=== PATIENT | male | born 1960 | race Caucasian/White ===

== ENCOUNTER → 2016-03-30 | Outpatient (CLI) | payer OTHER ==
--- NOTE | 2016-03-30 11:31 | REP ---
CHEST X-RAY: Two views. HISTORY: Tobacco use. Comparison radiographs are from February 11, 2012. FINDINGS: There are granulomatous calcific residuals in the left infrahilar and left base region unchanged from the 2012 prior study. The lungs are well inflated and otherwise clear. Pleural angles are sharp. Heart size is normal. Pulmonary vasculature is not increased. No bony lesion is seen. IMPRESSION: Old granulomatous changes. No active disease. Signed by Matt Santiago MD 03/30/2016 02:00 P
--- NOTE | 2016-04-01 00:42 | ECGEPIP ---
Stationary ECG Study [facility] Test Date: 2016-03-30 Pat Name: RAHUL MCKAY Department: Room: - Gender: M Card Runner: : 1960 Requested By: Colt José @ [facility] Order Number: [id number] Reading MD: Edward Guerrier Measurements Intervals [place] Rate: 84 P: 74 ID: [id number] QRS: 80 QRSD: 105 T: 76 QT: 360 QTc: 427 Interpretive Statements SINUS RHYTHM Incomplete right bundle branch block No prior tracing Electronically Signed On 04-01-2016 0:42:22 EST by Edward Guerrier
== END ==
LOC: M EKG 09:58
PROVIDERS: ATTEND Orthopaedic Surgery
DX: Z01.810 Encounter for preprocedural cardiovascular examination (principal)

== ENCOUNTER → 2016-06-26 | Outpatient (CLI) | payer OTHER | LOC: M WUC 08:15 | PROVIDERS: ATTEND Surgery | DX: Z85.038 Personal history of other malignant neoplasm of large intestine (principal) ==

== ENCOUNTER → 2016-06-26 | Outpatient (CLI) | payer OTHER ==
[2016-06-26 09:19] LABS: BASO # 0.1 K/mm3 (0.0-0.2); BASO % 0.9 % (0.0-1.0); EOS # 0.1 K/mm3 (0.0-0.50); EOS % 1.7 % (0.0-3.0); LARGE UNSTAINED CELL # 0.1 K/mm3 (0.0-0.4); LARGE UNSTAINED CELL % 1.9 % (0.0-4.0); LYMPH % 44.1 % (24.0-44.0); MEAN CORPUSCULAR HEMOGLOBIN 31.2 pg (27.0-33.0); MEAN CORPUSCULAR HGB CONC 34.6 g/dl (32.0-36.5); MEAN CORPUSCULAR VOLUME 90.2 fl (80.0-96.0); MONO # 0.3 K/mm3 (0.0-0.8); MONO % 4.5 % (0.0-5.0); NEUTROPHILS # 3.2 K/mm3 (1.8-7.7); NEUTROPHILS % 46.9 % (36.0-66.0); PLATELET COUNT, AUTOMATED 292 k/mm3 (150-450); RED CELL DISTRIBUTION WIDTH 13.2 % (11.5-14.5); WHITE BLOOD COUNT 6.8 K/mm3 (4.0-10.0)
[2016-06-26 09:44] LABS: ALBUMIN 3.6 GM/DL (3.2-5.2); ALBUMIN/GLOBULIN RATIO 1.16 (1.00-1.93); ALKALINE PHOSPHATASE 114 U/L (45-117); ALT/SGPT 25 U/L (12-78); ANION GAP 5 MEQ/L (8-16); AST/SGOT 15 U/L (15-37); BILIRUBIN,TOTAL 0.7 MG/DL (0.2-1.0); BLOOD UREA NITROGEN 12 MG/DL (7-18); CALCIUM LEVEL 8.8 MG/DL (8.5-10.1); CARBON DIOXIDE LEVEL 29 MEQ/L (21-32); CHLORIDE LEVEL 104 MEQ/L (98-107); CHOLESTEROL LEVEL 154 MG/DL (<200); CREATININE FOR GFR 0.97 MG/DL (0.70-1.30); GLOMERULAR FILTRATION RATE > 60.0 (>56); GLUCOSE, FASTING 99 MG/DL (70-105); POTASSIUM SERUM 4.6 MEQ/L (3.5-5.1); SODIUM LEVEL 138 MEQ/L (136-145); TOTAL PROTEIN 6.7 GM/DL (6.4-8.2); TRIGLYCERIDES LEVEL 147 MG/DL (<150)
== END ==
LOC: M WUC 08:17
PROVIDERS: ATTEND Nurse Practitioner Family
DX: Z85.030 Personal history of malignant carcinoid tumor of large intestine (principal); E78.5 Hyperlipidemia, unspecified; Z86.73 Personal history of transient ischemic attack (TIA), and cerebral infarction without residual deficits

== ENCOUNTER 2016-11-20 06:38 | Inpatient (IN) | payer OTHER ==
[~2016-11-20] VITALS: Ht 177.8 cm; Wt 93.2 kg
[2016-11-20] MEDS ORDERED: ASPI81CH PO (07:19)
[2016-11-20] MEDS ORDERED: LIPI20TA PO (07:19)
[2016-11-20] MEDS ORDERED: OXYCODONE PO (07:19)
[2016-11-20 07:23] LABS: BASO % 0.2 % (0.0-1.0); EOS # 0.3 K/mm3 (0.0-0.50); EOS % 1.9 % (0.0-3.0); LARGE UNSTAINED CELL # 0.1 K/mm3 (0.0-0.4); LARGE UNSTAINED CELL % 0.9 % (0.0-4.0); LYMPH # 0.8 K/mm3 (1.5-4.5); LYMPH % 5.1 % (24.0-44.0); MEAN CORPUSCULAR HGB CONC 34.2 g/dl (32.0-36.5); MEAN CORPUSCULAR VOLUME 87.8 fl (80.0-96.0); MONO # 0.7 K/mm3 (0.0-0.8); MONO % 5.3 % (0.0-5.0); NEUTROPHILS % 86.6 % (36.0-66.0); PLATELET COUNT, AUTOMATED 200 k/mm3 (150-450); RED CELL DISTRIBUTION WIDTH 13.2 % (11.5-14.5); WHITE BLOOD COUNT 13.9 K/mm3 (4.0-10.0)
[2016-11-20 07:48] LABS: ALBUMIN 3.2 GM/DL (3.2-5.2); ALBUMIN/GLOBULIN RATIO 0.73 (1.00-1.93); ALKALINE PHOSPHATASE 122 U/L (45-117); ALT/SGPT 19 U/L (12-78); AMYLASE 29 U/L (25-115); ANION GAP 9 MEQ/L (8-16); AST/SGOT 11 U/L (15-37); BILIRUBIN,DIRECT 0.9 MG/DL (0.0-0.2); BILIRUBIN,TOTAL 3.1 MG/DL (0.2-1.0); BLOOD UREA NITROGEN 13 MG/DL (7-18); CALCIUM LEVEL 9.1 MG/DL (8.5-10.1); CARBON DIOXIDE LEVEL 25 MEQ/L (21-32); CHLORIDE LEVEL 97 MEQ/L (98-107); CREATININE FOR GFR 1.02 MG/DL (0.70-1.30); GLOMERULAR FILTRATION RATE > 60.0 (>56); GLUCOSE, FASTING 118 MG/DL (70-105); POTASSIUM SERUM 3.8 MEQ/L (3.5-5.1); SODIUM LEVEL 131 MEQ/L (136-145); TOTAL PROTEIN 7.6 GM/DL (6.4-8.2)
[2016-11-20] MEDS ORDERED: ONDANSETRON 4MG/2ML VIAL (J2405) IV ONE (08:00)
[2016-11-20] MEDS ORDERED: HYDROmorphone HCL 1 MG/ML SYRINGE (J1170) IV PRN (08:00)
[2016-11-20] MEDS ORDERED: KETOROLAC 30 MG/ML VIAL (J1885) IV ONE (08:00)
--- NOTE | 2016-11-20 08:37 | REP ---
Abdominal right upper quadrant ultrasound: There is a positive Tatum's sign to transducer pressure. There is no cholelithiasis. The gallbladder wall is mildly thickened measuring up to 4.3 mm. There is no pericholecystic fluid. The finding is nonspecific and could represent gallbladder wall edema or fibrosis. There is no intrahepatic or extrahepatic biliary duct dilatation. The common duct measures 4.6 mm in diameter. The hepatic parenchyma is homogeneous and unremarkable. The the pancreas is obscured by bowel gas. There is no right renal hydronephrosis, calculus, mass or cyst. The right kidney is normal size measuring 11.7 cm craniocaudad length. There is no right upper quadrant ascites. Impression: There is mild gallbladder wall thickening measuring up to 4.3 mm. There is no pericholecystic fluid. There is no cholelithiasis or biliary duct dilatation. The gallbladder wall thickening is nonspecific and could be acute or chronic. Consider radionuclide biliary scan to evaluate for gallbladder dyskinesia. The the study is technically difficult, the patient unable to lie flat . The ultrasound is performed with the patient sitting , erect and semi decubitus. Signed by Arturo Sanchez MD 11/20/2016 08:28 A
[2016-11-20] MEDS ORDERED: GASTROGRAFIN SOLUTION 30ML (Q9963) As Ordered ONE (08:39)
[2016-11-20] MEDS ORDERED: GASTROGRAFIN SOLUTION 30ML (Q9963) PO ONE ×2 (08:50→09:20)
[2016-11-20] MEDS ORDERED: ISOVUE-370 76% 100ML VIAL (Q9967) As Ordered ONE (10:20)
--- NOTE | 2016-11-20 11:40 | REP ---
CT ABDOMEN AND PELVIS WITH ORAL AND IV CONTRAST: CT ABDOMEN AND PELVIS WITH CONTRAST: TECHNIQUE: Axial contrast enhanced images from the lung bases to the pubic symphysis using 100 mL Isovue 370 intravenous contrast material with multiplanar reformations. COMPARISON: 06/15/2016 Visualized lung bases demonstrate calcified granulomas inferiorly on the left. The liver is unremarkable in appearance. The spleen demonstrates a tiny calcified granulomas. There are stable bilateral adrenal nodules. The pancreas is unremarkable. There are a couple of left renal cysts without hydronephrosis. Atherosclerotic calcification are seen of the abdominal aorta without aneurysm. There is no adenopathy. Along the lateral aspect of the proximal duodenum is an oval area of fluid which measures 3.0 x 1.6 cm. There appears to be some degree of thickening of the proximal duodenum. Findings are likely related to peptic ulcer disease. There is adjacent streaky infiltration and inflammation of the surrounding fat. There may be some secondary gallbladder wall thickening due to this inflammatory change. There is no other evidence of free air or free fluid. No other bowel wall thickening is seen. No pelvis mass is seen. The urinary bladder is grossly unremarkable. There is a small left inguinal hernia containing fat. There are mild degenerative changes of the spine. IMPRESSION: Oval area of fluid along the lateral aspect of the proximal duodenum. Proximal duodenum appears somewhat thickened. Adjacent streaky inflammatory changes in the surrounding fat. Findings are likely related to peptic ulcer disease. No free air. There is probable thickening of the gallbladder wall, which is likely secondary to the inflammation from the peptic ulcer disease. Signed by Arturo Gold MD 11/20/2016 01:48 P
[2016-11-20] MEDS ORDERED: OXYC1TAB23 PO (11:45)
[2016-11-20] MEDS ORDERED: ASPI1TAB PO (11:45)
[2016-11-20] MEDS ORDERED: ADVI200T PO (11:46)
[2016-11-20] MEDS ORDERED: MORPHINE 4 MG/ML 1ML SYRINGE IV PRN (12:00)
[2016-11-20] MEDS ORDERED: ONDANSETRON 4MG/2ML VIAL (J2405) IV PRN (12:00)
[2016-11-20] MEDS ORDERED: BISACODYL 10 MG SUPP PR PRN (12:00)
[2016-11-20] MEDS: LR 1,000 ML IV SCH (12:07)
[2016-11-20] MEDS: PANTOPRAZOLE 40MG INJ (PROTONIX) (C9113) IV SCH ×2 (12:15→20:28)
[2016-11-20 13:30] VITALS: BP 150/78
[2016-11-20] MEDS: SUCRALFATE 1 GM TAB PO SCH ×3 (13:37→20:28)
[2016-11-20] MEDS: PIPERACILLIN/TAZOBACTAM SOD 3.375 GM in D5W MINI-BAG PLUS 50 ML IV SCH ×2 (13:37→18:53)
[2016-11-20] MEDS ORDERED: FLUCONAZOLE 400 MG in APPROPRIATE DILUENT 1 EA IV ONE (14:00)
--- NOTE | 2016-11-20 14:04 | HPE ---
DATE: 11/20/2016 CHIEF COMPLAINT: Abdominal pain. HISTORY OF PRESENT ILLNESS: The patient 56-year-old male presented emergency room with chief complaint of epigastric and upper abdominal pains that started over the weekend. He went to [facility], they diagnosed in with biliary colic and advised to followup with Dr. Mendoza in the office. However, he is unable to get an appointment anytime soon so he his pains got progressively worse last evening, he came back into the emergency room here for evaluation again. His pain has been fairly constant since Saturday, it was slightly improved Saturday, but then got worse again yesterday. He had some nausea, one episode of emesis and a fever this morning of over 101, other than that no changes in no diarrhea or constipation. No previous pain like this in the past. Denies any history of acid reflux or heartburn, but he does take a lot of ibuprofen. He smokes a pack a day. Occasional marijuana. Lots of spicy foods. In the ER he had an ultrasound done which showed dilated gallbladder as well as a hyperbilirubinemia, all the rest the LFTs were normal and the common bile duct was normal on the ultrasound as well. Because of that with his pain being as severe as it was, I had them order a CT of the abdomen which confirmed that there was also a duodenitis with inflammation and thickening of the first portion of duodenum with a 1 x 3 cm fluid collection adjacent to the duodenum, but no signs of any free air. PAST MEDICAL HISTORY: Colon cancer, gastroesophageal reflux disease (GERD), hypertension. PAST SURGICAL HISTORY: Right knee surgery, left knee surgery and a colon resection for colon cancer. EGD and colonoscopy 3 years ago. ALLERGIES: None. HOME MEDICATIONS: Please see med rec. REVIEW OF SYSTEMS: Per above, positives in HPI. SOCIAL HISTORY: He smokes a pack a day. He drinks alcohol socially. Denies any drug abuse other than the marijuana. REVIEW OF SYSTEMS: Pertinent positives and negative stated in the HPI. PHYSICAL EXAMINATION: General: Alert and oriented times three. In no acute stress. Vitals: Temperature 98.7, pulse 89, respirations 18, blood pressure 122/65, pulse ox 98% on room air. HEENT: Pupils equal round react to light accommodation. Heart: S1-S2 regular rate and rhythm. Lungs: Clear to auscultation bilaterally. Abdomen: Soft, tender to palpation epigastric periumbilically in the entire right side the abdomen with localized guarding and peritonitis. Extremities: No clubbing, cyanosis or edema. LABORATORY DATA: White count 13.9, hemoglobin 15.4, platelets 200, sodium 131, creatinine 1.02, total bilirubin 3.1, direct bilirubin 0.9, AST 11, alk phosphatase 1.2, lipase 63, amylase 29. IMAGING: Ultrasound of the abdomen shows a mildly gallbladder wall thickening up to 4.3 mm. No pericholecystic fluid. No cholelithiasis or biliary ductal dilatation. CT abdomen and pelvis shows atherosclerotic calcifications seen in the abdominal aorta without aneurysm along the lateral aspect of proximal duodenum is an oval area of fluid measuring 3 x 1.6 cm. There is some thickening of the proximal duodenum. There is adjacent streaky infiltration and inflammation of surrounding fat. ASSESSMENT/PLAN: The patient is a 56-year-old male history of tobacco abuse and colon cancer who presents with epigastric abdominal pain for the past [address] scan confirms inflammation and swelling with fluid collection adjacent to the duodenum likely related to a duodenal ulcer that has walled itself off and this is resulting in secondary inflammation of the gallbladder. Recommendation at this time is to treat with bowel rest, nothing by mouth, IV fluids antibiotics, and avoid placement of NG tube at this time. However, if he develops any nausea or vomiting then we will place one. He had ice chips and sips of water. Protonix twice a day IV. Carafate four times a day. Antibiotics and also a dose of antifungals due to the possible duodenal perforation. We will keep on this treatment for 48 hours, if he is showing signs of improvement then we will advance him to a liquid diet and discharge him home. However, if he shows any signs of decline with increasing abdominal pain, increasing fevers, or white count and then we will repeat x-ray. If it shows free air, then he will need an abdominal exploration for possible repair of an ulcer. I explained these findings in detail with him. We will plan on doing an elective upper endoscopy about 4 weeks from when he leaves the hospital to make sure that any of this inflammation and ulcer has resolved. I also talked to him about the causes of ulcers including his tobacco, alcohol, caffeine an [id number] medication usage, he was unaware that all these things cause problems and he will do his best to cut back on everything, his only concern is going to be the tobacco because he has tried to quit many times over the last 17 years and has been unsuccessful. Thank you for the consult.
[2016-11-20] MEDS: KETOROLAC 30 MG/ML VIAL (J1885) IV PRN ×2 (14:06→20:42)
[2016-11-20] MEDS: HEPARIN SOD (PORCINE) 5000 UNITS/ML VIAL SC SCH ×2 (15:30→20:42)
[2016-11-20 16:00] VITALS: BP 114/63
[2016-11-20] MEDS: NICOTINE 21MG/24HR 1 EA TRANSDERMAL TD SCH (17:02)
[2016-11-20 20:00] VITALS: BP 118/67
[2016-11-20] MEDS: ALBUTEROL 90 MCG/ACT 8GM HFA INHALER INH PRN (21:41)
[2016-11-21] VITALS: BP 103/58
[2016-11-21] MEDS: PIPERACILLIN/TAZOBACTAM SOD 3.375 GM in D5W MINI-BAG PLUS 50 ML IV SCH ×3 (00:33→12:51)
[2016-11-21] MEDS: KETOROLAC 30 MG/ML VIAL (J1885) IV PRN ×2 (02:37→08:33)
[2016-11-21] MEDS: LR 1,000 ML IV SCH ×2 (02:46→07:00)
[2016-11-21 04:00] VITALS: BP 111/61
[2016-11-21] MEDS: HEPARIN SOD (PORCINE) 5000 UNITS/ML VIAL SC SCH ×3 (06:52→21:43)
[2016-11-21 07:23] LABS: MEAN CORPUSCULAR HEMOGLOBIN 30.8 pg (27.0-33.0); MEAN CORPUSCULAR HGB CONC 35.2 g/dl (32.0-36.5); MEAN CORPUSCULAR VOLUME 87.6 fl (80.0-96.0); RED CELL DISTRIBUTION WIDTH 13.1 % (11.5-14.5); WHITE BLOOD COUNT 8.2 K/mm3 (4.0-10.0)
[2016-11-21 07:42] LABS: ALBUMIN 2.4 GM/DL (3.2-5.2); ALBUMIN/GLOBULIN RATIO 0.73 (1.00-1.93); ALKALINE PHOSPHATASE 121 U/L (45-117); ALT/SGPT 18 U/L (12-78); ANION GAP 7 MEQ/L (8-16); AST/SGOT 15 U/L (15-37); BILIRUBIN,TOTAL 1.9 MG/DL (0.2-1.0); BLOOD UREA NITROGEN 24 MG/DL (7-18); CALCIUM LEVEL 8.2 MG/DL (8.5-10.1); CARBON DIOXIDE LEVEL 29 MEQ/L (21-32); CHLORIDE LEVEL 98 MEQ/L (98-107); CREATININE FOR GFR 1.18 MG/DL (0.70-1.30); GLOMERULAR FILTRATION RATE > 60.0 (>56); GLUCOSE, FASTING 90 MG/DL (70-105); MAGNESIUM LEVEL 2.4 MG/DL (1.8-2.4); POTASSIUM SERUM 3.8 MEQ/L (3.5-5.1); SODIUM LEVEL 134 MEQ/L (136-145); TOTAL PROTEIN 5.7 GM/DL (6.4-8.2)
[2016-11-21] MEDS ORDERED: NS 1,000 ML IV ONE (07:45)
[2016-11-21 08:00] VITALS: BP 133/73
[2016-11-21] MEDS: PANTOPRAZOLE 40MG INJ (PROTONIX) (C9113) IV SCH ×2 (08:19→20:28)
[2016-11-21] MEDS: DICYCLOMINE 10 MG CAP PO SCH ×3 (08:19→20:28)
[2016-11-21] MEDS: SUCRALFATE 1 GM TAB PO SCH ×4 (08:19→20:28)
[2016-11-21] MEDS: NICOTINE 21MG/24HR 1 EA TRANSDERMAL TD SCH (08:20)
[2016-11-21] MEDS: KCL 10MEQ IN D5/0.45NS 1000ML 1,000 ML IV SCH ×3 (08:20→22:51)
[2016-11-21] MEDS: metroNIDAZOLE 500 MG in APPROPRIATE DILUENT 1 EA IV SCH ×2 (13:40→21:04)
[2016-11-21] MEDS: ALBUTEROL 90 MCG/ACT 8GM HFA INHALER INH PRN ×2 (15:28→22:49)
[2016-11-21 16:00] VITALS: BP 118/58
[2016-11-21] MEDS: VANCOMYCIN ORAL SOL 250MG/5ML ORAL SYRINGE PO SCH ×2 (16:42→20:28)
[2016-11-21] MEDS: ACETAMINOPHEN TAB 650MG DOSE (2X325MG) PO PRN ×2 (16:43→21:43)
[2016-11-21 20:00] VITALS: BP 118/68
[2016-11-22] MEDS: HEPARIN SOD (PORCINE) 5000 UNITS/ML VIAL SC SCH ×3 (05:37→22:06)
[2016-11-22] MEDS: metroNIDAZOLE 500 MG in APPROPRIATE DILUENT 1 EA IV SCH (05:38)
[2016-11-22] MEDS: KCL 10MEQ IN D5/0.45NS 1000ML 1,000 ML IV SCH ×3 (05:38→20:22)
[2016-11-22 06:00] VITALS: BP 120/64
[2016-11-22 07:22] LABS: MEAN CORPUSCULAR HGB CONC 35.2 g/dl (32.0-36.5); MEAN CORPUSCULAR VOLUME 88.1 fl (80.0-96.0); RED CELL DISTRIBUTION WIDTH 13.3 % (11.5-14.5); WHITE BLOOD COUNT 8.1 K/mm3 (4.0-10.0)
[2016-11-22 07:28] LABS: ALBUMIN 2.1 GM/DL (3.2-5.2); ALBUMIN/GLOBULIN RATIO 0.54 (1.00-1.93); ALKALINE PHOSPHATASE 179 U/L (45-117); ALT/SGPT 18 U/L (12-78); ANION GAP 7 MEQ/L (8-16); AST/SGOT 23 U/L (15-37); BILIRUBIN,TOTAL 1.3 MG/DL (0.2-1.0); BLOOD UREA NITROGEN 17 MG/DL (7-18); CALCIUM LEVEL 8.5 MG/DL (8.5-10.1); CARBON DIOXIDE LEVEL 27 MEQ/L (21-32); CHLORIDE LEVEL 105 MEQ/L (98-107); CREATININE FOR GFR 0.96 MG/DL (0.70-1.30); GLOMERULAR FILTRATION RATE > 60.0 (>56); GLUCOSE, FASTING 92 MG/DL (70-105); MAGNESIUM LEVEL 2.3 MG/DL (1.8-2.4); POTASSIUM SERUM 3.8 MEQ/L (3.5-5.1); SODIUM LEVEL 139 MEQ/L (136-145)
[2016-11-22 08:30] VITALS: BP 118/78
[2016-11-22] MEDS: VANCOMYCIN ORAL SOL 250MG/5ML ORAL SYRINGE PO SCH (09:00)
[2016-11-22] MEDS: SUCRALFATE 1 GM TAB PO SCH ×4 (09:00→20:21)
[2016-11-22] MEDS: PIPERACILLIN/TAZOBACTAM SOD 3.375 GM in D5W MINI-BAG PLUS 50 ML IV SCH ×3 (09:00→20:21)
[2016-11-22] MEDS: DICYCLOMINE 10 MG CAP PO SCH ×3 (09:00→20:21)
[2016-11-22] MEDS: PANTOPRAZOLE 40MG INJ (PROTONIX) (C9113) IV SCH ×2 (09:00→20:21)
[2016-11-22] MEDS: NICOTINE 21MG/24HR 1 EA TRANSDERMAL TD SCH (09:01)
[2016-11-22 16:17] VITALS: BP 135/70
[2016-11-22 20:00] VITALS: BP 140/88
[2016-11-23] VITALS: BP 121/61
[2016-11-23] MEDS: PIPERACILLIN/TAZOBACTAM SOD 3.375 GM in D5W MINI-BAG PLUS 50 ML IV SCH ×4 (02:00→20:07)
[2016-11-23] MEDS: KCL 10MEQ IN D5/0.45NS 1000ML 1,000 ML IV SCH ×4 (05:48→19:45)
[2016-11-23] MEDS: HEPARIN SOD (PORCINE) 5000 UNITS/ML VIAL SC SCH ×3 (05:52→21:17)
[2016-11-23 07:06] LABS: MEAN CORPUSCULAR HGB CONC 34.9 g/dl (32.0-36.5); MEAN CORPUSCULAR VOLUME 88.8 fl (80.0-96.0); RED CELL DISTRIBUTION WIDTH 13.6 % (11.5-14.5); WHITE BLOOD COUNT 10.3 K/mm3 (4.0-10.0)
[2016-11-23 07:31] LABS: ALBUMIN 2.2 GM/DL (3.2-5.2); ALBUMIN/GLOBULIN RATIO 0.54 (1.00-1.93); ALKALINE PHOSPHATASE 197 U/L (45-117); ALT/SGPT 22 U/L (12-78); ANION GAP 9 MEQ/L (8-16); AST/SGOT 29 U/L (15-37); BLOOD UREA NITROGEN 10 MG/DL (7-18); CALCIUM LEVEL 8.6 MG/DL (8.5-10.1); CARBON DIOXIDE LEVEL 25 MEQ/L (21-32); CHLORIDE LEVEL 106 MEQ/L (98-107); CREATININE FOR GFR 0.88 MG/DL (0.70-1.30); GLOMERULAR FILTRATION RATE > 60.0 (>56); GLUCOSE, FASTING 95 MG/DL (70-105); MAGNESIUM LEVEL 2.3 MG/DL (1.8-2.4); POTASSIUM SERUM 3.4 MEQ/L (3.5-5.1); SODIUM LEVEL 140 MEQ/L (136-145); TOTAL PROTEIN 6.3 GM/DL (6.4-8.2)
[2016-11-23 08:00] VITALS: BP 136/83
[2016-11-23] MEDS ORDERED: GASTROGRAFIN SOLUTION 30ML PO ONE (08:20)
[2016-11-23] MEDS ORDERED: GASTROGRAFIN SOLUTION 30ML (Q9963) PO ONE (08:50)
[2016-11-23] MEDS ORDERED: ISOVUE-370 76% 100ML VIAL (Q9967) As Ordered ONE (10:05)
[2016-11-23] MEDS: PANTOPRAZOLE 40MG INJ (PROTONIX) (C9113) IV SCH ×2 (10:27→20:08)
[2016-11-23] MEDS: SUCRALFATE 1 GM TAB PO SCH ×4 (10:27→20:08)
[2016-11-23] MEDS: NICOTINE 21MG/24HR 1 EA TRANSDERMAL TD SCH (10:27)
[2016-11-23] MEDS: DICYCLOMINE 10 MG CAP PO SCH ×3 (10:31→20:07)
--- NOTE | 2016-11-23 10:42 | REP ---
CT of the abdomen and pelvis with IV and oral contrast: Comparison is 11/20/2016. The previously identified focal fluid collection lateral to the descending portion of the duodenum is again identified and has increased in size and is interposed between the ascending portion of the duodenum and gallbladder today measuring 3.2 by 2.2 cm (previously 3.0 x 1.6 cm). Mild thickening of the adjacent gallbladder wall is again identified, as previously. There is no free intraperitoneal air. There is no peripancreatic inflammation or fluid. The visualized lung coburn are unremarkable. There are no pleural effusions. The hepatic parenchyma is homogeneous and unremarkable. Spleen is normal size. There are splenic calcified granulomas. I suspect there are bilateral adrenal nodules, not significantly changed from a prior study of 08/27/2014. There is a parapelvic cyst in the left kidney, unchanged. There is a small renal cortical cyst in the left kidney, not significantly changed. There is no bowel distension or obstruction. There is no ascites. The abdominal aorta is unremarkable. Pelvis: The pelvic bowel loops are unremarkable. I suspect the the patient has a right hemicolectomy. There is no adenopathy or ascites. The bladder is unremarkable. There is wall thickening of the sigmoid colon. This is nonspecific and could be artifact from under distension or could be evidence for colitis. Impression: There is a focal fluid collection interposed between the gallbladder and lateral wall of the duodenum. This has increased in size. Mild gallbladder wall thickening is again identified, unchanged. There is mild induration of the mesenteric fat in the adjacent to this fluid collection. There is no peripancreatic fluid or inflammation. There are findings compatible with colitis of the sigmoid colon versus artifact from under distension. No ascites or adenopathy. No pneumoperitoneum. There are other chronic stable findings as described. Signed by Arturo Sanchez MD 11/23/2016 10:34 A
[2016-11-23] MEDS ORDERED: LIDOCAINE 1% MDV 20ML VIAL As Ordered ONE (12:22)
[2016-11-23] MEDS ORDERED: ISOVUE-300 61% 50ML VIAL (Q9967) As Ordered ONE (12:34)
--- NOTE | 2016-11-23 15:11 | REP ---
ULTRASOUND-GUIDED ABDOMINAL ABSCESS DRAIN: The procedure was performed under the direct supervision of Dr. Gold. The patient has a history of abdominal abscess seen on the previous CT scan performed earlier today. The risks and benefits of the procedure were explained to the patient and informed consent was obtained. The abdominal abscess was localized using ultrasound guidance. The skin was prepped and draped in a sterile fashion. 1% Xylocaine was used as a local anesthetic. Using ultrasound guidance, a 10-Syrian Skater APDL catheter was inserted using trocar technique. 35 mL of brown/green fluid was withdrawn and sent to the lab. The abscess cavity was flushed with three 10 mL aliquots of sterile saline. 20 mL of a solution containing 5 mL of sterile saline and 10 mL of Isovue 300 was injected. There was no evidence of communication with the bowel. The cavity was then flushed with two 10 mL aliquots of sterile saline. The catheter was affixed to the skin and a sterile dressing was applied. The catheter was connected to a gravity drainage bag. The patient tolerated the procedure well and there no immediate complications. 0.3 minutes of fluoroscopy time was utilized with this procedure. Reviewed by BRITTANY Roman 11/23/2016 04:06 PEdited and Signed by Arturo Gold MD 11/23/2016 07:21 P
[2016-11-23 15:19] VITALS: BP 140/81
[2016-11-23 20:00] VITALS: BP 121/74
[2016-11-24] VITALS: BP 115/74
[2016-11-24 04:00] VITALS: BP 135/79
[2016-11-24] MEDS: HEPARIN SOD (PORCINE) 5000 UNITS/ML VIAL SC SCH (05:03)
[2016-11-24 06:47] LABS: MEAN CORPUSCULAR HEMOGLOBIN 30.4 pg (27.0-33.0); MEAN CORPUSCULAR HGB CONC 34.5 g/dl (32.0-36.5); MEAN CORPUSCULAR VOLUME 88.1 fl (80.0-96.0); RED CELL DISTRIBUTION WIDTH 13.6 % (11.5-14.5)
[2016-11-24 07:13] LABS: ALBUMIN 2.3 GM/DL (3.2-5.2); ALKALINE PHOSPHATASE 204 U/L (45-117); ALT/SGPT 39 U/L (12-78); ANION GAP 7 MEQ/L (8-16); AST/SGOT 57 U/L (15-37); BILIRUBIN,TOTAL 0.7 MG/DL (0.2-1.0); BLOOD UREA NITROGEN 10 MG/DL (7-18); CALCIUM LEVEL 8.4 MG/DL (8.5-10.1); CARBON DIOXIDE LEVEL 29 MEQ/L (21-32); CHLORIDE LEVEL 106 MEQ/L (98-107); CREATININE FOR GFR 0.76 MG/DL (0.70-1.30); GLOMERULAR FILTRATION RATE > 60.0 (>56); GLUCOSE, FASTING 90 MG/DL (70-105); MAGNESIUM LEVEL 2.3 MG/DL (1.8-2.4); POTASSIUM SERUM 3.8 MEQ/L (3.5-5.1); SODIUM LEVEL 142 MEQ/L (136-145); TOTAL PROTEIN 5.6 GM/DL (6.4-8.2)
[2016-11-24 08:00] VITALS: BP 139/80
[2016-11-24] MEDS: SUCRALFATE 1 GM TAB PO SCH (08:09)
[2016-11-24] MEDS: DICYCLOMINE 10 MG CAP PO SCH (08:09)
[2016-11-24] MEDS: NICOTINE 21MG/24HR 1 EA TRANSDERMAL TD SCH (08:10)
[2016-11-24] MEDS ORDERED: OMEPRAZOLE 20 MG CAP PO SCH (09:00)
[2016-11-24] MEDS ORDERED: AUGMENTIN 500 MG TAB PO SCH (09:00)
[2016-11-24] MEDS ORDERED: AMOX500T2 PO (10:32)
[2016-11-24] MEDS ORDERED: OMEP20CA3 PO (10:32)
--- NOTE | 2016-12-14 15:38 | DSES ---
DATE OF ADMISSION: 11/20/2016 DATE OF DISCHARGE: 11/24/2016 ADMISSION DIAGNOSIS: Likely perforated duodenal ulcer. DISCHARGE DIAGNOSIS: Likely perforated duodenal ulcer. HOSPITAL COURSE: The patient is a 56-year-old male who presented to the emergency room on 11/20/2016, with epigastric abdominal pain. I was called to evaluate for possible cholecystitis since he had elevated liver function tests (LFTs) as well as some gallbladder wall thickening. However, his history was not suspicious for gallbladder disease, it was more suspicious for duodenal inflammation and possible ulcer so a CT scan was obtained which confirmed that there was duodenal inflammation as well as a 3 x 1.6 cm fluid collection adjacent to the duodenum. He was then treated as a contained perforation of a duodenal ulcer, was kept nothing by mouth on IV fluids and antibiotics as well as a dose of antifungals. After the first couple of days, his white count was improving but his LFTs were continuing to get worse. Therefore a repeat CT scan was obtained on 11/23/2016, which showed that the fluid collection was still there. Interventional radiology was consulted. I spoke with Dr. Gold who felt that he was able to drain it, so on Saturday11/23/2016, he had an ultrasound-guided drain placed which confirmed a little bile stained fluid collection. The drain was left in place. He was started on a diet without any signs of increase in drainage from the collection. He was then discharged home the next morning, 11/24/2016, with the drain in place to followup in our office a couple of days later. No problems with any pains after 11/23/2016. No fevers or chills. No problems with diarrhea or constipation. He was discharged home the morning of 11/24/2016, on a soft diet, and advised to call if there was any changes in the output from the drain and he was given our office number to come back in on Saturday to have the drain removed.
== END 2016-11-24 11:40 | disposition home or self-care (01) | DRG 382 ==
LOC: M ED 06:38 → M ED INP 11:56 → M PED 13:28
PROVIDERS: ADMIT Surgery; ATTEND Surgery
PROC: 0W9G30Z Drainage of Peritoneal Cavity with Drainage Device, Percutaneous Approach (ICD-10-PCS; principal; 2016-11-23)
DX: K26.5 Chronic or unspecified duodenal ulcer with perforation (principal); K21.9 Gastro-esophageal reflux disease without esophagitis; I10 Essential (primary) hypertension; Z85.038 Personal history of other malignant neoplasm of large intestine

== ENCOUNTER 2017-01-30 07:51 | Day surgery (SDC) | payer OTHER ==
[~2017-01-30] VITALS: Ht 177.8 cm; Wt 90.7 kg
[~2017-01-30 07:51] MED LIST: ADVI200T PO; AMOX500T2 PO; ASPI1TAB PO; ASPI81CH PO; LIPI20TA PO; OMEP20CA3 PO; OXYC1TAB23 PO; OXYCODONE PO
[2017-01-30] MEDS ORDERED: fentaNYL 100 MCG/2 ML INJECTION (J3010) As Ordered ONE (08:37)
[2017-01-30] MEDS ORDERED: NS 1,000 ML IV ONE (08:45)
[2017-01-30] MEDS ORDERED: PROPOFOL 200 MG/20 ML VIAL As Ordered ONE (09:01)
[2017-01-30] MEDS ORDERED: LIDOCAINE 2% INJ 100 MG/5 ML SDV (FOR ANES.) As Ordered ONE (09:01)
--- NOTE | 2017-01-30 09:07 | ROOR ---
Patient Name: Jacky Pate Procedure Date: 01/30/2017 8:50 AM Date of : 1960 Age: 56 Room: [facility] Gender: Male Note Status: Finalized Procedure: Upper GI endoscopy Indications: Follow-up of acute duodenal ulcer Providers: DO Mona Alejandre MD: Lynn Sanon Requesting Provider: Medicines: Propofol per Anesthesia Complications: No immediate complications. Procedure: Pre-Anesthesia Assessment: - Prior to the procedure, a History and Physical was performed, and patient medications and allergies were reviewed. The patient is competent. The risks and benefits of the procedure and the sedation options and risks were discussed with the patient. All questions were answered and informed consent was obtained. Patient identification and proposed procedure were verified by the physician, the nurse, the anesthesiologist and the machine shop repair technician in the endoscopy suite. Mental Status Examination: alert and oriented. Airway Examination: normal oropharyngeal airway and neck mobility. Respiratory Examination: clear to auscultation. CV Examination: normal. Prophylactic Antibiotics: The patient does not require prophylactic antibiotics. Prior Anticoagulants: The patient has taken no previous anticoagulant or antiplatelet agents. ASA Grade Assessment: II - A patient with mild systemic disease. After reviewing the risks and benefits, the patient was deemed in satisfactory condition to undergo the procedure. The anesthesia plan was to use monitored anesthesia care (MAC). Immediately prior to administration of medications, the patient was re-assessed for adequacy to receive sedatives. The heart rate, respiratory rate, oxygen saturations, blood pressure, adequacy of pulmonary ventilation, and response to care were monitored throughout the procedure. The physical status of the patient was re-assessed after the procedure. The Endoscope was introduced through the mouth, and advanced to the third part of duodenum. The upper GI endoscopy was accomplished without difficulty. The patient tolerated the procedure well. Findings: Scattered mild inflammation characterized by congestion (edema) and erythema was found in the stomach. Estimated blood loss: none. The examined duodenum was normal. Biopsies were taken with a cold forceps for Helicobacter pylori testing. Estimated blood loss was minimal. The Z-line was irregular. Biopsies were taken with a cold forceps for histology. Estimated blood loss was minimal. The exam was otherwise without abnormality. Impression: - Gastritis. - Normal examined duodenum. Biopsied. - Z-line irregular. Biopsied. - The examination was otherwise normal. Recommendation: - Patient has a contact number available for emergencies. The signs and symptoms of potential delayed complications were discussed with the patient. Return to normal activities tomorrow. Written discharge instructions were provided to the patient. - Telephone my office for pathology results in 1 week. Arturo Vargas DO 01/30/2017 9:06:37 AM This report has been signed electronically. Number of Addenda: 0 Note Initiated On: 01/30/2017 8:50 AM Estimated Blood Loss: Estimated blood loss was minimal.
[2017-01-30 09:30] VITALS: BP 144/92
== END 2017-01-30 09:46 | disposition home or self-care (01) ==
LOC: M OPP 07:51
PROVIDERS: ATTEND Surgery
DX: K26.1 Acute duodenal ulcer with perforation (principal); K22.8 Other specified diseases of esophagus; K29.70 Gastritis, unspecified, without bleeding; I10 Essential (primary) hypertension; E78.5 Hyperlipidemia, unspecified; Z85.038 Personal history of other malignant neoplasm of large intestine; K59.00 Constipation, unspecified; R12 Heartburn; K21.9 Gastro-esophageal reflux disease without esophagitis; M19.90 Unspecified osteoarthritis, unspecified site; Z86.73 Personal history of transient ischemic attack (TIA), and cerebral infarction without residual deficits; F17.210 Nicotine dependence, cigarettes, uncomplicated; Z79.899 Other long term (current) drug therapy; Z79.82 Long term (current) use of aspirin
CPT/HCPCS: 43239; 88305; J3010

== ENCOUNTER → 2017-04-17 | Outpatient (CLI) | payer OTHER ==
[2017-04-19 11:47] LABS: CARCINOEMBRYONIC ANTIGEN 3.8 NG/ML (<2.5)
== END ==
LOC: M WUC 09:22
DX: Z85.038 Personal history of other malignant neoplasm of large intestine (principal)

== ENCOUNTER → 2017-04-17 | Outpatient (CLI) | payer OTHER ==
[2017-04-17 13:25] LABS: HEMATOCRIT 46.8 % (42.0-52.0); HEMOGLOBIN 15.6 g/dl (14.0-18.0); MEAN CORPUSCULAR HEMOGLOBIN 29.2 pg (27.0-33.0); MEAN CORPUSCULAR HGB CONC 33.3 g/dl (32.0-36.5); MEAN CORPUSCULAR VOLUME 87.5 fl (80.0-96.0); PLATELET COUNT, AUTOMATED 373 10^3/uL (150-450); RED BLOOD COUNT 5.35 10^6/uL (4.30-6.10); RED CELL DISTRIBUTION WIDTH 13.1 % (11.5-14.5); WHITE BLOOD COUNT 10.6 10^3/uL (4.0-10.0)
[2017-04-17 14:08] LABS: ALBUMIN 3.7 GM/DL (3.2-5.2); ALBUMIN/GLOBULIN RATIO 1.09 (1.00-1.93); ALKALINE PHOSPHATASE 129 U/L (45-117); ALT/SGPT 19 U/L (12-78); ANION GAP 5 MEQ/L (8-16); AST/SGOT 11 U/L (7-37); BILIRUBIN,TOTAL 0.6 MG/DL (0.2-1.0); BLOOD UREA NITROGEN 11 MG/DL (7-18); CALCIUM LEVEL 9.4 MG/DL (8.5-10.1); CARBON DIOXIDE LEVEL 30 MEQ/L (21-32); CHLORIDE LEVEL 104 MEQ/L (98-107); CHOLESTEROL LEVEL 154 MG/DL (<200); CREATININE FOR GFR 0.92 MG/DL (0.70-1.30); GLOMERULAR FILTRATION RATE > 60.0 (>56); GLUCOSE, FASTING 101 MG/DL (70-100); HDL CHOLESTEROL 40 MG/DL (>40); NON-HDL-C 114 MG/DL; POTASSIUM SERUM 4.9 MEQ/L (3.5-5.1); PROSTATIC SPECIFIC AG MONITOR 0.73 NG/ML (< 4.0); SODIUM LEVEL 139 MEQ/L (136-145); TOTAL PROTEIN 7.1 GM/DL (6.4-8.2); TRIGLYCERIDES LEVEL 150 MG/DL (<150)
== END ==
LOC: M WUC 09:18
DX: Z12.5 Encounter for screening for malignant neoplasm of prostate (principal)

== ENCOUNTER → 2017-11-22 | Outpatient (REF) | payer OTHER ==
[2017-11-22 13:42] LABS: ALBUMIN 3.6 GM/DL (3.2-5.2); ALKALINE PHOSPHATASE 114 U/L (45-117); ALT/SGPT 22 U/L (12-78); ANION GAP 7 MEQ/L (8-16); AST/SGOT 18 U/L (7-37); BILIRUBIN,TOTAL 0.9 MG/DL (0.2-1.0); BLOOD UREA NITROGEN 16 MG/DL (7-18); CALCIUM LEVEL 8.8 MG/DL (8.5-10.1); CARBON DIOXIDE LEVEL 26 MEQ/L (21-32); CHLORIDE LEVEL 107 MEQ/L (98-107); CHOLESTEROL LEVEL 209 MG/DL (<200); CHOLESTEROL RISK RATIO 5.971 (<5); CREATININE FOR GFR 1.01 MG/DL (0.70-1.30); GLOMERULAR FILTRATION RATE > 60.0 (>56); GLUCOSE, FASTING 95 MG/DL (70-100); HDL CHOLESTEROL 35 MG/DL (>40); LDL CHOLESTEROL 146 MG/DL (<100); NON-HDL-C 174 MG/DL; POTASSIUM SERUM 5.1 MEQ/L (3.5-5.1); SODIUM LEVEL 140 MEQ/L (136-145); TOTAL PROTEIN 7.2 GM/DL (6.4-8.2); TRIGLYCERIDES LEVEL 140 MG/DL (<150)
== END ==
LOC: M LAB REF 12:28
DX: E78.5 Hyperlipidemia, unspecified (principal)

== ENCOUNTER → 2017-12-02 | Outpatient (CLI) | payer OTHER | LOC: M RAD 15:47 | DX: R05 Cough (principal); Z85.038 Personal history of other malignant neoplasm of large intestine | CPT/HCPCS: 71250 ==

== ENCOUNTER → 2017-12-06 | Outpatient (REF) | payer OTHER ==
[2017-12-06 18:31] LABS: BASO # 0.1 10^3/uL (0.0-0.2); BASO % 0.9 % (0.0-1.0); EOS # 0.2 10^3/uL (0.0-0.50); EOS % 2.5 % (0.0-3.0); HEMATOCRIT 46.5 % (42.0-52.0); HEMOGLOBIN 15.8 g/dl (13.5-17.5); IMMATURE GRANULOCYTE % 0.1 % (0-3.0); LYMPH # 3.8 10^3/uL (1.5-4.5); LYMPH % 47.1 % (24.0-44.0); MEAN CORPUSCULAR HEMOGLOBIN 29.9 pg (27.0-33.0); MEAN CORPUSCULAR VOLUME 87.9 fl (80.0-96.0); MONO # 0.5 10^3/uL (0.0-0.8); MONO % 6.1 % (0.0-5.0); NEUTROPHILS # 3.5 10^3/uL (1.8-7.7); NEUTROPHILS % 43.3 % (36.0-66.0); PLATELET COUNT, AUTOMATED 313 10^3/uL (150-450); RED BLOOD COUNT 5.29 10^6/uL (4.30-6.10); RED CELL DISTRIBUTION WIDTH 13.2 % (11.5-14.5); WHITE BLOOD COUNT 8.1 10^3/uL (4.0-10.0)
[2017-12-06 19:03] LABS: PROSTATIC SPECIFIC AG MONITOR 0.39 NG/ML (< 4.0)
[2017-12-06 19:12] LABS: TESTOSTERONE 212 NG/DL (241-827)
== END ==
LOC: M LAB REF 17:30
DX: N52.01 Erectile dysfunction due to arterial insufficiency (principal)

== ENCOUNTER → 2017-12-11 | Outpatient (REF) | payer OTHER ==
[2017-12-11 14:26] LABS: TESTOSTERONE 231 NG/DL (241-827)
== END ==
LOC: M LAB REF 13:16
DX: R79.89 Other specified abnormal findings of blood chemistry (principal)
CPT/HCPCS: 84403

== ENCOUNTER 2018-02-13 09:28 | Day surgery (SDC) | payer OTHER ==
[~2018-02-13] VITALS: Ht 179.1 cm; Wt 91.2 kg
[~2018-02-13 09:28] MED LIST changes: +NS 1,000 ML IV ONE; +PROAAER10 INH
[2018-02-13] MEDS ORDERED: LIDOCAINE 2% INJ 100 MG/5 ML SDV (FOR ANES.) As Ordered ONE (10:19)
[2018-02-13] MEDS ORDERED: PROPOFOL 200 MG/20 ML VIAL As Ordered ONE (10:19)
--- NOTE | 2018-02-13 10:43 | ROOR ---
Patient Name: Jacky Pate Procedure Date: 02/13/2018 10:15 AM Date of : 1960 Age: 57 Room: [facility] Gender: Male Note Status: Finalized Procedure: Colonoscopy Indications: High risk colon cancer surveillance: Personal history of colon cancer Providers: Carter Mendoza Jr, MD Referring MD: Sascha ADKINS MD Requesting Provider: Medicines: Propofol per Anesthesia Complications: No immediate complications. Procedure: Pre-Anesthesia Assessment: - Prior to the procedure, a History and Physical was performed, and patient medications and allergies were reviewed. The patient is competent. The risks and benefits of the procedure and the sedation options and risks were discussed with the patient. All questions were answered and informed consent was obtained. Patient identification and proposed procedure were verified by the physician and the nurse in the pre-procedure area and in the procedure room. Mental Status Examination: alert and oriented. Airway Examination: normal oropharyngeal airway and neck mobility. Respiratory Examination: clear to auscultation. CV Examination: normal. ASA Grade Assessment: II - A patient with mild systemic disease. After reviewing the risks and benefits, the patient was deemed in satisfactory condition to undergo the procedure. The anesthesia plan was to use moderate sedation / analgesia (conscious sedation). Immediately prior to administration of medications, the patient was re-assessed for adequacy to receive sedatives. The heart rate, respiratory rate, oxygen saturations, blood pressure, adequacy of pulmonary ventilation, and response to care were monitored throughout the procedure. The physical status of the patient was re-assessed after the procedure. The Colonoscope was introduced through the anus and advanced to the ileocolonic anastomosis. The colonoscopy was performed without difficulty. The patient tolerated the procedure well. The quality of the bowel preparation was adequate. Findings: The rectum, descending colon and anastomosis appeared normal. Four polyps were found in the recto-sigmoid colon, sigmoid colon and transverse colon. The polyps were small in size. These polyps were removed with a hot snare. Resection and retrieval were complete. Impression: - The rectum, descending colon and colonic anastomosis are normal. - Four small polyps at the recto-sigmoid colon, in the sigmoid colon and in the transverse colon, removed with a hot snare. Resected and retrieved. Recommendation: - Discharge patient to home (ambulatory). - Repeat colonoscopy in 3 - 5 years for surveillance. Carter Mendoza MD Carter Mendoza Jr, MD 02/13/2018 10:42:30 AM This report has been signed electronically. Number of Addenda: 0 Note Initiated On: 02/13/2018 10:15 AM Estimated Blood Loss: Estimated blood loss: none.
[2018-02-13 11:03] VITALS: BP 127/72
== END 2018-02-13 11:05 | disposition home or self-care (01) ==
LOC: M OPP 09:28
PROVIDERS: ATTEND Surgery
DX: D12.3 Benign neoplasm of transverse colon (principal); D12.7 Benign neoplasm of rectosigmoid junction; D12.5 Benign neoplasm of sigmoid colon; Z98.0 Intestinal bypass and anastomosis status; Z85.038 Personal history of other malignant neoplasm of large intestine

== ENCOUNTER → 2018-03-05 | Outpatient (CLI) | payer OTHER ==
[~2018-03-05] MED LIST changes: -NS 1,000 ML IV ONE
== END ==
LOC: M WUC 13:02
PROVIDERS: ATTEND Surgery
DX: Z85.038 Personal history of other malignant neoplasm of large intestine (principal)

== ENCOUNTER → 2018-05-12 | Outpatient (REF) | payer OTHER ==
[2018-05-12 13:20] LABS: BASO % 0.5 % (0.0-1.0); EOS # 0.3 10^3/uL (0.0-0.50); EOS % 4.1 % (0.0-3.0); HEMATOCRIT 47.6 % (42.0-52.0); HEMOGLOBIN 15.9 g/dl (13.5-17.5); LYMPH # 2.7 10^3/uL (1.5-4.5); LYMPH % 33.2 % (24.0-44.0); MEAN CORPUSCULAR HEMOGLOBIN 29.5 pg (27.0-33.0); MEAN CORPUSCULAR HGB CONC 33.4 g/dl (32.0-36.5); MEAN CORPUSCULAR VOLUME 88.3 fl (80.0-96.0); MONO # 0.4 10^3/uL (0.0-0.8); MONO % 4.3 % (0.0-5.0); NEUTROPHILS # 4.7 10^3/uL (1.8-7.7); NEUTROPHILS % 57.7 % (36.0-66.0); PLATELET COUNT, AUTOMATED 301 10^3/uL (150-450); RED BLOOD COUNT 5.39 10^6/uL (4.30-6.10); WHITE BLOOD COUNT 8.1 10^3/uL (4.0-10.0)
[2018-05-12 13:33] LABS: APPEARANCE, URINE CLEAR (CLEAR); BACTERIA, URINE AUTO NEGATIVE (NEGATIVE); BILIRUBIN, URINE AUTO NEGATIVE (NEGATIVE); BLOOD, URINE BLOOD NEGATIVE (NEGATIVE); COLOR, URINE YELLOW (YELLOW); GLUCOSE, URINE (UA) AUTO NEGATIVE (NEGATIVE); KETONE, URINE AUTO TRACE mg/dL (NEGATIVE); LEUKOCYTE ESTERASE, URINE AUTO NEGATIVE (NEGATIVE); MUCUS, URINE SMALL (NEGATIVE); NITRITE, URINE AUTO NEGATIVE (NEGATIVE); PROTEIN, URINE AUTO NEGATIVE (NEGATIVE); RBC, URINE AUTO 0 /HPF (0-3); SPECIFIC GRAVITY URINE AUTO 1.019 (1.002-1.035); SQUAMOUS EPITHELIAL CELL UR AU 0 /HPF (0-6); WBC, URINE AUTO 0 /HPF (0-3)
[2018-05-12 13:59] LABS: ALBUMIN 3.6 GM/DL (3.2-5.2); ALT/SGPT 22 U/L (12-78); BLOOD UREA NITROGEN 13 MG/DL (7-18); CALCIUM LEVEL 8.7 MG/DL (8.5-10.1); CARBON DIOXIDE LEVEL 24 MEQ/L (21-32); CHLORIDE LEVEL 106 MEQ/L (98-107); CHOLESTEROL LEVEL 152 MG/DL (<200); CHOLESTEROL RISK RATIO 4.222 (<5); CREATININE FOR GFR 1.07 MG/DL (0.70-1.30); GLOMERULAR FILTRATION RATE > 60.0 (>56); GLUCOSE, FASTING 104 MG/DL (70-100); HDL CHOLESTEROL 36 MG/DL (>40); LDL CHOLESTEROL 91 MG/DL (<100); NON-HDL-C 116 MG/DL; POTASSIUM SERUM 4.5 MEQ/L (3.5-5.1); SODIUM LEVEL 139 MEQ/L (136-145); THYROID STIMULATING HORMONE 0.961 uIU/ML (0.358-3.740); THYROXINE (T4) 9.2 UG/DL (4.5-12.0); TOTAL 25(OH) VITAMIN D 16.5 NG/ML (30.0-100.0); TRIGLYCERIDES LEVEL 126 MG/DL (<150)
[2018-05-12 16:15] LABS: HEMOGLOBIN A1c 5.8 %
[2018-05-14 00:08] LABS: Lyme Disease IgG/IgM Antibodie <0.91 ISR (0.00-0.90); Lyme Disease IgM Ab Quantitati <0.80 index (0.00-0.79)
== END ==
LOC: M LAB REF 12:27
PROVIDERS: ATTEND Family Medicine
DX: Z13.228 Encounter for screening for other metabolic disorders (principal); Z12.5 Encounter for screening for malignant neoplasm of prostate

== ENCOUNTER → 2018-07-14 | Outpatient (REF) | payer OTHER ==
[~2018-07-14] MED LIST changes: -ASPI1TAB PO; -ASPI81CH PO; +ASPI81CH49 PO; +ASPI81TA26 PO
[2018-07-14 13:49] LABS: BASO # 0.1 10^3/uL (0.0-0.2); EOS # 0.1 10^3/uL (0.0-0.50); EOS % 1.9 % (0.0-3.0); HEMOGLOBIN 15.8 g/dl (13.5-17.5); LYMPH # 3.1 10^3/uL (1.5-4.5); LYMPH % 44.5 % (24.0-44.0); MEAN CORPUSCULAR HEMOGLOBIN 29.8 pg (27.0-33.0); MEAN CORPUSCULAR HGB CONC 32.9 g/dl (32.0-36.5); MEAN CORPUSCULAR VOLUME 90.4 fl (80.0-96.0); MONO # 0.4 10^3/uL (0.0-0.8); MONO % 5.1 % (0.0-5.0); NEUTROPHILS # 3.3 10^3/uL (1.8-7.7); NEUTROPHILS % 47.2 % (36.0-66.0); PLATELET COUNT, AUTOMATED 294 10^3/uL (150-450); RED BLOOD COUNT 5.31 10^6/uL (4.30-6.10)
[2018-07-14 13:50] LABS: APPEARANCE, URINE CLEAR (CLEAR); BACTERIA, URINE AUTO NEGATIVE (NEGATIVE); BILIRUBIN, URINE AUTO NEGATIVE (NEGATIVE); BLOOD, URINE BLOOD NEGATIVE (NEGATIVE); COLOR, URINE YELLOW (YELLOW); GLUCOSE, URINE (UA) AUTO NEGATIVE (NEGATIVE); KETONE, URINE AUTO NEGATIVE (NEGATIVE); LEUKOCYTE ESTERASE, URINE AUTO NEGATIVE (NEGATIVE); NITRITE, URINE AUTO NEGATIVE (NEGATIVE); PROTEIN, URINE AUTO NEGATIVE (NEGATIVE); RBC, URINE AUTO 0 /HPF (0-3); SPECIFIC GRAVITY URINE AUTO 1.014 (1.002-1.035); SQUAMOUS EPITHELIAL CELL UR AU 0 /HPF (0-6); UROBILINOGEN, URINE AUTO 0.2 mg/dL (0.0-2.0); WBC, URINE AUTO 0 /HPF (0-3)
[2018-07-14 14:09] LABS: HEMOGLOBIN A1c 5.9 %
[2018-07-14 14:28] LABS: ALBUMIN 3.7 GM/DL (3.2-5.2); ALT/SGPT 21 U/L (12-78); BILIRUBIN,TOTAL 0.8 MG/DL (0.2-1.0); BLOOD UREA NITROGEN 14 MG/DL (7-18); CALCIUM LEVEL 9.2 MG/DL (8.5-10.1); CARBON DIOXIDE LEVEL 26 MEQ/L (21-32); CHLORIDE LEVEL 107 MEQ/L (98-107); CHOLESTEROL LEVEL 123 MG/DL (<200); CHOLESTEROL RISK RATIO 3.075 (<5); CREATININE FOR GFR 0.94 MG/DL (0.70-1.30); GLOMERULAR FILTRATION RATE > 60.0 (>56); GLUCOSE, FASTING 88 MG/DL (70-100); HDL CHOLESTEROL 40 MG/DL (>40); LDL CHOLESTEROL 59 MG/DL (<100); NON-HDL-C 83 MG/DL; SODIUM LEVEL 139 MEQ/L (136-145); THYROID STIMULATING HORMONE 0.707 uIU/ML (0.358-3.740); THYROXINE (T4) 8.2 UG/DL (4.5-12.0); TOTAL 25(OH) VITAMIN D 68.3 NG/ML (30.0-100.0); TOTAL PROTEIN 7.3 GM/DL (6.4-8.2); TRIGLYCERIDES LEVEL 120 MG/DL (<150)
[2018-07-16 00:06] LABS: Lyme Disease IgG/IgM Antibodie <0.91 ISR (0.00-0.90); Lyme Disease IgM Ab Quantitati <0.80 index (0.00-0.79)
== END ==
LOC: M LAB REF 13:03
PROVIDERS: ATTEND Family Medicine
DX: Z12.5 Encounter for screening for malignant neoplasm of prostate (principal); Z13.228 Encounter for screening for other metabolic disorders
CPT/HCPCS: 80053; 80061; 81001; 82306; 83036; 84436; 84443; 85025; 86617; G0103

== ENCOUNTER → 2018-10-22 | Outpatient (REF) | payer OTHER ==
[~2018-10-22] MED LIST changes: -OMEP20CA3 PO; +OMEP20CA4 PO
[2018-10-22 16:06] LABS: BASO # 0.1 10^3/uL (0.0-0.2); BASO % 1.1 % (0.0-1.0); EOS # 0.2 10^3/uL (0.0-0.50); EOS % 2.3 % (0.0-3.0); HEMATOCRIT 51.1 % (42.0-52.0); HEMOGLOBIN 17.2 g/dl (13.5-17.5); LYMPH # 3.4 10^3/uL (1.5-4.5); LYMPH % 43.9 % (24.0-44.0); MEAN CORPUSCULAR HEMOGLOBIN 30.3 pg (27.0-33.0); MEAN CORPUSCULAR HGB CONC 33.7 g/dl (32.0-36.5); MEAN CORPUSCULAR VOLUME 90.1 fl (80.0-96.0); MONO # 0.4 10^3/uL (0.0-0.8); MONO % 5.4 % (0.0-5.0); NEUTROPHILS # 3.7 10^3/uL (1.8-7.7); PLATELET COUNT, AUTOMATED 302 10^3/uL (150-450); RED BLOOD COUNT 5.67 10^6/uL (4.30-6.10); WHITE BLOOD COUNT 7.8 10^3/uL (4.0-10.0)
[2018-10-22 16:24] LABS: ALBUMIN 3.9 GM/DL (3.2-5.2); ALT/SGPT 21 U/L (12-78); BILIRUBIN,TOTAL 0.7 MG/DL (0.2-1.0); BLOOD UREA NITROGEN 17 MG/DL (7-18); CALCIUM LEVEL 9.7 MG/DL (8.5-10.1); CARBON DIOXIDE LEVEL 29 MEQ/L (21-32); CHLORIDE LEVEL 106 MEQ/L (98-107); CHOLESTEROL LEVEL 225 MG/DL (<200); CHOLESTEROL RISK RATIO 4.687 (<5); GLOMERULAR FILTRATION RATE > 60.0 (>56); GLUCOSE, FASTING 100 MG/DL (70-100); HDL CHOLESTEROL 48 MG/DL (>40); LDL CHOLESTEROL 150 MG/DL (<100); NON-HDL-C 177 MG/DL; POTASSIUM SERUM 5.3 MEQ/L (3.5-5.1); SODIUM LEVEL 137 MEQ/L (136-145); TOTAL 25(OH) VITAMIN D 30.1 NG/ML (30.0-100.0); TOTAL PROTEIN 7.6 GM/DL (6.4-8.2); TRIGLYCERIDES LEVEL 135 MG/DL (<150)
[2018-10-22 16:25] LABS: TESTOSTERONE 230 NG/DL (241-827)
[2018-10-22 16:43] LABS: HEMOGLOBIN A1c 6.1 %
== END ==
LOC: M LAB REF 15:30
PROVIDERS: ATTEND Family Medicine
DX: E78.5 Hyperlipidemia, unspecified (principal)

== ENCOUNTER → 2019-09-10 | Outpatient (REF) | payer OTHER ==
[~2019-09-10] MED LIST changes: +OMEP1CAP73 PO; -OMEP20CA4 PO
[2019-09-10 13:45] LABS: APPEARANCE, URINE CLEAR (CLEAR); BACTERIA, URINE AUTO NEGATIVE (NEGATIVE); BILIRUBIN, URINE AUTO NEGATIVE (NEGATIVE); BLOOD, URINE BLOOD NEGATIVE (NEGATIVE); COLOR, URINE YELLOW (YELLOW); GLUCOSE, URINE (UA) AUTO NEGATIVE (NEGATIVE); KETONE, URINE AUTO NEGATIVE (NEGATIVE); LEUKOCYTE ESTERASE, URINE AUTO NEGATIVE (NEGATIVE); MUCUS, URINE SMALL (NEGATIVE); NITRITE, URINE AUTO NEGATIVE (NEGATIVE); PROTEIN, URINE AUTO NEGATIVE (NEGATIVE); RBC, URINE AUTO 0 /HPF (0-3); SPECIFIC GRAVITY URINE AUTO 1.019 (1.002-1.035); SQUAMOUS EPITHELIAL CELL UR AU 0 /HPF (0-6); UROBILINOGEN, URINE AUTO 0.2 mg/dL (0.0-2.0); WBC, URINE AUTO 0 /HPF (0-3)
[2019-09-10 14:34] LABS: BASO # 0.1 10^3/uL (0.0-0.2); BASO % 0.9 % (0.0-1.0); EOS # 0.2 10^3/uL (0.0-0.5); HEMATOCRIT 45.6 % (42.0-52.0); HEMOGLOBIN 15.4 g/dl (13.5-17.5); LYMPH # 3.4 10^3/uL (1.5-5.0); MEAN CORPUSCULAR HEMOGLOBIN 30.3 pg (27.0-33.0); MEAN CORPUSCULAR HGB CONC 33.8 g/dl (32.0-36.5); MEAN CORPUSCULAR VOLUME 89.8 fl (80.0-96.0); MONO # 0.5 10^3/uL (0.0-0.8); MONO % 6.8 % (0.0-5.0); NEUTROPHILS # 3.4 10^3/uL (1.5-8.5); NEUTROPHILS % 45.2 % (36.0-66.0); PLATELET COUNT, AUTOMATED 271 10^3/uL (150-450); RED BLOOD COUNT 5.08 10^6/uL (4.30-6.10); WHITE BLOOD COUNT 7.6 10^3/uL (4.0-10.0)
[2019-09-10 14:51] LABS: ALBUMIN 3.9 GM/DL (3.2-5.2); ALT/SGPT 26 U/L (12-78); BILIRUBIN,TOTAL 0.7 MG/DL (0.2-1.0); BLOOD UREA NITROGEN 17 MG/DL (7-18); CALCIUM LEVEL 9.1 MG/DL (8.5-10.1); CARBON DIOXIDE LEVEL 26 MEQ/L (21-32); CHLORIDE LEVEL 108 MEQ/L (98-107); CHOLESTEROL LEVEL 155 MG/DL (<200); CHOLESTEROL RISK RATIO 3.297 (<5); CREATININE FOR GFR 0.98 MG/DL (0.70-1.30); FERRITIN 83 NG/ML (26-388); FREE T4 0.97 NG/DL (0.76-1.46); GLOMERULAR FILTRATION RATE > 60.0 (>56); GLUCOSE, FASTING 93 MG/DL (70-100); HDL CHOLESTEROL 47 MG/DL (>40); IRON (FE) 91 UG/DL (65-175); LDL CHOLESTEROL 86 MG/DL (<100); NON-HDL-C 108 MG/DL; POTASSIUM SERUM 4.5 MEQ/L (3.5-5.1); SODIUM LEVEL 139 MEQ/L (136-145); THYROID STIMULATING HORMONE 0.707 uIU/ML (0.358-3.740); TOTAL PROTEIN 7.3 GM/DL (6.4-8.2); TRIGLYCERIDES LEVEL 109 MG/DL (<150)
[2019-09-10 14:54] LABS: FOLATE 11.6 NG/ML; TOTAL 25(OH) VITAMIN D 34.4 NG/ML (30.0-100.0); VITAMIN B12 LEVEL 620 PG/ML
[2019-09-10 16:18] LABS: HEMOGLOBIN A1c 5.8 %
[2019-09-11 19:14] LABS: TESTOSTERONE FREE (DIRECT) 11.7 pg/mL (7.2-24.0)
== END ==
LOC: M LAB REF 12:55
PROVIDERS: ATTEND Nurse Practitioner Family
DX: E29.1 Testicular hypofunction (principal); R73.03 Prediabetes; J44.9 Chronic obstructive pulmonary disease, unspecified; E55.9 Vitamin D deficiency, unspecified; J30.9 Allergic rhinitis, unspecified; E78.5 Hyperlipidemia, unspecified; I10 Essential (primary) hypertension; Z72.0 Tobacco use

== ENCOUNTER → 2019-12-22 | Outpatient (CLI) | payer OTHER ==
--- NOTE | 2019-12-22 13:56 | REP ---
INDICATION: NICOTINE DEPENDENCE COMPARISON: 12/02/2017, 03/07/2018 TECHNIQUE: Axial noncontrast images from the thoracic inlet to the upper abdomen using low-dose lung screening technique (LDCT). FINDINGS: Stable calcified granuloma in the anterior left base and posteromedial left lower lobe are unchanged. Calcified left hilar lymph nodes are also identified and stable. No acute consolidation, effusion, or pneumothorax. No suspicious nodule or mass lesion. Tracheobronchial tree is patent. IMPRESSION: Lung rads category 2. Benign stable findings. Management recommendations include annual low-dose CT surveillance. <Electronically signed by Morgan Maravilla > 12/22/19 [id number]
== END ==
LOC: M RAD 13:14
PROVIDERS: ATTEND Physician Assistant
DX: F17.218 Nicotine dependence, cigarettes, with other nicotine-induced disorders (principal); Z12.2 Encounter for screening for malignant neoplasm of respiratory organs

== ENCOUNTER → 2020-01-14 | Outpatient (REF) | payer OTHER ==
[2020-01-14 12:56] LABS: BASO # 0.1 10^3/uL (0.0-0.2); BASO % 0.7 % (0.0-1.0); EOS # 0.2 10^3/uL (0.0-0.5); HEMATOCRIT 46.8 % (42.0-52.0); HEMOGLOBIN 15.2 g/dl (13.5-17.5); LYMPH # 2.8 10^3/uL (1.5-5.0); LYMPH % 36.3 % (24.0-44.0); MEAN CORPUSCULAR HEMOGLOBIN 30.2 pg (27.0-33.0); MEAN CORPUSCULAR HGB CONC 32.5 g/dl (32.0-36.5); MEAN CORPUSCULAR VOLUME 92.9 fl (80.0-96.0); MONO # 0.5 10^3/uL (0.0-0.8); MONO % 6.9 % (0.0-5.0); NEUTROPHILS # 4.1 10^3/uL (1.5-8.5); NEUTROPHILS % 53.8 % (36.0-66.0); PLATELET COUNT, AUTOMATED 279 10^3/uL (150-450); RED BLOOD COUNT 5.04 10^6/uL (4.30-6.10); WHITE BLOOD COUNT 7.7 10^3/uL (4.0-10.0)
[2020-01-14 13:51] LABS: ALBUMIN 3.5 GM/DL (3.2-5.2); ALT/SGPT 25 U/L (12-78); BILIRUBIN,TOTAL 0.9 MG/DL (0.2-1.0); BLOOD UREA NITROGEN 12 MG/DL (7-18); CALCIUM LEVEL 9.2 MG/DL (8.8-10.2); CARBON DIOXIDE LEVEL 27 MEQ/L (21-32); CHLORIDE LEVEL 108 MEQ/L (98-107); CHOLESTEROL LEVEL 162 MG/DL (<200); CREATININE FOR GFR 1.01 MG/DL (0.70-1.30); GLOMERULAR FILTRATION RATE > 60.0 (>49); GLUCOSE, FASTING 101 MG/DL (70-100); HDL CHOLESTEROL 79 MG/DL (>40); LDL CHOLESTEROL 65 MG/DL (<100); NON-HDL-C 83 MG/DL; POTASSIUM SERUM 4.9 MEQ/L (3.5-5.1); SODIUM LEVEL 142 MEQ/L (136-145); TOTAL PROTEIN 6.7 GM/DL (6.4-8.2); TRIGLYCERIDES LEVEL 88 MG/DL (<150)
== END ==
LOC: M LAB REF 12:15
PROVIDERS: ATTEND Nurse Practitioner Family
DX: I10 Essential (primary) hypertension (principal)

== ENCOUNTER → 2020-07-29 | Outpatient (REF) | payer OTHER ==
[~2020-07-29] MED LIST changes: +ADVA230A; +VALA500T5
[2020-07-29 17:33] LABS: BASO # 0.1 10^3/uL (0.0-0.2); BASO % 1.1 % (0.0-1.0); EOS # 0.3 10^3/uL (0.0-0.5); EOS % 3.5 % (0.0-3.0); HEMATOCRIT 46.7 % (42.0-52.0); HEMOGLOBIN 15.6 g/dl (13.5-17.5); LYMPH # 2.8 10^3/uL (1.5-5.0); LYMPH % 29.8 % (24.0-44.0); MEAN CORPUSCULAR HEMOGLOBIN 31.5 pg (27.0-33.0); MEAN CORPUSCULAR HGB CONC 33.4 g/dl (32.0-36.5); MEAN CORPUSCULAR VOLUME 94.2 fl (80.0-96.0); MONO # 0.7 10^3/uL (0.0-0.8); MONO % 7.1 % (2.0-8.0); NEUTROPHILS # 5.4 10^3/uL (1.5-8.5); NEUTROPHILS % 58.1 % (36.0-66.0); PLATELET COUNT, AUTOMATED 284 10^3/uL (150-450); RED BLOOD COUNT 4.96 10^6/uL (4.30-6.10); WHITE BLOOD COUNT 9.3 10^3/uL (4.0-10.0)
[2020-07-29 18:07] LABS: ALBUMIN 3.8 GM/DL (3.2-5.2); ALT/SGPT 19 U/L (12-78); BILIRUBIN,TOTAL 0.6 MG/DL (0.2-1.0); BLOOD UREA NITROGEN 13 MG/DL (7-18); CARBON DIOXIDE LEVEL 29 MEQ/L (21-32); CHLORIDE LEVEL 105 MEQ/L (98-107); CHOLESTEROL LEVEL 193 MG/DL (<200); CHOLESTEROL RISK RATIO 3.063 (<5); CREATININE FOR GFR 0.94 MG/DL (0.70-1.30); FREE T4 0.89 NG/DL (0.76-1.46); GLOMERULAR FILTRATION RATE > 60.0 (>49); GLUCOSE, FASTING 105 MG/DL (70-100); HDL CHOLESTEROL 63 MG/DL (>40); LDL CHOLESTEROL 115 MG/DL (<100); NON-HDL-C 130 MG/DL; POTASSIUM SERUM 5.7 MEQ/L (3.5-5.1); SODIUM LEVEL 137 MEQ/L (136-145); TOTAL PROTEIN 7.2 GM/DL (6.4-8.2); TRIGLYCERIDES LEVEL 75 MG/DL (<150)
[2020-07-29 18:08] LABS: TOTAL 25(OH) VITAMIN D 19.2 NG/ML (30.0-100.0)
[2020-07-29 18:37] LABS: HEMOGLOBIN A1c 5.3 %
[2020-08-03 00:07] LABS: PSA TOTAL 0.9 ng/mL (0.0-4.0)
== END ==
LOC: M LAB REF 16:29
PROVIDERS: ATTEND Nurse Practitioner Family
DX: J44.9 Chronic obstructive pulmonary disease, unspecified (principal); F17.200 Nicotine dependence, unspecified, uncomplicated; J30.89 Other allergic rhinitis

== ENCOUNTER 2020-12-22 13:10 | Emergency (ER) | payer OTHER ==
[~2020-12-22] VITALS: Ht 177.8 cm; Wt 78.6 kg
[2020-12-22 13:11] VITALS: BP 139/89
--- OUTSIDE RECORDS SUMMARY | 2020-12-22 13:29 | CCD ---
Author Organization Unknown Address [address] [place] [id number] Phone [phone] Care Team Providers Care Bean Roaster Name Role Phone ASHLEY LUX MD FACS 2 [phone] Allergies Code Code System Name Reaction Severity Status Onset NKDA Medications Name Status Start Date Stop Date acyclovir 5 % topical ointment APPLY TO THE AFFECTED AREA(S) BY TOPICAL ROUTE EVERY 3 HOURS 6 TIMES PER DAY apply as needed when having outbreaks Completed 1 Adult Aspirin Regimen 81 mg tablet,delay ed release Take 1 tablet every day by oral route. Active Not available Advair HFA 230 mcg-21 mcg/actuation aero sania inhaler INHALE TWO PUFFS BY MOUTH TWICE A DAY Active N ot available albuterol sulf 90 mcg/actuation breath a ctivated powder inhaler,sensor Inhale 2 puffs as needed by inhalation route. Active Not available albuterol sulfate HFA 90 mcg/actuation a erosol inhaler INHALE 2 PUFFS BY MOUTH NEEDED MAXIMUM DAILY DOSE 12 PUFFS Completed 12/09/2020 amoxicillin 500 mg capsule TAKE ONE CAPSULE BY MOUTH EVERY 8 HOURS UNTIL GONE Completed 01/21/2020 atorvastatin 20 mg tablet TAKE ONE TABLET BY MOUTH IN THE EVENING Active Not available cetirizine 10 mg tablet Take 1 tablet every day by oral route. Completed 12/09/2020 chlorhexidine gluconate 0.12 % mouthwash RINSE WITH 1 CAPFUL THREE TIMES A DAY STARTING SATURDAY Completed 01/21/2020 doxycycline monohydrate 100 mg capsule TAKE ONE CAPSULE BY MOUTH TWICE A DAY FOR 10 DAYS Completed 12/09/2020 doxycycline monohydrate 100 mg tablet TAKE ONE TABLET BY MOUTH TWICE A DAY FOR 10 DAYS Completed 07/20/2020 nicotine (polacrilex) 4 mg gum Chew 1 piece of gum every 2 hours by oral route. Active Not available oxycodone-acetaminophen 5 mg-325 mg tabl et TAKE ONE TABLET BY MOUTH EVERY 4 TO 6 HOURS NEEDED FOR PAIN MAXIMUM DAILY DOSE 6 Completed 01/21/2020 prednisone 20 mg tablet TAKE 1 TABLET BY MOUTH 3 TIMES A DAY FOR 3 DAYS THEN TAKE 1 TABLET TWICE A DAY FOR 3 DAYS THEN TAKE 1 TABLET DAILY FOR 3 DAYS Completed 12/09/2020 valacyclovir 500 mg tablet TAKE ONE TABLET BY MOUTH EVERY DAY Active Not available Viagra 100 mg tablet Take 1 tablet every day by oral route. Active Not available Problems Name Status Onset Date Source Herpesvirus Infection Active 05/28/2016 History Hyperlipidemia Active 05/28/2016 History Hypertensive Disorder Active 05/28/2016 History Low Back Pain Active 05/28/2016 History Tobacco Use and Exposure - Finding Active 05/28/2016 History Exposure to Second Hand Tobacco Smoke Active 05/28/2016 History Procedure by Method Active 05/28/2016 History Allergic Rhinitis Active 10/04/2016 History Acne Active 10/04/2016 History Screening for Malignant Neoplasm of Prostate Active 05/2016 History Cough Active 2017 History Clinical Finding Active 2017 History Dyspnea Active 12/06/2017 History Erectile Dysfunction Co-occurrent and Due to Arterial Insuff iciency Active 12/06/2017 History Evaluation Finding Active 12/10/2017 History Endocrine/metabolic Screening Active 05/05/2018 Hi story Disorder of Ear Active 05/05/2018 History Vitamin D Deficiency Active 05/13/2018 History Chronic Obstructive Lung Disease Active 05/13/2018 History Prediabetes Active 05/13/2018 History 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 Please review this document and add these problems to the patient's chart manually as needed. Procedures Notes: rt knee surg x 3 acl, left knee surg x1, colon surg, Tonsillectomy Results Lab Results Date Name Specimen Result Interpretation Description Value Range Status Address 12/02/2020 Lipid Panel, Blood Blood venous Cholesterol , Total 150 mg/dL <200 mg/dL Final [facility] gh: [address] [facility] Blood venous HDL Cholesterol 51 mg/dL > or = 40 mg/dL Final [facility]: [address] [facility] Blood venous Triglycerides 121 mg/dL <150 mg/dL Final [facility]: [address] [facility] Blood venous LDL-cholesterol 79 mg/dL (maryann c) <100 mg/dL (calc) Final [facility]: [address] [facility] Blood venous Chol/hdlc Ratio 2.9 calc <5.0 calc Final [facility]: [address] [facility] Blood venous Non HDL Cholesterol 99 m g/dL (calc) <130 mg/dL (calc) Final [facility]: [address] [facility] 12/02/2020 CMP, Serum or Plasma Blood venous Normal Glucose 94 mg/dL 65-99 mg/dL Final [facility]: [address] [facility] Blood venous Normal Urea Nitrogen (BUN) 10 mg/dL 7-25 mg/dL [facility]: [address] [facility] Blood venous Normal Creatinine 0.90 mg/dL 0.70-1. 25 mg/dL [facility]: [address] [facility] Blood venous Normal eGFR Non-afr. [place] 9 2 mL/min/1.73m2 > or = 60 mL/min/1.73m2 Final [facility]: [address] [facility] Blood venous Normal eGFR 10 6 mL/min/1.73m2 > or = 60 mL/min/1.73m2 Final [facility]: [address] [facility] Blood venous BUN/creatinine Ratio not applicable (calc) 6-22 (calc) Final [facility]: [address] [facility] Blood venous Normal Sodium 138 mmol/L 135-146 mmo l/L Final [facility]: [address] [facility] Blood venous Normal Potassium 5.2 mmol/L 3.5-5.3 mmol/L [facility]: [address] [facility] Blood venous Normal Chloride 104 mmol/L 98-110 mm ol/L [facility]: [address] [facility] Blood venous Normal Carbon Dioxide 27 mmol/L 20-3 2 mmol/L Final [facility]: [address] [facility] Blood venous Normal Calcium 9.3 mg/dL 8.6-10.3 mg /dL [facility]: [address] [facility] Blood venous Normal Protein, Total 6.5 g/dL 6.1-8 .1 g/dL Final [facility]: [address] [facility] Blood venous Normal Albumin 4.1 g/dL 3.6-5.1 g/dL [facility]: [address] [facility] Blood venous Normal Globulin 2.4 g/dL (calc) 1.9- 3.7 g/dL (calc) [facility]: [address] [facility] Blood venous Normal Albumin/globulin Ratio 1 .7 (calc) 1.0-2.5 (calc) [facility]: [address] [facility] Blood venous Normal Bilirubin, Total 1.1 mg/dL 0. 2-1.2 mg/dL [facility]: [address] [facility] Blood venous Normal Alkaline Phosphatase 85 U/L 3 5-144 U/L Final [facility]: [address] [facility] Blood venous Normal Ast 14 U/L 10-35 U/L Final [facility]: [address] [facility] Blood venous Normal Alt 13 U/L 9-46 U/L Final [facility]: [address] [facility] 12/02/2020 CBC W/ Auto Diff Blood venous Normal White B lood Cell Count 8.2 thousand/uL 3.8-10.8 thousand/uL [facility]: [address] [facility] Blood venous Normal Red Blood Cell Count 4.9 5 million/uL 4.20-5.80 million/uL [facility] [address] [facility] Blood venous Normal Hemoglobin 15.5 g/dL 13.2-17. 1 g/dL [facility]: [address] [facility] Blood venous Normal Hematocrit 45.3 % 38.5-50.0 % [facility]: [address] [facility] Blood venous Normal Mcv 91.5 fL 80.0-100.0 fL Fi nal [facility]: [address] [facility] Blood venous Normal Mch 31.3 pg 27.0-33.0 pg Fin [facility]: [address] [facility] Blood venous Normal Mchc 34.2 g/dL 32.0-36.0 g/dL [facility]: [address] [facility] Blood venous Normal Rdw 13.0 % 11.0-15.0 % [facility]: [address] [facility] Blood venous Normal Platelet Count 260 thous and/uL 140-400 thousand/uL [facility]: [address] [facility] [address] Blood venous Normal Mpv 9.7 fL 7.5-12.5 fL [facility]: [address] [facility] Blood venous Normal Absolute Neutrophils 483 8 cells/uL 1007-7470 cells/uL [facility]: [address] [facility] Blood venous Normal Absolute Lymphocytes 248 5 cells/uL 850-3900 cells/uL [facility]: [address] [facility] Blood venous Normal Absolute Monocytes 508 c ells/uL 200-950 cells/uL [facility]: [address] [facility] [address] Blood venous Normal Absolute Eosinophils 287 cells/uL 15-500 cells/uL [facility]: [address] [facility] Blood venous Normal Absolute Basophils 82 ce lls/uL 0-200 cells/uL [facility] [address] [facility] [address] Blood venous Normal Neutrophils 59 % 38-80 % Fi [facility]: [address] [facility] Blood venous Normal Lymphocytes 30.3 % 15-49 % Fi [facility]: [address] [facility] Blood venous Normal Monocytes 6.2 % 0-13 % [facility]: [address] [facility] Blood venous Normal Eosinophils 3.5 % 0-8 % Fin [facility]: [address] [facility] Blood venous Normal Basophils 1.0 % 0-2 % [facility]: [address] [facility] 08/05/2020 HIV 1+2 Ab + HIV1 P24 Ag, Quantitative Immunoassay, Serum Normal HIV Ag/Ab, 4TH Gen non-reactive non-reactive Final [facility]: [address] [facility] 08/05/2020 CMP, Serum or Plasma Blood venous Normal Glucose 96 mg/dL 65-99 mg/dL Final [facility]: [address] [facility] Blood venous Normal Urea Nitrogen (BUN) 19 mg/dL 7-25 mg/dL [facility]: [address] [facility] Blood venous Normal Creatinine 0.87 mg/dL 0.70-1. 25 mg/dL [facility]: [address] [facility] Blood venous Normal eGFR Non-afr. [place] 9 4 mL/min/1.73m2 > or = 60 mL/min/1.73m2 Final [facility]: [address] [facility] Blood venous Normal eGFR 10 9 mL/min/1.73m2 > or = 60 mL/min/1.73m2 Final [facility]: [address] [facility] Blood venous BUN/creatinine Ratio not applicable (calc) 6-22 (calc) [facility]: [address] [facility] Blood venous Normal Sodium 136 mmol/L 135-146 mmo l/L [facility]: [address] [facility] Blood venous Normal Potassium 4.7 mmol/L 3.5-5.3 mmol/L [facility]: [address] [facility] Blood venous Normal Chloride 103 mmol/L 98-110 mm ol/L [facility]: [address] [facility] Blood venous Normal Carbon Dioxide 24 mmol/L 20-3 2 mmol/L [facility]: [address] [facility] Blood venous Normal Calcium 9.3 mg/dL 8.6-10.3 mg /dL [facility]: [address] [facility] Blood venous Normal Protein, Total 6.8 g/dL 6.1-8 .1 g/dL [facility]: [address] [facility] Blood venous Normal Albumin 4.2 g/dL 3.6-5.1 g/dL [facility]: [address] [facility] Blood venous Normal Globulin 2.6 g/dL (calc) 1.9- 3.7 g/dL (calc) [facility]: [address] [facility] Blood venous Normal Albumin/globulin Ratio 1 .6 (calc) 1.0-2.5 (calc) Final [facility]: [address] , [place] Blood venous Normal Bilirubin, Total 0.8 mg/dL 0. 2-1.2 mg/dL Final [facility]: [address] , [place] Blood venous Normal Alkaline Phosphatase 92 U/L 3 5-144 U/L Final [facility]: [address] [facility] Blood venous Normal Ast 12 U/L 10-35 U/L Final [facility]: [address] , [place] Blood venous Normal Alt 12 U/L 9-46 U/L Final [facility]: [address] , [place] 08/05/2020 Hepatitis C Virus Ab, Serum Normal Hepatitis C Antibody non-reactive non-reactive Final [facility]: [address] [facility] Normal Index 0.01 <1.00 Final [facility] [place] [address] [facility] 07/29/2020 CBC W/ Auto Diff Blood venous Normal White Blood C ount 9.3 10 4.0-10.0 10 [facility]: [address] [facility] Blood venous Normal Red Blood Count 4.96 10 4.30- 6.10 10 [facility]: [address] [facility] Blood venous Normal Hemoglobin 15.6 g/dL 13.5-17. 5 g/dL [facility]: [address] [facility] Blood venous Normal Hematocrit 46.7 % 42.0-52.0 % [facility]: [address] [facility] Blood venous Normal Mean Corpuscular Volume 94.2 fL 80.0-96.0 fL [facility]: [address] [facility] Blood venous Normal Mean Corpuscular Hemoglob in 31.5 pg 27.0-33.0 pg [facility]: [address] [facility] Blood venous Normal Mean Corpuscular HGB Conc 33.4 g/dL 32.0-36.5 g/dL [facility]: [address] [facility] Blood venous Normal Red Cell Distribution Wid th 13.1 % 11.5-14.5 % [facility]: [address] [place] [address] Blood venous Normal Platelet Count, Automated 284 10 150-450 10 [facility]: [address] [place] [address] Blood venous Normal Neutrophils % 58.1 % 36.0-66. 0 % [facility]: [address] [place] [address] Blood venous Normal Lymph % 29.8 % 24.0-44.0 % Fi [facility]: [address] [place] [address] Blood venous Normal [place] % 7.1 % 2.0-8.0 % [facility]: [address] [place] [address] Blood venous High Eos % 3.5 % 0.0-3.0 % [facility]: [address] [place] [address] Blood venous High Baso % 1.1 % 0.0-1.0 % [facility]: [address] [place] [address] Blood venous Normal Immature Granulocyte % 0.4 % 0-3.0 % [facility]: [address] [place] [address] Blood venous Normal Nucleated Red Blood Cell % 0. 0 % 0-0 % [facility]: [address] [place] [address] Blood venous Normal Neutrophils # 5.4 10 1.5-8.5 10 [facility]: [address] [place] [address] Blood venous Normal Lymph # 2.8 10 1.5-5.[address] [facility]: [address] [place] [address] Blood venous Normal [place] # 0.7 10 0.0-0.8 10 [facility]: [address] [place] [address] Blood venous Normal Eos # 0.3 10 0.0-0.5 10 [facility]: [address] [place] [address] Blood venous Normal Baso # 0.1 10 0.0-0.2 10 [facility]: [address] [place] [address] 07/29/2020 CMP, Serum or Plasma Blood venous High Glu cose, Fasting 105 mg/dL 70-100 mg/dL [facility] nter: [address] [place] [address] Blood venous Normal Blood Urea Nitrogen 13 mg/dL 7-18 mg/dL [facility]: [address] [facility] Blood venous Normal Creatinine for GFR 0.94 mg/dL 0.70-1.30 mg/dL [facility]: [address] [facility] Blood venous Normal Glomerular Filtration Rate > 60.0 >49 [facility]: [address] [facility] Blood venous Normal Sodium Level 137 mEq/L 136-14 5 mEq/L [facility]: [address] [facility] Blood venous High Potassium Serum 5.7 mEq/L 3.5 -5.1 mEq/L [facility]: [address] [facility] Blood venous Normal Chloride Level 105 mEq/L 98-1 07 mEq/L [facility]: [address] [facility] Blood venous Normal Carbon Dioxide Level 29 mEq/L 21-32 mEq/L [facility]: [address] [facility] Blood venous Low Anion Gap 3 mEq/L 8-16 mEq/L [facility]: [address] [facility] Blood venous Normal Calcium Level 9.0 mg/dL 8.8-1 0.2 mg/dL [facility]: [address] [facility] Blood venous Normal AST/SGOT 12 U/L 7-37 U/L [facility]: [address] [facility] Blood venous Normal ALT/SGPT 19 U/L 12-78 U/L [facility]: [address] [facility] Blood venous Normal Alkaline Phosphatase 110 U/L 45-117 U/L [facility]: [address] [facility] Blood venous Normal Bilirubin,total 0.6 mg/dL 0.2 -1.0 mg/dL [facility]: [address] [facility] Blood venous Normal Total Protein 7.2 gm/dL 6.4-8 .2 gm/dL [facility]: 0 [facility] Blood venous Normal Albumin 3.8 gm/dL 3.2-5.2 gm/ dL [facility]: [address] [place] [address] Blood venous Normal Albumin/globulin Ratio 1.1 [facility]: [address] [place] [address] 07/29/2020 Lipid Panel, Blood Blood venous Normal Trigl ycerides Level 75 mg/dL <150 mg/dL [facility] nter: [address] [place] [address] Blood venous Normal Cholesterol Level 193 mg/dL < 200 mg/dL [facility]: [address] [place] [address] Blood venous Normal HDL Cholesterol 63 mg/dL >40 mg/dL [facility]: [address] [place] [address] Blood venous High LDL Cholesterol 115 mg/dL <10 0 mg/dL [facility]: [address] [place] [address] Blood venous Normal Non-hdl-c 130 mg/dL [facility]: [address] [place] [address] Blood venous Normal Cholesterol Risk Ratio 3.063 <5 [facility]: [address] [place] [address] 07/29/2020 TSH + Free T4, Serum Blood venous Normal Thyroid Stimulating Hormone 1.500 uIU/mL 0.358-3.740 uIU/mL [facility]: [address] [place] [address] Blood venous Normal Free T4 0.89 NG/dL 0.76-1.46 NG/dL [facility]: [address] [place] [address] 07/29/2020 Vitamin D, 25-Hydroxy, Total, Serum Blood venous Low Total 25(Oh) Vitamin D 19.2 NG/mL 30.0-100.0 NG/mL [facility]: [address] [place] [address] 07/29/2020 HbA1C (Hemoglobin a1C), Blood Blood venous Normal Hemoglobin a1C 5.3 % [facility]: [address] [place] [address] Blood venous Normal Estimated Average Glucose 105 mg/dL 60-110 mg/dL [facility]: [address] [place] [address] 07/29/2020 PSA, Total + Free, Serum or Plasma Blood venous Normal PSA Total 0.9 NG/mL 0.0-4.0 NG/mL [facility]: [address] [facility] Blood venous Normal PSA Comment . [facility]: [address] [facility] 01/14/2020 CBC W/ Auto Diff Blood bag Normal White Blood Count 7.7 10 4.0- 10.0 10 [facility]: [address] [facility] Blood bag Normal Red Blood Count 5.04 10 4.30-6.10 10 [facility]: [address] [facility] Blood bag Normal Hemoglobin 15.2 g/dL 13.5-17.5 g/ dL [facility]: [address] [facility] Blood bag Normal Hematocrit 46.8 % 42.0-52.0 % [facility]: [address] [facility] Blood bag Normal Mean Corpuscular Volume 92.9 fL 8 0.0-96.0 fL [facility]: [address] [facility] Blood bag Normal Mean Corpuscular Hemoglobin 30.2 pg 27.0-33.0 pg [facility]: [address] [facility] Blood bag Normal Mean Corpuscular HGB Conc 32 .5 g/dL 32.0-36.5 g/dL [facility]: [address] [facility] Blood bag Normal Red Cell Distribution Width 14.1 % 11.5-14.5 % [facility]: [address] [facility] Blood bag Normal Platelet Count, Automated 279 10 150-450 10 [facility]: [address] [facility] Blood bag Normal Neutrophils % 53.8 % 36.0-66.0 % [facility]: [address] [facility] Blood bag Normal Lymph % 36.3 % 24.0-44.0 % [facility]: [address] [facility] Blood bag High [place] % 6.9 % 0.0-5.0 % [facility]: [address] [facility] Blood bag Normal Eos % 2.0 % 0.0-3.0 % [facility]: [address] [facility] Blood bag Normal Baso % 0.7 % 0.0-1.0 % [facility]: [address] [place] [address] Blood bag Normal Immature Granulocyte % 0.3 % 0-3 .0 % [facility]: [address] [place] [address] Blood bag Normal Nucleated Red Blood Cell % 0.0 % 0-0 % [facility]: [address] [place] [address] Blood bag Normal Neutrophils # 4.1 10 1.5-8.5 10 F inal [facility]: [address] [facility] Blood bag Normal Lymph # 2.8 10 1.5-5.0 10 [facility]: [address] [place] [address] Blood bag Normal [place] # 0.5 10 0.0-0.8 10 [facility]: [address] [place] [address] Blood bag Normal Eos # 0.2 10 0.0-0.5 10 [facility]: [address] [place] [address] Blood bag Normal Baso # 0.1 10 0.0-0.2 10 [facility]: [address] [place] [address] 01/14/2020 CMP, Serum or Plasma Blood venous High Glu cose, Fasting 101 mg/dL 70-100 mg/dL [facility] nter: [address] [place] [address] Blood venous Normal Blood Urea Nitrogen 12 mg/dL 7-18 mg/dL [facility]: [address] [place] [address] Blood venous Normal Creatinine for GFR 1.01 mg/dL 0.70-1.30 mg/dL [facility]: [address] [place] [address] Blood venous Normal Glomerular Filtration Rate > 60.0 >49 [facility]: [address] [place] [address] Blood venous Normal Sodium Level 142 mEq/L 136-14 5 mEq/L [facility]: [address] [place] [address] Blood venous Normal Potassium Serum 4.9 mEq/L 3.5 -5.1 mEq/L [facility]: [address] [place] [address] Blood venous High Chloride Level 108 mEq/L 98-1 07 mEq/L [facility]: [address] [place] [address] Blood venous Normal Carbon Dioxide Level 27 mEq/L 21-32 mEq/L [facility]: [address] [facility] Blood venous Low Anion Gap 7 mEq/L 8-16 mEq/L [facility]: [address] [facility] Blood venous Normal Calcium Level 9.2 mg/dL 8.8-1 0.2 mg/dL [facility]: [address] [facility] Blood venous Normal AST/SGOT 17 U/L 7-37 U/L [facility]: [address] [facility] Blood venous Normal ALT/SGPT 25 U/L 12-78 U/L [facility]: [address] [facility] Blood venous Normal Alkaline Phosphatase 87 U/L 4 5-117 U/L [facility]: [address] [facility] Blood venous Normal Bilirubin,total 0.9 mg/dL 0.2 -1.0 mg/dL [facility]: [address] [facility] Blood venous Normal Total Protein 6.7 gm/dL 6.4-8 .2 gm/dL [facility]: [address] [facility] Blood venous Normal Albumin 3.5 gm/dL 3.2-5.2 gm/ dL [facility]: [address] [facility] Blood venous Normal Albumin/globulin Ratio 1.1 [facility]: [address] [facility] 01/14/2020 Lipid Panel, Blood Normal Triglycerides Lev el 88 mg/dL <150 mg/dL [facility]: [address] [facility] Normal Cholesterol Level 162 mg/dL <200 mg/ dL [facility]: [address] [facility] Normal HDL Cholesterol 79 mg/dL >40 mg/dL F inal [facility]: [address] [facility] Normal LDL Cholesterol 65 mg/dL <100 mg/dL [facility]: [address] [facility] Normal Non-hdl-c 83 mg/dL Final [facility]: [address] [facility] Normal Cholesterol Risk Ratio 2.050 <5 Final [facility]: [address] [facility] Past Encounters 12/09/2020 Hyperlipidemia; Patient New to Provider; Primary Erectile Dysfunction; Nicotine Dependence; Herpesvirus Infection; Administration of Influenza Vaccine MARGARETH Garcia: [address] [place] [phone], Ph. 12/02/2020 [facility] [address] [place] [phone], Ph. 08/05/2020 Body Mass Index 20-24 - Normal; Patient Asked to Attend; Acute Hyperkalemia; Adult Health Examination; Allergic Rhinitis; Hyperlipidemia [facility] [address] [place] [phone], Ph. 07/29/2020 Hyperlipidemia Sascha Mathews MD: [address] [place] [phone], Ph. 07/20/2020 Tobacco Dependence Caused by Cigarettes; Chronic Obstructive Lung Disease; Primary Erectile Dysfunction; Hyper[facility] [address] [place] [phone], Ph. 01/21/2020 Right Inguinal Hernia Yas Kahn [facility]: [address] [place] [phone], Ph. 01/14/2020 [facility] [address] [place] [phone], Ph. 12/24/2019 Chronic Obstructive Lung Disease; Hyperlipidemia; Herpes Simplex; Needs Influenza Immunization; Hypertensive Disorder [facility] [address] [place] [phone], Ph. Social History Tobacco Smoking Status Heavy Tobacco Smoker (1.5 PPD) Vaccine List Vaccine Type influenza, injectable, quadrivalent, pre servative free 12/24/20190.5 mL pneumococcal conjugate PCV 13 11/27/2019 Tdap 11/09/2014 Plan of Care Patient Instructions Lab results reviewed and discussed with you today. Please continue medications as prescribed. Please try to maintain good nutrition, adequate rest and adequate physical activities and adequate intake of water daily. Lab results reviewed and discussed with you today. Please continue medications as prescribed. Please try to maintain good nutrition, adequate rest and adequate physical activities and adequate intake of water daily. You are medically optimized from Primary care standpoint to have Right Inguinal hernia repair done under general anestesia with Dr Wisdom. average surgical risk expected. Please avoid taking Aspirin or Nsaids such as motrin or Ibuprofen 3-5 days prior to your procedure. Reminders Provider Appointments None recorded. Lab None recorded. Referral None recorded. Procedures None recorded. Surgeries None recorded. Imaging None recorded. Vitals 12/09/2020 01:00PM ESTABLISHED [id number] Height Weight BMI Blood Pressure 70.5 in 177 lbs 4 oz 25.1 kg/m2 (1) 149/104 mm [Hg] (2) 152/94 mm[Hg] 12/02/2020 08:10AM NURSE LAB COLLECTION Height 70.5 in 08/05/2020 10:20AM ESTABLISHED [id number] Height Weight BMI Blood Pressure 70.5 in 175 lbs 6 oz 24.8 kg/m2 129/87 mm[Hg] 07/29/2020 08:00AM NURSE LAB COLLECTION Height 70.5 in 07/20/2020 04:20PM ESTABLISHED [id number] Height Weight BMI Blood Pressure 70.5 in 175 lbs 2 oz 24.8 kg/m2 122/78 mm[Hg] 01/21/2020 02:20PM ESTABLISHED [id number] Height Weight BMI Blood Pressure 70.5 in 173 lbs 16 oz 24.6 kg/m2 115/78 mm[Hg] 12/24/2019 02:20PM ESTABLISHED [id number] Height Weight BMI Blood Pressure 70.5 in 176 lbs 9.6 oz 25 kg/m2 (1) 144/91 m m[Hg] (2) 130/90 mm[Hg] 11/11/2019 Height Weight BMI Blood Pressure 70.5 in 173 lbs 2.08 oz 24.58 kg/m2 147/92 mm[H g] 10/08/2019 Height Weight BMI Blood Pressure 70.5 in 178 lbs 2.08 oz 25.29 kg/m2 127/79 mm[H g] 09/10/2019 Height Weight BMI Blood Pressure 70.5 in 183 lbs 2.08 oz 26.00 kg/m2 131/89 mm[H g] 10/31/2018 Height Weight BMI Blood Pressure 70.5 in 182 lbs 4 oz 25.87 kg/m2 122/86 mm[Hg] 08/01/2018 Height Weight BMI Blood Pressure 70.5 in 190 lbs 2.08 oz 26.99 kg/m2 113/75 mm[H g] 05/13/2018 Height Weight BMI Blood Pressure 70.5 in 213 lbs 30.24 kg/m2 125/81 mm[Hg] 05/05/2018 Height Weight BMI Blood Pressure 70.5 in 215 lbs 30.52 kg/m2 131/84 mm[Hg] 04/22/2018 Height Weight BMI Blood Pressure 70.5 in 213 lbs 6.08 oz 30.29 kg/m2 120/82 mm[H g]
--- OUTSIDE RECORDS SUMMARY | 2020-12-22 13:29 | CCD ---
Author Organization Unknown Address [address] [place] [address] Phone [phone] Care Team Providers Care Cribbing Setter Name Role Phone ASHLEY LUX MD FACS 2 [phone] Allergies Code Code System Name Reaction Severity Status Onset NKDA Medications Name Status Start Date Stop Date acyclovir 5 % topical ointment APPLY TO THE AFFECTED AREA(S) BY TOPICAL ROUTE EVERY 3 HOURS 6 TIMES PER DAY apply as needed when having outbreaks Active N ot available Adult Aspirin Regimen 81 mg tablet,delay ed [...] MOUTH NEEDED MAXIMUM DAILY DOSE 12 PUFFS Active Not available amoxicillin 500 mg capsule TAKE ONE CAPSULE BY MOUTH EVERY 8 HOURS UNTIL GONE Completed 01/21/2020 atorvastatin 20 mg tablet TAKE ONE TABLET BY MOUTH IN THE EVENING Active Not available cetirizine 10 mg tablet Take 1 tablet every day by oral route. Active Not available chlorhexidine gluconate 0.12 % mouthwash RINSE WITH 1 CAPFUL THREE TIMES A DAY STARTING SATURDAY Completed 01/21/2020 doxycycline monohydrate 100 mg capsule TAKE ONE CAPSULE BY MOUTH TWICE A DAY FOR 10 DAYS Active Not available doxycycline monohydrate 100 mg tablet TAKE ONE TABLET BY MOUTH TWICE A DAY FOR 10 DAYS Completed 07/20/2020 oxycodone-acetaminophen 5 mg-325 mg tabl et TAKE ONE TABLET BY MOUTH EVERY 4 TO 6 HOURS NEEDED FOR PAIN MAXIMUM DAILY DOSE 6 Completed 01/21/2020 prednisone 20 mg tablet TAKE 1 TABLET BY MOUTH 3 TIMES A DAY FOR 3 DAYS THEN TAKE 1 TABLET TWICE A DAY FOR 3 DAYS THEN TAKE 1 TABLET DAILY FOR 3 DAYS Active Not available sildenafil 100 mg tablet take 1/2 - 1 tablet as needed up to one dose per day. If erection longer than 3 hours , please go to the ER. Active Not available valacyclovir 500 mg tablet TAKE ONE TABLET BY MOUTH EVERY DAY Active Not available Problems Name Status Onset [...] History Notes: Some problems listed in Document: #[id number] could not be added to this patient's chart. Please review this document and add these problems to the patient's chart manually as needed. Procedures Notes: rt knee surg x 3 acl, left knee surg x1, colon surg, Tonsillectomy Results Lab Results Date Name Specimen Result Interpretation Description Value Range Status Address 08/05/2020 HIV 1+2 Ab + HIV1 P24 Ag, Quantitative Immunoassay, Serum Normal HIV Ag/Ab, 4TH Gen non-reactive non-reactive Final [facility]: [address] [place] 08/05/2020 CMP, Serum or Plasma Blood venous Normal Glucose 96 mg/dL 65-99 mg/dL Final [facility] [place]: [address] [facility] Blood venous Normal Urea Nitrogen (BUN) 19 mg/dL 7-25 mg/dL [facility]: [address] [facility] Blood venous Normal Creatinine 0.87 mg/dL 0.70-1. 25 mg/dL [facility]: [address] [facility] Blood venous Normal eGFR Non-afr. Bulgarian 9 4 mL/min/1.73m2 > or = 60 mL/min/1.73m2 Final [facility]: [address] [facility] Blood venous Normal eGFR 10 9 mL/min/1.73m2 > or = 60 mL/min/1.73m2 Final [facility]: [address] [facility] Blood venous BUN/creatinine Ratio not applicable (calc) 6-22 (calc) [facility] [address] [facility] Normal Sodium 136 mmol/L 135-146 mmo l/L [facility]: [address] [facility] Blood venous Normal Potassium 4.7 mmol/L 3.5-5.3 mmol/L [facility]: [address] [facility] Blood venous Normal Chloride 103 mmol/L 98-110 mm ol/L [facility]: [address] [facility] Blood venous Normal Carbon Dioxide 24 mmol/L 20-3 2 mmol/L [facility]: [address] [facility] Blood venous Normal Calcium 9.3 mg/dL 8.6-10.3 mg /dL [facility]: [address] [facility] Blood venous Normal Protein, Total 6.8 g/dL 6.1-8 .1 g/dL [facility]: [address] [facility] Blood venous Normal Albumin 4.2 g/dL 3.6-5.1 g/dL [facility]: [address] [facility] Blood venous Normal Globulin 2.6 g/dL (calc) 1.9- 3.7 g/dL (calc) [facility]: [address] [facility] Blood venous Normal Albumin/globulin Ratio 1 .6 (calc) 1.0-2.5 (calc) [facility]: [address], [place] Blood venous Normal Bilirubin, Total 0.8 mg/dL 0. 2-1.2 mg/dL Final [facility]: [address], [place] Blood venous Normal Alkaline Phosphatase 92 U/L 3 5-144 U/L Final [facility]: [address] [place] Blood venous Normal Ast 12 U/L 10-35 U/L Final [facility]: [address] [place] Blood venous Normal Alt 12 U/L 9-46 U/L Final [facility]: [address], [place] 08/05/2020 Hepatitis C Virus Ab, Serum Normal Hepatitis C Antibody non-reactive non-reactive Final [facility]: [address] [place] Normal Index 0.01 <1.00 Final [facility] [address] [facility] CBC W/ Auto Diff Blood venous Normal White Blood C ount 9.3 10 4.0-10.0 10 [facility]: [address] [facility] Blood venous Normal Red Blood Count 4.96 10 4.30- 6.10 10 [facility]: [address] [facility] Blood venous Normal Hemoglobin 15.6 g/dL 13.5-17. 5 g/dL [facility]: [address] [facility] Blood venous Normal Hematocrit 46.7 % 42.0-52.0 % [facility]: [address] [facility] Blood venous Normal Mean Corpuscular Volume 94.2 fL 80.0-96.0 fL [facility]: [address] [facility] Blood venous Normal Mean Corpuscular Hemoglob in 31.5 pg 27.0-33.0 pg [facility]: [address] [facility] Blood venous Normal Mean Corpuscular HGB Conc 33.4 g/dL 32.0-36.5 g/dL [facility]: [address] [facility] Blood venous Normal Red Cell Distribution Wid th 13.1 % 11.5-14.5 % [facility]: [address] [facility] Blood venous Normal Platelet Count, Automated 284 10 150-450 10 [facility]: [address] [place] [address] Blood venous Normal Neutrophils % 58.1 % 36.0-66. 0 % [facility]: [address] [place] [address] Blood venous Normal Lymph % 29.8 % 24.0-44.0 % [facility]: [address] [place] [address] Blood venous Normal [place] % 7.1 % 2.0-8.0 % [facility]: [address] [place] [address] Blood venous High Eos % 3.5 % 0.0-3.0 % [facility]: [address] [place] [address] Blood venous High Baso % 1.1 % 0.0-1.0 % [facility]: [address] [place] [address] Blood venous Normal Immature Granulocyte % 0.4 % 0-3.0 % [facility]: [address] [place] [address] Blood venous Normal Nucleated Red Blood Cell % 0. 0 % 0-0 % [facility]: [address] [place] [address] Blood venous Normal Neutrophils # 5.4 10 1.5-8.5 10 [facility]: [address] [place] [address] Blood venous Normal Lymph # 2.8 10 1.5-5.0 10 [facility]: [address] [place] [address] Blood venous Normal [place] # 0.7 10 0.0-0.8 10 [facility]: [address] [place] [address] Blood venous Normal Eos # 0.3 10 0.0-0.5 10 [facility]: [address] [place] [address] Blood venous Normal Baso # 0.1 10 0.0-0.2 10 [facility]: [address] [place] [address] 07/29/2020 CMP, Serum or Plasma Blood venous High Glu cose, Fasting 105 mg/dL 70-100 mg/dL [facility]: [address] [place] [address] Blood venous Normal Blood Urea Nitrogen 13 mg/dL 7-18 mg/dL [facility]: [address] [facility] Blood venous Normal Creatinine for GFR 0.94 mg/dL 0.70-1.30 mg/dL [facility]: [address] [facility] Blood venous Normal Glomerular Filtration Rate > 60.0 >49 [facility]: [address] [facility] Blood venous Normal Sodium Level 137 mEq/L 136-14 5 mEq/L Final [facility]: [address] [facility] Blood venous High Potassium Serum 5.7 mEq/L 3.5 -5.1 mEq/L [facility]: [address] [facility] Blood venous Normal Chloride Level 105 mEq/L 98-1 07 mEq/L [facility]: [address] [facility] Blood venous Normal Carbon Dioxide Level 29 mEq/L 21-32 mEq/L [facility]: [address] [facility] Blood venous Low Anion Gap 3 mEq/L 8-16 mEq/L [facility]: [address] [facility] Blood venous Normal Calcium Level 9.0 mg/dL 8.8-1 0.2 mg/dL [facility]: [address] [facility] Blood venous Normal AST/SGOT 12 U/L 7-37 U/L [facility]: [address] [facility] Blood venous Normal ALT/SGPT 19 U/L 12-78 U/L [facility]: [address] [facility] Blood venous Normal Alkaline Phosphatase 110 U/L 45-117 U/L [facility]: [address] [facility] Blood venous Normal Bilirubin,total 0.6 mg/dL 0.2 -1.0 mg/dL [facility]: [address] [facility] Blood venous Normal Total Protein 7.2 gm/dL 6.4-8 .2 gm/dL [facility]: [address] [facility] Blood venous Normal Albumin 3.8 gm/dL 3.2-5.2 gm/ dL [facility]: [address] [facility] Blood venous Normal Albumin/globulin Ratio 1.1 [facility]: 0 [facility] 07/29/2020 Lipid Panel, Blood Blood venous Normal Trigl ycerides Level 75 mg/dL <150 mg/dL [facility]: [address] [facility] Blood venous Normal Cholesterol Level 193 mg/dL < 200 mg/dL [facility]: [address] [place] [address] Blood venous Normal HDL Cholesterol 63 mg/dL >40 mg/dL [facility]: [address] [place] [address] Blood venous High LDL Cholesterol 115 mg/dL <10 0 mg/dL [facility]: [address] [place] [address] Blood venous Normal Non-hdl-c 130 mg/dL [facility]: [address] [place] [address] Blood venous Normal Cholesterol Risk Ratio 3.063 <5 [facility]: [address] [place] [address] 07/29/2020 TSH + Free T4, Serum Blood venous Normal Thyroid Stimulating Hormone 1.500 uIU/mL 0.358-3.740 uIU/mL [facility]: [address] [place] [address] Blood venous Normal Free T4 0.89 NG/dL 0.76-1.46 NG/dL [facility]: [address] [place] [address] 07/29/2020 Vitamin D, 25-Hydroxy, Total, Serum Blood venous Low Total 25(Oh) Vitamin D 19.2 NG/mL 30.0-100.0 NG/mL [facility]: [address] [place] [address] 07/29/2020 HbA1C (Hemoglobin a1C), Blood Blood venous Normal Hemoglobin a1C 5.3 % [facility]: [address] [place] [address] Blood venous Normal Estimated Average Glucose 105 mg/dL 60-110 mg/dL [facility]: [address] [place] [address] 07/29/2020 PSA, Total + Free, Serum or Plasma Blood venous Normal PSA Total 0.9 NG/mL 0.0-4.0 NG/mL [facility]: [address] [place] [address] Blood venous Normal PSA Comment . [facility]: [address] [facility] 01/14/2020 CBC W/ Auto Diff Blood bag Normal White Blood Count 7.7 10 4.0- 10.0 10 [facility]: [address] 0 [facility] Blood bag Normal Red Blood Count 5.04 10 4.30-6.10 10 [facility]: [address] [facility] Blood bag Normal Hemoglobin 15.2 g/dL 13.5-17.5 g/ dL Final [facility]: [address] [facility] Blood bag Normal Hematocrit 46.8 % 42.0-52.0 % [facility]: [address] [facility] Blood bag Normal Mean Corpuscular Volume 92.9 fL 8 0.0-96.0 fL [facility]: [address] [facility] Blood [facility] Normal Mean Corpuscular Hemoglobin 30.2 pg 27.0-33.0 pg [facility]: [address] [facility] Blood bag Normal Mean Corpuscular HGB Conc 32 .5 g/dL 32.0-36.5 g/dL [facility]: [address] [facility] Blood [facility] Normal Red Cell Distribution Width 14.1 % 11.5-14.5 % [facility]: [address] [facility] Blood [facility] Normal Platelet Count, Automated 279 10 150-450 10 [facility]: [address] [facility] Blood [facility] Normal Neutrophils % 53.8 % 36.0-66.0 % [facility]: [address] [facility] Blood bag Normal Lymph % 36.3 % 24.0-44.0 % [facility]: [address] [facility] Blood [facility] High [place] % 6.9 % 0.0-5.0 % [facility]: [address] [facility] Blood bag Normal Eos % 2.0 % 0.0-3.0 % [facility]: [address] [facility] Blood bag Normal Baso % 0.7 % 0.0-1.0 % [facility]: [address] [facility] Blood bag Normal Immature Granulocyte % 0.3 % 0-3 .0 % [facility]: [address] [facility] Blood bag Normal Nucleated Red Blood Cell % 0.0 % 0-0 % [facility]: [address] [facility] Blood bag Normal Neutrophils # 4.1 10 1.5-8.5 10 F inal [facility]: [address] [facility] Blood bag Normal Lymph # 2.8 10 1.5-5.0 10 [facility]: [address] [facility] Blood bag Normal [place] # 0.5 10 0.0-0.8 10 [facility]: 0 [facility] Blood bag Normal Eos # 0.2 10 0.0-0.5 10 [facility]: [address] [facility] Blood bag Normal Baso # 0.1 10 0.0-0.2 10 [facility]: [address] [place] [address] 01/14/2020 CMP, Serum or Plasma Blood venous High Glu cose, Fasting 101 mg/dL 70-100 mg/dL [facility]: [address] [place] [address] Blood venous Normal Blood Urea Nitrogen 12 mg/dL 7-18 mg/dL [facility]: [address] [place] [address] Blood venous Normal Creatinine for GFR 1.01 mg/dL 0.70-1.30 mg/dL [facility]: [address] [place] [address] Blood venous Normal Glomerular Filtration Rate > 60.0 >49 [facility]: [address] [place] [address] Blood venous Normal Sodium Level 142 mEq/L 136-14 5 mEq/L [facility]: [address] [place] [address] Blood venous Normal Potassium Serum 4.9 mEq/L 3.5 -5.1 mEq/L [facility]: [address] [place] [address] Blood venous High Chloride Level 108 mEq/L 98-1 07 mEq/L [facility]: [address] [place] [address] Blood venous Normal Carbon Dioxide Level 27 mEq/L 21-32 mEq/L [facility]: [address] [facility] Blood venous Low Anion Gap 7 mEq/L 8-16 mEq/L [facility]: [address] [facility] Blood venous Normal Calcium Level 9.2 mg/dL 8.8-1 0.2 mg/dL [facility]: [address] [facility] Blood venous Normal AST/SGOT 17 U/L 7-37 U/L Gabby l [facility]: [address] [facility] Blood venous Normal ALT/SGPT 25 U/L 12-78 U/L [facility]: [address] [facility] Blood venous Normal Alkaline Phosphatase 87 U/L 4 5-117 U/L [facility]: [address] [facility] Blood venous Normal Bilirubin,total 0.9 mg/dL 0.2 -1.0 mg/dL [facility]: [address] [facility] Blood venous Normal Total Protein 6.7 gm/dL 6.4-8 .2 gm/dL [facility]: [address] [facility] Blood venous Normal Albumin 3.5 gm/dL 3.2-5.2 gm/ dL [facility]: [address] [facility] Blood venous Normal Albumin/globulin Ratio 1.1 [facility]: [address] [facility] 01/14/2020 Lipid Panel, Blood Normal Triglycerides Lev el 88 mg/dL <150 mg/dL [facility]: [address] [facility] Normal Cholesterol Level 162 mg/dL <200 mg/ dL [facility]: [address] [facility] Normal HDL Cholesterol 79 mg/dL >40 mg/dL F inal [facility]: [address] [facility] Normal LDL Cholesterol 65 mg/dL <100 mg/dL [facility]: [address] [facility] Normal Non-hdl-c 83 mg/dL [facility]: [address] [facility] Normal Cholesterol Risk Ratio 2.050 <5 [facility]: [address] [facility] Past Encounters 12/02/2020 [facility] [address] [place] [phone], Ph. 08/05/2020 Body Mass Index 20-24 - Normal; Patient Asked to Attend; Acute Hyperkalemia; Adult Health Examination; Allergic Rhinitis; Hyperlipidemia [facility]: [address] [place] [phone], Ph. 07/29/2020 Hyperlipidemia Sascha Mathews MD: [address] [place] [phone], Ph. 07/20/2020 Tobacco Dependence Caused by Cigarettes; Chronic Obstructive Lung Disease; Primary Erectile Dysfunction; Hyper[facility] [address] [place] [phone], Ph. 01/21/2020 Right [facility]guinal Hern[facility] [address] [place] [phone], Ph. 01/14/2020 [facility]: [address] [place] [phone], Ph. 12/24/2019 Chronic Obstructive Lung Disease; Hyperlipidemia; Herpes Simplex; Needs Influenza Immunization; Hypertensive Disorder [facility]: [address] [place] [phone], Ph. Social History Tobacco Smoking Status Heavy [...] Surgeries None recorded. Imaging None recorded. Vitals 12/02/2020 08:10AM NURSE LAB COLLECTION Height 70.5 in 08/05/2020 10:20AM ESTABLISHED [id number] Height Weight BMI Blood Pressure 70.5 in 175 lbs 6 oz 24.8 kg/m2 129/87 mm[Hg] 07/29/2020 08:00AM NURSE LAB COLLECTION Height 70.5 in 07/20/2020 04:20PM ESTABLISHED [id number] Height Weight BMI Blood Pressure 70.5 in 175 lbs 2 oz 24.8 kg/m2 122/78 mm[Hg] 01/21/2020 02:20PM ESTABLISHED [id number] Height Weight BMI Blood Pressure 70.5 in 173 lbs 16 oz 24.6 kg/m2 115/78 mm[Hg] 12/24/2019 02:20PM ESTABLISHED [id number] Height Weight BMI Blood Pressure 70.5 in [...]
--- OUTSIDE RECORDS SUMMARY | 2020-12-22 13:29 | CCD | Continuity of Care Document ---
Author Author Jacky TRIVEDI [place] Organization Unknown Address [address] [place] [address] [place] [address] Phone [phone] Care Team Providers Care Preschool Teacher'S Assistant Name Role Phone Carter Mendoza MD AUTM [phone] [facility] [phone] Problems Active Problems Provider Date Tobacco user Onset: Hyperlipidemia Onset: C/O - a back symptom Sandra Chadwick, LESA Onset: 010 Social History Type Date Description Comments Sex Unknown Tobacco Use Start: Unknown Current Cigarette Smoker 1 Pack Daily Smoking Status Reviewed: 11/18/20 Current Cigarette Smoker 1 P ack Daily ETOH Use Occasionally consumes alcohol Tobacco Use Start: Unknown Patient is a current smoker, smo kes every day ppd Allergies, Adverse Reactions, Alerts Description No Known Drug Allergies Medications Active Medications SIG Qnty Indications Ordering Provide r Date Doxycycline Monohydrate 100mg Caps ules 1 cap by mouth twice a day for 10 days 20caps J20.9 Beto Burch JR., M.D. 11/18/2020 Prednisone 20mg Tablets take one tab three times a day for three days, then take one tab twice a day for three days, then take one tab daily for three days 18tabs R06.2 Beto ervin JR., M.D. 11/18/2020 Ventolin HFA 108(90Base) mcg/Act A erosol 2 puffs four times a day 1units Pedro Elias JR. 09/05/2017 Lipitor 20mg qd Unknown Aspirin 81mg qd Unknown Zyrtec Allergy 10mg Capsules take one per day Unknown Advair Diskus Unknown Afrin Nasal [place] Unknown /0 000 History Medications Doxycycline Monohydrate 100mg Tabl ets 1 tab by mouth twice a day for 10 days 20tabs J01.90 Beto Burch JR., M.D. 06/06/2020 - 06/16/2020 Prednisone 20mg Tablets 1 tab by mouth twice a day for 4 days 8tabs J45.41 Pedro Elias JR. 06/06/2020 - 06/10/2020 Medications Administered in Office Medication SIG Qnty Indications Ordering Provider Date Allergy Injection 2 Or More Injection Anahy Cintron 11/21/2009 Immunizations CPT Code Status Date Vaccine Lot # [id number] Given 11/09/2014 Tetanus (Td) Vaccine 7 Yrs> [id number] Vital Signs Date Vital Result Comment 11/18/2020 9:33am BP Systolic 154 mmHg BP Diastolic 91 mmHg Heart Rate 92 /min Respiratory Rate 19 /min O2 % BldC Oximetry 98 % Body Temperature 98.4 F Weight 173.00 lb Height 70.5 inches 5'10.50" BMI (Body Mass Index) 24.5 kg/m2 Pain Level 0 06/06/2020 9:36am BP Systolic 143 mmHg BP Diastolic 87 mmHg Heart Rate 98 /min Respiratory Rate 18 /min O2 % BldC Oximetry 97 % Body Temperature 97.9 F Weight 165.00 lb Height 70.5 inches 5'10.50" BMI (Body Mass Index) 23.3 kg/m2 Pain Level 1 Results Description No Information Available Procedures Date Code Description Status 11/18/2020 88085 Office/Outpatient Established Mo d MDM 30-39 Min Completed 06/06/2020 65515 Office/Outpatient Established Mo d MDM 30-39 Min Completed Medical Devices Description No Information Available Encounters Type Date Location Provider Dx Diagnosis Office Visit 11/18/2020 8:35a Main Office KAREN Milton J20 .9 Acute bronchitis, unspecified R06.2 Wheezing Z20.828 Contact w and exposure to ot h viral communicable diseases Z72.0 Tobacco use Office Visit 06/06/2020 9:30a Main Office KAREN Bai J01.90 Acute sinusitis, unspecified J45.41 Moderate persistent asthma w ith (acute) exacerbation Assessments Date Code Description Provider 11/18/2020 J20.9 Acute bronchitis, unspecified Mi KAREN Cantu 11/18/2020 R06.2 Wheezing KAREN Paredes 11/18/2020 Z20.828 Contact with and (del cid spected) exposure to other viral communicable diseases KAREN Milton 11/18/2020 Z72.0 Tobacco use KAREN Paredes 06/06/2020 J01.90 Acute sinusitis, unspecified KAREN Dias 06/06/2020 J45.41 Moderate persistent asthma with (acute) exacerbation KAREN Bai Plan of Treatment No Information Available Functional Status Description No Information Available Mental Status Description No Information Available Referrals Description No Information Available
--- OUTSIDE RECORDS SUMMARY | 2020-12-22 13:29 | CCD | Continuity of Care Document ---
Author Author Jacky TRIVEDI [place] Organization Unknown Address [address] [place] [address] [place] [address] Phone [phone] Care Team Providers Care Power Tool Repair Technician Name Role Phone Carter Mendoza MD AUTM [phone] [facility] [phone] Problems Active Problems Provider Date Tobacco user [...] day Unknown Advair Diskus Unknown Afrin Nasal [place] Unknown /0 000 History Medications Doxycycline Monohydrate [...] CPT Code Status Date Vaccine Lot # [id number] Given 11/09/2014 Tetanus (Td) Vaccine 7 Yrs> [id number] Vital Signs Date Vital Result Comment 11/18/2020 [...] Available Procedures Date Code Description Status 11/18/2020 52852 Office/Outpatient Established Mo d MDM 30-39 Min Completed 06/06/2020 69562 Office/Outpatient Established Mo d MDM 30-39 Min [...]
--- OUTSIDE RECORDS SUMMARY | 2020-12-22 13:30 | CCD ---
Author Author [facility] Address Unknown Phone Unavailable Care Team Providers Care Quarry Equipment Operator Name Role Phone Briana Mathews MD Unavailable Unavailable Briana Mathews MD Unavailable Unavailable Briana Mathews MD Unavailable Unavailable Briana Mathews MD Unavailable Unavailable Briana Mathews MD Unavailable Unavailable Briana Mathews MD Unavailable Unavailable Briana Mathews MD Unavailable Unavailable Briana Mathews MD Unavailable Unavailable Briana Mathesw MD Unavailable Unavailable Briana Mathews MD Unavailable Unavailable Briana Mathews MD Unavailable Unavailable Briana Mathews MD Unavailable Unavailable Briana Mathews MD Unavailable Unavailable Briana Mathews MD Unavailable Unavailable Briana Mathews MD Unavailable Unavailable Briana Mathews MD Unavailable Unavailable Briana Mathews MD Unavailable Unavailable Briana Mathews MD Unavailable Unavailable Briana Mathews MD Unavailable Unavailable Briana Mathews MD Unavailable Unavailable Briana Mathews MD Unavailable Unavailable Briana Mathews MD Unavailable Unavailable Briana Mathews MD Unavailable Unavailable Briana Mathews MD Unavailable Unavailable Briana Mathews MD Unavailable Unavailable Briana Mathews MD Unavailable Unavailable Briana Mathews MD Unavailable Unavailable Birana Mathews MD Unavailable Unavailable Briana Mathews MD Unavailable Unavailable Briana Mathews MD Unavailable Unavailable Briana Mathews MD Unavailable Unavailable Briana Mathews MD Unavailable Unavailable Briana Mathews MD Unavailable Unavailable Briana Mathews MD Unavailable Unavailable Briana Mathews MD Unavailable Unavailable Briana Mathews MD Unavailable Unavailable Briana Mathews MD Unavailable Unavailable Briana Mathews MD Unavailable Unavailable Briana Mathews MD Unavailable Unavailable Briana Mathews MD Unavailable Unavailable Briana Mathews MD Unavailable Unavailable Briana Mathews MD Unavailable Unavailable Briana Mathews MD Unavailable Unavailable Briana Mathews MD Unavailable Unavailable Briana Mathews MD Unavailable Unavailable Briana Mathews MD Unavailable Unavailable Briana Mathews MD Unavailable Unavailable Briana Mathews MD Unavailable Unavailable Briana Mathews MD Unavailable Unavailable Briana Mathews MD Unavailable Unavailable Briana Mathews MD Unavailable Unavailable Briana Mathews MD Unavailable Unavailable Briana Mathews MD Unavailable Unavailable Briana Mathews MD Unavailable Unavailable Briana Mathews MD Unavailable Unavailable Briana Mathews MD Unavailable Unavailable Briana Mathews MD Unavailable Unavailable Briana Mathews MD Unavailable Unavailable Briana Mathews MD Unavailable Unavailable Briana Mathews MD Unavailable Unavailable Briana Mathews MD Unavailable Unavailable Briana Mathews MD Unavailable Unavailable Briana Mathews MD Unavailable Unavailable Briana Mathews MD Unavailable Unavailable Briana Mathews MD Unavailable Unavailable Briana Mathews MD Unavailable Unavailable Briana Mathews MD Unavailable Unavailable Briana Mathews MD Unavailable Unavailable Briana Mathews MD Unavailable Unavailable Briana Mathews MD Unavailable Unavailable Briana Mathews MD Unavailable Unavailable Briana Mathews MD Unavailable Unavailable Briana Mathews MD Unavailable Unavailable Briana Mathews MD Unavailable Unavailable Briana Mathews MD Unavailable Unavailable Briana Mathews MD Unavailable Unavailable Briana Mathews MD Unavailable Unavailable Briana Mathews MD Unavailable Unavailable Briana Mathews MD Unavailable Unavailable Briana Mathews MD Unavailable Unavailable Briana Mathews MD Unavailable Unavailable Briana Mathews MD Unavailable Unavailable Briana Mathews MD Unavailable Unavailable Briana Mathews MD Unavailable Unavailable Briana Mathews MD Unavailable Unavailable Briana Mathews MD Unavailable Unavailable Briana Mathews MD Unavailable Unavailable Briana Mathews MD Unavailable Unavailable Briana Mathews MD Unavailable Unavailable Briana Mathews MD Unavailable Unavailable Briana Mathews MD Unavailable Unavailable Briana Mathews MD Unavailable Unavailable Briana Mathews MD Unavailable Unavailable Yas Kahn STAPLER MACHINE STAPLER MACHINE Unavailable Unavailable Shaila TRIVEDI PA Unavailable Unavailable LETTShaila FORBES PA Unavailable Unavailable LETTIERE, A RIO PA Unavailable Unavailable LETTIERE, A RIO PA Unavailable Unavailable LETTIERE, A RIO PA Unavailable Unavailable LETTIERE, A RIO PA Unavailable Unavailable LETTIERE, A RIO PA Unavailable Unavailable LETTIERE, A RIO PA Unavailable Unavailable LETTIERE, A RIO PA Unavailable Unavailable LETTIERE, A RIO PA Unavailable Unavailable LETTIERE, A RIO PA Unavailable Unavailable LETTIERE, A RIO PA Unavailable Unavailable LETTIERE, A RIO PA Unavailable Unavailable LETTIERE, A RIO PA Unavailable Unavailable LETTIERE, A RIO PA Unavailable Unavailable LETTIERE, A RIO PA Unavailable Unavailable LETTIERE, A RIO PA Unavailable Unavailable LETTIERE, A RIO PA Unavailable Unavailable LETTIERE, A RIO PA Unavailable Unavailable LETTIERE, A RIO PA Unavailable Unavailable LETTIERE, A RIO PA Unavailable Unavailable LETTIERE, A RIO PA Unavailable Unavailable LETTIERE, A RIO PA Unavailable Unavailable LETTIERE, A RIO PA Unavailable Unavailable LETTIERE, A RIO PA Unavailable Unavailable LETTIERE, A RIO PA Unavailable Unavailable LETTIERE, A RIO PA Unavailable Unavailable LETTIERE, A RIO PA Unavailable Unavailable LETTIERE, A RIO PA Unavailable Unavailable LETTIERE, A RIO PA Unavailable Unavailable LETTIERE, A RIO PA Unavailable Unavailable Femi, A Yas STAPLER MACHINE Unavailable Unavailable Femi, A Yas STAPLER MACHINE Unavailable Unavailable Farina, A Yas STAPLER MACHINE Unavailable Unavailable Farina, A Yas STAPLER MACHINE Unavailable Unavailable Farina, A Yas STAPLER MACHINE Unavailable Unavailable Femi, A Yas STAPLER MACHINE Unavailable Unavailable Femi, A Yas STAPLER MACHINE Unavailable Unavailable Farina, A Yas STAPLER MACHINE Unavailable Unavailable Farina, A Yas STAPLER MACHINE Unavailable Unavailable Farina, A Yas STAPLER MACHINE Unavailable Unavailable Farina, A Yas STAPLER MACHINE Unavailable Unavailable Femi, A Yas STAPLER MACHINE Unavailable Unavailable Femi, A Yas STAPLER MACHINE Unavailable Unavailable Femi, A Yas STAPLER MACHINE Unavailable Unavailable Femi, A Yas STAPLER MACHINE Unavailable Unavailable Femi, A Yas STAPLER MACHINE Unavailable Unavailable Femi, A Yas STAPLER MACHINE Unavailable Unavailable Femi, A Yas STAPLER MACHINE Unavailable Unavailable Femi, A Yas STAPLER MACHINE Unavailable Unavailable Femi, A Yas STAPLER MACHINE Unavailable Unavailable Femi, A Yas STAPLER MACHINE Unavailable Unavailable Femi, A Yas STAPLER MACHINE Unavailable Unavailable Femi, A Yas STAPLER MACHINE Unavailable Unavailable Femi, A Yas STAPLER MACHINE Unavailable Unavailable Femi, A Yas STAPLER MACHINE Unavailable Unavailable Femi, A Yas STAPLER MACHINE Unavailable Unavailable Femi, A Yas STAPLER MACHINE Unavailable Unavailable Femi, A Yas STAPLER MACHINE Unavailable Unavailable Femi, A Yas STAPLER MACHINE Unavailable Unavailable Femi, A Yas STAPLER MACHINE Unavailable Unavailable Femi, A Yas STAPLER MACHINE Unavailable Unavailable DEFAULT, PROVIDER Unavailable Unavailable RING, K BASILIO PA Unavailable Unavailable RING, K BASILIO PA Unavailable Unavailable RING, K BASILIO PA Unavailable Unavailable RING, K BASILIO PA Unavailable Unavailable RING, K BASILIO PA Unavailable Unavailable RING, K BASILIO PA Unavailable Unavailable RING, K BASILIO PA Unavailable Unavailable RING, K BASILIO PA Unavailable Unavailable RING, K BASILIO PA Unavailable Unavailable RING, K BASILIO PA Unavailable Unavailable RING, K BASILIO PA Unavailable Unavailable RING, K BASILIO PA Unavailable Unavailable RING, K BASILIO PA Unavailable Unavailable RING, K BASILIO PA Unavailable Unavailable RING, K BASILIO PA Unavailable Unavailable RING, K BASILIO PA Unavailable Unavailable RING, K BASILIO PA Unavailable Unavailable RING, K BASILIO PA Unavailable Unavailable RING, K BASILIO PA Unavailable Unavailable RING, K BASILIO PA Unavailable Unavailable RING, K BASILIO PA Unavailable Unavailable Adrian Mendoza JR, MD Unavailable Unavailable Adrian Mendoza JR, MD Unavailable Unavailable Adrian Mendoza JR, MD Unavailable Unavailable Adrian Mendoza JR, MD Unavailable Unavailable Adrian Mendoza JR, MD Unavailable Unavailable Adrian Mendoza JR, MD Unavailable Unavailable Adrian Mendoza JR, MD Unavailable Unavailable Adrian Mendoza JR, MD Unavailable Unavailable Adrian Mendoza JR, MD Unavailable Unavailable Adrian Mendoza JR, MD Unavailable Unavailable Adrian Mendoza JR, MD Unavailable Unavailable Adrian Mendoza JR, MD Unavailable Unavailable Adrian Mendoza JR, MD Unavailable Unavailable Adrian Mendoza JR, MD Unavailable Unavailable Adrian Mendoza JR, MD Unavailable Unavailable Adrian Mendoza JR, MD Unavailable Unavailable Adrian Mendoza JR, MD Unavailable Unavailable Adrian Mendoza JR, MD Unavailable Unavailable Adrian Mendoza JR, MD Unavailable Unavailable Adrian Mendoza JR, MD Unavailable Unavailable Adrian Mendoza JR, MD Unavailable Unavailable Adrian Mendoza JR, MD Unavailable Unavailable Adrian Mendoza JR, MD Unavailable Unavailable Adrian Mendoza JR, MD Unavailable Unavailable Adrian Mendoza JR, MD Unavailable Unavailable Adrian Mendoza JR, MD Unavailable Unavailable Adrian Mendoza JR, MD Unavailable Unavailable Adrian Mendoza JR, MD Unavailable Unavailable Adrian Mendoza JR, MD Unavailable Unavailable Adrian Mendoza JR, MD Unavailable Unavailable Adrian Mendoza JR, MD Unavailable Unavailable Adrian Mendoza JR, MD Unavailable Unavailable Adrian Mendoza JR, MD Unavailable Unavailable Adrian Mendoza JR, MD Unavailable Unavailable Adrian Mendoza JR, MD Unavailable Unavailable Adrian Mendoza JR, MD Unavailable Unavailable Adrian Mendoza JR, MD Unavailable Unavailable Adrian Mendoza JR, MD Unavailable Unavailable Adrian Mendoza JR, MD Unavailable Unavailable Adrian Mendoza JR, MD Unavailable Unavailable Adrian Mendoza JR, MD Unavailable Unavailable Adrian Mendoza JR, MD Unavailable Unavailable Adrian Mendoza JR, MD Unavailable Unavailable Adrian Mendoza JR, MD Unavailable Unavailable Adrian Mendoza JR, MD Unavailable Unavailable Adrian Mendoza JR, MD Unavailable Unavailable Adrian Mendoza JR, MD Unavailable Unavailable Adrian Mendoza JR, MD Unavailable Unavailable Adrian Mendoza JR, MD Unavailable Unavailable Adrian Mendoza JR, MD Unavailable Unavailable Adrian Mendoza JR, MD Unavailable Unavailable Adrian Mendoza JR, MD Unavailable Unavailable Adrian Mendoza JR, MD Unavailable Unavailable Adrian Mendoza JR, MD Unavailable Unavailable GaelagongKeshaSonja Unavailable [phone] NoragongKeshaSonja Unavailable [phone] Noragong Sonja Unavailable [phone] Femi, A Yas STAPLER MACHINE Unavailable Unavailable Femi, A Yas STAPLER MACHINE Unavailable Unavailable Femi, A Yas STAPLER MACHINE Unavailable Unavailable Femi, A Yas STAPLER MACHINE Unavailable Unavailable Femi, A Yas STAPLER MACHINE Unavailable Unavailable Femi, A Yas STAPLER MACHINE Unavailable Unavailable Femi, A Yas STAPLER MACHINE Unavailable Unavailable Femi, A Yas STAPLER MACHINE Unavailable Unavailable Femi, A Yas STAPLER MACHINE Unavailable Unavailable Femi, A Yas STAPLER MACHINE Unavailable Unavailable Femi, A Yas STAPLER MACHINE Unavailable Unavailable Femi, A Yas STAPLER MACHINE Unavailable Unavailable Femi, A Yas STAPLER MACHINE Unavailable Unavailable Femi, A Yas STAPLER MACHINE Unavailable Unavailable Femi, A Yas STAPLER MACHINE Unavailable Unavailable Femi, A Yas STAPLER MACHINE Unavailable Unavailable Femi, A Yas STAPLER MACHINE Unavailable Unavailable Femi, A Yas STAPLER MACHINE Unavailable Unavailable Femi, A Yas STAPLER MACHINE Unavailable Unavailable Femi, A Yas STAPLER MACHINE Unavailable Unavailable Femi, A Yas STAPLER MACHINE Unavailable Unavailable Femi, A Yas STAPLER MACHINE Unavailable Unavailable Femi, A Yas STAPLER MACHINE Unavailable Unavailable Femi, A Yas STAPLER MACHINE Unavailable Unavailable Femi, A Yas STAPLER MACHINE Unavailable Unavailable Femi, A Yas STAPLER MACHINE Unavailable Unavailable Femi, A Yas STAPLER MACHINE Unavailable Unavailable Femi, A Yas STAPLER MACHINE Unavailable Unavailable Femi, A Yas STAPLER MACHINE Unavailable Unavailable Femi, A Yas STAPLER MACHINE Unavailable Unavailable Femi, A Yas STAPLER MACHINE Unavailable Unavailable ROJAS, M TORSTEN PA Unavailable Unavailable ROJAS, M TORSTEN PA Unavailable Unavailable ROJAS, M TORSTEN PA Unavailable Unavailable ROJAS, M TORSTEN PA Unavailable Unavailable ROJAS, M TORSTEN PA Unavailable Unavailable ROJAS, M TORSTEN PA Unavailable Unavailable ROJAS, M TORSTEN PA Unavailable Unavailable ROJAS, M TORSTEN PA Unavailable Unavailable ROJAS, M TORSTEN PA Unavailable Unavailable ROJAS, M TORSTEN PA Unavailable Unavailable ROJAS, M TORSTEN PA Unavailable Unavailable ROJAS, M TORSTEN PA Unavailable Unavailable ROJAS, M TORSTEN PA Unavailable Unavailable ROJAS, M TORSTEN PA Unavailable Unavailable ROJAS, M TORSTEN PA Unavailable Unavailable ROJAS, M TORSTEN PA Unavailable Unavailable ROJAS, M TORSTEN PA Unavailable Unavailable ROJAS, M TORSTEN PA Unavailable Unavailable ROJAS, M TORSTEN PA Unavailable Unavailable ROJAS, M TORSTEN PA Unavailable Unavailable ROJAS, M TORSTEN PA Unavailable Unavailable ROJAS, M TORSTEN PA Unavailable Unavailable ROJAS, M TORSTEN PA Unavailable Unavailable ROJAS, M TORSTEN PA Unavailable Unavailable ROJAS, M TORSTEN PA Unavailable Unavailable ROJAS, M TORSTEN PA Unavailable Unavailable ROJAS, M TORSTEN PA Unavailable Unavailable ROJAS, M TORSTEN PA Unavailable Unavailable ROJAS, M TORSTEN PA Unavailable Unavailable ROJAS, M TORSTEN PA Unavailable Unavailable ROJAS, M TORSTEN PA Unavailable Unavailable ROJAS, M TORSTEN PA Unavailable Unavailable ROJAS, M TORSTEN PA Unavailable Unavailable ROJAS, M TORSTEN PA Unavailable Unavailable ROJAS, M TORSTEN PA Unavailable Unavailable Re-disclosure Warning The records that you are about to access may contain information from federally-assisted alcohol or drug abuse programs. If such information is present, then the following federally mandated warning applies: This information has been disclosed to you from records protected by federal confidentiality rules (42 CFR part 2). The federal rules prohibit you from making any further disclosure of this information unless further disclosure is expressly permitted by the written consent of the person to whom it pertains or as otherwise permitted by 42 CFR part 2. A general authorization for the release of medical or other information is NOT sufficient for this purpose. The Federal rules restrict any use of the information to criminally investigate or prosecute any alcohol or drug abuse patient.The records that you are about to access may contain highly sensitive health information, the redisclosure of which is protected by Article 27-F of the [facility] Public Health law. If you continue you may have access to information: Regarding HIV / AIDS; Provided by facilities licensed or operated by the [facility] Office of Mental Health; or Provided by the [facility] Office for People With Developmental Disabilities. If such information is present, then the following [facility] mandated warning applies: This information has been disclosed to you from confidential records which are protected by state law. State law prohibits you from making any further disclosure of this information without the specific written consent of the person to whom it pertains, or as otherwise permitted by law. Any unauthorized further disclosure in violation of state law may result in a fine or fdc sentence or both. A general authorization for the release of medical or other information is NOT sufficient authorization for further disc losure. Allergies and Adverse Reactions Type Description Substance Reaction Status Data Source(s ) Allergy to substance Allergy to substance Allergy to substance [facility] ([facility]) Allergy to substance Allergy to substance Allergy to substance [facility] ([facility]) Family History Family Member Name Family Member Gender Family Member Status Date o f Status Description Data Source(s) Unknown Female Problem [facility] ([facility]) Unknown Female Problem [facility] ([facility]) Unknown Male Problem [facility] Encounters Encounter Providers Location Date Indications Data Source(s ) MARGARETH Garcia: [address] [place] [id number], Ph. Attender: Sonja Cleary [place] - [facility] Medical 12/09/2020 12:00:00 AM EDT [facility] ([facility]) [facility] [address] [place] [address], Ph. Attender: Yas Kahn [facility] Medical 12/02/2020 12:00:00 AM EDT [facility] ([facility]) Yas Kahn [facility]: [address], [place] [address], Ph. Attender: Yas Kahn [facility] Medical 12/02/2020 12:00:00 AM EDT [place] ([facility]) Outpatient Attender: RIO arndt 11/18/2020 08:35:00 AM EDT [facility] ([facility]) Yas Kahn [facility]: [address], [place] [address], Ph. Attender: Yas Kahn [facility] Medical 08/05/2020 12:00:00 AM EDT [place] ([facility]) [facility]: [address] [place] [address], Ph. Attender: Yas Kahn [facility] Medical 08/05/2020 12:00:00 AM EDT [place] ([facility]) Yas Kahn [facility]: [address], [place] [address], Ph. Attender: Yas Kahn [facility] Medical 08/05/2020 12:00:00 AM EDT [place] ([facility]) Sascha Mathews MD: [address], [place] [address], Ph. Attender: Sascha Mathews MD [facility] Medical 07/29/2020 12:00:00 AM EDT [place] ([facility]) Sascha Mathews MD: [address] [place] [address], Ph. Attender: Sascha Mathews MD [facility] Medical 07/29/2020 12:00:00 AM EDT [place] ([facility]) Sascha Mathews MD: [address] [place] [address], Ph. Attender: Sascha Mathews MD [facility] Medical 07/29/2020 12:00:00 AM EDT [place] ([facility]) Sascha Mathews MD: [address] [place] [address], Ph. Attender: Sascha Mathews MD [facility] Medical 07/29/2020 12:00:00 AM EDT [place] ([facility]) [place]: [address], [place] [address], Ph. Attender: Yas Kahn [facility] Medical 07/20/2020 12:00:00 AM EDT [place] ([facility]) [facility]: [address], [place] [address], Ph. Attender: Yas Kahn [facility] Medical 07/20/2020 12:00:00 AM EDT [place] ([facility]) [facility]: [address], [place] [address], Ph. Attender: Yas Kahn [facility] Medical 07/20/2020 12:00:00 AM EDT [place] ([facility]) [place]: [address], [place] [address], Ph. Attender: Yas Kahn [facility] Medical 07/20/2020 12:00:00 AM EDT [place] ([facility]) [place]: [address], [place] [address], Ph. Attender: Yas Kahn [facility] Medical 07/20/2020 12:00:00 AM EDT [place] ([facility]) Outpatient Attender: PROVIDER DEFAULT 07/02/2020 07:01:53 PM EDT [facility] Outpatient Attender: BASILIO Tesfaye 06/06/2020 09:30:00 AM EDT [facility] ([facility]) [facility] [facility]: [address], [place] [address], Ph. Attender: Yas Kahn [facility] Medical 01/21/2020 12:00:00 AM EST [place] ([facility]) [place]: [address], [place] [address], Ph. Attender: Yas Kahn [facility] Medical 01/21/2020 12:00:00 AM EST [place] ([facility]) [place]: [address], [place] [address], Ph. Attender: Yas Kahn [facility] Medical 01/21/2020 12:00:00 AM EST [place] ([facility]) [place]: [address], [place] [address], Ph. Attender: Yas Kahn [facility] Medical 01/21/2020 12:00:00 AM EST [place] ([facility]) Yas Kahn [facility]: [address], [place] [address], Ph. Attender: Yas Kahn [facility] Medical 01/21/2020 12:00:00 AM EST [place] ([facility]) Yas Kahn [facility]: [address], [place] [address], Ph. Attender: Yas Kahn [facility] Medical 01/21/2020 12:00:00 AM EST [facility] ([facility]) Yas Kahn [facility]: [address], [place] [address], Ph. Attender: Yas Kahn [facility] Medical 01/14/2020 12:00:00 AM EST [place] ([facility]) Yas Kahn [facility]: [address], [place] [address], Ph. Attender: Yas Kahn [facility] Medical 01/14/2020 12:00:00 AM EST [facility] ([facility]) Yas Kahn [facility]: [address], [place] [address], Ph. Attender: Yas Kahn [facility] Medical 01/14/2020 12:00:00 AM EST [facility] ([facility]) Yas Kahn [facility]: [address], [place] [address], Ph. Attender: Yas Kahn [facility] Medical 01/14/2020 12:00:00 AM EST [place] ([facility]) [facility]: [address], [place] [address], Ph. Attender: Yas Kahn [facility] Medical 01/14/2020 12:00:00 AM EST [facility] ([facility]) Yas Kahn [facility]: [address], [place] [address], Ph. Attender: Yas Kahn [facility] Medical 01/14/2020 12:00:00 AM EST [place] ([facility]) [facility]: [address], [place] [address], Ph. Attender: Yas Kahn [facility] Medical 01/14/2020 12:00:00 AM EST [place] ([facility]) Outpatient Attender: TORSTEN Denton/Cristian/Tyrone/Munir dl 01/05/2020 09:00:00 AM EST [facility] ([facility] [place] [address] [facility] [address] 01/04/2020 12:00:00 AM EST eCW1 ([facility]) [facility]: [address], [place] [address], Ph. Attender: Yas Kahn [facility] Medical 12/24/2019 12:00:00 AM EDT [place] ([facility]) [place] [facility]: [address], [place] [address], Ph. Attender: Yas Kahn [facility] Medical 12/24/2019 12:00:00 AM EDT [place] ([facility]) Yas Kahn [facility]: [address], [place] [address], Ph. Attender: Yas Kahn [facility] Medical 12/24/2019 12:00:00 AM EDT [place] ([facility]) Yas Kahn [facility]: [address], [place] [address], Ph. Attender: Yas Kahn [facility] Medical 12/24/2019 12:00:00 AM EDT [place] ([facility]) Yas Kahn [facility]: [address], [place] [address], Ph. Attender: Yas Kahn [facility] Medical 12/24/2019 12:00:00 AM EDT [place] ([facility]) Yas Kahn [facility]: [address], [place] [id number], Ph. Attender: Yas Kahn [facility] Medical 12/24/2019 12:00:00 AM EDT [facility] ([facility]) Yas Kahn [facility]: [address], [place] [address], Ph. Attender: Yas Kahn [facility] Medical 12/24/2019 12:00:00 AM EDT [facility] ([facility]) Yas Kahn [facility]: [address], [place] [address], Ph. Attender: Yas ZULUAGA [facility] Medical 12/24/2019 12:00:00 AM EDT [facility] ([facility]) Outpatient Attender: MARGARETH Kahn [facility] 12/17/2019 11:30:01 A M EDT [facility] Outpatient Attender: TORSTEN JONES [place] 11/27/2019 10:30:00 AM EDT [facility] ([facility]) Outpatient Attender: [facility] 11/26/2019 11:20:01 A M EDT [facility] Outpatient Attender: Carter Mendoza JR [place] 11/25/2019 11:00:00 AM EDT MED[facility] ([facility]) Outpatient Attender: MARGARETH Femi [facility] 11/23/2019 07:37:01 A M EDT [facility] Outpatient Att[facility]: [facility] 11/15/2019 11:0 4:01 PM EDT [facility] Outpatient Attender: MARGARETH [facility]ahn [facility] 11/11/2019 05:02:01 P M EDT [facility] Outpatient Attender: MARGARETH Kahn [facility] 10/27/2019 12:36:00 P M EDT [facility] Immunizations Vaccine Date Status Description Data Source(s) COVID-19 VACCINE Moderna 04/22/2020 12:00:00 AM EST completed [facility] Vaccine Series Complete: YESThis Data wa s Submitted to [facility] Via veriCAR. COVID-19 VACCINE Moderna 03/25/2020 12:00:00 AM EST completed [facility] Vaccine Series Complete: NOThis Data was Submitted to [facility] Via veriCAR. New in 2011. IIV4 12/24/2019 03:14:00 PM EDT completed .5 mL [facility] ([facility]) New in 2011. IIV4 12/24/2019 03:14:00 PM EDT completed .5 mL [facility] ([facility]) New in 2011. IIV4 12/24/2019 03:14:00 PM EDT completed 10 /22/65350.5 mL [facility] ([facility]) New in 2011. IIV4 12/24/2019 03:14:00 PM EDT completed 0.5 mL [facility] ([facility]) New in 2011. IIV4 12/24/2019 03:14:00 PM EDT completed 0.5 mL [facility] ([facility]) New in 2011. IIV4 12/24/2019 03:14:00 PM EDT completed 0.5 mL [facility] ([facility]) New in 2011. IIV4 12/24/2019 03:14:00 PM EDT completed 0.5 mL [facility] ([facility]) New in 2011. IIV4 12/24/2019 03:14:00 PM EDT completed 0.5 mL [facility] ([facility]) Pneumococcal conjugate PCV 13 11/27/2019 11:11:00 AM EDT completed MEDENT ([facility]) Pneumococcal conjugate PCV 13 11/27/2019 03:41:00 AM EDT completed [facility] ([facility]) Pneumococcal conjugate PCV 13 11/27/2019 12:00:00 AM EDT completed 11/27/2019 [facility] ([facility]) Pneumococcal conjugate PCV 13 11/27/2019 12:00:00 AM EDT completed 11/27/2019 [place] ([facility]) Medications Medication Brand Name Start Date Product Form Dose Route Admi nistrative Instructions Pharmacy Instructions Status Indications Reaction Description Data Source(s) 4 mg 12/12/2020 12:00:00 AM EDT gum 110 USE 1 PIECE EVERY 2 HOURS DIRECTED USE 1 PIECE EVERY 2 HOURS DIRECTED SOLD: 12/16/2020 [facility] 500 mg 12/09/2020 12:00:00 AM EDT tablet 14 TAKE ONE TABLET BY MOUTH EVERY DAY TAKE ONE TABLET BY MOUTH EVERY DAY SOLD: 12/16/2020 [facility] 90 mcg/actuation 11/19/2020 12:00:00 AM EDT HFA aerosol inha ler 8 INHALE 2 PUFFS BY MOUTH NEEDED MAXIMUM DAILY DOSE = 12 PUFFS INHALE 2 PUFFS BY MOUTH NEEDED MAXIMUM DAILY DOSE = 12 PUFFS SOLD: 11/22/2020 [facility] 90 mcg/actuation 11/19/2020 12:00:00 AM EDT HFA aerosol inha ler 8 INHALE 2 PUFFS BY MOUTH NEEDED MAXIMUM DAILY DOSE = 12 PUFFS INHALE 2 PUFFS BY MOUTH NEEDED MAXIMUM DAILY DOSE = 12 PUFFS SOLD: 12/16/2020 [facility] 20 mg 11/18/2020 12:00:00 AM EDT tablet 18 TAKE 1 TABLET BY MOUTH 3 TIMES A DAY FOR 3 DAYS THEN TAKE 1 TABLET TWICE A DAY FOR 3 DAYS THEN TAKE 1 TABLET DAILY FOR 3 DAYS TAKE 1 TABLET BY MOUTH 3 TIMES A DAY FOR 3 DAYS THEN TAKE 1 TABLET TWICE A DAY FOR 3 DAYS THEN TAKE 1 TABLET DAILY FOR 3 DAYS SOLD: 11/18/2020 [facility] Prednisone 20 MG Oral Tablet Prednisone 11/18/2020 12:00:00 AM EDT active MEDENT ([facility]) Doxycycline Monohydrate 100 MG Oral Capsule Doxycycline [place] hydrate 11/18/2020 12:00:00 AM EDT ORAL active M EDENT ([facility]) 100 mg 11/18/2020 12:00:00 AM EDT capsule 20 TAKE ONE CAPSULE BY MOUTH TWICE A DAY FOR 10 DAYS TAKE ONE CAPSULE BY MOUTH TWICE A DAY FOR 10 DAYS SOLD : 11/18/2020 [employer] atorvastatin 20 MG Oral Tablet ATORVASTATIN CALCIUM 10/10/2020 1 2:00:00 AM EDT tablet 30 TAKE ONE TABLET BY MOUTH IN THE EVENING TAKE ONE TABLET BY MOUTH IN THE EVENING SOLD: 10/13/2020 [facility] 90 mcg/actuation 09/07/2020 12:00:00 AM EDT HFA aerosol inha ler 8 INHALE 2 PUFFS BY MOUTH NEEDED MAXIMUM DAILY DOSE = 12 PUFFS INHALE 2 PUFFS BY MOUTH NEEDED MAXIMUM DAILY DOSE = 12 PUFFS SOLD: 10/13/2020 [facility] 90 mcg/actuation 09/07/2020 12:00:00 AM EDT HFA aerosol inha ler 8 INHALE 2 PUFFS BY MOUTH NEEDED MAXIMUM DAILY DOSE = 12 PUFFS INHALE 2 PUFFS BY MOUTH NEEDED MAXIMUM DAILY DOSE = 12 PUFFS SOLD: 09/10/2020 [facility] 10 mg 08/05/2020 12:00:00 AM EDT tablet 90 TAKE ONE TABLET BY MOUTH EVERY DAY TAKE ONE TABLET BY MOUTH EVERY DAY SOLD: 08/16/2020 [facility] 20 mg 06/06/2020 12:00:00 AM EDT tablet 8 TAKE ONE TABLET BY MOUTH TWICE A DAY FOR 4 DAYS TAKE ONE TABLET BY MOUTH TWICE A DAY FOR 4 DAYS SOLD: 2020 [facility] Doxycycline Monohydrate 100 MG Oral Tablet Doxycycline Monoh ydrate 06/06/2020 12:00:00 AM EDT ORAL completed [facility] ([facility]) Prednisone 20 MG Oral Tablet Prednisone 06/06/2020 12:00:00 AM EDT ORAL completed MEDENT ([facility]) 100 mg 06/06/2020 12:00:00 AM EDT tablet 20 TAKE ONE TABLET BY MOUTH TWICE A DAY FOR 10 DAYS TAKE ONE TABLET BY MOUTH TWICE A DAY FOR 10 DAYS SOLD: 06/06/2020 [facility] 90 mcg/actuation 05/02/2020 12:00:00 AM EST HFA aerosol inha ler 8 INHALE TWO PUFFS BY MOUTH FOUR TIMES A DAY NEEDED INHALE TWO PUFFS BY MOUTH FOUR TIMES A DAY NEEDED SOLD: 06/06/2020 [facility] 90 mcg/actuation 05/02/2020 12:00:00 AM EST HFA aerosol inha ler 8 INHALE TWO PUFFS BY MOUTH FOUR TIMES A DAY NEEDED INHALE TWO PUFFS BY MOUTH FOUR TIMES A DAY NEEDED SOLD: 08/16/2020 [facility] 90 mcg/actuation 05/02/2020 12:00:00 AM EST HFA aerosol inha ler 8 INHALE TWO PUFFS BY MOUTH FOUR TIMES A DAY NEEDED INHALE TWO PUFFS BY MOUTH FOUR TIMES A DAY NEEDED SOLD: 05/03/2020 [facility] 90 mcg/actuation 05/02/2020 12:00:00 AM EST HFA aerosol inha ler 8 INHALE TWO PUFFS BY MOUTH FOUR TIMES A DAY NEEDED INHALE TWO PUFFS BY MOUTH FOUR TIMES A DAY NEEDED SOLD: 07/07/2020 [facility] 90 mcg/actuation 01/11/2020 12:00:00 AM EST HFA aerosol inha ler 8 INHALE TWO PUFFS BY MOUTH FOUR TIMES A DAY NEEDED INHALE TWO PUFFS BY MOUTH FOUR TIMES A DAY NEEDED SOLD: 01/14/2020 [facility] 90 mcg/actuation 01/11/2020 12:00:00 AM EST HFA aerosol inha ler 8 INHALE TWO PUFFS BY MOUTH FOUR TIMES A DAY NEEDED INHALE TWO PUFFS BY MOUTH FOUR TIMES A DAY NEEDED SOLD: 03/30/2020 [facility] 90 mcg/actuation 01/11/2020 12:00:00 AM EST HFA aerosol inha ler 8 INHALE TWO PUFFS BY MOUTH FOUR TIMES A DAY NEEDED INHALE TWO PUFFS BY MOUTH FOUR TIMES A DAY NEEDED SOLD: 02/16/2020 [facility] 230-21 mcg/actuation 01/05/2020 12:00:00 AM EST HFA aerosol inhaler 12 INHALE TWO PUFFS BY MOUTH TWICE A DAY INHALE TWO PUFFS BY MOUTH TWICE A DAY SOLD: 01/08/2020 [facility] 230-21 mcg/actuation 01/05/2020 12:00:00 AM EST HFA aerosol inhaler 12 INHALE TWO PUFFS BY MOUTH TWICE A DAY INHALE TWO PUFFS BY MOUTH TWICE A DAY SOLD: 03/30/2020 [facility] 200 ACTUAT Albuterol 0.09 MG/ACTUAT Metered Dose Inhal er [Ventolin] Ventolin HFA 01/05/2020 12:00:00 AM EST RESPIRATORY active MEDENT ([facility] ) 120 ACTUAT Fluticasone propionate 0.23 M G/ACTUAT / salmeterol 0.021 MG/ACTUAT Metered Dose Inhaler [Advair] Advair HFA 01/05/2020 12:00:00 AM EST ORAL active MEDENT ([facility], ) 0.12 % 12/28/2019 12:00:00 AM EDT mouthwash 946 RINSE WITH 1 CAPFUL THREE TIMES A DAY STARTING SATURDAY RINSE WITH 1 CAPFUL THREE TIMES A DAY ST Saturday SOLD: 12/28/2019 [facility] 500 mg 12/28/2019 12:00:00 AM EDT capsule 10 TAKE ONE CAPSULE BY MOUTH EVERY 8 HOURS UNTIL GONE TAKE ONE CAPSULE BY MOUTH EVERY 8 HOURS UNTIL GONE [facility] 5-325 mg 12/28/2019 12:00:00 AM EDT tablet 18 TAKE ONE TABLET BY MOUTH EVERY 4 TO 6 HOURS NEEDED FOR PAIN MAXIMUM DAILY DOSE = 6 TAKE ONE TABLET BY MOUTH EVERY 4 TO 6 HOURS NEEDED FOR PAIN MAXIMUM DAILY DOSE = 6 SOLD: 12/28/2019 [facility] 500 mg 12/25/2019 12:00:00 AM EDT tablet 14 TAKE ONE TABLET BY MOUTH EVERY DAY TAKE ONE TABLET BY MOUTH EVERY DAY SOLD: 12/28/2019 [facility] atorvastatin 20 MG Oral Tablet ATORVASTATIN CALCIUM 12/18/2019 1 2:00:00 AM EDT tablet 30 TAKE ONE TABLET BY MOUTH AT BEDT PREMA TAKE ONE TABLET BY MOUTH AT BEDTIME SOLD: 03/30/2020 [facility] atorvastatin 20 MG Oral Tablet ATORVASTATIN CALCIUM 12/18/2019 1 2:00:00 AM EDT tablet 30 TAKE ONE TABLET BY MOUTH AT BEDT PREMA TAKE ONE TABLET BY MOUTH AT BEDTIME SOLD: 02/16/2020 [facility] atorvastatin 20 MG Oral Tablet ATORVASTATIN CALCIUM 12/18/2019 1 2:00:00 AM EDT tablet 30 TAKE ONE TABLET BY MOUTH AT BEDT PREMA TAKE ONE TABLET BY MOUTH AT BEDTIME SOLD: 12/22/2019 [facility] atorvastatin 20 MG Oral Tablet ATORVASTATIN CALCIUM 12/18/2019 1 2:00:00 AM EDT tablet 30 TAKE ONE TABLET BY MOUTH AT BEDT PREMA TAKE ONE TABLET BY MOUTH AT BEDTIME SOLD: 08/22/2020 [facility] 100 mg 11/15/2019 12:00:00 AM EDT tablet 10 TAKE 1/2 TABLET OR 1 TABLET DAILY NEEDED (IF ERECTION LONGER THAN 3 HOURS GO TO ER) TAKE 1/2 TABLET OR 1 TABLET DAILY NEEDED (IF ERECTION LONGER THAN 3 HOURS GO TO ER) SOLD: 11/18/2019 [facility] 50 mg 11/12/2019 12:00:00 AM EDT tablet 30 TAKE ONE TABLET BY MOUTH AT BEDTIME NEEDED FOR INSOMNIA TAKE ONE TABLET BY MOUTH AT BEDTIME N EEDED FOR INSOMNIA SOLD: 11/15/2019 [facility] 90 mcg/actuation 10/11/2019 12:00:00 AM EDT HFA aerosol inha ler 8 INHALE TWO PUFFS BY MOUTH EVERY 4 HOURS NEEDED MAXIMUM DAILY DOSE = 8 INHALE TWO PUFFS BY MOUTH EVERY 4 HOURS NEEDED MAXIMUM DAILY DOSE = 8 SOLD: 11/22/2019 [facility] 90 mcg/actuation 10/11/2019 12:00:00 AM EDT HFA aerosol inha ler 8 INHALE TWO PUFFS BY MOUTH EVERY 4 HOURS NEEDED MAXIMUM DAILY DOSE = 8 INHALE TWO PUFFS BY MOUTH EVERY 4 HOURS NEEDED MAXIMUM DAILY DOSE = 8 SOLD: 12/22/2019 [facility] atorvastatin 20 MG Oral Tablet ATORVASTATIN CALCIUM 04/21/2019 1 2:00:00 AM EST tablet 30 TAKE ONE TABLET BY MOUTH AT BEDT PREMA TAKE ONE TABLET BY MOUTH AT BEDTIME SOLD: 10/27/2019 [facility] Acetaminophen 325 MG / Oxycodone Hydroch loride 5 MG Oral Tablet oxycodone- acetaminophen 5 mg-325 mg tablet TAKE ONE TABLET BY MOUTH EVERY 4 TO 6 HOURS NEEDED FOR PAIN MAXIMUM DAILY DOSE 6 oxycodone-acetaminophen 5 mg-325 mg tablet TAKE ONE TABLET BY MOUTH EVERY 4 TO 6 HOURS NEEDED FOR PAIN MAXIMUM DAILY DOSE 6 completed acetaminophen 325 MG / oxycodone hydrochloride 5 MG Oral Tablet [facility] ([facility]) Prednisone 20 MG Oral Tablet prednisone 20 mg tablet TAKE 1 TABLET BY MOUTH 3 TIMES A DAY FOR 3 DAYS THEN TAKE 1 TABLET TWICE A DAY FOR 3 DAYS THEN TAKE 1 TABLET DAILY FOR 3 DAYS prednisone 20 mg tablet TAKE 1 TABLET BY MOUTH 3 TIMES A DAY FOR 3 DAYS THEN TAKE 1 TABLET TWICE A DAY FOR 3 DAYS THEN TAKE 1 TABLET DAILY FOR 3 DAYS completed predn isone 20 MG Oral Tablet [facility] ([facility]) Doxycycline Monohydrate 100 MG Oral Tabl et doxycycline monohydrate 100 mg tablet TAKE ONE TABLET BY MOUTH TWICE A DAY FOR 10 DAYS doxycycline monohydrate 100 mg tablet TAKE ONE TABLET BY MOUTH TWICE A DAY FOR 10 DAYS completed doxycycline monohydrate 100 MG Oral Tabl et [facility] ([facility]) cetirizine hydrochloride 10 MG Oral Tabl et cetirizine 10 mg tablet Take 1 tablet every day by oral route. cetirizine 10 mg tablet Take 1 tablet ev rupali day by oral route. 1 completed ce tirizine hydrochloride 10 MG Oral Tablet [facility] ([facility]) Doxycycline Monohydrate 100 MG Oral Tabl et doxycycline monohydrate 100 mg tablet TAKE ONE TABLET BY MOUTH TWICE A DAY FOR 10 DAYS doxycycline monohydrate 100 mg tablet TAKE ONE TABLET BY MOUTH TWICE A DAY FOR 10 DAYS completed doxycycline monohydrate 100 MG Oral Tabl et [facility] ([facility]) Acetaminophen 325 MG / Oxycodone Hydroch loride 5 MG Oral Tablet oxycodone- acetaminophen 5 mg-325 mg tablet TAKE ONE TABLET BY MOUTH EVERY 4 TO 6 HOURS NEEDED FOR PAIN MAXIMUM DAILY DOSE 6 oxycodone-acetaminophen 5 mg-325 mg tablet TAKE ONE TABLET BY MOUTH EVERY 4 TO 6 HOURS NEEDED FOR PAIN MAXIMUM DAILY DOSE 6 completed acetaminophen 325 MG / oxycodone hydrochloride 5 MG Oral Tablet [facility] ([facility]) Amoxicillin 500 MG Oral Capsule amoxicil tang 500 mg capsule TAKE ONE CAPSULE BY MOUTH EVERY 8 HOURS UNTIL GONE amoxicillin 500 mg capsule TAKE ONE CAPS ULE BY MOUTH EVERY 8 HOURS UNTIL GONE complet ed amoxicillin 500 MG Oral Capsule [facility] ([facility]) chlorhexidine gluconate 1.2 MG/ML Mouthw [facility] chlorhexidine gluconate 0.12 % mouthwash RINSE WITH 1 CAPFUL THREE TIMES A DAY STARTING SATURDAY chlorhexidine gluconate 0.12 % mouthwash RINSE WITH 1 CAPFUL THREE TIMES A DAY STARTING SATURDAY completed chlorhexidine gluconate 1.2 MG/ML Mouthwash [place] ([facility]) chlorhexidine gluconate 1.2 MG/ML Mouthw [facility] chlorhexidine gluconate 0.12 % mouthwash RINSE WITH 1 CAPFUL THREE TIMES A DAY STARTING SATURDAY chlorhexidine gluconate 0.12 % mouthwash RINSE WITH 1 CAPFUL THREE TIMES A DAY STARTING SATURDAY completed chlorhexidine gluconate 1.2 MG/ML Mouthwash [place] ([facility]) chlorhexidine gluconate 1.2 MG/ML Mouthw [facility] chlorhexidine gluconate 0.12 % mouthwash RINSE WITH 1 CAPFUL THREE TIMES A DAY STARTING SATURDAY chlorhexidine gluconate 0.12 % mouthwash RINSE WITH 1 CAPFUL THREE TIMES A DAY STARTING SATURDAY completed chlorhexidine gluconate 1.2 MG/ML Mouthwash [place] ([facility]) albuterol sulfate HFA 90 mcg/actuation a erosol inhaler INHALE 2 PUFFS BY MOUTH NEEDED MAXIMUM DAILY DOSE 12 PUFFS [id number] completed [id number] 200 ACTUAT albuterol 0.09 MG/ACTUAT Metered Dose Inhaler [place] ([facility]) chlorhexidine gluconate 1.2 MG/ML Mouthw [facility] chlorhexidine gluconate 0.12 % mouthwash RINSE WITH 1 CAPFUL THREE TIMES A DAY STARTING SATURDAY chlorhexidine gluconate 0.12 % mouthwash RINSE WITH 1 CAPFUL THREE TIMES A DAY STARTING SATURDAY completed chlorhexidine gluconate 1.2 MG/ML Mouthwash [place] ([facility]) Prednisone 20 MG Oral Tablet prednisone 20 mg tablet TAKE ONE TABLET BY MOUTH TWICE A DAY FOR 4 DAYS prednisone 20 mg tablet TAKE ONE TABLET BY MOUTH TWICE A DAY FOR 4 DAYS completed prednis one 20 MG Oral Tablet [facility] ([facility]) Amoxicillin 500 MG Oral Capsule amoxicil tang 500 mg capsule TAKE ONE CAPSULE BY MOUTH EVERY 8 HOURS UNTIL GONE amoxicillin 500 mg capsule TAKE ONE CAPS ULE BY MOUTH EVERY 8 HOURS UNTIL GONE complet ed amoxicillin 500 MG Oral Capsule [facility] ([facility]) Doxycycline Monohydrate 100 MG Oral Tabl et doxycycline monohydrate 100 mg tablet TAKE ONE TABLET BY MOUTH TWICE A DAY FOR 10 DAYS doxycycline monohydrate 100 mg tablet TAKE ONE TABLET BY MOUTH TWICE A DAY FOR 10 DAYS completed doxycycline monohydrate 100 MG Oral Tabl et [facility] ([facility]) Acetaminophen 325 MG / Oxycodone Hydroch loride 5 MG Oral Tablet oxycodone- acetaminophen 5 mg-325 mg tablet TAKE ONE TABLET BY MOUTH EVERY 4 TO 6 HOURS NEEDED FOR PAIN MAXIMUM DAILY DOSE 6 oxycodone-acetaminophen 5 mg-325 mg tablet TAKE ONE TABLET BY MOUTH EVERY 4 TO 6 HOURS NEEDED FOR PAIN MAXIMUM DAILY DOSE 6 completed acetaminophen 325 MG / oxycodone hydrochloride 5 MG Oral Tablet [facility] ([facility]) Doxycycline Monohydrate 100 MG Oral Tabl et doxycycline monohydrate 100 mg tablet TAKE ONE TABLET BY MOUTH TWICE A DAY FOR 10 DAYS doxycycline monohydrate 100 mg tablet TAKE ONE TABLET BY MOUTH TWICE A DAY FOR 10 DAYS completed doxycycline monohydrate 100 MG Oral Tabl et [facility] ([facility]) Acetaminophen 325 MG / Oxycodone Hydroch loride 5 MG Oral Tablet oxycodone- acetaminophen 5 mg-325 mg tablet TAKE ONE TABLET BY MOUTH EVERY 4 TO 6 HOURS NEEDED FOR PAIN MAXIMUM DAILY DOSE 6 oxycodone-acetaminophen 5 mg-325 mg tablet TAKE ONE TABLET BY MOUTH EVERY 4 TO 6 HOURS NEEDED FOR PAIN MAXIMUM DAILY DOSE 6 completed acetaminophen 325 MG / oxycodone hydrochloride 5 MG Oral Tablet [facility] ([facility]) Acetaminophen 325 MG / Oxycodone Hydroch loride 5 MG Oral Tablet oxycodone- acetaminophen 5 mg-325 mg tablet TAKE ONE TABLET BY MOUTH EVERY 4 TO 6 HOURS NEEDED FOR PAIN MAXIMUM DAILY DOSE 6 oxycodone-acetaminophen 5 mg-325 mg tablet TAKE ONE TABLET BY MOUTH EVERY 4 TO 6 HOURS NEEDED FOR PAIN MAXIMUM DAILY DOSE 6 completed acetaminophen 325 MG / oxycodone hydrochloride 5 MG Oral Tablet [facility] ([facility]) Amoxicillin 500 MG Oral Capsule amoxicil tang 500 mg capsule TAKE ONE CAPSULE BY MOUTH EVERY 8 HOURS UNTIL GONE amoxicillin 500 mg capsule TAKE ONE CAPS ULE BY MOUTH EVERY 8 HOURS UNTIL GONE complet ed amoxicillin 500 MG Oral Capsule [facility] ([facility]) Amoxicillin 500 MG Oral Capsule amoxicil tang 500 mg capsule TAKE ONE CAPSULE BY MOUTH EVERY 8 HOURS UNTIL GONE amoxicillin 500 mg capsule TAKE ONE CAPS ULE BY MOUTH EVERY 8 HOURS UNTIL GONE complet ed amoxicillin 500 MG Oral Capsule [facility] ([facility]) chlorhexidine gluconate 1.2 MG/ML Mouthw [facility] chlorhexidine gluconate 0.12 % mouthwash RINSE WITH 1 CAPFUL THREE TIMES A DAY STARTING SATURDAY chlorhexidine gluconate 0.12 % mouthwash RINSE WITH 1 CAPFUL THREE TIMES A DAY STARTING SATURDAY completed chlorhexidine gluconate 1.2 MG/ML Mouthwash [facility] ([facility]) Amoxicillin 500 MG Oral Capsule amoxicil tang 500 mg capsule TAKE ONE CAPSULE BY MOUTH EVERY 8 HOURS UNTIL GONE amoxicillin 500 mg capsule TAKE ONE CAPS ULE BY MOUTH EVERY 8 HOURS UNTIL GONE complet ed amoxicillin 500 MG Oral Capsule [facility] ([facility]) Prednisone 20 MG Oral Tablet prednisone 20 mg tablet TAKE ONE TABLET BY MOUTH TWICE A DAY FOR 4 DAYS prednisone 20 mg tablet TAKE ONE TABLET BY MOUTH TWICE A DAY FOR 4 DAYS completed prednis one 20 MG Oral Tablet [facility] ([facility]) Prednisone 20 MG Oral Tablet prednisone 20 mg tablet TAKE ONE TABLET BY MOUTH TWICE A DAY FOR 4 DAYS prednisone 20 mg tablet TAKE ONE TABLET BY MOUTH TWICE A DAY FOR 4 DAYS completed prednis one 20 MG Oral Tablet [facility] ([facility]) Acyclovir 0.05 MG/MG Topical Ointment ac yclovir 5 % topical ointment APPLY TO THE AFFECTED AREA(S) BY TOPICAL ROUTE EVERY 3 HOURS 6 TIMES PER DAY apply as needed when having outbreaks acyclovir 5 % topical ointment APPLY TO THE AFFECTED AREA(S) BY TOPICAL ROUTE EVERY 3 HOURS 6 TIMES PER DAY apply as needed when having outbreaks completed acyclovir 0.05 MG/MG Topical Ointment [facility] ([facility]) Doxycycline Monohydrate 100 MG Oral Tabl et doxycycline monohydrate 100 mg tablet TAKE ONE TABLET BY MOUTH TWICE A DAY FOR 10 DAYS doxycycline monohydrate 100 mg tablet TAKE ONE TABLET BY MOUTH TWICE A DAY FOR 10 DAYS completed doxycycline monohydrate 100 MG Oral Tabl et [facility] ([facility]) Amoxicillin 500 MG Oral Capsule amoxicil tang 500 mg capsule TAKE ONE CAPSULE BY MOUTH EVERY 8 HOURS UNTIL GONE amoxicillin 500 mg capsule TAKE ONE CAPS ULE BY MOUTH EVERY 8 HOURS UNTIL GONE complet ed amoxicillin 500 MG Oral Capsule [facility] ([facility]) Acetaminophen 325 MG / Oxycodone Hydroch loride 5 MG Oral Tablet oxycodone- acetaminophen 5 mg-325 mg tablet TAKE ONE TABLET BY MOUTH EVERY 4 TO 6 HOURS NEEDED FOR PAIN MAXIMUM DAILY DOSE 6 oxycodone-acetaminophen 5 mg-325 mg tablet TAKE ONE TABLET BY MOUTH EVERY 4 TO 6 HOURS NEEDED FOR PAIN MAXIMUM DAILY DOSE 6 completed acetaminophen 325 MG / oxycodone hydrochloride 5 MG Oral Tablet [facility] ([facility]) Doxycycline Monohydrate 100 MG Oral Caps ule doxycycline monohydrate 100 mg capsule TAKE ONE CAPSULE BY MOUTH TWICE A DAY FOR 10 DAYS doxycycline monohydrate 100 mg capsule TAKE ONE CAPSULE BY MOUTH TWICE A DAY FOR 10 DAYS completed doxycycline mo nohydrate 100 MG Oral Capsule [facility] ([facility]) chlorhexidine gluconate 1.2 MG/ML Mouthw [facility] chlorhexidine gluconate 0.12 % mouthwash RINSE WITH 1 CAPFUL THREE TIMES A DAY STARTING SATURDAY chlorhexidine gluconate 0.12 % mouthwash RINSE WITH 1 CAPFUL THREE TIMES A DAY STARTING SATURDAY completed chlorhexidine gluconate 1.2 MG/ML Mouthwash [place] ([facility]) Insurance Providers Payer name Policy type / Coverage type Policy ID Covered democrat ID Covered democrat's relationship to abrams Policy Abrams Plan Information [facility] [id number] [place]2 [id number] [employer] P [id number] S [id number] [employer] (pr) Commercial [id number] Family Dependent [employer] (pr) Commercial [id number] UMR P [id number] S [id number] UMR P [id number] S [id number] UMR U [id number] Self [id number] UMR P [id number] S [id number] UMR P [id number] S [id number] [employer] (pr) Commercial [id number] [employer] (pr) [facility] Part B [id number] [employer] (pr) Commercial [id number] Family Dependent [id number] R [facility] [id number] WI2 [id number] R [facility] [id number] WI2 [id number] UMR U [id number] Self [id number] [employer] [id number] WI2 [id number] [employer] COMM SELF [id number] SPO [id number] [employer] (HMO) [id number] Family Dependent [id number] [employer] PPO O [id number] S [id number] [employer] Commercial [id number] Family Dependent [id number] [employer] Commercial [id number] Family Dependent [employer] PPO O [id number] P [id number] UMR [facility] [id number] HU2 [id number] [employer] [id number] WI2 [id number] UMR O [id number] S [id number] UMR [facility] CARE [id number] WI2 [id number] UMR [facility] CARE [id number] WI2 [id number] UMR [facility] CARE [id number] WI2 [id number] Self Pay P UNAVAILABLE S UNAVAILA BLE [facility] (HMO) [id number] Family Dependent Y [id number] [facility] (HMO) [id number] Family Dependent Y [id number] [facility] (HMO) [id number] Family Dependent Y [id number] [facility] (HMO) [id number] Family Dependent Y [id number] UMR P [id number] S [id number] [facility] (HMO) [id number] Family Dependent Y [id number] [employer] Commercial [id number] Family Dependent [id number] [employer] Commercial [id number] Family Dependent [id number] [employer] Commercial [id number] Family Dependent [id number] Problems, Conditions, and Diagnoses Code Display Name Description Problem Type Effective Dates Data Source(s) J45.20 Mild intermittent asthma Mild intermittent asthma Prob liza 01/05/2020 12:00:00 AM EST [facility]ENT ([facility], ) J47.9 Bronchiolectasis Bronchiolectasis Problem 01/05/2020 12 :00:00 AM EST [facility]ENT ([facility], ) F17.218 Nicotine dependence, cigarettes, with ot her nicotine-induced disorders Nicotine dependence, cigarettes, with other nicotine-induced disorders Problem 01/05/2020 12:00:00 AM EST MEDENT ([facility], ) 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 Male erectile dysfun ction, unspecified Problem 01/04/2020 12:00:00 AM EST eCW1 ([facility]) 550.90 Inguinal hernia Inguinal hernia 11/11/2019 05:0 0:55 PM EDT [facility] [id number] Inguinal hernia Inguinal Hernia Problem 11/11/2019 12:0 0:00 AM EDT [facility]) [id number] Inguinal hernia Inguinal Hernia Problem 11/11/2019 12:0 0:00 AM EDT [facility]) [id number] Inguinal hernia Inguinal Hernia Problem 11/11/2019 12:0 0:00 AM EDT [facility]) [id number] Inguinal hernia Inguinal Hernia Problem 11/11/2019 12:0 0:00 AM EDT [facility]) [id number] Inguinal hernia Inguinal Hernia Problem 11/11/2019 12:0 0:00 AM EDT [facility]) Surgeries/Procedures Procedure Description Date Indications Data Source(s) OFFICE OUTPATIENT VISIT 25 MINUTES 11/18/2020 12:00:00 AM EDT MEDENT ([facility]) OFFICE OUTPATIENT VISIT 25 MINUTES 06/06/2020 12:00:00 AM EDT MEDENT ([facility]) DEMO&/EVAL OF PT UTILIZ AERSL GEN/NEB/INHLR/IPPB 01/04 12:00:00 AM EST MEDENT ([facility], ) Spirometry 11/27/2019 12:00:00 AM EDT Pedro RINCON ([facility], ) Results ID Date Data Source [id number] 12/02/2020 08:36:00 AM EDT REBEKAH ([facility]) Name Value Range Interpretation Code Description Data Lilia rce(s) Supporting Document(s) Erythrocytes [#/volume] in Blood by Automated count 4.95 million/uL 4.20-5.80 Red Blood Cell Count [place] ([facility]) Leukocytes [#/volume] in Blood by Automated count 8.2 thousand/uL 3 .8-10.8 White Blood Cell Count [place] ([facility]) Hemoglobin [Mass/volume] in Blood 15.5 g/dL 13.2-17.1 He moglobin [place] ([facility]) Hematocrit [Volume Fraction] of Blood by Automated count 45.3 % 38.5-50.0 Hematocrit [place] ([facility]) Erythrocyte mean corpuscular volume [Entitic volume] by Auto mated count 91.5 fL 80.0-100.0 Mcv RE[facility]KAH ([facility]) Erythrocyte mean corpuscular hemoglobin concentration [Mass/volume] by Automated count 34.2 g/dL 32.0-36.0 Mchc REBEKAH ([facility]) Erythrocyte mean corpuscular hemoglobin [Entitic mass] by Automated count 31.3 pg 27.0-33.0 Mch [place] ([facility]) Platelets [#/volume] in Blood by Automated count 260 thousand/uL 14 0-400 Platelet Count [place] ([facility]) Erythrocyte distribution width [Ratio] by Automated count 13.0 % 11.0-15.0 Rdw [place] ([facility]) Neutrophils [#/volume] in Blood by Automated count 4838 cells/uL 15 00-7800 Absolute Neutrophils [place] ([facility]) Platelet mean volume [Entitic volume] in Blood by Alicia 9.7 fL 7.5-12.5 Mpv [place] ([facility]) Lymphocytes [#/volume] in Blood by Automated count 2485 cells/uL 85 0-3900 Absolute Lymphocytes [place] ([facility]) Monocytes [#/volume] in Blood by Automated count 508 cells/uL 200-9 50 Absolute Monocytes [place] ([facility]) Basophils [#/volume] in Blood by Automated count 82 cells/uL 0-200 Absolute Basophils [place] ([facility]) Eosinophils [#/volume] in Blood by Automated count 287 cells/uL 15- 500 Absolute Eosinophils [place] ([facility]) Neutrophils/100 leukocytes in Blood by Automated count 59 % 38- 80 Neutrophils [place] ([facility]) Lymphocytes/100 leukocytes in Blood by Automated count 30.3 % 15-49 Lymphocytes [place] ([facility]) Eosinophils/100 leukocytes in Blood by Automated count 3.5 % 0-8 Eosinophils [place] ([facility]) Monocytes/100 leukocytes in Blood by Automated count 6.2 % 0-13 Monocytes [place] ([facility]) Basophils/100 leukocytes in Blood by Automated count 1.0 % 0-2 Basophils [place] ([facility]) ID Date Data Source [id number] 12/02/2020 08:36:00 AM EDT [facility]) Name Value Range Interpretation Code Description Data Lilia rce(s) Supporting Document(s) Glucose [Mass/volume] in Serum or Plasma 94 mg/dL 65-99 Glucose [facility]) Urea nitrogen [Mass/volume] in Serum or Plasma 10 mg/dL 7-25 Urea Nitrogen (BUN) [facility]) Creatinine [Mass/volume] in Serum or Plasma 0.90 mg/dL 0.70-1.25 Creatinine [facility]) Glomerular filtration rate/1.73 sq M.pre dicted among non-blacks [Volume Rate/Area] in Serum, Plasma or Blood by Creatinine-based formula (CKD-EPI) 92 mL/min/1.73m2 > or = 60 eGFR Non-afr. Mexican RE[place]AH ([facility]) Glomerular filtration rate/1.73 sq M.pre dicted among blacks [Volume Rate/Area] in Serum, Plasma or Blood by Creatinine-based formula (CKD-EPI) 106 mL/min/1.73m2 > or = 60 eGFR [place]AH (No [facility]) Urea nitrogen/Creatinine [Mass Ratio] in Serum or Plasma not applic able 6-22 BUN/creatinine Ratio [place] ([facility]) Sodium [Moles/volume] in Serum or Plasma 138 mmol/L 135-146 Sodium [place] ([facility]) Potassium [Moles/volume] in Serum or Plasma 5.2 mmol/L 3.5-5.3 Potassium [place] ([facility]) Chloride [Moles/volume] in Serum or Plasma 104 mmol/L 98-110 Chloride [place] ([facility]) Carbon dioxide, total [Moles/volume] in Serum or Plasma 27 mmol/L 20-32 Carbon Dioxide [place] ([facility]) Calcium [Mass/volume] in Serum or Plasma 9.3 mg/dL 8.6-10.3 Calcium [place] ([facility]) Protein [Mass/volume] in Serum or Plasma 6.5 g/dL 6.1-8.1 Protein, Total [facility]) Globulin [Mass/volume] in Serum by calculation 2.4 g/dL_(calc) 1.9- 3.7 Globulin [place] ([facility]) Albumin [Mass/volume] in Serum or Plasma 4.1 g/dL 3.6-5.1 Albumin [place] ([facility]) Albumin/Globulin [Mass Ratio] in Serum or Plasma 1.7 (calc) 1.0-2 .5 Albumin/globulin Ratio [place] ([facility]) Bilirubin.total [Mass/volume] in Serum or Plasma 1.1 mg/dL 0.2-1 .2 Bilirubin, Total [place] ([facility]) Alkaline phosphatase [Enzymatic activity/volume] in Serum or Plasma 85 U/L 35-144 Alkaline Phosphatase [facility] ([facility]) Alanine aminotransferase [Enzymatic activity/volume] in Seru m or Plasma 13 U/L 9-46 Alt [place] ([facility]) Aspartate aminotransferase [Enzymatic activity/volume] in Serum or Plasma 14 U/L 10-35 Ast [place] ([facility]) ID Date Data Source [id number] 12/02/2020 08:36:00 AM [facility] Name Value Range Interpretation Code Description Data Lilia rce(s) Supporting Document(s) Cholesterol [Mass/volume] in Serum or Plasma 150 mg/dL <200 Cholesterol, Total [place] ([facility]) Cholesterol in HDL [Mass/volume] in Serum or Plasma 51 mg/dL > or = 40 HDL Cholesterol RBEEKAH ([facility]) Triglyceride [Mass/volume] in Serum or Plasma 121 mg/dL <150 Triglycerides [place] ([facility]) Cholesterol in LDL [Mass/volume] in Serum or Plasma by calculation 79 mg/dL_(calc) <100 LDL-cholesterol [facility] ([facility]) Cholesterol.total/Cholesterol in HDL [Mass Ratio] in Serum o r Plasma 2.9 calc <5.0 Chol/hdlc Ratio [place] ([facility]) Cholesterol non HDL [Mass/volume] in Serum or Plasma 99 mg/dL_(calc ) <130 Non HDL Cholesterol [place] ([facility]) ID Date Data Source [id number] 11/18/2020 12:00:00 AM EDT [facility] Name Value Range Interpretation Code Description Data Lilia rce(s) Supporting Document(s) SARS-CoV2 Rapid Antigen Negative [facility] This lab was reported by Dameon Morrissey. ID Date Data Source [id number] 08/05/2020 11:11:00 AM EDT [facility]) Name Value Range Interpretation Code Description Data Lilia rce(s) Supporting Document(s) Hepatitis C virus Ab [Presence] in Serum or Plasma by Immuno assay non-reactive non-reactive Hepatitis C Antibody [facility] ([facility]) Hepatitis C virus Ab Signal/Cutoff in Serum or Plasma by Immunoassa y <1.00 [facility] ID Date Data Source [id number] 08/05/2020 11:11:00 AM EDT [facility] Name Value Range Interpretation Code Description Data Lilia rce(s) Supporting Document(s) Glucose [Mass/volume] in Serum or Plasma 96 mg/dL 65-99 Glucose [place] ([facility]) Urea nitrogen [Mass/volume] in Serum or Plasma 19 mg/dL 7-25 Urea Nitrogen (BUN) [place] ([facility]) Creatinine [Mass/volume] in Serum or Plasma 0.87 mg/dL 0.70-1.25 Creatinine [place] ([facility]) Glomerular filtration rate/1.73 sq M.pre dicted among non-blacks [Volume Rate/Area] in Serum, Plasma or Blood by Creatinine-based formula (CKD-EPI) 94 mL/min/1.73m2 > or = 60 eGFR Non-afr. Mexican RE[facility]KAH ([facility]) Glomerular filtration rate/1.73 sq M.pre dicted among blacks [Volume Rate/Area] in Serum, Plasma or Blood by Creatinine-based formula (CKD-EPI) 109 mL/min/1.73m2 > or = 60 eGFR [place] (No [facility]) Urea nitrogen/Creatinine [Mass Ratio] in Serum or Plasma not applic able 6-22 BUN/creatinine Ratio [place] ([facility]) Sodium [Moles/volume] in Serum or Plasma 136 mmol/L 135-146 Sodium [place] ([facility]) Potassium [Moles/volume] in Serum or Plasma 4.7 mmol/L 3.5-5.3 Potassium [place] ([facility]) Chloride [Moles/volume] in Serum or Plasma 103 mmol/L 98-110 Chloride [place] ([facility]) Carbon dioxide, total [Moles/volume] in Serum or Plasma 24 mmol/L 20-32 Carbon Dioxide [place] ([facility]) Calcium [Mass/volume] in Serum or Plasma 9.3 mg/dL 8.6-10.3 Calcium [place] ([facility]) Protein [Mass/volume] in Serum or Plasma 6.8 g/dL 6.1-8.1 Protein, [facility] Albumin [Mass/volume] in Serum or Plasma 4.2 g/dL 3.6-5.1 Albumin [facility] Globulin [Mass/volume] in Serum by calculation 2.6 g/dL_(calc) 1.9- 3.7 Globulin [place] ([facility]) Albumin/Globulin [Mass Ratio] in Serum or Plasma 1.6 (calc) 1.0-2 .5 Albumin/globulin Ratio [place] ([facility]) Bilirubin.total [Mass/volume] in Serum or Plasma 0.8 mg/dL 0.2-1 .2 Bilirubin, Total [place] ([facility]) Alkaline phosphatase [Enzymatic activity/volume] in Serum or Plasma 92 U/L 35-144 Alkaline Phosphatase [facility] ([facility]) Aspartate aminotransferase [Enzymatic activity/volume] in Serum or Plasma 12 U/L 10-35 Ast [place] ([facility]) Alanine aminotransferase [Enzymatic activity/volume] in Seru m or Plasma 12 U/L 9-46 Alt [place] ([facility]) ID Date Data Source [id number] 08/05/2020 11:11:00 AM EDT [facility]) Name Value Range Interpretation Code Description Data Lilia rce(s) Supporting Document(s) HIV 1+2 Ab+HIV1 p24 Ag [Presence] in Serum or Plasma b y Immunoassay non-reactive non-reactive HIV Ag/Ab, 4TH Gen [facility]) ID Date Data Source [id number] 08/05/2020 11:11:00 AM EDT [facility]) Name Value Range Interpretation Code Description Data Lilia rce(s) Supporting Document(s) Hepatitis C virus Ab [Presence] in Serum or Plasma by Immuno assay non-reactive non-reactive Hepatitis C Antibody [facility] ([facility]) Hepatitis C virus Ab Signal/Cutoff in Serum or Plasma by Immunoassa y <1.00 Index [facility]) ID Date Data Source [id number] 08/05/2020 11:11:00 AM EDT [facility]) Name Value Range Interpretation Code Description Data Lilia rce(s) Supporting Document(s) Glucose [Mass/volume] in Serum or Plasma 96 mg/dL 65-99 Glucose [place] ([facility]) Urea nitrogen [Mass/volume] in Serum or Plasma 19 mg/dL 7-25 Urea Nitrogen (BUN) [place] ([facility]) Creatinine [Mass/volume] in Serum or Plasma 0.87 mg/dL 0.70-1.25 Creatinine [place] ([facility]) Glomerular filtration rate/1.73 sq M.pre dicted among non-blacks [Volume Rate/Area] in Serum, Plasma or Blood by Creatinine-based formula (CKD-EPI) 94 mL/min/1.73m2 > or = 60 eGFR Non-afr. Mexican RE[facility]KAH ([facility]) Urea nitrogen/Creatinine [Mass Ratio] in Serum or Plasma not applic able 6-22 BUN/creatinine Ratio [place] ([facility]) Glomerular filtration rate/1.73 sq M.pre dicted among blacks [Volume Rate/Area] in Serum, Plasma or Blood by Creatinine-based formula (CKD-EPI) 109 mL/min/1.73m2 > or = 60 eGFR [place] (No [facility]) Potassium [Moles/volume] in Serum or Plasma 4.7 mmol/L 3.5-5.3 Potassium [place] ([facility]) Sodium [Moles/volume] in Serum or Plasma 136 mmol/L 135-146 Sodium [place] ([facility]) Chloride [Moles/volume] in Serum or Plasma 103 mmol/L 98-110 Chloride [place] ([facility]) Calcium [Mass/volume] in Serum or Plasma 9.3 mg/dL 8.6-10.3 Calcium [place] ([facility]) Carbon dioxide, total [Moles/volume] in Serum or Plasma 24 mmol/L 20-32 Carbon Dioxide [place] ([facility]) Protein [Mass/volume] in Serum or Plasma 6.8 g/dL 6.1-8.1 Protein, [facility] Albumin [Mass/volume] in Serum or Plasma 4.2 g/dL 3.6-5.1 Albumin [place] ([facility]) Globulin [Mass/volume] in Serum by calculation 2.6 g/dL_(calc) 1.9- 3.7 Globulin [place] ([facility]) Albumin/Globulin [Mass Ratio] in Serum or Plasma 1.6 (calc) 1.0-2 .5 Albumin/globulin Ratio [place] ([facility]) Bilirubin.total [Mass/volume] in Serum or Plasma 0.8 mg/dL 0.2-1 .2 Bilirubin, Total [place] ([facility]) Alkaline phosphatase [Enzymatic activity/volume] in Serum or Plasma 92 U/L 35-144 Alkaline Phosphatase [place] ([facility]) Aspartate aminotransferase [Enzymatic activity/volume] in Serum or Plasma 12 U/L 10-35 Ast [place] ([facility]) Alanine aminotransferase [Enzymatic activity/volume] in Seru m or Plasma 12 U/L 9-46 Alt [place] ([facility]) ID Date Data Source [id number] 08/05/2020 11:11:00 AM EDT [facility]) Name Value Range Interpretation Code Description Data Lilia rce(s) Supporting Document(s) HIV 1+2 Ab+HIV1 p24 Ag [Presence] in Serum or Plasma b y Immunoassay non-reactive non-reactive HIV Ag/Ab, 4TH Gen [facility]) ID Date Data Source [id number] 07/29/2020 08:01:00 AM EDT [facility]) Name Value Range Interpretation Code Description Data Lilia rce(s) Supporting Document(s) PSA total 0.9 NG/mL 0.0-4.0 PSA Total [place] ([facility]) PSA comment . PSA Comment [place] ([facility]) ID Date Data Source [id number] 07/29/2020 08:01:00 AM EDT [facility]) Name Value Range Interpretation Code Description Data Lilia rce(s) Supporting Document(s) Hemoglobin A1c/Hemoglobin.total in Blood 5.3 % Hemoglobin a1C [facility]) estimated average glucose 105 mg/dL 60-110 Estimated Average Glucose [facility]) ID Date Data Source [id number] 07/29/2020 08:01:00 AM EDT [place] ([facility]) Name Value Range Interpretation Code Description Data Lilia rce(s) Supporting Document(s) total 25(oh) vitamin D 19.2 NG/mL 30.0-100.0 Below low normal T otal 25(Oh) Vitamin D [place] ([facility]) ID Date Data Source [id number] 07/29/2020 08:01:00 AM EDT [place] ([facility]) Name Value Range Interpretation Code Description Data Lilia rce(s) Supporting Document(s) free T4 0.89 NG/dL 0.76-1.46 Free T4 [place] ([facility]) thyroid stimulating hormone 1.500 uIU/mL 0.358-3.740 Thyroid Stimulating Hormone [place] ([facility]) ID Date Data Source [id number] 07/29/2020 08:01:00 AM EDT RE[place] ([facility]) Name Value Range Interpretation Code Description Data Lilia rce(s) Supporting Document(s) triglycerides level 75 mg/dL <150 Triglycerides Le jason [place] ([facility]) cholesterol level 193 mg/dL <200 Cholesterol Level [place] ([facility]) HDL cholesterol 63 mg/dL >40 HDL Cholesterol ATHE NA ([facility]) non-HDL-C 130 mg/dL Non-hdl-c [place] ([facility]) Cholesterol in LDL [Mass/volume] in Serum or Plasma 115 mg/dL <100 Above high normal LDL Cholesterol [facility] ([facility]) cholesterol risk ratio <5 Cholesterol R isk Ratio [place] ([facility]) ID Date Data Source [id number] 07/29/2020 08:01:00 AM EDT [place] ([facility]) Name Value Range Interpretation Code Description Data Lilia rce(s) Supporting Document(s) glucose, fasting 105 mg/dL 70-100 Above high normal Glucose, Fas ting [place] ([facility]) blood urea nitrogen 13 mg/dL 7-18 Blood Urea Nitro gen [place] ([facility]) creatinine for GFR 0.94 mg/dL 0.70-1.30 Creatinine for GF R [place] ([facility]) glomerular filtration rate > 60.0 >49 Glomerula r Filtration Rate [place] ([facility]) potassium serum 5.7 mEq/L 3.5-5.1 Above high normal Potassium Ser um [place] ([facility]) chloride level 105 mEq/L 98-107 Chloride Level [place] ([facility]) sodium level 137 mEq/L 136-145 Sodium Level [place] ([facility]) anion gap 3 mEq/L 8-16 Below low normal Anion Gap [place] ( [facility]) carbon dioxide level 29 mEq/L 21-32 Carbon Dioxide Level [place] ([facility]) AST/SGOT 12 U/L 7-37 AST/SGOT [place] ([facility]) calcium level 9.0 mg/dL 8.8-10.2 Calcium Level [place] ( [facility]) ALT/SGPT 19 U/L 12-78 ALT/SGPT [place] ([facility]) total protein 7.2 gm/dL 6.4-8.2 Total Protein [place] ( [facility]) alkaline phosphatase 110 U/L 45-117 Alkaline Phosph atase [place] ([facility]) bilirubin,total 0.6 mg/dL 0.2-1.0 Bilirubin,total ATHE NA ([facility]) albumin/globulin ratio Albumin/globu tang Ratio [place] ([facility]) albumin 3.8 gm/dL 3.2-5.2 Albumin [place] ([facility]) ID Date Data Source [id number] 07/29/2020 08:01:00 AM EDT [place] ([facility]) Name Value Range Interpretation Code Description Data Lilia rce(s) Supporting Document(s) white blood count 9.3 10 4.0-10.0 White Blood Count [place] ([facility]) red blood count 4.96 10 4.30-6.10 Red Blood Count ATHE NA ([facility]) hemoglobin 15.6 g/dL 13.5-17.5 Hemoglobin [place] ([facility]) hematocrit 46.7 % 42.0-52.0 Hematocrit [place] ([facility]) mean corpuscular volume 94.2 fL 80.0-96.0 Mean Corpusc ular Volume [place] ([facility]) mean corpuscular hemoglobin 31.5 pg 27.0-33.0 Mean Cor puscular Hemoglobin [place] ([facility]) mean corpuscular HGB conc 33.4 g/dL 32.0-36.5 Mean Corpu scular HGB Conc [place] ([facility]) red cell distribution width 13.1 % 11.5-14.5 Red Cell Distribution Width [place] ([facility]) platelet count, automated 284 10 150-450 Platelet C ount, Automated [place] ([facility]) neutrophils % 58.1 % 36.0-66.0 Neutrophils % [place] ( [facility]) lymph % 29.8 % 24.0-44.0 Lymph % [place] ([facility]) mono % 7.1 % 2.0-8.0 [place] % [facility] ([facility]) eos % 3.5 % 0.0-3.0 Above high normal Eos % [place] ([facility]) baso % 1.1 % 0.0-1.0 Above high normal Baso % [place] ([facility]) immature granulocyte % 0.4 % 0-3.0 Immature Gran ulocyte % [place] ([facility]) nucleated red blood cell % 0.0 % 0-0 Nucleated Red Blood Cell % [place] ([facility]) neutrophils # 5.4 10 1.5-8.5 Neutrophils # [place] ( [facility]) lymph # 2.8 10 1.5-5.0 Lymph # [place] ([facility]) mono # 0.7 10 0.0-0.8 [place] # [facility] ([facility]) baso # 0.1 10 0.0-0.2 Baso # [place] ([facility]) eos # 0.3 10 0.0-0.5 Eos # [place] ([facility]) ID Date Data Source [id number] 07/29/2020 08:01:00 AM EDT [place] ([facility]) Name Value Range Interpretation Code Description Data Lilia rce(s) Supporting Document(s) PSA total 0.9 NG/mL 0.0-4.0 PSA Total [place] ([facility]) PSA comment . PSA Comment [place] ([facility]) ID Date Data Source [id number] 07/29/2020 08:01:00 AM EDT [facility]) Name Value Range Interpretation Code Description Data Lilia rce(s) Supporting Document(s) Hemoglobin A1c/Hemoglobin.total in Blood 5.3 % Hemoglobin a1C [place] ([facility]) estimated average glucose 105 mg/dL 60-110 Estimated Average Glucose [facility]) ID Date Data Source [id number] 07/29/2020 08:01:00 AM EDT [facility]) Name Value Range Interpretation Code Description Data Lilia rce(s) Supporting Document(s) total 25(oh) vitamin D 19.2 NG/mL 30.0-100.0 Below low normal T otal 25(Oh) Vitamin D [facility]) ID Date Data Source [id number] 07/29/2020 08:01:00 AM EDT [facility]) Name Value Range Interpretation Code Description Data Lilia rce(s) Supporting Document(s) thyroid stimulating hormone 1.500 uIU/mL 0.358-3.740 Thyroid Stimulating Hormone [place] ([facility]) free T4 0.89 NG/dL 0.76-1.46 Free T4 [facility]) ID Date Data Source [id number] 07/29/2020 08:01:00 AM EDT [place] ([facility]) Name Value Range Interpretation Code Description Data Lilia rce(s) Supporting Document(s) triglycerides level 75 mg/dL <150 Triglycerides Le jason [place] ([facility]) cholesterol level 193 mg/dL <200 Cholesterol Level [place] ([facility]) HDL cholesterol 63 mg/dL >40 HDL Cholesterol ATHE NA ([facility]) Cholesterol in LDL [Mass/volume] in Serum or Plasma 115 mg/dL <100 Above high normal LDL Cholesterol [facility] ([facility]) non-HDL-C 130 mg/dL Non-hdl-c [place] ([facility]) cholesterol risk ratio <5 Cholesterol R isk Ratio [place] ([facility]) ID Date Data Source [id number] 07/29/2020 08:01:00 AM EDT [place] ([facility]) Name Value Range Interpretation Code Description Data Lilia rce(s) Supporting Document(s) glucose, fasting 105 mg/dL 70-100 Above high normal Glucose, Fas ting [facility] ([facility]) blood urea nitrogen 13 mg/dL 7-18 Blood Urea Nitro gen [facility] ([facility]) creatinine for GFR 0.94 mg/dL 0.70-1.30 Creatinine for GF R [facility] ([facility]) glomerular filtration rate > 60.0 >49 Glomerula r Filtration Rate [facility] ([facility]) potassium serum 5.7 mEq/L 3.5-5.1 Above high normal Potassium Ser um [facility] ([facility]) chloride level 105 mEq/L 98-107 Chloride Level [facility] ([facility]) sodium level 137 mEq/L 136-145 Sodium Level [facility] ([facility]) anion gap 3 mEq/L 8-16 Below low normal Anion Gap [facility] ( [facility]) carbon dioxide level 29 mEq/L 21-32 Carbon Dioxide Level [place] ([facility]) calcium level 9.0 mg/dL 8.8-10.2 Calcium Level [facility] ( [facility]) AST/SGOT 12 U/L 7-37 AST/SGOT [facility] ([facility]) ALT/SGPT 19 U/L 12-78 ALT/SGPT [facility] ([facility]) alkaline phosphatase 110 U/L 45-117 Alkaline Phosph atase [facility] ([facility]) bilirubin,total 0.6 mg/dL 0.2-1.0 Bilirubin,total ATHE NA ([facility]) total protein 7.2 gm/dL 6.4-8.2 Total Protein [facility] ( [facility]) albumin 3.8 gm/dL 3.2-5.2 Albumin [facility] ([facility]) albumin/globulin ratio Albumin/globu tang Ratio [facility] ([facility]) ID Date Data Source [id number] 07/29/2020 08:01:00 AM EDT [facility] ([facility]) Name Value Range Interpretation Code Description Data Lilia rce(s) Supporting Document(s) white blood count 9.3 10 4.0-10.0 White Blood Count [facility] ([facility]) red blood count 4.96 10 4.30-6.10 Red Blood Count [facility] ([facility]) hematocrit 46.7 % 42.0-52.0 Hematocrit [facility] ([facility]) hemoglobin 15.6 g/dL 13.5-17.5 Hemoglobin [facility] ([facility]) mean corpuscular volume 94.2 fL 80.0-96.0 Mean Corpusc ular Volume [facility] ([facility]) mean corpuscular hemoglobin 31.5 pg 27.0-33.0 Mean Cor puscular Hemoglobin [facility] ([facility]) mean corpuscular HGB conc 33.4 g/dL 32.0-36.5 Mean Corpu scular HGB Conc [facility] ([facility]) red cell distribution width 13.1 % 11.5-14.5 Red Cell Distribution Width [facility] ([facility]) platelet count, automated 284 10 150-450 Platelet C ount, Automated [facility] ([facility]) neutrophils % 58.1 % 36.0-66.0 Neutrophils % [facility] ( [facility]) lymph % 29.8 % 24.0-44.0 Lymph % [facility] ([facility]) mono % 7.1 % 2.0-8.0 [place] % [facility] ([facility]) eos % 3.5 % 0.0-3.0 Above high normal Eos % [facility] ([facility]) baso % 1.1 % 0.0-1.0 Above high normal Baso % [facility] ([facility]) immature granulocyte % 0.4 % 0-3.0 Immature Gran ulocyte % [facility] ([facility]) nucleated red blood cell % 0.0 % 0-0 Nucleated Red Blood Cell % [facility] ([facility]) neutrophils # 5.4 10 1.5-8.5 Neutrophils # [facility] ( [facility]) lymph # 2.8 10 1.5-5.0 Lymph # [facility] ([facility]) mono # 0.7 10 0.0-0.8 [place] # [facility] ([facility]) eos # 0.3 10 0.0-0.5 Eos # [facility] ([facility]) baso # 0.1 10 0.0-0.2 Baso # [facility] ([facility]) ID Date Data Source [id number] 01/14/2020 08:30:00 AM EST [place] ([facility]) Name Value Range Interpretation Code Description Data Lilia rce(s) Supporting Document(s) cholesterol level 162 mg/dL <200 Cholesterol Level [facility] ([facility]) triglycerides level 88 mg/dL <150 Triglycerides Le jason [facility] ([facility]) Cholesterol in LDL [Mass/volume] in Serum or Plasma 65 mg/dL <1 00 LDL Cholesterol [facility] ([facility]) HDL cholesterol 79 mg/dL >40 HDL Cholesterol ATHE NA ([facility]) cholesterol risk ratio <5 Cholesterol R isk Ratio [facility] ([facility]) non-HDL-C 83 mg/dL Non-hdl-c [facility] ([facility]) ID Date Data Source [id number] 01/14/2020 08:30:00 AM EST [facility] ([facility]) Name Value Range Interpretation Code Description Data Lilia rce(s) Supporting Document(s) glucose, fasting 101 mg/dL 70-100 Above high normal Glucose, Fas ting [place] ([facility]) blood urea nitrogen 12 mg/dL 7-18 Blood Urea Nitro gen [facility] ([facility]) glomerular filtration rate > 60.0 >49 Glomerula r Filtration Rate [facility] ([facility]) creatinine for GFR 1.01 mg/dL 0.70-1.30 Creatinine for GF R [facility] ([facility]) sodium level 142 mEq/L 136-145 Sodium Level [facility] ([facility]) chloride level 108 mEq/L 98-107 Above high normal Chloride Level [facility] ([facility]) carbon dioxide level 27 mEq/L 21-32 Carbon Dioxide Level [place] ([facility]) potassium serum 4.9 mEq/L 3.5-5.1 Potassium Serum ATHE NA ([facility]) anion gap 7 mEq/L 8-16 Below low normal Anion Gap [facility] ( [facility]) alkaline phosphatase 87 U/L 45-117 Alkaline Phosph atase [facility] ([facility]) calcium level 9.2 mg/dL 8.8-10.2 Calcium Level [place] ( [facility]) AST/SGOT 17 U/L 7-37 AST/SGOT [facility] ([facility]) ALT/SGPT 25 U/L 12-78 ALT/SGPT [facility] ([facility]) albumin/globulin ratio Albumin/globu tang Ratio [facility] ([facility]) total protein 6.7 gm/dL 6.4-8.2 Total Protein [facility] ( [facility]) bilirubin,total 0.9 mg/dL 0.2-1.0 Bilirubin,total AT[facility] ([facility]) albumin 3.5 gm/dL 3.2-5.2 Albumin [facility] ([facility]) ID Date Data Source [id number] 01/14/2020 08:30:00 AM EST [facility] ([facility]) Name Value Range Interpretation Code Description Data Lilia rce(s) Supporting Document(s) white blood count 7.7 10 4.0-10.0 White Blood Count [facility] ([facility]) red blood count 5.04 10 4.30-6.10 Red Blood Count ATHE NA ([facility]) hemoglobin 15.2 g/dL 13.5-17.5 Hemoglobin [facility] ([facility]) mean corpuscular volume 92.9 fL 80.0-96.0 Mean Corpusc ular Volume [facility] ([facility]) hematocrit 46.8 % 42.0-52.0 Hematocrit [facility] ([facility]) mean corpuscular hemoglobin 30.2 pg 27.0-33.0 Mean Cor puscular Hemoglobin [facility] ([facility]) mean corpuscular HGB conc 32.5 g/dL 32.0-36.5 Mean Corpu scular HGB Conc [facility] ([facility]) red cell distribution width 14.1 % 11.5-14.5 Red Cell Distribution Width [facility] ([facility]) platelet count, automated 279 10 150-450 Platelet C ount, Automated [facility] ([facility]) neutrophils % 53.8 % 36.0-66.0 Neutrophils % [place] ( [facility]) lymph % 36.3 % 24.0-44.0 Lymph % [facility] ([facility]) baso % 0.7 % 0.0-1.0 Baso % [facility] ([facility]) mono % 6.9 % 0.0-5.0 Above high normal [place] % [facility] ([facility]) eos % 2.0 % 0.0-3.0 Eos % [place] ([facility]) nucleated red blood cell % 0.0 % 0-0 Nucleated Red Blood Cell % [facility] ([facility]) immature granulocyte % 0.3 % 0-3.0 Immature Gran ulocyte % [place] ([facility]) mono # 0.5 10 0.0-0.8 [place] # [facility] ([facility]) neutrophils # 4.1 10 1.5-8.5 Neutrophils # [facility] ( [facility]) lymph # 2.8 10 1.5-5.0 Lymph # [facility] ([facility]) eos # 0.2 10 0.0-0.5 Eos # [facility] ([facility]) baso # 0.1 10 0.0-0.2 Baso # [facility] ([facility]) ID Date Data Source [id number] 01/14/2020 08:30:00 AM EST [facility] ([facility]) Name Value Range Interpretation Code Description Data Lilia rce(s) Supporting Document(s) triglycerides level 88 mg/dL <150 Triglycerides Le jason [facility] ([facility]) cholesterol risk ratio <5 Cholesterol R isk Ratio [facility] ([facility]) non-HDL-C 83 mg/dL Non-hdl-c [facility] ([facility]) HDL cholesterol 79 mg/dL >40 HDL Cholesterol ATHE NA ([facility]) Cholesterol in LDL [Mass/volume] in Serum or Plasma 65 mg/dL <1 00 LDL Cholesterol [facility] ([facility]) cholesterol level 162 mg/dL <200 Cholesterol Level [facility] ([facility]) ID Date Data Source [id number] 01/14/2020 08:30:00 AM EST [facility] ([facility]) Name Value Range Interpretation Code Description Data Lilia rce(s) Supporting Document(s) glucose, fasting 101 mg/dL 70-100 Above high normal Glucose, Fas ting [facility] ([facility]) blood urea nitrogen 12 mg/dL 7-18 Blood Urea Nitro gen [facility] ([facility]) creatinine for GFR 1.01 mg/dL 0.70-1.30 Creatinine for GF R [facility] ([facility]) glomerular filtration rate > 60.0 >49 Glomerula r Filtration Rate [facility] ([facility]) potassium serum 4.9 mEq/L 3.5-5.1 Potassium Serum ATHE NA ([facility]) sodium level 142 mEq/L 136-145 Sodium Level [facility] ([facility]) chloride level 108 mEq/L 98-107 Above high normal Chloride Level [facility] ([facility]) anion gap 7 mEq/L 8-16 Below low normal Anion Gap [facility] ( [facility]) carbon dioxide level 27 mEq/L 21-32 Carbon Dioxide Level [place] ([facility]) calcium level 9.2 mg/dL 8.8-10.2 Calcium Level [place] ( [facility]) AST/SGOT 17 U/L 7-37 AST/SGOT [facility] ([facility]) total protein 6.7 gm/dL 6.4-8.2 Total Protein [facility] ( [facility]) ALT/SGPT 25 U/L 12-78 ALT/SGPT [facility] ([facility]) bilirubin,total 0.9 mg/dL 0.2-1.0 Bilirubin,total AT[facility] ([facility]) alkaline phosphatase 87 U/L 45-117 Alkaline Phosph atase [facility] ([facility]) albumin/globulin ratio Albumin/globu tang Ratio [facility] ([facility]) albumin 3.5 gm/dL 3.2-5.2 Albumin [facility] ([facility]) ID Date Data Source [id number] 01/14/2020 08:30:00 AM EST [facility] ([facility]) Name Value Range Interpretation Code Description Data Lilia rce(s) Supporting Document(s) red blood count 5.04 10 4.30-6.10 Red Blood Count [facility] ([facility]) white blood count 7.7 10 4.0-10.0 White Blood Count [facility] ([facility]) hemoglobin 15.2 g/dL 13.5-17.5 Hemoglobin [facility] ([facility]) hematocrit 46.8 % 42.0-52.0 Hematocrit [facility] ([facility]) mean corpuscular volume 92.9 fL 80.0-96.0 Mean Corpusc ular Volume [facility] ([facility]) mean corpuscular hemoglobin 30.2 pg 27.0-33.0 Mean Cor puscular Hemoglobin [facility] ([facility]) mean corpuscular HGB conc 32.5 g/dL 32.0-36.5 Mean Corpu scular HGB Conc [facility] ([facility]) red cell distribution width 14.1 % 11.5-14.5 Red Cell Distribution Width [facility] ([facility]) lymph % 36.3 % 24.0-44.0 Lymph % [facility] ([facility]) platelet count, automated 279 10 150-450 Platelet C ount, Automated [facility] ([facility]) neutrophils % 53.8 % 36.0-66.0 Neutrophils % [facility] ( [facility]) mono % 6.9 % 0.0-5.0 Above high normal [place] % [place] ([facility]) eos % 2.0 % 0.0-3.0 Eos % [place] ([facility]) immature granulocyte % 0.3 % 0-3.0 Immature Gran ulocyte % [facility] ([facility]) baso % 0.7 % 0.0-1.0 Baso % [facility] ([facility]) mono # 0.5 10 0.0-0.8 [place] # [facility] ([facility]) nucleated red blood cell % 0.0 % 0-0 Nucleated Red Blood Cell % [facility] ([facility]) lymph # 2.8 10 1.5-5.0 Lymph # [facility] ([facility]) neutrophils # 4.1 10 1.5-8.5 Neutrophils # [facility] ( [facility]) baso # 0.1 10 0.0-0.2 Baso # [facility] ([facility]) eos # 0.2 10 0.0-0.5 Eos # [facility] ([facility]) ID Date Data Source [id number] 01/14/2020 08:30:00 AM EST [place] ([facility]) Name Value Range Interpretation Code Description Data Lilia rce(s) Supporting Document(s) cholesterol level 162 mg/dL <200 Cholesterol Level [facility] ([facility]) triglycerides level 88 mg/dL <150 Triglycerides Le jason [facility] ([facility]) Cholesterol in LDL [Mass/volume] in Serum or Plasma 65 mg/dL <1 00 LDL Cholesterol [facility] ([facility]) HDL cholesterol 79 mg/dL >40 HDL Cholesterol ATHE NA ([facility]) non-HDL-C 83 mg/dL Non-hdl-c [facility] ([facility]) cholesterol risk ratio <5 Cholesterol R isk Ratio [facility] ([facility]) ID Date Data Source [id number] 01/14/2020 08:30:00 AM EST [place] ([facility]) Name Value Range Interpretation Code Description Data Lilia rce(s) Supporting Document(s) blood urea nitrogen 12 mg/dL 7-18 Blood Urea Nitro gen [facility] ([facility]) glucose, fasting 101 mg/dL 70-100 Above high normal Glucose, Fas ting [facility] ([facility]) glomerular filtration rate > 60.0 >49 Glomerula r Filtration Rate [facility] ([facility]) potassium serum 4.9 mEq/L 3.5-5.1 Potassium Serum [facility] NA ([facility]) sodium level 142 mEq/L 136-145 Sodium Level [facility] ([facility]) creatinine for GFR 1.01 mg/dL 0.70-1.30 Creatinine for GF R [facility] ([facility]) anion gap 7 mEq/L 8-16 Below low normal Anion Gap [facility] ( [facility]) carbon dioxide level 27 mEq/L 21-32 Carbon Dioxide Level [facility] ([facility]) calcium level 9.2 mg/dL 8.8-10.2 Calcium Level [place] ( [facility]) chloride level 108 mEq/L 98-107 Above high normal Chloride Level [facility] ([facility]) alkaline phosphatase 87 U/L 45-117 Alkaline Phosph atase [facility] ([facility]) AST/SGOT 17 U/L 7-37 AST/SGOT [facility] ([facility]) ALT/SGPT 25 U/L 12-78 ALT/SGPT [facility] ([facility]) total protein 6.7 gm/dL 6.4-8.2 Total Protein [facility] ( [facility]) bilirubin,total 0.9 mg/dL 0.2-1.0 Bilirubin,total ATHE NA ([facility]) albumin 3.5 gm/dL 3.2-5.2 Albumin [facility] ([facility]) albumin/globulin ratio Albumin/globu tang Ratio [facility] ([facility]) ID Date Data Source [id number] 01/14/2020 08:30:00 AM EST [facility] ([facility]) Name Value Range Interpretation Code Description Data Lilia rce(s) Supporting Document(s) white blood count 7.7 10 4.0-10.0 White Blood Count [facility] ([facility]) hemoglobin 15.2 g/dL 13.5-17.5 Hemoglobin [facility] ([facility]) hematocrit 46.8 % 42.0-52.0 Hematocrit [facility] ([facility]) red blood count 5.04 10 4.30-6.10 Red Blood Count ATHE NA ([facility]) mean corpuscular hemoglobin 30.2 pg 27.0-33.0 Mean Cor puscular Hemoglobin [facility] ([facility]) mean corpuscular HGB conc 32.5 g/dL 32.0-36.5 Mean Corpu scular HGB Conc [facility] ([facility]) mean corpuscular volume 92.9 fL 80.0-96.0 Mean Corpusc ular Volume [facility] ([facility]) red cell distribution width 14.1 % 11.5-14.5 Red Cell Distribution Width [facility] ([facility]) platelet count, automated 279 10 150-450 Platelet C ount, Automated [facility] ([facility]) neutrophils % 53.8 % 36.0-66.0 Neutrophils % [facility] ( [facility]) lymph % 36.3 % 24.0-44.0 Lymph % [facility] ([facility]) baso % 0.7 % 0.0-1.0 Baso % [facility] ([facility]) eos % 2.0 % 0.0-3.0 Eos % [facility] ([facility]) mono % 6.9 % 0.0-5.0 Above high normal [place] % [facility] ([facility]) immature granulocyte % 0.3 % 0-3.0 Immature Gran ulocyte % [facility] ([facility]) mono # 0.5 10 0.0-0.8 [place] # [facility] ([facility]) nucleated red blood cell % 0.0 % 0-0 Nucleated Red Blood Cell % [facility] ([facility]) lymph # 2.8 10 1.5-5.0 Lymph # [facility] ([facility]) neutrophils # 4.1 10 1.5-8.5 Neutrophils # [facility] ( [facility]) baso # 0.1 10 0.0-0.2 Baso # [facility] ([facility]) eos # 0.2 10 0.0-0.5 Eos # [facility] ([facility]) ID Date Data Source [id number] 01/14/2020 08:30:00 AM EST [place] ([facility]) Name Value Range Interpretation Code Description Data Lilia rce(s) Supporting Document(s) cholesterol level 162 mg/dL <200 Cholesterol Level [facility] ([facility]) triglycerides level 88 mg/dL <150 Triglycerides Le jason [facility] ([facility]) non-HDL-C 83 mg/dL Non-hdl-c [facility] ([facility]) HDL cholesterol 79 mg/dL >40 HDL Cholesterol ATHE NA ([facility]) Cholesterol in LDL [Mass/volume] in Serum or Plasma 65 mg/dL <1 00 LDL Cholesterol [facility] ([facility]) cholesterol risk ratio <5 Cholesterol R isk Ratio [facility] ([facility]) ID Date Data Source [id number] 01/14/2020 08:30:00 AM EST [place] ([facility]) Name Value Range Interpretation Code Description Data Lilia rce(s) Supporting Document(s) glucose, fasting 101 mg/dL 70-100 Above high normal Glucose, Fas ting [facility] ([facility]) blood urea nitrogen 12 mg/dL 7-18 Blood Urea Nitro gen [facility] ([facility]) glomerular filtration rate > 60.0 >49 Glomerula r Filtration Rate [facility] ([facility]) creatinine for GFR 1.01 mg/dL 0.70-1.30 Creatinine for GF R [facility] ([facility]) sodium level 142 mEq/L 136-145 [facility] carbon dioxide level 27 mEq/L 21-32 Carbon Dioxide Level [facility] ([facility]) chloride level 108 mEq/L 98-107 Above high normal Chloride Level [facility] ([facility]) anion gap 7 mEq/L 8-16 Below low normal Anion Gap [facility] ( [facility]) potassium serum 4.9 mEq/L 3.5-5.1 Potassium Serum [facility] ([facility]) ALT/SGPT 25 U/L 12-78 ALT/SGPT [facility] ([facility]) calcium level 9.2 mg/dL 8.8-10.2 Calcium Level [facility] ( [facility]) AST/SGOT 17 U/L 7-37 AST/SGOT [facility] ([facility]) alkaline phosphatase 87 U/L 45-117 Alkaline Phosph atase [facility] ([facility]) bilirubin,total 0.9 mg/dL 0.2-1.0 Bilirubin,total AT[facility] ([facility]) albumin 3.5 gm/dL 3.2-5.2 Albumin [facility] ([facility]) total protein 6.7 gm/dL 6.4-8.2 Total Protein [facility] ( [facility]) albumin/globulin ratio Albumin/globu tang Ratio [facility] ([facility]) ID Date Data Source [id number] 01/14/2020 08:30:00 AM EST [facility] ([facility]) Name Value Range Interpretation Code Description Data Lilia rce(s) Supporting Document(s) white blood count 7.7 10 4.0-10.0 White Blood Count [facility] ([facility]) hemoglobin 15.2 g/dL 13.5-17.5 Hemoglobin [facility] ([facility]) red blood count 5.04 10 4.30-6.10 Red Blood Count ATHE NA ([facility]) hematocrit 46.8 % 42.0-52.0 Hematocrit [facility] ([facility]) mean corpuscular volume 92.9 fL 80.0-96.0 Mean Corpusc ular Volume [facility] ([facility]) mean corpuscular hemoglobin 30.2 pg 27.0-33.0 Mean Cor puscular Hemoglobin [facility] ([facility]) neutrophils % 53.8 % 36.0-66.0 Neutrophils % [place] ( [facility]) platelet count, automated 279 10 150-450 Platelet C ount, Automated [facility] ([facility]) red cell distribution width 14.1 % 11.5-14.5 Red Cell Distribution Width [facility] ([facility]) mean corpuscular HGB conc 32.5 g/dL 32.0-36.5 Mean Corpu scular HGB Conc [facility] ([facility]) mono % 6.9 % 0.0-5.0 Above high normal [place] % [facility] ([facility]) eos % 2.0 % 0.0-3.0 Eos % [facility] ([facility]) lymph % 36.3 % 24.0-44.0 Lymph % [facility] ([facility]) baso % 0.7 % 0.0-1.0 Baso % [facility] ([facility]) immature granulocyte % 0.3 % 0-3.0 Immature Gran ulocyte % [facility] ([facility]) nucleated red blood cell % 0.0 % 0-0 Nucleated Red Blood Cell % [facility] ([facility]) lymph # 2.8 10 1.5-5.0 Lymph # [facility] ([facility]) neutrophils # 4.1 10 1.5-8.5 Neutrophils # [facility] ( [facility]) mono # 0.5 10 0.0-0.8 [place] # [facility] ([facility]) eos # 0.2 10 0.0-0.5 Eos # [facility] ([facility]) baso # 0.1 10 0.0-0.2 Baso # [facility] ([facility]) ID Date Data Source [id number] 01/14/2020 08:30:00 AM EST [place] ([facility]) Name Value Range Interpretation Code Description Data Lilia rce(s) Supporting Document(s) triglycerides level 88 mg/dL <150 Triglycerides Le jason [facility] ([facility]) Cholesterol in LDL [Mass/volume] in Serum or Plasma 65 mg/dL <1 00 LDL Cholesterol [facility] ([facility]) cholesterol level 162 mg/dL <200 Cholesterol Level [facility] ([facility]) cholesterol risk ratio <5 Cholesterol R isk Ratio [facility] ([facility]) non-HDL-C 83 mg/dL Non-hdl-c [facility] ([facility]) HDL cholesterol 79 mg/dL >40 HDL Cholesterol ATHE NA ([facility]) ID Date Data Source [id number] 01/14/2020 08:30:00 AM EST [facility] ([facility]) Name Value Range Interpretation Code Description Data Lilia rce(s) Supporting Document(s) glucose, fasting 101 mg/dL 70-100 Above high normal Glucose, Fas ting [facility] ([facility]) glomerular filtration rate > 60.0 >49 Glomerula r Filtration Rate [facility] ([facility]) blood urea nitrogen 12 mg/dL 7-18 Blood Urea Nitro gen [facility] ([facility]) creatinine for GFR 1.01 mg/dL 0.70-1.30 Creatinine for GF R [facility] ([facility]) sodium level 142 mEq/L 136-145 Sodium Level [facility] ([facility]) carbon dioxide level 27 mEq/L 21-32 Carbon Dioxide Level [facility] ([facility]) anion gap 7 mEq/L 8-16 Below low normal Anion Gap [facility] ( [facility]) potassium serum 4.9 mEq/L 3.5-5.1 Potassium Serum ATHE ([facility]) chloride level 108 mEq/L 98-107 Above high normal Chloride Level [facility] ([facility]) calcium level 9.2 mg/dL 8.8-10.2 Calcium Level [facility] ( [facility]) ALT/SGPT 25 U/L 12-78 ALT/SGPT [facility] ([facility]) alkaline phosphatase 87 U/L 45-117 Alkaline Phosph atase [facility] ([facility]) AST/SGOT 17 U/L 7-37 AST/SGOT [facility] ([facility]) total protein 6.7 gm/dL 6.4-8.2 Total Protein [facility] ( [facility]) albumin 3.5 gm/dL 3.2-5.2 Albumin [facility] ([facility]) albumin/globulin ratio Albumin/globu tang Ratio REBEKAH ([facility]) bilirubin,total 0.9 mg/dL 0.2-1.0 Bilirubin,total ATHE NA ([facility]) ID Date Data Source [id number] 01/14/2020 08:30:00 AM EST REBEKAH ([facility]) Name Value Range Interpretation Code Description Data Lilia rce(s) Supporting Document(s) white blood count 7.7 10 4.0-10.0 White Blood Count REBEKAH ([facility]) red blood count 5.04 10 4.30-6.10 Red Blood Count ATHE NA ([facility]) hemoglobin 15.2 g/dL 13.5-17.5 Hemoglobin REBEKAH ([facility]) hematocrit 46.8 % 42.0-52.0 Hematocrit REBEKAH ([facility]) mean corpuscular volume 92.9 fL 80.0-96.0 Mean Corpusc ular Volume REBEKAH ([facility]) mean corpuscular hemoglobin 30.2 pg 27.0-33.0 Mean Cor puscular Hemoglobin REBEKAH ([facility]) mean corpuscular HGB conc 32.5 g/dL 32.0-36.5 Mean Corpu scular HGB Conc REBEKAH ([facility]) platelet count, automated 279 10 150-450 Platelet C ount, Automated REBEKAH ([facility]) red cell distribution width 14.1 % 11.5-14.5 Red Cell Distribution Width REBEKAH ([facility]) neutrophils % 53.8 % 36.0-66.0 Neutrophils % REBEKAH ( [facility]) eos % 2.0 % 0.0-3.0 Eos % REBEKAH ([facility]) mono % 6.9 % 0.0-5.0 Above high normal [place] % REBEKAH ([facility]) lymph % 36.3 % 24.0-44.0 Lymph % REBEKAH ([facility]) immature granulocyte % 0.3 % 0-3.0 Immature Gran ulocyte % REBEKAH ([facility]) nucleated red blood cell % 0.0 % 0-0 Nucleated Red Blood Cell % REBEKAH ([facility]) baso % 0.7 % 0.0-1.0 Baso % REBEKAH ([facility]) eos # 0.2 10 0.0-0.5 Eos # REBEKAH ([facility]) neutrophils # 4.1 10 1.5-8.5 Neutrophils # REBEKAH ( [facility]) mono # 0.5 10 0.0-0.8 [place] # REBEKAH ([facility]) lymph # 2.8 10 1.5-5.0 Lymph # REBEKAH ([facility]) baso # 0.1 10 0.0-0.2 Baso # REBEKAH ([facility]) ID Date Data Source [id number] 01/14/2020 08:30:00 AM EST REBEKAH ([facility]) Name Value Range Interpretation Code Description Data Illia rce(s) Supporting Document(s) HDL cholesterol 79 mg/dL >40 HDL Cholesterol ATHE NA ([facility]) triglycerides level 88 mg/dL <150 Triglycerides Le jason REBEKAH ([facility]) cholesterol level 162 mg/dL <200 Cholesterol Level REBEKAH ([facility]) Cholesterol in LDL [Mass/volume] in Serum or Plasma 65 mg/dL <1 00 LDL Cholesterol REBEKAH ([facility]) cholesterol risk ratio <5 Cholesterol R isk Ratio REBEKAH ([facility]) non-HDL-C 83 mg/dL Non-hdl-c REBEKAH ([facility]) ID Date Data Source [id number] 01/14/2020 08:30:00 AM EST REBEKAH ([facility]) Name Value Range Interpretation Code Description Data Lilia rce(s) Supporting Document(s) glucose, fasting 101 mg/dL 70-100 Above high normal Glucose, Fas ting REBEKAH ([facility]) glomerular filtration rate > 60.0 >49 Glomerula r Filtration Rate REBEKAH ([facility]) blood urea nitrogen 12 mg/dL 7-18 Blood Urea Nitro gen REBEKAH ([facility]) sodium level 142 mEq/L 136-145 Sodium Level REBEKAH ([facility]) creatinine for GFR 1.01 mg/dL 0.70-1.30 Creatinine for GF R REBEKAH ([facility]) calcium level 9.2 mg/dL 8.8-10.2 Calcium Level REBEKAH ( [facility]) potassium serum 4.9 mEq/L 3.5-5.1 Potassium Serum ATHE ([facility]) anion gap 7 mEq/L 8-16 Below low normal Anion Gap REBEKAH ( [facility]) carbon dioxide level 27 mEq/L 21-32 Carbon Dioxide Level REBEKAH ([facility]) chloride level 108 mEq/L 98-107 Above high normal Chloride Level REBEKAH ([facility]) bilirubin,total 0.9 mg/dL 0.2-1.0 Bilirubin,total ATHE NA ([facility]) alkaline phosphatase 87 U/L 45-117 Alkaline Phosph atase REBEKAH ([facility]) ALT/SGPT 25 U/L 12-78 ALT/SGPT RE[facility]KAH ([facility]) total protein 6.7 gm/dL 6.4-8.2 Total Protein REBEKAH ( [facility]) AST/SGOT 17 U/L 7-37 AST/SGOT RE[facility]KAH ([facility]) albumin 3.5 gm/dL 3.2-5.2 Albumin REBEKAH ([facility]) albumin/globulin ratio Albumin/globu tang Ratio REBEKAH ([facility]) ID Date Data Source [id number] 01/14/2020 08:30:00 AM EST REBEKAH ([facility]) Name Value Range Interpretation Code Description Data Lilia rce(s) Supporting Document(s) white blood count 7.7 10 4.0-10.0 White Blood Count REBEKAH ([facility]) hematocrit 46.8 % 42.0-52.0 Hematocrit REBEKAH ([facility]) hemoglobin 15.2 g/dL 13.5-17.5 Hemoglobin REBEKAH ([facility]) red blood count 5.04 10 4.30-6.10 Red Blood Count ATHE ([facility]) mean corpuscular volume 92.9 fL 80.0-96.0 Mean Corpusc ular Volume REBEKAH ([facility]) mean corpuscular HGB conc 32.5 g/dL 32.0-36.5 Mean Corpu scular HGB Conc REBEKAH ([facility]) mean corpuscular hemoglobin 30.2 pg 27.0-33.0 Mean Cor puscular Hemoglobin REBEKAH ([facility]) red cell distribution width 14.1 % 11.5-14.5 Red Cell Distribution Width REBEKAH ([facility]) mono % 6.9 % 0.0-5.0 Above high normal [place] % RE[facility]KAH ([facility]) neutrophils % 53.8 % 36.0-66.0 Neutrophils % REBEKAH ( [facility]) platelet count, automated 279 10 150-450 Platelet C ount, Automated RE[facility]KAH ([facility]) lymph % 36.3 % 24.0-44.0 Lymph % RE[facility]K[place] ([facility]) baso % 0.7 % 0.0-1.0 Baso % RE[facility] ([facility]) nucleated red blood cell % 0.0 % 0-0 Nucleated Red Blood Cell % REBEKAH ([facility]) eos % 2.0 % 0.0-3.0 Eos % REBEKAH ([facility]) immature granulocyte % 0.3 % 0-3.0 Immature Gran ulocyte % REBEKAH ([facility]) neutrophils # 4.1 10 1.5-8.5 Neutrophils # REBEKAH ( [facility]) lymph # 2.8 10 1.5-5.0 Lymph # REBEKAH ([facility]) eos # 0.2 10 0.0-0.5 Eos # REBEKAH ([facility]) mono # 0.5 10 0.0-0.8 [place] # REBEKAH ([facility]) baso # 0.1 10 0.0-0.2 Baso # REBEKAH ([facility]) ID Date Data Source [id number] 01/14/2020 08:30:00 AM EST RE[facility] ([facility]) Name Value Range Interpretation Code Description Data Lilia rce(s) Supporting Document(s) triglycerides level 88 mg/dL <150 Triglycerides Le jason REBEKAH ([facility]) cholesterol risk ratio <5 Cholesterol R isk Ratio REBEKAH ([facility]) Cholesterol in LDL [Mass/volume] in Serum or Plasma 65 mg/dL <1 00 LDL Cholesterol RE[facility]KAH ([facility]) non-HDL-C 83 mg/dL Non-hdl-c RE[facility]KAH ([facility]) cholesterol level 162 mg/dL <200 Cholesterol Level REBEKAH ([facility]) HDL cholesterol 79 mg/dL >40 HDL Cholesterol ATHE NA ([facility]) ID Date Data Source [id number] 01/14/2020 08:30:00 AM EST RE[facility] ([facility]) Name Value Range Interpretation Code Description Data Lilia rce(s) Supporting Document(s) glucose, fasting 101 mg/dL 70-100 Above high normal Glucose, Fas ting REBEKAH ([facility]) creatinine for GFR 1.01 mg/dL 0.70-1.30 Creatinine for GF R REBEKAH ([facility]) blood urea nitrogen 12 mg/dL 7-18 Blood Urea Nitro gen REBEKAH ([facility]) carbon dioxide level 27 mEq/L 21-32 Carbon Dioxide Level REBEKAH ([facility]) glomerular filtration rate > 60.0 >49 Glomerula r Filtration Rate REBEKAH ([facility]) sodium level 142 mEq/L 136-145 Sodium Level REBEKAH (No [facility]) chloride level 108 mEq/L 98-107 Above high normal Chloride Level REBEKAH ([facility]) potassium serum 4.9 mEq/L 3.5-5.1 Potassium Serum ATHE NA ([facility]) calcium level 9.2 mg/dL 8.8-10.2 Calcium Level REBEKAH ( [facility]) anion gap 7 mEq/L 8-16 Below low normal Anion Gap REBEKAH ( [facility]) ALT/SGPT 25 U/L 12-78 ALT/SGPT [facility] ([facility]) AST/SGOT 17 U/L 7-37 AST/SGOT RE[facility]KAH ([facility]) alkaline phosphatase 87 U/L 45-117 Alkaline Phosph atase REBEKAH ([facility]) bilirubin,total 0.9 mg/dL 0.2-1.0 Bilirubin,total ATHE NA ([facility]) albumin/globulin ratio Albumin/globu tang Ratio REBEKAH ([facility]) albumin 3.5 gm/dL 3.2-5.2 Albumin RE[facility]KAH ([facility]) total protein 6.7 gm/dL 6.4-8.2 Total Protein REBEKAH ( [facility]) ID Date Data Source [id number] 01/14/2020 08:30:00 AM EST REBEKAH ([facility]) Name Value Range Interpretation Code Description Data Lilia rce(s) Supporting Document(s) white blood count 7.7 10 4.0-10.0 White Blood Count RE[facility]KAH ([facility]) red blood count 5.04 10 4.30-6.10 Red Blood Count ATHE ([facility]) mean corpuscular volume 92.9 fL 80.0-96.0 Mean Corpusc ular Volume REBEKAH ([facility]) hemoglobin 15.2 g/dL 13.5-17.5 Hemoglobin REBEKAH ([facility]) hematocrit 46.8 % 42.0-52.0 Hematocrit RE[facility]KAH ([facility]) platelet count, automated 279 10 150-450 Platelet C ount, Automated RE[facility] ([facility]) mean corpuscular hemoglobin 30.2 pg 27.0-33.0 Mean Cor puscular Hemoglobin [place] ([facility]) red cell distribution width 14.1 % 11.5-14.5 Red Cell Distribution Width RE[facility]AH ([facility]) mean corpuscular HGB conc 32.5 g/dL 32.0-36.5 Mean Corpu scular HGB Conc [place] ([facility]) eos % 2.0 % 0.0-3.0 Eos % [place] ([facility]) lymph % 36.3 % 24.0-44.0 Lymph % [place] ([facility]) mono % 6.9 % 0.0-5.0 Above high normal [place] % [place] ([facility]) neutrophils % 53.8 % 36.0-66.0 Neutrophils % [place] ( [facility]) nucleated red blood cell % 0.0 % 0-0 Nucleated Red Blood Cell % [place] ([facility]) neutrophils # 4.1 10 1.5-8.5 Neutrophils # [place] ( [facility]) immature granulocyte % 0.3 % 0-3.0 Immature Gran ulocyte % [place] ([facility]) baso % 0.7 % 0.0-1.0 Baso % [place] ([facility]) mono # 0.5 10 0.0-0.8 [place] # REBEKAH ([facility]) eos # 0.2 10 0.0-0.5 Eos # RE[facility]AH ([facility]) lymph # 2.8 10 1.5-5.0 Lymph # [place] ([facility]) baso # 0.1 10 0.0-0.2 Baso # REBEKAH ([facility]) ID Date Data Source [id number] 11/11/2019 03:39:32 PM EDT [facility] Measurements & CalculationsHeight: 70.50 inches 179.07 cm 5 ft. 10.5 in.Weight: 173 pounds 2 oz. 78.70 kg Body Mass Index (BMI): 24.58BMI Interpretation: Healthy WeightBody Surface Area (BSA): 1.98Weight Management Education Done (Nutrition/Physical Activity)Vital SignsTemperature: 98.5FPulse Rate: 88 beats/mi nuteRespiratory Rate: 14 respirations/minuteBlood Pressure: 147/92 O2 Saturation: 95% Vital Signs performed by: Shanthi Celaya LPN, November 11, 2019 3:41 PMVital Signs performed by: Shanthi Celaya LPN, November 11, 2019 3:41 PMInitial Intake Information From: patientRoom #: 8Infectious Disease / Travel ScreeningRecent travel for you or any close contacts? NoHave you had any close contact with anyone diagnosed with or under investigation for COVID-19 (coronavirus)? NoFever? NoRespiratory symptoms: cough, cold, congestion, shortness of breath, difficulty breathing? NoLoss of smell? NoLoss of taste? NoSmoking, Tobacco, Vaping or Smoke Exposure StatusSmoke Status: current every day smokerTobacco Use: YesAdv to Quit: YesDo you vape? NoPassive Smoke Exposure: YesPassive Smoke Exposure comments: friendsHealthcare HistorySince your last office visit...Have you been admitted to the hospital? NoHave you been to an emergency room (ER) or urgent care clinic? NoHave you seen another healthcare provider? NoHave you seen a dentist? Yes - DR Wall performed by: Shanthi Celaya LPN, November 11, 2019 3:44 PMRate Your HealthIn general, would you say your health is? FairPain AssessmentAre you currently having any pain which... You would like your provider to address? Yes Affects your activity level? YesDepression Screening - PHQ-2Over the last two weeks, have you... Had littl e interest or pleasure in doing things? Not at all Been feeling down, depressed, or hopeless? Not at all PHQ-2 Score: 0Anxiety Screening - EUGENIA-2Over the last two weeks, have you been... Feeling nervous, anxious, or on edge? Not at all Unable to stop or control worrying? Not at all EUGENIA-2 Score: 0Food InsecurityWithin the past year...Did you worry whether your food would run out before you got money to buy more? Never trueWas there a time when the food you bought didn't last and you didn't have money to get more? Never truePain AssessmentPain ScaleNumeric Rating Scale: 5 / 10Location: right lower front side Duration: 1 monthFrequency: DailyCharacter/Quality: burning, throbbing and pressureIs the pain radiating? YesTo what body part(s) is the pain radiating? up sideScreening, Brief Intervention, & Referral to Treatment (SBIRT)Pre-Screening Questions How many times have you have 5 or more drinks in a day? 0How many times have you used an illegal drug or used a prescription medication for a non- medical reason? 0Performed by: Shanthi Celaya LPN, November 11, 2019 3:49 PMPatient History Medical History:High cholesterolcolon cancerStrokeperferated ulcerSurgical History:rt knee surg x 3 aclleft knee surg x1 colon surgTonsillectomyFamily History:Cancer - Lung (Father)Social/Personal History: Advised to Quit/Tobacco Education: YesChief Complaintfollow-up visit meds History of Present Illness (HPI)59 YO male here for follow up on medications. Pt states right inguinal hernia, ongoing for about 2 months. Pt states didnt pickling solution maker medications for ED as yet because insurance didnt cover. Pt states still having marital problems.Pt states presently from and she has recently moved out. Pt states didnt start trazodone due to potential side effects. Pt requesting to try ssomething different.HPI performed by: Yas ZULUAGA, November 11, 2019 4:30 PMTransitions of Care InboundProblem ReviewProblem List was reviewed and/or updated during this visit.Medication Reconciliation & ReviewMedication List was reviewed and/or updated during this visit, including review of any [id number] medications, herbal therapies, and/or supplements.Allergy ReviewAllergy List was reviewed and/or updated during this visit. Patient has no known allergies.Adult Preventive CareProvider Calculated and Reviewed all Clinical Protocols for patient today. Screening Tobacco Screening: Smoking Status: current every day smoker (11/11/2019) Tobacco Use: Currently (11/11/2019) Advised to Quit: Yes (11/11/2019)Labs/Meds/Other Counseling-Nutrition and Physical Activity:BMI Interpretation: Healthy Weight (11/11/2019) Counseling: Done (11/11/2019) Physical Activity: Done (11/11/2019)Review of Systems General: Complains of sleep disturbances. Denies loss of appetite, chills, dizziness, fatigue, fever, continued fever, headache, feeling ill, sweats, night sweats, weight loss. Eyes: Denies blurring of vision, double vision, irritation, discharge, vision loss, eye pain, eye swelling, droopy eyelid, sensitivity to light, redness, itching. Ears/Nose/Throat: Denies earache, ear discharge, ringing in ears, decreased hearing, nasal congestion, nosebleeds, runny nose, sore throat, hoarseness, difficulty swallowing, dry mouth, tooth pain, bleeding gums, swollen glands. Cardiovascular: Denies chest pain, palpitations, feeling faint, trouble breathing w/exertion, SOB upon lying down, SOB at night, peripheral edema, elevated blood pressure, decreased heart rate. Respiratory: Denies cough, difficulty breathing, shortness of breath, excessive sputum, coughing up blood, wheezing, chest pain. Gastrointestinal: Complains of abdominal pain. Denies nausea, vomiting, bleeding, burning, itching, irritation, cramps, diarrhea, heartburn. right inguinal herniaGenitourinary: Denies urinary i ncontinence, pain with urination, burning with urination, urinary frequency, urinary hesitancy, urinary urgency, urinary urgency at night, incomplete emptying, blood in urine. Musculoskeletal: Complains of muscle aches. Skin: Denies rash, hives, redness, itching, dryness, nail changes, suspicious lesions, athlete's foot, rash on palms, rash on bottom of feet. Neurologic: Denies muscle impairment, weakness, numbness/tingling, seizures, slurred speech, feeling faint, tremors, vertigo, paralysis on one side, paralysis on both sides. Psychiatric: Denies depression, anxiety, memory loss, mental disturbance, suicidal ideation, homicidal ideation, hallucinations, paranoia, feeling stressed, hearing voices. Endocrine: Denies cold intolerance, heat intolerance, excessive thirst, excessive hunger, excessive urination, weight loss, weight gain. Physical ExamGeneral Appearance: well nourished, well hydrated, no acute distressEyes, External: conjunctivae and lids normal, EOMIRespiratory, Auscultation: clear to auscultation bilaterally; no rales, rhonchi, or wheezesRespiratory, Effort: no intercostal retractions or use of accessory musclesCardiovascular, Auscultation: S1, S2 audible; no murmur, rub, or gallop; RRRPeripheral Circulation: no clubbing, cyanosis, edema, or varicositiesAbdomen: right inguinal herniaGait & Station: normalSkin, Inspection: no rashes, lesions, or ulcerationsOrientation: oriented to time, place, and personMood & Affect: no depression, anxiety, or agitationJudgment & Insight: intactCare Management Plan Transitions of CareInboundRate Your HealthIn general, would you say your health is? FairAssessment & Plan Problems:Added: Inguinal hernia (ICD- 550.90) (TYP35-J74.90) Assessment: Instructions: We have made a referral for you today. We will contact you to set this up. Please try to avoid heavy lifting or streneous activities.Assessed:Anxiety depression (ICD-300.09) (ICD10- F41.8) Assessment: improved a bit. moved out. 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 Instructions: We will change your medication to hydroxyzine. Please take as prescribed. Please report any major side effects. Please try to avoid night time stimulants.Assessment not Saved Insomnia; unspecified (GQZ81-G59.00): Patient Instructions/Care Plan: Inguinal hernia: We have made a referral for you today. We will contact you to set this up. Please try to avoid heavy lifting or streneous activities.Insomnia- unspecified: We will change your medication to hydroxyzine. Please take as prescribed. Please report any major side effects. Please try to avoid night time stimulants. Plan developed in collaboration with patient and/or familyMedications:SILDENAFIL CITRATE 100 MG ORAL TABLETHYDROXYZINE HCL 50 MG ORAL TABLETCLOTRIMAZOLE-BETAMETHASONE 1-0.05 % EXTERNAL CREAMATORVASTATIN CALCIUM 20 MG ORAL TABLETPROVENTIL HFA 108 (90 BASE) MCG/ACT INHALATION AEROSOL SOLUTIONADVAIR DISKUS 250-50 MCG/DOSE INHALATION AEROSOL POWDER BREATH ACTIVATEDPROAIR HFA 108 (90 BASE) MCG/ACT INHALATION AEROSOL SOLUTIONADULT ASPIRIN EC LOW STRENGTH 81 MG ORAL TABLET DELAYED RELEASEMedication Changes:Refilled:HYDROXYZINE HCL 50 MG ORAL TABLET-take one tablet by mouth daily at bedtime as needed for insomnia. Qty: 30[Tablet] Refills: 2 Method: ElectronicSILDENAFIL CITRATE 100 MG ORAL TABLET-take 1/2 or 1 tablet by mouth daily as needed. ( If errection longer than 3 hours go to the ER) Qty: 10[Tablet] Refills: 1 Method: ElectronicChanged:From: ORAL TRAZODONE HCL 50 MG ORAL TABLET Qty: [id number] Refills: 30[Tablet] To: HYDROXYZINE HCL 50 MG ORAL TABLET-take one tablet by mouth daily at bedtime as needed for insomnia. Qty: 30[Tablet] Refills: 2From: ORAL SILDENAFIL CITRATE 25 MG ORAL TABLET Qty: [id number] Refills: 10[Tablet] To: SILDENAFIL CITRATE 100 MG ORAL TABLET- take 1/2 or 1 tablet by mouth daily as needed. ( If errection longer than 3 hours go to the ER) Qty: 10[Tablet] Refills: 1Allergies:No Known Allergies (up dated 11/11/2019) Orders:Other Referral [[id number]] Adult - Ofc Vst, EST, Level IV [[id number]] Follow-Up Return to clinic: 6-8 weeks for follow up. Clinical Visit Summary CompletedMedications:SILDENAFIL CITRATE 100 MG ORAL TABLET (SILDENAFIL CITRATE) take 1/2 or 1 tablet by mouth daily as needed. ( If errection longer than 3 hours go to the ER) #10[Tablet] x 1 Route:ORAL Entered and Authorized by: Yas ZULUAGA Method used: Electronically to [facility] (retail) [address] [place] [address] Fax: Note to Pharmacy: Route: ORAL; Indications: MALE ERECTILE DYSFUNCTION, UNSPECIFIED RxID: [id number] HCL 50 MG ORAL TABLET (HYDROXYZINE HCL) take one tablet by mouth daily at bedtime as needed for insomnia. #30[Tablet] x 2 Route:ORAL Entered and Authorized by: Yas ZULUAGA Method used: Electronically to [facility] (retail) [address] [place] [address] Note to Pharmacy: Route: ORAL; Indications: INSOMNIA, UNSPECIFIED RxID: [id number] signed by Yas ZULUAGA on 11/15/2019 at 11:03 PM Name Value Range Interpretation Code Description Data Lilia rce(s) Supporting Document(s) Procedure Social History Code Duration Value Status Description Data Source(s ) Smoking 01/04/2020 12:00:00 AM EST Current Smoker completed Curre nt Smoker eCW1 ([facility]) Vital Signs ID Date Data Source UNK Name Value Range Interpretation Code Description Data Source(s) Diastolic blood pressure 94 mm[Hg] 94 mm[Hg] [place] ([facility]) Diastolic blood pressure 104 mm[Hg] 104 mm[Hg] [place] ([facility]) Body height 70.5 [in_i] 70.5 [in_i] RE[facility]KAH ([facility]) Body mass index (BMI) [Ratio] 25.1 kg/m2 25.1 k g/m2 [place] ([facility]) Systolic blood pressure 152 mm[Hg] 152 mm[Hg] A [place] ([facility]) Systolic blood pressure 149 mm[Hg] 149 mm[Hg] A THENA ([facility]) Body weight 2836 [oz_av] 2836 [oz_av] [facility]AH ([facility]) Body height 70.5 [in_i] 70.5 [in_i] [place] ([facility]) Body height 70.5 [in_i] 70.5 [in_i] [place] ([facility]) Systolic blood pressure 154 mm[Hg] 154 mm[Hg] M EDENT ([facility]) Diastolic blood pressure 91 mm[Hg] 91 mm[Hg] MEDENT ([facility]) Heart rate 92 /min 92 /min MEDENT ([facility]) Respiratory rate 19 /min 19 /min MEDENT ( [facility]) Oxygen saturation in Arterial blood by Pulse oximetry 98 % 98 % MEDENT ([facility]) Body temperature 98.4 [degF] 98.4 [degF] MEDENT ([facility]) Body weight 173.00 [lb_av] 173.00 [lb_av] MEDEN T ([facility]) Body height 70.5 [in_i] 70.5 [in_i] MEDENT ([facility]) 5'10.50" Body mass index (BMI) [Ratio] 24.5 kg/m2 24.5 k g/m2 MEDENT ([facility]) Diastolic blood pressure 87 mm[Hg] 87 mm[Hg] REBEKAH ([facility]) Body height 70.5 [in_i] 70.5 [in_i] REBEKAH ([facility]) Body mass index (BMI) [Ratio] 24.8 kg/m2 24.8 k g/m2 REBEKAH ([facility]) Systolic blood pressure 129 mm[Hg] 129 mm[Hg] A THENA ([facility]) Body weight 2806 [oz_av] 2806 [oz_av] REBEKAH ([facility]) Diastolic blood pressure 87 mm[Hg] 87 mm[Hg] REBEKAH ([facility]) Body height 70.5 [in_i] 70.5 [in_i] REBEKAH ([facility]) Body mass index (BMI) [Ratio] 24.8 kg/m2 24.8 k g/m2 REBEKAH ([facility]) Systolic blood pressure 129 mm[Hg] 129 mm[Hg] A THENA ([facility]) Body weight 2806 [oz_av] 2806 [oz_av] REBEKAH ([facility]) Diastolic blood pressure 87 mm[Hg] 87 mm[Hg] REBEKAH ([facility]) Body height 70.5 [in_i] 70.5 [in_i] REBEKAH ([facility]) Body mass index (BMI) [Ratio] 24.8 kg/m2 24.8 k g/m2 REBEKAH ([facility]) Systolic blood pressure 129 mm[Hg] 129 mm[Hg] A THENA ([facility]) Body weight 2806 [oz_av] 2806 [oz_av] REBEKAH ([facility]) Body height 70.5 [in_i] 70.5 [in_i] REBEKAH ([facility]) Body height 70.5 [in_i] 70.5 [in_i] REBEKAH ([facility]) Body height 70.5 [in_i] 70.5 [in_i] REBEKAH ([facility]) Body height 70.5 [in_i] 70.5 [in_i] REBEKAH ([facility]) Body weight 2802 [oz_av] 2802 [oz_av] REBEKAH ([facility]) Diastolic blood pressure 78 mm[Hg] 78 mm[Hg] REBEKAH ([facility]) Body height 70.5 [in_i] 70.5 [in_i] REBEKAH ([facility]) Body mass index (BMI) [Ratio] 24.8 kg/m2 24.8 k g/m2 REBEKAH ([facility]) Systolic blood pressure 122 mm[Hg] 122 mm[Hg] A THENA ([facility]) Diastolic blood pressure 78 mm[Hg] 78 mm[Hg] REBEKAH ([facility]) Body height 70.5 [in_i] 70.5 [in_i] REBEKAH ([facility]) Body mass index (BMI) [Ratio] 24.8 kg/m2 24.8 k g/m2 REBEKAH ([facility]) Systolic blood pressure 122 mm[Hg] 122 mm[Hg] A THENA ([facility]) Body weight 2802 [oz_av] 2802 [oz_av] REBEKAH ([facility]) Diastolic blood pressure 78 mm[Hg] 78 mm[Hg] REBEKAH ([facility]) Body height 70.5 [in_i] 70.5 [in_i] REBEKAH ([facility]) Body mass index (BMI) [Ratio] 24.8 kg/m2 24.8 k g/m2 REBEKAH ([facility]) Systolic blood pressure 122 mm[Hg] 122 mm[Hg] A THENA ([facility]) Body weight 2802 [oz_av] 2802 [oz_av] REBEKAH ([facility]) Diastolic blood pressure 78 mm[Hg] 78 mm[Hg] REBEKAH ([facility]) Body height 70.5 [in_i] 70.5 [in_i] REBEKAH ([facility]) Body mass index (BMI) [Ratio] 24.8 kg/m2 24.8 k g/m2 REBEKAH ([facility]) Systolic blood pressure 122 mm[Hg] 122 mm[Hg] A THENA ([facility]) Body weight 2802 [oz_av] 2802 [oz_av] REBEKAH ([facility]) Diastolic blood pressure 78 mm[Hg] 78 mm[Hg] REBEKAH ([facility]) Body height 70.5 [in_i] 70.5 [in_i] REBEKAH ([facility]) Body mass index (BMI) [Ratio] 24.8 kg/m2 24.8 k g/m2 REBEKAH ([facility]) Systolic blood pressure 122 mm[Hg] 122 mm[Hg] A THENA ([facility]) Body weight 2802 [oz_av] 2802 [oz_av] REBEKAH ([facility]) Diastolic blood pressure 87 mm[Hg] 87 mm[Hg] MEDENT ([facility]) Heart rate 98 /min 98 /min MEDENT ([facility]) Respiratory rate 18 /min 18 /min MEDENT ( [facility]) Oxygen saturation in Arterial blood by Pulse oximetry 97 % 97 % MEDENT ([facility]) Body temperature 97.9 [degF] 97.9 [degF] MEDENT ([facility]) Body weight 165.00 [lb_av] 165.00 [lb_av] MEDEN T ([facility]) Body height 70.5 [in_i] 70.5 [in_i] MEDENT ([facility] [facility]) 5'10.50" Body mass index (BMI) [Ratio] 23.3 kg/m2 23.3 k g/m2 MEDENT ([facility] [facility]) Systolic blood pressure 143 mm[Hg] 143 mm[Hg] M EDENT ([facility]) Diastolic blood pressure 78 mm[Hg] 78 mm[Hg] REBEKAH ([facility]) Body height 70.5 [in_i] 70.5 [in_i] REBEKAH ([facility]) Body mass index (BMI) [Ratio] 24.6 kg/m2 24.6 k g/m2 REBEKAH ([facility]) Systolic blood pressure 115 mm[Hg] 115 mm[Hg] A THENA ([facility]) Body weight 2784 [oz_av] 2784 [oz_av] REBEKAH ([facility]) Diastolic blood pressure 78 mm[Hg] 78 mm[Hg] REBEKAH ([facility]) Body height 70.5 [in_i] 70.5 [in_i] REBEKAH ([facility]) Body mass index (BMI) [Ratio] 24.6 kg/m2 24.6 k g/m2 REBEKAH ([facility]) Systolic blood pressure 115 mm[Hg] 115 mm[Hg] A THENA ([facility]) Body weight 2784 [oz_av] 2784 [oz_av] REBEKAH ([facility]) Diastolic blood pressure 78 mm[Hg] 78 mm[Hg] REBEKAH ([facility]) Body height 70.5 [in_i] 70.5 [in_i] REBEKAH ([facility]) Body mass index (BMI) [Ratio] 24.6 kg/m2 24.6 k g/m2 REBEKAH ([facility]) Systolic blood pressure 115 mm[Hg] 115 mm[Hg] [facility] Body weight 2784 [oz_av] 2784 [oz_av] REBEKAH ([facility]) Diastolic blood pressure 78 mm[Hg] 78 mm[Hg] REBEKAH ([facility]) Body height 70.5 [in_i] 70.5 [in_i] REBEKAH ([facility]) Body mass index (BMI) [Ratio] 24.6 kg/m2 24.6 k g/m2 REBEKAH ([facility]) Systolic blood pressure 115 mm[Hg] 115 mm[Hg] A THENA ([facility]) Body weight 2784 [oz_av] 2784 [oz_av] REBEKAH ([facility]) Diastolic blood pressure 78 mm[Hg] 78 mm[Hg] REBEKAH ([facility]) Body height 70.5 [in_i] 70.5 [in_i] REBEKAH ([facility]) Body mass index (BMI) [Ratio] 24.6 kg/m2 24.6 k g/m2 REBEKAH ([facility]) Systolic blood pressure 115 mm[Hg] 115 mm[Hg] A THENA ([facility]) Body weight 2784 [oz_av] 2784 [oz_av] REBEKAH ([facility]) Systolic blood pressure 115 mm[Hg] 115 mm[Hg] A THENA ([facility]) Body weight 2784 [oz_av] 2784 [oz_av] REBEKAH ([facility]) Diastolic blood pressure 78 mm[Hg] 78 mm[Hg] REBEKAH ([facility]) Body height 70.5 [in_i] 70.5 [in_i] REBEKAH ([facility]) Body mass index (BMI) [Ratio] 24.6 kg/m2 24.6 k g/m2 REBEKAH ([facility]) Diastolic blood pressure 72 mm[Hg] 72 mm[Hg] MEDENT ([facility], ) Systolic blood pressure 128 mm[Hg] 128 mm[Hg] M EDENT ([facility], ) Heart rate 84 /min 84 /min MEDENT ([facility], ) Oxygen saturation in Arterial blood by Pulse oximetry 97 % 97 % [facility] Body mass index (BMI) [Ratio] 25.6 kg/m2 25.6 k g/m2 MEDENT ([facility]) [place] body weight 166 [lb_av] 166 [lb_av] MEDEN T ([facility]) Body weight 80.854 kg 80.854 kg [facility] ([facility]) Body surface area Derived from formula 1.99 m2 1.99 m2 [facility] ) Body height 70 [in_i] 70 [in_i] MEDENT ([facility], ) 5'10" 5 Body weight 178.25 [lb_av] 178.25 [lb_av] MEDEN T ([facility], ) Body weight 172 [lb_av] 172 [lb_av] eCW1 ([facility]) Body height 70 [in_i] 70 [in_i] eCW1 ([facility]) Body mass index (BMI) [Ratio] 24.68 kg/m2 24.68 kg/m2 eCW1 ([facility]) Heart rate 89 /min 89 /min eCW1 ([facility]) Respiratory rate 18 /min 18 /min eCW1 ([facility]) Body temperature 96.3 [degF] 96.3 [degF] eCW1 ( [facility]) Systolic blood pressure 132 mm[Hg] 132 mm[Hg] e CW1 ([facility]) Diastolic blood pressure 78 mm[Hg] 78 mm[Hg] eCW1 ([facility]) Diastolic blood pressure 90 mm[Hg] 90 mm[Hg] REBEKAH ([facility]) Diastolic blood pressure 91 mm[Hg] 91 mm[Hg] REBEKAH ([facility]) Body height 70.5 [in_i] 70.5 [in_i] REBEKAH ([facility]) Body mass index (BMI) [Ratio] 25 kg/m2 25 kg/ m2 REBEKAH ([facility]) Systolic blood pressure 130 mm[Hg] 130 mm[Hg] A THENA ([facility]) Systolic blood pressure 144 mm[Hg] 144 mm[Hg] A THENA ([facility]) Body weight 2825.6 [oz_av] 2825.6 [oz_av] ATHEN A ([facility]) Diastolic blood pressure 90 mm[Hg] 90 mm[Hg] REBEKAH ([facility]) Diastolic blood pressure 91 mm[Hg] 91 mm[Hg] REBEKAH ([facility]) Body height 70.5 [in_i] 70.5 [in_i] REBEKAH ([facility]) Body mass index (BMI) [Ratio] 25 kg/m2 25 kg/ m2 REBEKAH ([facility]) Systolic blood pressure 130 mm[Hg] 130 mm[Hg] A THENA ([facility]) Systolic blood pressure 144 mm[Hg] 144 mm[Hg] A THENA ([facility]) Body weight 2825.6 [oz_av] 2825.6 [oz_av] ATHEN A ([facility]) Diastolic blood pressure 90 mm[Hg] 90 mm[Hg] REBEKAH ([facility]) Diastolic blood pressure 91 mm[Hg] 91 mm[Hg] REBEKAH ([facility]) Body height 70.5 [in_i] 70.5 [in_i] REBEKAH ([facility]) Body mass index (BMI) [Ratio] 25 kg/m2 25 kg/ m2 REBEKAH ([facility]) Systolic blood pressure 130 mm[Hg] 130 mm[Hg] A THENA ([facility]) Systolic blood pressure 144 mm[Hg] 144 mm[Hg] A THENA ([facility]) Body weight 2825.6 [oz_av] 2825.6 [oz_av] ATHEN A ([facility]) Diastolic blood pressure 90 mm[Hg] 90 mm[Hg] REBEKAH ([facility]) Diastolic blood pressure 91 mm[Hg] 91 mm[Hg] REBEKAH ([facility]) Body height 70.5 [in_i] 70.5 [in_i] REBEKAH ([facility]) Body mass index (BMI) [Ratio] 25 kg/m2 25 kg/ m2 REBEKAH ([facility]) Systolic blood pressure 130 mm[Hg] 130 mm[Hg] A THENA ([facility]) Systolic blood pressure 144 mm[Hg] 144 mm[Hg] [facility] Body weight 2825.6 [oz_av] 2825.6 [oz_av] ATHEN A ([facility]) Body mass index (BMI) [Ratio] 25 kg/m2 25 kg/ m2 REBEKAH ([facility]) Systolic blood pressure 130 mm[Hg] 130 mm[Hg] A THENA ([facility]) Systolic blood pressure 144 mm[Hg] 144 mm[Hg] A THENA ([facility]) Body weight 2825.6 [oz_av] 2825.6 [oz_av] ATHEN A ([facility]) Diastolic blood pressure 90 mm[Hg] 90 mm[Hg] REBEKAH ([facility]) Diastolic blood pressure 91 mm[Hg] 91 mm[Hg] REBEKAH ([facility]) Body height 70.5 [in_i] 70.5 [in_i] REBEKAH ([facility]) Diastolic blood pressure 90 mm[Hg] 90 mm[Hg] REBEKAH ([facility]) Diastolic blood pressure 91 mm[Hg] 91 mm[Hg] REBEKAH ([facility]) Body height 70.5 [in_i] 70.5 [in_i] REBEKAH ([facility]) Body mass index (BMI) [Ratio] 25 kg/m2 25 kg/ m2 REBEKAH ([facility]) Systolic blood pressure 130 mm[Hg] 130 mm[Hg] A THENA ([facility]) Systolic blood pressure 144 mm[Hg] 144 mm[Hg] A THENA ([facility]) Body weight 2825.6 [oz_av] 2825.6 [oz_av] ATHEN A ([facility]) Diastolic blood pressure 90 mm[Hg] 90 mm[Hg] REBEKAH ([facility]) Diastolic blood pressure 91 mm[Hg] 91 mm[Hg] REBEKAH ([facility]) Body height 70.5 [in_i] 70.5 [in_i] REBEKAH ([facility]) Body mass index (BMI) [Ratio] 25 kg/m2 25 kg/ m2 REBEKAH ([facility]) Systolic blood pressure 130 mm[Hg] 130 [facility]Hg] [facility] Systolic blood pressure 144 mm[Hg] 144 mm[Hg] A THENA ([facility]) Body weight 2825.6 [oz_av] 2825.6 [oz_av] ATHEN A ([facility]) Diastolic blood pressure 90 mm[Hg] 90 mm[Hg] REBEKAH ([facility]) Diastolic blood pressure 91 mm[Hg] 91 mm[Hg] REBEKAH ([facility]) Body height 70.5 [in_i] 70.5 [in_i] REBEKAH ([facility]) Body mass index (BMI) [Ratio] 25 kg/m2 25 kg/ m2 REBEKAH ([facility]) Systolic blood pressure 130 mm[Hg] 130 mm[Hg] A THENA ([facility]) Systolic blood pressure 144 mm[Hg] 144 mm[Hg] A THENA ([facility]) Body weight 2825.6 [oz_av] 2825.6 [oz_av] ATHEN A ([facility]) Systolic blood pressure 130 mm[Hg] 130 mm[Hg] M EDENT ([facility], ) Body mass index (BMI) [Ratio] 25.0 kg/m2 25.0 k g/m2 MEDENT ([facility], ) [place] body weight 166 [lb_av] 166 [lb_av] OLEG T ([facility], ) Body weight 78.926 kg 78.926 kg MEDABILIO ([facility], ) Diastolic blood pressure 80 mm[Hg] 80 mm[Hg] [facility]) Heart rate 78 /min 78 /min [facility] ([facility]) Oxygen saturation in Arterial blood by Pulse oximetry 98 % 98 % [facility] ([facility]) Body height 70 [in_i] 70 [in_i] [facility] ([facility]) 5'10" 5 Body weight 174.00 [lb_av] 174.00 [lb_av] MEDEN T ([facility]) Body surface area Derived from formula 1.97 m2 1.97 m2 [facility] ([facility]) Diastolic blood pressure 81 mm[Hg] 81 mm[Hg] [facility] ([facility]) Heart rate 73 /min 73 /min [facility] ([facility]) Systolic blood pressure 124 mm[Hg] 124 mm[Hg] M EDENT ([facility]) Body height 70 [in_i] 70 [in_i] [facility] ([facility]) 5'10" 5 Body weight 172.12 [lb_av] 172.12 [lb_av] MEDEN T ([facility]) Body mass index (BMI) [Ratio] 24.7 kg/m2 24.7 k g/m2 [facility] ([facility]) [place] body weight 166 [lb_av] 166 [lb_av] MEDEN T ([facility]) Body weight 78.076 kg 78.076 kg [facility] ([facility]) Diastolic blood pressure 92 mm[Hg] 92 mm[Hg] REBEKAH ([facility]) Body height 70.5 [in_i] 70.5 [in_i] REBEKAH ([facility]) Body mass index (BMI) [Ratio] 24.58 kg/m2 24.58 kg/m2 REBEKAH ([facility]) Body weight 2770.08 [oz_av] 2770.08 [oz_av] ATH MICHAEL ([facility]) Systolic blood pressure 147 mm[Hg] 147 mm[Hg] A THENA ([facility]) Diastolic blood pressure 92 mm[Hg] 92 mm[Hg] REBEKAH ([facility]) Body height 70.5 [in_i] 70.5 [in_i] REBEKAH ([facility]) Body mass index (BMI) [Ratio] 24.58 kg/m2 24.58 kg/m2 REBEKAH ([facility]) Systolic blood pressure 147 mm[Hg] 147 mm[Hg] A THENA ([facility]) Body weight 2770.08 [oz_av] 2770.08 [oz_av] ATH MICHAEL ([facility]) Diastolic blood pressure 92 mm[Hg] 92 mm[Hg] REBEKAH ([facility]) Body height 70.5 [in_i] 70.5 [in_i] REBEKAH ([facility]) Body mass index (BMI) [Ratio] 24.58 kg/m2 24.58 kg/m2 REBEKAH ([facility]) Systolic blood pressure 147 mm[Hg] 147 mm[Hg] A THENA ([facility]) Body weight 2770.08 [oz_av] 2770.08 [oz_av] ATH MICHAEL ([facility]) Diastolic blood pressure 92 mm[Hg] 92 mm[Hg] REBEKAH ([facility]) Body height 70.5 [in_i] 70.5 [in_i] REBEKAH ([facility]) Body mass index (BMI) [Ratio] 24.58 kg/m2 24.58 kg/m2 REBEKAH ([facility]) Systolic blood pressure 147 mm[Hg] 147 mm[Hg] A THENA ([facility]) Body weight 2770.08 [oz_av] 2770.08 [oz_av] ATH MICHAEL ([facility]) Diastolic blood pressure 92 mm[Hg] 92 mm[Hg] REBEKAH ([facility]) Body height 70.5 [in_i] 70.5 [in_i] REBEKAH ([facility]) Body mass index (BMI) [Ratio] 24.58 kg/m2 24.58 kg/m2 REBEKAH ([facility]) Systolic blood pressure 147 mm[Hg] 147 mm[Hg] [facility] Body weight 2770.08 [oz_av] 2770.08 [oz_av] ATH MICHAEL ([facility]) Patient Treatment Plan of Care Planned Activity Planned Date Details Description Data Source (s) Prednisone 20 MG Oral Tablet REBEKAH ([facility]) Acetaminophen 325 MG / Oxycodone Hydrochloride 5 MG Oral Tablet REBEKAH ([facility]) Doxycycline Monohydrate 100 MG Oral Tablet REBEKAH ([facility]) Doxycycline Monohydrate 100 MG Oral Capsule REBEKAH ([facility]) chlorhexidine gluconate 1.2 MG/ML Mouthwash REBEKAH ([facility]) cetirizine hydrochloride 10 MG Oral Tablet REBEKAH ([facility]) Amoxicillin 500 MG Oral Capsule REBEKAH ([facility]) albuterol sulfate HFA 90 mcg/actuation a erosol inhaler INHALE 2 PUFFS BY MOUTH NEEDED MAXIMUM DAILY DOSE 12 PUFFS REBEKAH ([facility]) Acyclovir 0.05 MG/MG Topical Ointment REBEKAH ([facility]) Acetaminophen 325 MG / Oxycodone Hydrochloride 5 MG Oral Tablet REBEKAH ([facility]) Doxycycline Monohydrate 100 MG Oral Tablet REBEKAH ([facility]) chlorhexidine gluconate 1.2 MG/ML Mouthwash REBEKAH ([facility]) Amoxicillin 500 MG Oral Capsule REBEKAH ([facility]) Prednisone 20 MG Oral Tablet REBEKAH ([facility]) Acetaminophen 325 MG / Oxycodone Hydrochloride 5 MG Oral Tablet REBEKAH ([facility]) Doxycycline Monohydrate 100 MG Oral Tablet REBEKAH ([facility]) chlorhexidine gluconate 1.2 MG/ML Mouthwash REBEKAH ([facility]) Amoxicillin 500 MG Oral Capsule REBEKAH ([facility]) Prednisone 20 MG Oral Tablet REBEKAH ([facility]) Acetaminophen 325 MG / Oxycodone Hydrochloride 5 MG Oral Tablet REBEKAH ([facility]) Doxycycline Monohydrate 100 MG Oral Tablet REBEKAH ([facility]) chlorhexidine gluconate 1.2 MG/ML Mouthwash REBEKAH ([facility]) Amoxicillin 500 MG Oral Capsule REBEKAH ([facility]) Prednisone 20 MG Oral Tablet REBEKAH ([facility]) Acetaminophen 325 MG / Oxycodone Hydrochloride 5 MG Oral Tablet REBEKAH ([facility]) Doxycycline Monohydrate 100 MG Oral Tablet REBEKAH ([facility]) chlorhexidine gluconate 1.2 MG/ML Mouthwash REBEKAH ([facility]) Amoxicillin 500 MG Oral Capsule REBEKAH ([facility]) Acetaminophen 325 MG / Oxycodone Hydrochloride 5 MG Oral Tablet REBEKAH ([facility]) chlorhexidine gluconate 1.2 MG/ML Mouthwash REBEKAH ([facility]) Amoxicillin 500 MG Oral Capsule REBEKAH ([facility])
--- NOTE | 2020-12-22 13:54 | REP ---
INDICATION: Nail through left middle finger. COMPARISON: None. TECHNIQUE: Four views FINDINGS: There is a metallic radiodensity consistent with nail coursing the distal aspect of the middle phalanx of the 3rd digit IMPRESSION: As above <Electronically signed by Je Michel > 12/22/20 6101
[2020-12-22] MEDS ORDERED: LIDOCAINE 2% MDV 20ML VIAL SC ONE (14:20)
[2020-12-22] MEDS ORDERED: CEPH500C PO (14:52)
--- OUTSIDE RECORDS SUMMARY | 2020-12-22 15:24 | CCD ---
Author Author [facility] Address Unknown Phone Unavailable Care Team Providers Care Organ Tuner Electronic Name Role Phone Briana Mathews MD Unavailable Unavailable Briana Mathews MD Unavailable Unavailable Briana Mathews MD Unavailable Unavailable Briana Mathews MD Unavailable Unavailable Briana Mathews MD Unavailable Unavailable Briana Mathews MD Unavailable Unavailable Briana Mathews MD Unavailable Unavailable Briana Mathews MD Unavailable Unavailable rBiana Mathews MD Unavailable Unavailable Briana Mathews MD [...] Briana Mathews MD Unavailable Unavailable Yas Kahn DIRECTOR OF THERAPY SERVICES DIRECTOR OF THERAPY SERVICES Unavailable Unavailable Shaila TRIVEDI PA Unavailable Unavailable [...] RIO PA Unavailable Unavailable Femi, A Yas DIRECTOR OF THERAPY SERVICES Unavailable Unavailable Femi, A Yas DIRECTOR OF THERAPY SERVICES Unavailable Unavailable Femi, A Yas DIRECTOR OF THERAPY SERVICES Unavailable Unavailable [place], A Yas DIRECTOR OF THERAPY SERVICES Unavailable Unavailable [place], A Yas DIRECTOR OF THERAPY SERVICES Unavailable Unavailable Femi, A Yas DIRECTOR OF THERAPY SERVICES Unavailable Unavailable Femi, A Yas DIRECTOR OF THERAPY SERVICES Unavailable Unavailable [place], A Yas DIRECTOR OF THERAPY SERVICES Unavailable Unavailable [place], A Yas DIRECTOR OF THERAPY SERVICES Unavailable Unavailable [place], A Yas DIRECTOR OF THERAPY SERVICES Unavailable Unavailable [place], A Yas DIRECTOR OF THERAPY SERVICES Unavailable Unavailable [place], A Yas DIRECTOR OF THERAPY SERVICES Unavailable Unavailable Femi, A Yas DIRECTOR OF THERAPY SERVICES Unavailable Unavailable Femi, A Yas DIRECTOR OF THERAPY SERVICES Unavailable Unavailable Femi, A Yas DIRECTOR OF THERAPY SERVICES Unavailable Unavailable Femi, A Yas DIRECTOR OF THERAPY SERVICES Unavailable Unavailable Femi, A Yas DIRECTOR OF THERAPY SERVICES Unavailable Unavailable Femi, A Yas DIRECTOR OF THERAPY SERVICES Unavailable Unavailable Femi, A Yas DIRECTOR OF THERAPY SERVICES Unavailable Unavailable Femi, A Yas DIRECTOR OF THERAPY SERVICES Unavailable Unavailable Femi, A Yas DIRECTOR OF THERAPY SERVICES Unavailable Unavailable Femi, A Yas DIRECTOR OF THERAPY SERVICES Unavailable Unavailable Femi, A Yas DIRECTOR OF THERAPY SERVICES Unavailable Unavailable Femi, A Yas DIRECTOR OF THERAPY SERVICES Unavailable Unavailable Femi, A Yas DIRECTOR OF THERAPY SERVICES Unavailable Unavailable Femi, A Yas DIRECTOR OF THERAPY SERVICES Unavailable Unavailable Femi, A Yas DIRECTOR OF THERAPY SERVICES Unavailable Unavailable Femi, A Yas DIRECTOR OF THERAPY SERVICES Unavailable Unavailable Femi, A Yas DIRECTOR OF THERAPY SERVICES Unavailable Unavailable Femi, A Yas DIRECTOR OF THERAPY SERVICES Unavailable Unavailable Femi, A Yas DIRECTOR OF THERAPY SERVICES Unavailable Unavailable DEFAULT, PROVIDER Unavailable Unavailable RING, [...] Mendoza JR, MD Unavailable Unavailable GaelagongKeshaSonja Unavailable [phone] NoragongKeshaSonja Unavailable [phone] Noragong Sonja Unavailable [phone] Femi, A Yas DIRECTOR OF THERAPY SERVICES Unavailable Unavailable Femi, A Yas DIRECTOR OF THERAPY SERVICES Unavailable Unavailable Femi, A Yas DIRECTOR OF THERAPY SERVICES Unavailable Unavailable Femi, A Yas DIRECTOR OF THERAPY SERVICES Unavailable Unavailable Femi, A Yas DIRECTOR OF THERAPY SERVICES Unavailable Unavailable Femi, A Yas DIRECTOR OF THERAPY SERVICES Unavailable Unavailable Femi, A Yas DIRECTOR OF THERAPY SERVICES Unavailable Unavailable Femi, A Yas DIRECTOR OF THERAPY SERVICES Unavailable Unavailable Femi, A Yas DIRECTOR OF THERAPY SERVICES Unavailable Unavailable Femi, A Yas DIRECTOR OF THERAPY SERVICES Unavailable Unavailable Femi, A Yas DIRECTOR OF THERAPY SERVICES Unavailable Unavailable Femi, A Yas DIRECTOR OF THERAPY SERVICES Unavailable Unavailable Femi, A Yas DIRECTOR OF THERAPY SERVICES Unavailable Unavailable Femi, A Yas DIRECTOR OF THERAPY SERVICES Unavailable Unavailable Femi, A Yas DIRECTOR OF THERAPY SERVICES Unavailable Unavailable Femi, A Yas DIRECTOR OF THERAPY SERVICES Unavailable Unavailable Femi, A Yas DIRECTOR OF THERAPY SERVICES Unavailable Unavailable Femi, A Yas DIRECTOR OF THERAPY SERVICES Unavailable Unavailable Femi, A Yas DIRECTOR OF THERAPY SERVICES Unavailable Unavailable Femi, A Yas DIRECTOR OF THERAPY SERVICES Unavailable Unavailable Femi, A Yas DIRECTOR OF THERAPY SERVICES Unavailable Unavailable Femi, A Yas DIRECTOR OF THERAPY SERVICES Unavailable Unavailable Femi, A Yas DIRECTOR OF THERAPY SERVICES Unavailable Unavailable Femi, A Yas DIRECTOR OF THERAPY SERVICES Unavailable Unavailable Femi, A Yas DIRECTOR OF THERAPY SERVICES Unavailable Unavailable Femi, A Yas DIRECTOR OF THERAPY SERVICES Unavailable Unavailable Femi, A Yas DIRECTOR OF THERAPY SERVICES Unavailable Unavailable Femi, A Yas DIRECTOR OF THERAPY SERVICES Unavailable Unavailable Femi, A Yas DIRECTOR OF THERAPY SERVICES Unavailable Unavailable Femi, A Yas DIRECTOR OF THERAPY SERVICES Unavailable Unavailable Femi, A Yas DIRECTOR OF THERAPY SERVICES Unavailable Unavailable ROJAS, M TORSTEN PA Unavailable [...] is protected by Article 27-F of the [facility] Public Health law. If you continue you may have access to information: Regarding HIV / AIDS; Provided by facilities licensed or operated by the [facility] Office of Mental Health; or Provided by the [facility] Office for People With Developmental Disabilities. If such information is present, then the following [facility] mandated warning applies: This information has [...] law may result in a fine or group home sentence or both. A general authorization for the release of medical or other information is NOT sufficient authorization for further disc losure. Allergies and Adverse Reactions Type Description Substance Reaction Status Data Source(s ) Allergy to substance Allergy to substance Allergy to substance REBEKAH ([facility]) Allergy to substance Allergy to substance Allergy to substance REBEKAH ([facility]) Family History Family Member Name Family Member Gender Family Member Status Date o f Status Description Data Source(s) Unknown Female Problem MEDENT ([facility]) Unknown Female Problem MEDENT ([facility]) Unknown Male Problem [facility] Encounters Encounter Providers Location Date Indications Data Source(s ) MARGARETH Garcia: [address] [place] [address], Ph. Attender: Sonja Cleary [facility] Medical 12/09/2020 12:00:00 AM EDT REBEKAH ([facility]) [facility] [address], [place] [address], Ph. Attender: Yas Kahn [facility] Medical 12/02/2020 12:00:00 AM EDT REBEKAH ([facility]) Yas Kahn [facility]: [address], [place] [address], Ph. Attender: Yas Kahn [facility] Medical 12/02/2020 12:00:00 AM EDT BANGOR ([facility]) Outpatient Attender: RIO Lang yris 11/18/2020 08:35:00 AM EDT MEDABIILO ([facility]) Yas Kahn [facility]: [address], [place] [address], Ph. Attender: Yas Kahn [facility] Medical 08/05/2020 12:00:00 AM EDT BANGOR ([facility]) [facility]: [address], [place] [address], Ph. Attender: Yas Kahn [facility] Medical 08/05/2020 12:00:00 AM EDT REBEKAH ([facility]) Yas Kahn [facility]: [address], [place] [address], Ph. Attender: Yas Kahn [facility] Medical 08/05/2020 12:00:00 AM EDT BANGOR ([facility]) Sascha Mathews MD: [address], [place] [address], Ph. Attender: Sascha Mathews MD [facility] 07/29/2020 12:00:00 AM EDT REBEKAH ([facility]) Sascha Mathews MD: [address] [place] [address], Ph. Attender: Sascha Mathews MD [facility] Medical 07/29/2020 12:00:00 AM EDT REBEKAH ([facility]) Sascha Mathews MD: [address] [place] [address], Ph. Attender: Sascha Mathews MD [facility] Medical 07/29/2020 12:00:00 AM EDT REBEKAH ([facility]) Sascha Mathews MD: [address] [place] [address], Ph. Attender: Sascha Mathews MD [facility] Medical 07/29/2020 12:00:00 AM EDT REBEKAH ([facility]) [place]: [address], [place] [address], Ph. Attender: Yas Kahn [facility] Medical 07/20/2020 12:00:00 AM EDT REBEKAH ([facility]) [facility]: [address], [place] [address], Ph. Attender: Yas Kahn [facility] Medical 07/20/2020 12:00:00 AM EDT REBEKAH ([facility]) [place]: [address], [place] [address], Ph. Attender: Yas Kahn [facility] Medical 07/20/2020 12:00:00 AM EDT REBEKAH ([facility]) [place]: [address], [place] [address], Ph. Attender: Yas Kahn [facility] Medical 07/20/2020 12:00:00 AM EDT REBEKAH ([facility]) [place]: [address], [place] [address], Ph. Attender: Yas Kahn [facility] Medical 07/20/2020 12:00:00 AM EDT REBEKAH ([facility]) Outpatient Attender: PROVIDER DEFAULT 07/02/2020 07:01:53 PM EDT [facility] Outpatient Attender: BASILIO Tesfaye 06/06/2020 09:30:00 AM EDT MEDENT ([facility]) [facility]: [address], [place] [address], Ph. Attender: Yas Kahn [facility] Medical 01/21/2020 12:00:00 AM EST REBEKAH ([facility]) [place]: [address], [place] [address], Ph. Attender: Yas Kahn [facility] Medical 01/21/2020 12:00:00 AM EST REBEKAH ([facility]) [place]: [address], [place] [address], Ph. Attender: Yas Kahn [facility] Medical 01/21/2020 12:00:00 AM EST REBEKAH ([facility]) [place]: [address], [place] [address], Ph. Attender: Yas Kahn [facility] Medical 01/21/2020 12:00:00 AM EST REBEKAH ([facility]) Yas Kahn [facility]: [address], [place] [address], Ph. Attender: Yas Kahn [facility] Medical 01/21/2020 12:00:00 AM EST REBEKAH ([facility]) Yas Kahn [facility]: [address], [place] [address], Ph. Attender: Yas Kahn [facility] Medical 01/21/2020 12:00:00 AM EST REBEKAH ([facility]) Yas Kahn [facility]: [address], [place] [address], Ph. Attender: Yas Kahn [facility] Medical 01/14/2020 12:00:00 AM EST REBEKAH ([facility]) Yas Kahn [facility]: [address], [place] [address], Ph. Attender: Yas Kahn [facility] Medical 01/14/2020 12:00:00 AM EST REBEKAH ([facility]) Yas Kahn [facility]: [address], [place] [address], Ph. Attender: Yas Kahn [facility] Medical 01/14/2020 12:00:00 AM EST REBEKAH ([facility]) Yas Kahn [facility]: [address], [place] [address], Ph. Attender: Yas Kahn [facility] Medical 01/14/2020 12:00:00 AM EST REBEKAH ([facility]) Yas Kahn [facility]: [address], [place] [address], Ph. Attender: Yas Kahn [facility] Medical 01/14/2020 12:00:00 AM EST REBEKAH ([facility]) Yas Kahn [facility]: [address], [place] [address], Ph. Attender: Yas Kahn [facility] Medical 01/14/2020 12:00:00 AM EST RE[facility]AH ([facility]) [facility]: [address], [place] [address], Ph. Attender: Yas Kahn [facility] Medical 01/14/2020 12:00:00 AM EST REBEKAH ([facility]) Outpatient Attender: TORSTEN Denton/Cristian/Tyrone/Munir dl 01/05/2020 09:00:00 AM EST MEDENT ([facility] [place] [address] [facility] [address] 01/04/2020 12:00:00 AM EST eCW1 ([facility]) Yas Kahn [facility]: [address], [place] [address], Ph. Attender: Yas Kahn [facility] Medical 12/24/2019 12:00:00 AM EDT REBEKAH ([facility]) [facility] [address], [place] [address], Ph. Attender: Yas Kahn [facility] Medical 12/24/2019 12:00:00 AM EDT REBEKAH ([facility]) Yas Kahn [facility]: [address], [place] [address], Ph. Attender: Yas Kahn [facility] Medical 12/24/2019 12:00:00 AM EDT REBEKAH ([facility]) Yas Kahn [facility]: [address], [place] [address], Ph. Attender: Yas Kahn [facility] Medical 12/24/2019 12:00:00 AM EDT BANGOR ([facility]) Yas Kahn [facility]: [address], [place] [address], Ph. Attender: Yas Kahn [facility] Medical 12/24/2019 12:00:00 AM EDT BANGOR ([facility]) Yas Kahn [facility]: [address], [place] [address], Ph. Attender: Yas Kahn [facility] Medical 12/24/2019 12:00:00 AM EDT REBEKAH ([facility]) Yas Kahn [facility]: [address], [place] [address], Ph. Attender: Yas Kahn [facility] Medical 12/24/2019 12:00:00 AM EDT REBEKAH ([facility]) Yas Kahn [facility]: [address], [place] [address], Ph. Attender: Yas [facility] Medical 12/24/2019 12:00:00 AM EDT REBEKAH ([facility]) Outpatient Attender: MARGARETH [facility]ahn [facility] 12/17/2019 11:30:01 A M EDT [facility] Outpatient Attender: TORSTEN JONES Corrie/Plummer/Tyrone/Rein dl 11/27/2019 10:30:00 AM EDT MEDENT ([facility]) Outpatient Attender: DIRECTOR OF THERAPY SERVICES Femi [facility] 11/26/2019 11:20:01 A M EDT [facility] Outpatient Attender: Carter Mendoza JR Corrie/Plummer/Tyrone/Rein dl 11/25/2019 11:00:00 AM EDT MEDENT ([facility] Outpatient Attender: MARGARETH Femi [facility] 11/23/2019 07:37:01 A M EDT [facility] Outpatient Attender: Yas Kahn [facility] 11/15/2019 11:0 4:01 PM EDT [facility] Outpatient Attender: MARGARETH Kahn [facility] 11/11/2019 05:02:01 P M EDT [facility] Outpatient Attender: MARGARETH Kahn [facility] 10/27/2019 12:36:00 P M EDT [facility] Immunizations Vaccine Date Status Description Data Source(s) COVID-19 VACCINE Moderna 04/22/2020 12:00:00 AM EST completed [place] Vaccine Series Complete: YESThis Data wa s Submitted to [facility] Via [employer]. COVID-19 VACCINE Moderna 03/25/2020 12:00:00 AM EST completed [place] Vaccine Series Complete: NOThis Data was Submitted to [facility] [employer]. New in 2011. IIV4 12/24/2019 03:14:00 PM EDT completed .5 mL REBEKAH ([facility]) New in 2011. IIV4 12/24/2019 03:14:00 PM EDT completed .5 mL REBEKAH ([facility]) New in 2011. IIV4 12/24/2019 03:14:00 PM EDT completed 10 /22/22587.5 mL REBEKAH ([facility]) New in 2011. IIV4 12/24/2019 03:14:00 PM EDT completed 0.5 mL REBEKAH ([facility]) New in 2011. IIV4 12/24/2019 03:14:00 PM EDT completed 0.5 mL REBEKAH ([facility]) New in 2011. IIV4 12/24/2019 03:14:00 PM EDT completed 0.5 mL REBEKAH ([facility]) New in 2011. IIV4 12/24/2019 03:14:00 PM EDT completed 0.5 mL REBEKAH ([facility]) New in 2011. IIV4 12/24/2019 03:14:00 PM EDT completed 0.5 mL REBEKAH ([facility]) Pneumococcal conjugate PCV 13 11/27/2019 11:11:00 AM EDT completed MEDENT ([facility]) Pneumococcal conjugate PCV 13 11/27/2019 03:41:00 AM EDT completed MEDENT ([facility]) Pneumococcal conjugate PCV 13 11/27/2019 12:00:00 AM EDT completed 11/27/2019 REBEKAH ([facility]) Pneumococcal conjugate PCV 13 11/27/2019 12:00:00 AM EDT completed 11/27/2019 BANGOR ([facility]) Medications Medication Brand Name Start Date Product [...] DAILY FOR 3 DAYS SOLD: 11/18/2020 [facility] Prednisone 20 MG Oral Tablet Prednisone 11/18/2020 12:00:00 AM EDT active MEDENT ([facility]) Doxycycline Monohydrate 100 MG Oral Capsule Doxycycline [place] hydrate 11/18/2020 12:00:00 AM EDT ORAL active M EDENT ([facility]) 100 mg 11/18/2020 12:00:00 AM EDT capsule 20 TAKE ONE CAPSULE BY MOUTH TWICE A DAY FOR 10 DAYS TAKE ONE CAPSULE BY MOUTH TWICE A DAY FOR 10 DAYS SOLD : 11/18/2020 [facility] atorvastatin 20 MG Oral Tablet ATORVASTATIN CALCIUM [...] A DAY FOR 4 DAYS SOLD: 2020 [facility] Doxycycline Monohydrate 100 MG Oral Tablet Doxycycline Monoh ydrate 06/06/2020 12:00:00 AM EDT ORAL completed MEDENT ([facility]) Prednisone 20 MG Oral Tablet Prednisone 06/06/2020 12:00:00 AM EDT ORAL completed MEDENT ([facility]) 100 mg 06/06/2020 12:00:00 AM EDT tablet [...] TIMES A DAY NEEDED SOLD: 08/16/2020 [facility] 90 mcg/actuation 05/02/2020 12:00:00 AM EST HFA aerosol inha ler 8 INHALE TWO PUFFS BY MOUTH FOUR TIMES A DAY NEEDED INHALE TWO PUFFS BY MOUTH FOUR TIMES A DAY NEEDED SOLD: 05/03/2020 [facility] 90 mcg/actuation 05/02/2020 12:00:00 AM EST HFA aerosol inha ler 8 INHALE TWO PUFFS BY MOUTH FOUR TIMES A DAY NEEDED INHALE TWO PUFFS BY MOUTH FOUR TIMES A DAY NEEDED SOLD: 07/07/2020 [facility] 90 mcg/actuation 01/11/2020 12:00:00 AM EST HFA aerosol inha ler 8 INHALE TWO PUFFS BY MOUTH FOUR TIMES A DAY NEEDED INHALE TWO PUFFS BY MOUTH FOUR TIMES A DAY NEEDED SOLD: 01/14/2020 [facility] 90 mcg/actuation 01/11/2020 12:00:00 [...] 01/05/2020 12:00:00 AM EST RESPIRATORY active MEDENT ([facility], ) 120 ACTUAT Fluticasone propionate 0.23 M G/ACTUAT / salmeterol 0.021 MG/ACTUAT Metered Dose Inhaler [Advair] Advair HFA 01/05/2020 12:00:00 AM EST ORAL active MEDENT ([facility], ) 0.12 % 12/28/2019 12:00:00 AM EDT [...] MAXIMUM DAILY DOSE = 8 SOLD: 11/22/2019 [facility] 90 mcg/actuation 10/11/2019 12:00:00 AM EDT HFA aerosol inha ler 8 INHALE TWO PUFFS BY MOUTH EVERY 4 HOURS NEEDED MAXIMUM DAILY DOSE = 8 INHALE TWO PUFFS BY MOUTH EVERY 4 HOURS NEEDED MAXIMUM DAILY DOSE = 8 SOLD: 12/22/2019 [facility] atorvastatin 20 MG Oral Tablet ATORVASTATIN CALCIUM 04/21/2019 1 2:00:00 AM EST tablet 30 TAKE ONE TABLET BY MOUTH AT BEDT PREMA TAKE ONE TABLET BY MOUTH AT BEDTIME SOLD: 10/27/2019 [facility] Acetaminophen 325 MG / Oxycodone [...] oxycodone hydrochloride 5 MG Oral Tablet REBEKAH ([facility]) Prednisone 20 MG Oral Tablet prednisone [...] predn isone 20 MG Oral Tablet REBEKAH ([facility]) Doxycycline Monohydrate 100 MG Oral Tabl et doxycycline monohydrate 100 mg tablet TAKE ONE TABLET BY MOUTH TWICE A DAY FOR 10 DAYS doxycycline monohydrate 100 mg tablet TAKE ONE TABLET BY MOUTH TWICE A DAY FOR 10 DAYS completed doxycycline monohydrate 100 MG Oral Tabl et REBEKAH ([facility]) cetirizine hydrochloride 10 MG Oral Tabl et cetirizine 10 mg tablet Take 1 tablet every day by oral route. cetirizine 10 mg tablet Take 1 tablet ev rupali day by oral route. 1 completed ce tirizine hydrochloride 10 MG Oral Tablet REBEKAH ([facility]) Doxycycline Monohydrate 100 MG Oral Tabl et doxycycline monohydrate 100 mg tablet TAKE ONE TABLET BY MOUTH TWICE A DAY FOR 10 DAYS doxycycline monohydrate 100 mg tablet TAKE ONE TABLET BY MOUTH TWICE A DAY FOR 10 DAYS completed doxycycline monohydrate 100 MG Oral Tabl et REBEKAH ([facility]) Acetaminophen 325 MG / Oxycodone Hydroch loride [...] oxycodone hydrochloride 5 MG Oral Tablet REBEKAH ([facility]) Amoxicillin 500 MG Oral Capsule amoxicil tang 500 mg capsule TAKE ONE CAPSULE BY MOUTH EVERY 8 HOURS UNTIL GONE amoxicillin 500 mg capsule TAKE ONE CAPS ULE BY MOUTH EVERY 8 HOURS UNTIL GONE complet ed amoxicillin 500 MG Oral Capsule REBEKAH ([facility]) chlorhexidine gluconate 1.2 MG/ML Mouthw verena chlorhexidine gluconate 0.12 % mouthwash RINSE WITH 1 CAPFUL THREE TIMES A DAY STARTING SATURDAY chlorhexidine gluconate 0.12 % mouthwash RINSE WITH 1 CAPFUL THREE TIMES A DAY STARTING SATURDAY completed chlorhexidine gluconate 1.2 MG/ML Mouthwash BANGOR ([facility]) chlorhexidine gluconate 1.2 MG/ML Mouthw verena chlorhexidine gluconate 0.12 % mouthwash RINSE WITH 1 CAPFUL THREE TIMES A DAY STARTING SATURDAY chlorhexidine gluconate 0.12 % mouthwash RINSE WITH 1 CAPFUL THREE TIMES A DAY STARTING SATURDAY completed chlorhexidine gluconate 1.2 MG/ML Mouthwash BANGOR ([facility]) chlorhexidine gluconate 1.2 MG/ML Mouthw verena chlorhexidine gluconate 0.12 % mouthwash RINSE WITH 1 CAPFUL THREE TIMES A DAY STARTING SATURDAY chlorhexidine gluconate 0.12 % mouthwash RINSE WITH 1 CAPFUL THREE TIMES A DAY STARTING SATURDAY completed chlorhexidine gluconate 1.2 MG/ML Mouthwash BANGOR ([facility]) albuterol sulfate HFA 90 mcg/actuation a erosol inhaler INHALE 2 PUFFS BY MOUTH NEEDED MAXIMUM DAILY DOSE 12 PUFFS [id number] completed [id number] 200 ACTUAT albuterol 0.09 MG/ACTUAT Metered Dose Inhaler BANGOR ([facility]) chlorhexidine gluconate 1.2 MG/ML Mouthw verena chlorhexidine gluconate 0.12 % mouthwash RINSE WITH 1 CAPFUL THREE TIMES A DAY STARTING SATURDAY chlorhexidine gluconate 0.12 % mouthwash RINSE WITH 1 CAPFUL THREE TIMES A DAY STARTING SATURDAY completed chlorhexidine gluconate 1.2 MG/ML Mouthwash REBEKAH ([facility]) Prednisone 20 MG Oral Tablet prednisone 20 mg tablet TAKE ONE TABLET BY MOUTH TWICE A DAY FOR 4 DAYS prednisone 20 mg tablet TAKE ONE TABLET BY MOUTH TWICE A DAY FOR 4 DAYS completed prednis one 20 MG Oral Tablet REBEKAH ([facility]) Amoxicillin 500 MG Oral Capsule amoxicil tang 500 mg capsule TAKE ONE CAPSULE BY MOUTH EVERY 8 HOURS UNTIL GONE amoxicillin 500 mg capsule TAKE ONE CAPS ULE BY MOUTH EVERY 8 HOURS UNTIL GONE complet ed amoxicillin 500 MG Oral Capsule REBEKAH ([facility]) Doxycycline Monohydrate 100 MG Oral Tabl et doxycycline monohydrate 100 mg tablet TAKE ONE TABLET BY MOUTH TWICE A DAY FOR 10 DAYS doxycycline monohydrate 100 mg tablet TAKE ONE TABLET BY MOUTH TWICE A DAY FOR 10 DAYS completed doxycycline monohydrate 100 MG Oral Tabl et REBEKAH ([facility]) Acetaminophen 325 MG / Oxycodone Hydroch loride [...] oxycodone hydrochloride 5 MG Oral Tablet REBEKAH ([facility]) Doxycycline Monohydrate 100 MG Oral Tabl et doxycycline monohydrate 100 mg tablet TAKE ONE TABLET BY MOUTH TWICE A DAY FOR 10 DAYS doxycycline monohydrate 100 mg tablet TAKE ONE TABLET BY MOUTH TWICE A DAY FOR 10 DAYS completed doxycycline monohydrate 100 MG Oral Tabl et REBEKAH ([facility]) Acetaminophen 325 MG / Oxycodone Hydroch loride [...] oxycodone hydrochloride 5 MG Oral Tablet REBEKAH ([facility]) Acetaminophen 325 MG / Oxycodone Hydroch [...] oxycodone hydrochloride 5 MG Oral Tablet REBEKAH ([facility]) Amoxicillin 500 MG Oral Capsule amoxicil tang 500 mg capsule TAKE ONE CAPSULE BY MOUTH EVERY 8 HOURS UNTIL GONE amoxicillin 500 mg capsule TAKE ONE CAPS ULE BY MOUTH EVERY 8 HOURS UNTIL GONE complet ed amoxicillin 500 MG Oral Capsule REBEKAH ([facility]) Amoxicillin 500 MG Oral Capsule amoxicil tang 500 mg capsule TAKE ONE CAPSULE BY MOUTH EVERY 8 HOURS UNTIL GONE amoxicillin 500 mg capsule TAKE ONE CAPS ULE BY MOUTH EVERY 8 HOURS UNTIL GONE complet ed amoxicillin 500 MG Oral Capsule REBEKAH ([facility]) chlorhexidine gluconate 1.2 MG/ML Mouthw verena chlorhexidine gluconate 0.12 % mouthwash RINSE WITH 1 CAPFUL THREE TIMES A DAY STARTING SATURDAY chlorhexidine gluconate 0.12 % mouthwash RINSE WITH 1 CAPFUL THREE TIMES A DAY STARTING SATURDAY completed chlorhexidine gluconate 1.2 MG/ML Mouthwash REBEKAH ([facility]) Amoxicillin 500 MG Oral Capsule amoxicil tang 500 mg capsule TAKE ONE CAPSULE BY MOUTH EVERY 8 HOURS UNTIL GONE amoxicillin 500 mg capsule TAKE ONE CAPS ULE BY MOUTH EVERY 8 HOURS UNTIL GONE complet ed amoxicillin 500 MG Oral Capsule REBEKAH ([facility]) Prednisone 20 MG Oral Tablet prednisone 20 mg tablet TAKE ONE TABLET BY MOUTH TWICE A DAY FOR 4 DAYS prednisone 20 mg tablet TAKE ONE TABLET BY MOUTH TWICE A DAY FOR 4 DAYS completed prednis one 20 MG Oral Tablet REBEKAH ([facility]) Prednisone 20 MG Oral Tablet prednisone 20 mg tablet TAKE ONE TABLET BY MOUTH TWICE A DAY FOR 4 DAYS prednisone 20 mg tablet TAKE ONE TABLET BY MOUTH TWICE A DAY FOR 4 DAYS completed prednis one 20 MG Oral Tablet REBEKAH ([facility]) Acyclovir 0.05 MG/MG Topical Ointment ac yclovir [...] completed acyclovir 0.05 MG/MG Topical Ointment REBEKAH ([facility]) Doxycycline Monohydrate 100 MG Oral Tabl et doxycycline monohydrate 100 mg tablet TAKE ONE TABLET BY MOUTH TWICE A DAY FOR 10 DAYS doxycycline monohydrate 100 mg tablet TAKE ONE TABLET BY MOUTH TWICE A DAY FOR 10 DAYS completed doxycycline monohydrate 100 MG Oral Tabl et REBEKAH ([facility]) Amoxicillin 500 MG Oral Capsule amoxicil tang 500 mg capsule TAKE ONE CAPSULE BY MOUTH EVERY 8 HOURS UNTIL GONE amoxicillin 500 mg capsule TAKE ONE CAPS ULE BY MOUTH EVERY 8 HOURS UNTIL GONE complet ed amoxicillin 500 MG Oral Capsule REBEKAH ([facility]) Acetaminophen 325 MG / Oxycodone Hydroch [...] oxycodone hydrochloride 5 MG Oral Tablet REBEKAH ([facility]) Doxycycline Monohydrate 100 MG Oral Caps ule doxycycline monohydrate 100 mg capsule TAKE ONE CAPSULE BY MOUTH TWICE A DAY FOR 10 DAYS doxycycline monohydrate 100 mg capsule TAKE ONE CAPSULE BY MOUTH TWICE A DAY FOR 10 DAYS completed doxycycline mo nohydrate 100 MG Oral Capsule REBEKAH ([facility]) chlorhexidine gluconate 1.2 MG/ML Mouthw verena chlorhexidine gluconate 0.12 % mouthwash RINSE WITH 1 CAPFUL THREE TIMES A DAY STARTING SATURDAY chlorhexidine gluconate 0.12 % mouthwash RINSE WITH 1 CAPFUL THREE TIMES A DAY STARTING SATURDAY completed chlorhexidine gluconate 1.2 MG/ML Mouthwash BANG[facility] ([facility]) Insurance Providers Payer name Policy type / Coverage type Policy ID Covered republican ID Covered republican's relationship to abrams Policy Abrams Plan Information [employer] [id number] [place]2 [id number] [employer] P [id number] S [id number] [employer] (pr) Commercial [id number] Family Dependent [employer] (pr) Commercial [id number] UMR P [id number] S [id number] UMR P [id number] S [id number] UMR U [id number] Self [id number] UMR P [id number] S [id number] UMR P [id number] S [id number] [employer] (pr) Commercial [id number] [employer] (pr) [facility] Part B [id number] Umr (pr) Commercial [id number] Family Dependent [id number] R [facility] [id number] WI2 [id number] R [facility] [id number] WI2 [id number] UMR U [id number] Self [id number] [employer] [id number] WI2 [id number] [employer] COMM SELF [id number] SPO [id number] [employer] (HMO) [id number] Family Dependent [id number] [employer] PPO O [id number] S [id number] [employer] Commercial [id number] Family Dependent [id number] [employer] Commercial [id number] Family Dependent [employer] PPO O [id number] P [id number] UMR [facility] [id number] HU2 [id number] [employer] [id number] WI2 [id number] UMR O [id number] S [id number] UMR [facility] [id number] WI2 [id number] UMR [facility] [id number] WI2 [id number] UMR [facility] [id number] WI2 [id number] Self Pay P UNAVAILABLE S UNAVAILA BLE [facility]mr[facility] (HMO) [id number] Family Dependent Y [id number] [facility]mr[facility] (HMO) [id number] Family Dependent Y [id number] [facility]mr[facility] (HMO) [id number] Family Dependent Y [id number] [facility]mr[facility] (HMO) [id number] Family Dependent Y [id number] UMR P [id number] S [id number] [facility]mr[facility] (HMO) [id number] Family Dependent Y [id number] [employer] Commercial [id number] Family Dependent [id number] [employer] Commercial [id number] Family Dependent [id number] [employer] Commercial [id number] Family Dependent [id number] Problems, Conditions, and Diagnoses Code Display Name Description Problem Type Effective Dates Data Source(s) J45.20 Mild intermittent asthma Mild intermittent asthma Prob liza 01/05/2020 12:00:00 AM EST [facility] ([facility], ) J47.9 Bronchiolectasis Bronchiolectasis Problem 01/05/2020 12 :00:00 AM EST [facility] ([facility], ) F17.218 Nicotine dependence, cigarettes, with ot her nicotine-induced disorders Nicotine dependence, cigarettes, with other nicotine-induced disorders Problem 01/05/2020 12:00:00 AM EST [facility] ([facility], ) 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 Male erectile dysfun ction, unspecified Problem 01/04/2020 12:00:00 AM EST eCW1 ([facility]) 550.90 Inguinal hernia Inguinal hernia 11/11/2019 05:0 0:55 PM EDT [facility] [id number] Inguinal hernia Inguinal Hernia Problem 11/11/2019 12:0 0:00 AM EDT [facility]) [id number] Inguinal hernia Inguinal Hernia Problem 11/11/2019 12:0 0:00 AM EDT [facility]) [id number] Inguinal hernia Inguinal Hernia Problem 11/11/2019 12:0 0:00 AM EDT [facility]) [id number] Inguinal hernia Inguinal Hernia Problem 11/11/2019 12:0 0:00 AM EDT [facility]) [id number] Inguinal hernia Inguinal Hernia Problem 11/11/2019 12:0 0:00 AM EDT [facility]) Surgeries/Procedures Procedure Description Date Indications Data Source(s) OFFICE OUTPATIENT VISIT 25 MINUTES 11/18/2020 12:00:00 AM EDT [facility] ([facility]) OFFICE OUTPATIENT VISIT 25 MINUTES 06/06/2020 12:00:00 AM EDT [facility] ([facility]) DEMO&/EVAL OF PT UTILIZ AERSL GEN/NEB/INHLR/IPPB 01/04 12:00:00 AM EST [facility] ([facility], ) Spirometry 11/27/2019 12:00:00 AM EDT M EDENT ([facility], ) Results ID Date Data Source [id number] 12/02/2020 08:36:00 AM EDT REBEKAH ([facility]) Name Value Range Interpretation Code Description Data Lilia rce(s) Supporting Document(s) Erythrocytes [#/volume] in Blood by Automated count 4.95 million/uL 4.20-5.80 Red Blood Cell Count REBEKAH ([facility]) Leukocytes [#/volume] in Blood by Automated count 8.2 thousand/uL 3 .8-10.8 White Blood Cell Count REBEKAH ([facility]) Hemoglobin [Mass/volume] in Blood 15.5 g/dL 13.2-17.1 He moglobin REBEKAH ([facility]) Hematocrit [Volume Fraction] of Blood by Automated count 45.3 % 38.5-50.0 Hematocrit REBEKAH ([facility]) Erythrocyte mean corpuscular volume [Entitic volume] by Auto mated count 91.5 fL 80.0-100.0 Mcv REBEKAH ([facility]) Erythrocyte mean corpuscular hemoglobin concentration [Mass/volume] by Automated count 34.2 g/dL 32.0-36.0 Mchc REBEKAH ([facility]) Erythrocyte mean corpuscular hemoglobin [Entitic mass] by Automated count 31.3 pg 27.0-33.0 Mch REBEKAH ([facility]) Platelets [#/volume] in Blood by Automated count 260 thousand/uL 14 0-400 Platelet Count REBEKAH ([facility]) Erythrocyte distribution width [Ratio] by Automated count 13.0 % 11.0-15.0 Rdw REBEKAH ([facility]) Neutrophils [#/volume] in Blood by Automated count 4838 cells/uL 15 00-7800 Absolute Neutrophils REBEKAH ([facility]) Platelet mean volume [Entitic volume] in Blood by Alicia 9.7 fL 7.5-12.5 Mpv REBEKAH ([facility]) Lymphocytes [#/volume] in Blood by Automated count 2485 cells/uL 85 0-3900 Absolute Lymphocytes ERBEKAH ([facility]) Monocytes [#/volume] in Blood by Automated count 508 cells/uL 200-9 50 Absolute Monocytes REBEKAH ([facility]) Basophils [#/volume] in Blood by Automated count 82 cells/uL 0-200 Absolute Basophils REBEKAH ([facility]) Eosinophils [#/volume] in Blood by Automated count 287 cells/uL 15- 500 Absolute Eosinophils REBEKAH ([facility]) Neutrophils/100 leukocytes in Blood by Automated count 59 % 38- 80 Neutrophils BANGOR ([facility]) Lymphocytes/100 leukocytes in Blood by Automated count 30.3 % 15-49 Lymphocytes REBEKAH ([facility]) Eosinophils/100 leukocytes in Blood by Automated count 3.5 % 0-8 Eosinophils B[facility] ([facility]) Monocytes/100 leukocytes in Blood by Automated count 6.2 % 0-13 Monocytes B[facility] ([facility]) Basophils/100 leukocytes in Blood by Automated count 1.0 % 0-2 Basophils BANGOR ([facility]) ID Date Data Source [id number] 12/02/2020 08:36:00 AM EDT [facility]) Name Value Range Interpretation Code Description Data Lilia rce(s) Supporting Document(s) Glucose [Mass/volume] in Serum or Plasma 94 mg/dL 65-99 Glucose [facility]) Urea nitrogen [Mass/volume] in Serum or Plasma 10 mg/dL 7-25 Urea Nitrogen (BUN) [facility]) Creatinine [Mass/volume] in Serum or Plasma 0.90 mg/dL 0.70-1.25 Creatinine [facility]) Glomerular filtration rate/1.73 sq M.pre dicted among non-blacks [Volume Rate/Area] in Serum, Plasma or Blood by Creatinine-based formula (CKD-EPI) 92 mL/min/1.73m2 > or = 60 eGFR Non-afr. Tristanian REBEKAH ([facility]) Glomerular filtration rate/1.73 sq M.pre dicted among blacks [Volume Rate/Area] in Serum, Plasma or Blood by Creatinine-based formula (CKD-EPI) 106 mL/min/1.73m2 > or = 60 eGFR REBEKAH ([facility]) Urea nitrogen/Creatinine [Mass Ratio] in Serum or Plasma not applic able 6-22 BUN/creatinine Ratio REBEKAH ([facility]) Sodium [Moles/volume] in Serum or Plasma 138 mmol/L 135-146 Sodium REBEKAH ([facility]) Potassium [Moles/volume] in Serum or Plasma 5.2 mmol/L 3.5-5.3 Potassium REBEKAH ([facility]) Chloride [Moles/volume] in Serum or Plasma 104 mmol/L 98-110 Chloride REBEKAH ([facility]) Carbon dioxide, total [Moles/volume] in Serum or Plasma 27 mmol/L 20-32 Carbon Dioxide BANGOR ([facility]) Calcium [Mass/volume] in Serum or Plasma 9.3 mg/dL 8.6-10.3 Calcium BANG[facility] ([facility]) Protein [Mass/volume] in Serum or Plasma 6.5 g/dL 6.1-8.1 Protein, Total [facility]) Globulin [Mass/volume] in Serum by calculation 2.4 g/dL_(calc) 1.9- 3.7 Globulin BANGOR ([facility]) Albumin [Mass/volume] in Serum or Plasma 4.1 g/dL 3.6-5.1 Albumin BANGOR ([facility]) Albumin/Globulin [Mass Ratio] in Serum or Plasma 1.7 (calc) 1.0-2 .5 Albumin/globulin Ratio BANGOR ([facility]) Bilirubin.total [Mass/volume] in Serum or Plasma 1.1 mg/dL 0.2-1 .2 Bilirubin, Total BANGOR ([facility]) Alkaline phosphatase [Enzymatic activity/volume] in Serum or Plasma 85 U/L 35-144 Alkaline Phosphatase [facility] ([facility]) Alanine aminotransferase [Enzymatic activity/volume] in Seru m or Plasma 13 U/L 9-46 Alt B[facility] ([facility]) Aspartate aminotransferase [Enzymatic activity/volume] in Serum or Plasma 14 U/L 10-35 Ast B[facility]OR ([facility]) ID Date Data Source [id number] 12/02/2020 08:36:00 AM [facility] Name Value Range Interpretation Code Description Data Lilia rce(s) Supporting Document(s) Cholesterol [Mass/volume] in Serum or Plasma 150 mg/dL <200 Cholesterol, Total REBEKAH ([facility]) Cholesterol in HDL [Mass/volume] in Serum or Plasma 51 mg/dL > or = 40 HDL Cholesterol REBEKAH ([facility]) Triglyceride [Mass/volume] in Serum or Plasma 121 mg/dL <150 Triglycerides REBEKAH ([facility]) Cholesterol in LDL [Mass/volume] in Serum or Plasma by calculation 79 mg/dL_(calc) <100 LDL-cholesterol REBEKAH ([facility]) Cholesterol.total/Cholesterol in HDL [Mass Ratio] in Serum o r Plasma 2.9 calc <5.0 Chol/hdlc Ratio REBEKAH ([facility]) Cholesterol non HDL [Mass/volume] in Serum or Plasma 99 mg/dL_(calc ) <130 Non HDL Cholesterol REBEKAH ([facility]) ID Date Data Source [id number] 11/18/2020 12:00:00 AM EDT [facility] Name Value Range Interpretation Code Description Data Lilia rce(s) Supporting Document(s) SARS-CoV2 Rapid Antigen Negative [facility] This lab was reported by Dameon Morrissey. ID Date Data Source [id number] 08/05/2020 11:11:00 AM EDT [facility]) Name Value Range Interpretation Code Description Data Lilia rce(s) Supporting Document(s) Hepatitis C virus Ab [Presence] in Serum or Plasma by Immuno assay non-reactive non-reactive Hepatitis C Antibody REBEKAH ([facility]) Hepatitis C virus Ab Signal/Cutoff in Serum or Plasma by Immunoassa y <1.00 [facility] ID Date Data Source [id number] 08/05/2020 11:11:00 AM EDT [facility] Name Value Range Interpretation Code Description Data Lilia rce(s) Supporting Document(s) Glucose [Mass/volume] in Serum or Plasma 96 mg/dL 65-99 Glucose REBEKAH ([facility]) Urea nitrogen [Mass/volume] in Serum or Plasma 19 mg/dL 7-25 Urea Nitrogen (BUN) REBEKAH ([facility]) Creatinine [Mass/volume] in Serum or Plasma 0.87 mg/dL 0.70-1.25 Creatinine REBEKAH ([facility]) Glomerular filtration rate/1.73 sq M.pre dicted among non-blacks [Volume Rate/Area] in Serum, Plasma or Blood by Creatinine-based formula (CKD-EPI) 94 mL/min/1.73m2 > or = 60 eGFR Non-afr. Tristanian REBEKAH ([facility]) Glomerular filtration rate/1.73 sq M.pre dicted among blacks [Volume Rate/Area] in Serum, Plasma or Blood by Creatinine-based formula (CKD-EPI) 109 mL/min/1.73m2 > or = 60 eGFR REBEKAH ([facility]) Urea nitrogen/Creatinine [Mass Ratio] in Serum or Plasma not applic able 6-22 BUN/creatinine Ratio REBEKAH ([facility]) Sodium [Moles/volume] in Serum or Plasma 136 mmol/L 135-146 Sodium REBEKAH ([facility]) Potassium [Moles/volume] in Serum or Plasma 4.7 mmol/L 3.5-5.3 Potassium REBEKAH ([facility]) Chloride [Moles/volume] in Serum or Plasma 103 mmol/L 98-110 Chloride REBEKAH ([facility]) Carbon dioxide, total [Moles/volume] in Serum or Plasma 24 mmol/L 20-32 Carbon Dioxide REBEKAH ([facility]) Calcium [Mass/volume] in Serum or Plasma 9.3 mg/dL 8.6-10.3 Calcium REBEKAH ([facility]) Protein [Mass/volume] in Serum or Plasma 6.8 g/dL 6.1-8.1 Protein, Total REBEKAH ([facility]) Albumin [Mass/volume] in Serum or Plasma 4.2 g/dL 3.6-5.1 Albumin REBEKAH ([facility]) Globulin [Mass/volume] in Serum by calculation 2.6 g/dL_(calc) 1.9- 3.7 Globulin REBEKAH ([facility]) Albumin/Globulin [Mass Ratio] in Serum or Plasma 1.6 (calc) 1.0-2 .5 Albumin/globulin Ratio BANGOR ([facility]) Bilirubin.total [Mass/volume] in Serum or Plasma 0.8 mg/dL 0.2-1 .2 Bilirubin, Total REBEKAH ([facility]) Alkaline phosphatase [Enzymatic activity/volume] in Serum or Plasma 92 U/L 35-144 Alkaline Phosphatase REBEKAH ([facility]) Aspartate aminotransferase [Enzymatic activity/volume] in Serum or Plasma 12 U/L 10-35 Ast B[facility] ([facility]) Alanine aminotransferase [Enzymatic activity/volume] in Seru m or Plasma 12 U/L 9-46 Alt [facility] ([facility]) ID Date Data Source [id number] 08/05/2020 11:11:00 AM EDT [facility]) Name Value Range Interpretation Code Description Data Lilia rce(s) Supporting Document(s) HIV 1+2 Ab+HIV1 p24 Ag [Presence] in Serum or Plasma b y Immunoassay non-reactive non-reactive HIV Ag/Ab, 4TH Gen [facility]) ID Date Data Source [id number] 08/05/2020 11:11:00 AM EDT [facility]) Name Value Range Interpretation Code Description Data Lilia rce(s) Supporting Document(s) Hepatitis C virus Ab [Presence] in Serum or Plasma by Immuno assay non-reactive non-reactive Hepatitis C Antibody REBEKAH ([facility]) Hepatitis C virus Ab Signal/Cutoff in Serum or Plasma by Immunoassa y <1.00 Index [facility]) ID Date Data Source [id number] 08/05/2020 11:11:00 AM EDT [facility]) Name Value Range Interpretation Code Description Data Lilia rce(s) Supporting Document(s) Glucose [Mass/volume] in Serum or Plasma 96 mg/dL 65-99 Glucose REBEKAH ([facility]) Urea nitrogen [Mass/volume] in Serum or Plasma 19 mg/dL 7-25 Urea Nitrogen (BUN) REBEKAH ([facility]) Creatinine [Mass/volume] in Serum or Plasma 0.87 mg/dL 0.70-1.25 Creatinine REBEKAH ([facility]) Glomerular filtration rate/1.73 sq M.pre dicted among non-blacks [Volume Rate/Area] in Serum, Plasma or Blood by Creatinine-based formula (CKD-EPI) 94 mL/min/1.73m2 > or = 60 eGFR Non-afr. Tristanian REBEKAH ([facility]) Urea nitrogen/Creatinine [Mass Ratio] in Serum or Plasma not applic able 6-22 BUN/creatinine Ratio REBEKAH ([facility]) Glomerular filtration rate/1.73 sq M.pre dicted among blacks [Volume Rate/Area] in Serum, Plasma or Blood by Creatinine-based formula (CKD-EPI) 109 mL/min/1.73m2 > or = 60 eGFR REBEKAH ([facility]) Potassium [Moles/volume] in Serum or Plasma 4.7 mmol/L 3.5-5.3 Potassium REBEKAH ([facility]) Sodium [Moles/volume] in Serum or Plasma 136 mmol/L 135-146 Sodium REBEKAH ([facility]) Chloride [Moles/volume] in Serum or Plasma 103 mmol/L 98-110 Chloride REBEKAH ([facility]) Calcium [Mass/volume] in Serum or Plasma 9.3 mg/dL 8.6-10.3 Calcium REBEKAH ([facility]) Carbon dioxide, total [Moles/volume] in Serum or Plasma 24 mmol/L 20-32 Carbon Dioxide REBEKAH ([facility]) Protein [Mass/volume] in Serum or Plasma 6.8 g/dL 6.1-8.1 Protein, [facility] Albumin [Mass/volume] in Serum or Plasma 4.2 g/dL 3.6-5.1 Albumin [facility]) Globulin [Mass/volume] in Serum by calculation 2.6 g/dL_(calc) 1.9- 3.7 Globulin [facility]) Albumin/Globulin [Mass Ratio] in Serum or Plasma 1.6 (calc) 1.0-2 .5 Albumin/globulin Ratio BANGOR ([facility]) Bilirubin.total [Mass/volume] in Serum or Plasma 0.8 mg/dL 0.2-1 .2 Bilirubin, Total [facility] ([facility]) Alkaline phosphatase [Enzymatic activity/volume] in Serum or Plasma 92 U/L 35-144 Alkaline Phosphatase [facility] ([facility]) Aspartate aminotransferase [Enzymatic activity/volume] in Serum or Plasma 12 U/L 10-35 Ast B[facility] ([facility]) Alanine aminotransferase [Enzymatic activity/volume] in Seru m or Plasma 12 U/L 9-46 Alt [facility] ([facility]) ID Date Data Source [id number] 08/05/2020 11:11:00 AM EDT [facility]) Name Value Range Interpretation Code Description Data Lilia rce(s) Supporting Document(s) HIV 1+2 Ab+HIV1 p24 Ag [Presence] in Serum or Plasma b y Immunoassay non-reactive non-reactive HIV Ag/Ab, 4TH Gen [facility]) ID Date Data Source [id number] 07/29/2020 08:01:00 AM EDT [facility]) Name Value Range Interpretation Code Description Data Lilia rce(s) Supporting Document(s) PSA total 0.9 NG/mL 0.0-4.0 PSA Total B[facility] ([facility]) PSA comment . PSA Comment [facility] ([facility]) ID Date Data Source [id number] 07/29/2020 08:01:00 AM EDT [facility]) Name Value Range Interpretation Code Description Data Lilia rce(s) Supporting Document(s) Hemoglobin A1c/Hemoglobin.total in Blood 5.3 % Hemoglobin a1C [facility] ([facility]) estimated average glucose 105 mg/dL 60-110 Estimated Average Glucose [facility]) ID Date Data Source [id number] 07/29/2020 08:01:00 AM EDT REBEKAH ([facility]) Name Value Range Interpretation Code Description Data Lilia rce(s) Supporting Document(s) total 25(oh) vitamin D 19.2 NG/mL 30.0-100.0 Below low normal T otal 25(Oh) Vitamin D REBEKAH ([facility]) ID Date Data Source [id number] 07/29/2020 08:01:00 AM EDT REBEKAH ([facility]) Name Value Range Interpretation Code Description Data Lilia rce(s) Supporting Document(s) free T4 0.89 NG/dL 0.76-1.46 Free T4 REBEKAH ([facility]) thyroid stimulating hormone 1.500 uIU/mL 0.358-3.740 Thyroid Stimulating Hormone REBEKAH ([facility]) ID Date Data Source [id number] 07/29/2020 08:01:00 AM EDT REBEKAH ([facility]) Name Value Range Interpretation Code Description Data Lilia rce(s) Supporting Document(s) triglycerides level 75 mg/dL <150 Triglycerides Le jason REBEKAH ([facility]) cholesterol level 193 mg/dL <200 Cholesterol Level REBEKAH ([facility]) HDL cholesterol 63 mg/dL >40 HDL Cholesterol ATHE NA ([facility]) non-HDL-C 130 mg/dL Non-hdl-c REBEKAH ([facility]) Cholesterol in LDL [Mass/volume] in Serum or Plasma 115 mg/dL <100 Above high normal LDL Cholesterol REBEKAH ([facility]) cholesterol risk ratio <5 Cholesterol R isk Ratio REBEKAH ([facility]) ID Date Data Source [id number] 07/29/2020 08:01:00 AM EDT REBEKAH ([facility]) Name Value Range Interpretation Code Description Data Lilia rce(s) Supporting Document(s) glucose, fasting 105 mg/dL 70-100 Above high normal Glucose, Fas ting REBEKAH ([facility]) blood urea nitrogen 13 mg/dL 7-18 Blood Urea Nitro gen REBEKAH ([facility]) creatinine for GFR 0.94 mg/dL 0.70-1.30 Creatinine for GF R REBEKAH ([facility]) glomerular filtration rate > 60.0 >49 Glomerula r Filtration Rate REBEKAH ([facility]) potassium serum 5.7 mEq/L 3.5-5.1 Above high normal Potassium Ser um REBEKAH ([facility]) chloride level 105 mEq/L 98-107 Chloride Level REBEKAH ([facility]) sodium level 137 mEq/L 136-145 Sodium Level REBEKAH ([facility]) anion gap 3 mEq/L 8-16 Below low normal Anion Gap REBEKAH ( [facility]) carbon dioxide level 29 mEq/L 21-32 Carbon Dioxide Level REBEKAH ([facility]) AST/SGOT 12 U/L 7-37 AST/SGOT REBEKAH ([facility]) calcium level 9.0 mg/dL 8.8-10.2 Calcium Level BANGOR ( [facility]) ALT/SGPT 19 U/L 12-78 ALT/SGPT REBEKAH ([facility]) total protein 7.2 gm/dL 6.4-8.2 Total Protein REBEKAH ( [facility]) alkaline phosphatase 110 U/L 45-117 Alkaline Phosph atase REBEKAH ([facility]) bilirubin,total 0.6 mg/dL 0.2-1.0 Bilirubin,total ATHE NA ([facility]) albumin/globulin ratio Albumin/globu tang Ratio REBEKAH ([facility]) albumin 3.8 gm/dL 3.2-5.2 Albumin REBEKAH ([facility]) ID Date Data Source [id number] 07/29/2020 08:01:00 AM EDT BANGOR ([facility]) Name Value Range Interpretation Code Description Data Lilia rce(s) Supporting Document(s) white blood count 9.3 10 4.0-10.0 White Blood Count REBEKAH ([facility]) red blood count 4.96 10 4.30-6.10 Red Blood Count ATHE NA ([facility]) hemoglobin 15.6 g/dL 13.5-17.5 Hemoglobin REBEKAH ([facility]) hematocrit 46.7 % 42.0-52.0 Hematocrit REBEKAH ([facility]) mean corpuscular volume 94.2 fL 80.0-96.0 Mean Corpusc ular Volume REBEKAH ([facility]) mean corpuscular hemoglobin 31.5 pg 27.0-33.0 Mean Cor puscular Hemoglobin REBEKAH ([facility]) mean corpuscular HGB conc 33.4 g/dL 32.0-36.5 Mean Corpu scular HGB Conc REBEKAH ([facility]) red cell distribution width 13.1 % 11.5-14.5 Red Cell Distribution Width REBEKAH ([facility]) platelet count, automated 284 10 150-450 Platelet C ount, Automated REBEKAH ([facility]) neutrophils % 58.1 % 36.0-66.0 Neutrophils % REBEKAH ( [facility]) lymph % 29.8 % 24.0-44.0 Lymph % REBEKAH ([facility]) mono % 7.1 % 2.0-8.0 [place] % REBEKAH ([facility]) eos % 3.5 % 0.0-3.0 Above high normal Eos % REBEKAH ([facility]) baso % 1.1 % 0.0-1.0 Above high normal Baso % REBEKAH ([facility]) immature granulocyte % 0.4 % 0-3.0 Immature Gran ulocyte % REBEKAH ([facility]) nucleated red blood cell % 0.0 % 0-0 Nucleated Red Blood Cell % REBEKAH ([facility]) neutrophils # 5.4 10 1.5-8.5 Neutrophils # REBEKAH ( [facility]) lymph # 2.8 10 1.5-5.0 Lymph # REBEKAH ([facility]) mono # 0.7 10 0.0-0.8 [place] # REBEKAH ([facility]) baso # 0.1 10 0.0-0.2 Baso # REBEKAH ([facility]) eos # 0.3 10 0.0-0.5 Eos # REBEKAH ([facility]) ID Date Data Source [id number] 07/29/2020 08:01:00 AM EDT BANG[place] ([facility]) Name Value Range Interpretation Code Description Data Lilia rce(s) Supporting Document(s) PSA total 0.9 NG/mL 0.0-4.0 PSA Total REBEKAH ([facility]) PSA comment . PSA Comment REBEKAH ([facility]) ID Date Data Source [id number] 07/29/2020 08:01:00 AM EDT [facility]) Name Value Range Interpretation Code Description Data Lilia rce(s) Supporting Document(s) Hemoglobin A1c/Hemoglobin.total in Blood 5.3 % Hemoglobin a1C BANGOR ([facility]) estimated average glucose 105 mg/dL 60-110 Estimated Average Glucose [facility]) ID Date Data Source [id number] 07/29/2020 08:01:00 AM EDT [facility]) Name Value Range Interpretation Code Description Data Lilia rce(s) Supporting Document(s) total 25(oh) vitamin D 19.2 NG/mL 30.0-100.0 Below low normal T otal 25(Oh) Vitamin D [facility]) ID Date Data Source [id number] 07/29/2020 08:01:00 AM EDT [facility]) Name Value Range Interpretation Code Description Data Lilia rce(s) Supporting Document(s) thyroid stimulating hormone 1.500 uIU/mL 0.358-3.740 Thyroid Stimulating Hormone REBEKAH ([facility]) free T4 0.89 NG/dL 0.76-1.46 Free T4 [facility]) ID Date Data Source [id number] 07/29/2020 08:01:00 AM EDT BANGOR ([facility]) Name Value Range Interpretation Code Description Data Lilia rce(s) Supporting Document(s) triglycerides level 75 mg/dL <150 Triglycerides Le jason REBEKAH ([facility]) cholesterol level 193 mg/dL <200 Cholesterol Level REBEKAH ([facility]) HDL cholesterol 63 mg/dL >40 HDL Cholesterol ATHE NA ([facility]) Cholesterol in LDL [Mass/volume] in Serum or Plasma 115 mg/dL <100 Above high normal LDL Cholesterol REBEKAH ([facility]) non-HDL-C 130 mg/dL Non-hdl-c REBEKAH ([facility]) cholesterol risk ratio <5 Cholesterol R isk Ratio REBEKAH ([facility]) ID Date Data Source [id number] 07/29/2020 08:01:00 AM EDT BANGOR ([facility]) Name Value Range Interpretation Code Description Data Lilia rce(s) Supporting Document(s) glucose, fasting 105 mg/dL 70-100 Above high normal Glucose, Fas ting REBEKAH ([facility]) blood urea nitrogen 13 mg/dL 7-18 Blood Urea Nitro gen REBEKAH ([facility]) creatinine for GFR 0.94 mg/dL 0.70-1.30 Creatinine for GF R REBEKAH ([facility]) glomerular filtration rate > 60.0 >49 Glomerula r Filtration Rate REBEKAH ([facility]) potassium serum 5.7 mEq/L 3.5-5.1 Above high normal Potassium Ser um REBEKAH ([facility]) chloride level 105 mEq/L 98-107 Chloride Level REBEKAH ([facility]) sodium level 137 mEq/L 136-145 Sodium Level REBEKAH ([facility]) anion gap 3 mEq/L 8-16 Below low normal Anion Gap REBEKAH ( [facility]) carbon dioxide level 29 mEq/L 21-32 Carbon Dioxide Level REBEKAH ([facility]) calcium level 9.0 mg/dL 8.8-10.2 Calcium Level REBEKAH ( [facility]) AST/SGOT 12 U/L 7-37 AST/SGOT REBEKAH ([facility]) ALT/SGPT 19 U/L 12-78 ALT/SGPT REBEKAH ([facility]) alkaline phosphatase 110 U/L 45-117 Alkaline Phosph atase REBEKAH ([facility]) bilirubin,total 0.6 mg/dL 0.2-1.0 Bilirubin,total ATHE NA ([facility]) total protein 7.2 gm/dL 6.4-8.2 Total Protein REBEKAH ( [facility]) albumin 3.8 gm/dL 3.2-5.2 Albumin REBEKAH ([facility]) albumin/globulin ratio Albumin/globu tang Ratio REBEKAH ([facility]) ID Date Data Source [id number] 07/29/2020 08:01:00 AM EDT REBEKAH ([facility]) Name Value Range Interpretation Code Description Data Lilia rce(s) Supporting Document(s) white blood count 9.3 10 4.0-10.0 White Blood Count REBEKAH ([facility]) red blood count 4.96 10 4.30-6.10 Red Blood Count ATHE ([facility]) hematocrit 46.7 % 42.0-52.0 Hematocrit REBEKAH ([facility]) hemoglobin 15.6 g/dL 13.5-17.5 Hemoglobin REBEKAH ([facility]) mean corpuscular volume 94.2 fL 80.0-96.0 Mean Corpusc ular Volume REBEKAH ([facility]) mean corpuscular hemoglobin 31.5 pg 27.0-33.0 Mean Cor puscular Hemoglobin REBEKAH ([facility]) mean corpuscular HGB conc 33.4 g/dL 32.0-36.5 Mean Corpu scular HGB Conc REBEKAH ([facility]) red cell distribution width 13.1 % 11.5-14.5 Red Cell Distribution Width REBEKAH ([facility]) platelet count, automated 284 10 150-450 Platelet C ount, Automated REBEKAH ([facility]) neutrophils % 58.1 % 36.0-66.0 Neutrophils % REBEKAH ( [facility]) lymph % 29.8 % 24.0-44.0 Lymph % REBEKAH ([facility]) mono % 7.1 % 2.0-8.0 [place] % REBEKAH ([facility]) eos % 3.5 % 0.0-3.0 Above high normal Eos % REBEKAH ([facility]) baso % 1.1 % 0.0-1.0 Above high normal Baso % REBEKAH ([facility]) immature granulocyte % 0.4 % 0-3.0 Immature Gran ulocyte % REBEKAH ([facility]) nucleated red blood cell % 0.0 % 0-0 Nucleated Red Blood Cell % REBEKAH ([facility]) neutrophils # 5.4 10 1.5-8.5 Neutrophils # REBEKAH ( [facility]) lymph # 2.8 10 1.5-5.0 Lymph # REBEKAH ([facility]) mono # 0.7 10 0.0-0.8 [place] # REBEKAH ([facility]) eos # 0.3 10 0.0-0.5 Eos # REBEKAH ([facility]) baso # 0.1 10 0.0-0.2 Baso # REBEKAH ([facility]) ID Date Data Source [id number] 01/14/2020 08:30:00 AM EST REBEKAH ([facility]) Name Value Range Interpretation Code Description Data Lilia rce(s) Supporting Document(s) cholesterol level 162 mg/dL <200 Cholesterol Level REBEKAH ([facility]) triglycerides level 88 mg/dL <150 Triglycerides Le jason REBEKAH ([facility]) Cholesterol in LDL [Mass/volume] in Serum or Plasma 65 mg/dL <1 00 LDL Cholesterol REBEKAH ([facility]) HDL cholesterol 79 mg/dL >40 HDL Cholesterol ATHE NA ([facility]) cholesterol risk ratio <5 Cholesterol R isk Ratio REBEKAH ([facility]) non-HDL-C 83 mg/dL Non-hdl-c REBEKAH ([facility]) ID Date Data Source [id number] 01/14/2020 08:30:00 AM EST REBEKAH ([facility]) Name Value Range Interpretation Code Description Data Lilia rce(s) Supporting Document(s) glucose, fasting 101 mg/dL 70-100 Above high normal Glucose, Fas ting REBEKAH ([facility]) blood urea nitrogen 12 mg/dL 7-18 Blood Urea Nitro gen REBEKAH ([facility]) glomerular filtration rate > 60.0 >49 Glomerula r Filtration Rate REBEKAH ([facility]) creatinine for GFR 1.01 mg/dL 0.70-1.30 Creatinine for GF R REBEKAH ([facility]) sodium level 142 mEq/L 136-145 Sodium Level REBEKAH ([facility]) chloride level 108 mEq/L 98-107 Above high normal Chloride Level REBEKAH ([facility]) carbon dioxide level 27 mEq/L 21-32 Carbon Dioxide Level REBEKAH ([facility]) potassium serum 4.9 mEq/L 3.5-5.1 Potassium Serum ATHE NA ([facility]) anion gap 7 mEq/L 8-16 Below low normal Anion Gap REBEKAH ( [facility]) alkaline phosphatase 87 U/L 45-117 Alkaline Phosph atase REBEKAH ([facility]) calcium level 9.2 mg/dL 8.8-10.2 Calcium Level REBEKAH ( [facility]) AST/SGOT 17 U/L 7-37 AST/SGOT REBEKAH ([facility]) ALT/SGPT 25 U/L 12-78 ALT/SGPT REBEKAH ([facility]) albumin/globulin ratio Albumin/globu tang Ratio REBEKAH ([facility]) total protein 6.7 gm/dL 6.4-8.2 Total Protein REBEKAH ( [facility]) bilirubin,total 0.9 mg/dL 0.2-1.0 Bilirubin,total ATHE ([facility]) albumin 3.5 gm/dL 3.2-5.2 Albumin REBEKAH ([facility]) ID Date Data Source [id number] 01/14/2020 08:30:00 AM EST [place] ([facility]) Name Value Range Interpretation Code Description Data Lilia rce(s) Supporting Document(s) white blood count 7.7 10 4.0-10.0 White Blood Count REBEKAH ([facility]) red blood count 5.04 10 4.30-6.10 Red Blood Count ATHE ([facility]) hemoglobin 15.2 g/dL 13.5-17.5 Hemoglobin REBEKAH ([facility]) mean corpuscular volume 92.9 fL 80.0-96.0 Mean Corpusc ular Volume REBEKAH ([facility]) hematocrit 46.8 % 42.0-52.0 Hematocrit REBEKAH ([facility]) mean corpuscular hemoglobin 30.2 pg 27.0-33.0 Mean Cor puscular Hemoglobin REBEKAH ([facility]) mean corpuscular HGB conc 32.5 g/dL 32.0-36.5 Mean Corpu scular HGB Conc REBEKAH ([facility]) red cell distribution width 14.1 % 11.5-14.5 Red Cell Distribution Width REBEKAH ([facility]) platelet count, automated 279 10 150-450 Platelet C ount, Automated [place] ([facility]) neutrophils % 53.8 % 36.0-66.0 Neutrophils % B[facility] ( [facility]) lymph % 36.3 % 24.0-44.0 Lymph % [facility] ([facility]) baso % 0.7 % 0.0-1.0 Baso % REBEKAH ([facility]) mono % 6.9 % 0.0-5.0 Above high normal [place] % [facility] ([facility]) eos % 2.0 % 0.0-3.0 Eos % [facility] ([facility]) nucleated red blood cell % 0.0 % 0-0 Nucleated Red Blood Cell % REBEKAH ([facility]) immature granulocyte % 0.3 % 0-3.0 Immature Gran ulocyte % [facility] ([facility]) mono # 0.5 10 0.0-0.8 [place] # REBEKAH ([facility]) neutrophils # 4.1 10 1.5-8.5 Neutrophils # REBEKAH ( [facility]) lymph # 2.8 10 1.5-5.0 Lymph # REBEKAH ([facility]) eos # 0.2 10 0.0-0.5 Eos # REBEKAH ([facility]) baso # 0.1 10 0.0-0.2 Baso # REBEKAH ([facility]) ID Date Data Source [id number] 01/14/2020 08:30:00 AM EST REBEKAH ([facility]) Name Value Range Interpretation Code Description Data Lilia rce(s) Supporting Document(s) triglycerides level 88 mg/dL <150 Triglycerides Le jason REBEKAH ([facility]) cholesterol risk ratio <5 Cholesterol R isk Ratio REBEKAH ([facility]) non-HDL-C 83 mg/dL Non-hdl-c REBEKAH ([facility]) HDL cholesterol 79 mg/dL >40 HDL Cholesterol ATHE ([facility]) Cholesterol in LDL [Mass/volume] in Serum or Plasma 65 mg/dL <1 00 LDL Cholesterol REBEKAH ([facility]) cholesterol level 162 mg/dL <200 Cholesterol Level REBEKAH ([facility]) ID Date Data Source [id number] 01/14/2020 08:30:00 AM EST REBEKAH ([facility]) Name Value Range Interpretation Code Description Data Lilia rce(s) Supporting Document(s) glucose, fasting 101 mg/dL 70-100 Above high normal Glucose, Fas ting REBEKAH ([facility]) blood urea nitrogen 12 mg/dL 7-18 Blood Urea Nitro gen REBEKAH ([facility]) creatinine for GFR 1.01 mg/dL 0.70-1.30 Creatinine for GF R REBEKAH ([facility]) glomerular filtration rate > 60.0 >49 Glomerula r Filtration Rate REBEKAH ([facility]) potassium serum 4.9 mEq/L 3.5-5.1 Potassium Serum ATHE NA ([facility]) sodium level 142 mEq/L 136-145 Sodium Level REBEKAH ([facility]) chloride level 108 mEq/L 98-107 Above high normal Chloride Level REBEKAH ([facility]) anion gap 7 mEq/L 8-16 Below low normal Anion Gap REBEKAH ( [facility]) carbon dioxide level 27 mEq/L 21-32 Carbon Dioxide Level REBEKAH ([facility]) calcium level 9.2 mg/dL 8.8-10.2 Calcium Level REBEKAH ( [facility]) AST/SGOT 17 U/L 7-37 AST/SGOT REBEKAH ([facility]) total protein 6.7 gm/dL 6.4-8.2 Total Protein REBEKAH ( [facility]) ALT/SGPT 25 U/L 12-78 ALT/SGPT REBEKAH ([facility]) bilirubin,total 0.9 mg/dL 0.2-1.0 Bilirubin,total ATHE ([facility]) alkaline phosphatase 87 U/L 45-117 Alkaline Phosph atase REBEKAH ([facility]) albumin/globulin ratio Albumin/globu tang Ratio REBEKAH ([facility]) albumin 3.5 gm/dL 3.2-5.2 Albumin REBEKAH ([facility]) ID Date Data Source [id number] 01/14/2020 08:30:00 AM EST REBEKAH ([facility]) Name Value Range Interpretation Code Description Data Lilia rce(s) Supporting Document(s) red blood count 5.04 10 4.30-6.10 Red Blood Count ATHE ([facility]) white blood count 7.7 10 4.0-10.0 White Blood Count REBEKAH ([facility]) hemoglobin 15.2 g/dL 13.5-17.5 Hemoglobin REBEKAH ([facility]) hematocrit 46.8 % 42.0-52.0 Hematocrit REBEKAH ([facility]) mean corpuscular volume 92.9 fL 80.0-96.0 Mean Corpusc ular Volume REBEKAH ([facility]) mean corpuscular hemoglobin 30.2 pg 27.0-33.0 Mean Cor puscular Hemoglobin REBEKAH ([facility]) mean corpuscular HGB conc 32.5 g/dL 32.0-36.5 Mean Corpu scular HGB Conc REBEKAH ([facility]) red cell distribution width 14.1 % 11.5-14.5 Red Cell Distribution Width REBEKAH ([facility]) lymph % 36.3 % 24.0-44.0 Lymph % REBEKAH ([facility]) platelet count, automated 279 10 150-450 Platelet C ount, Automated REBEKAH ([facility]) neutrophils % 53.8 % 36.0-66.0 Neutrophils % REBEKAH ( [facility]) mono % 6.9 % 0.0-5.0 Above high normal [place] % [place] ([facility]) eos % 2.0 % 0.0-3.0 Eos % B[facility] ([facility]) immature granulocyte % 0.3 % 0-3.0 Immature Gran ulocyte % REBEKAH ([facility]) baso % 0.7 % 0.0-1.0 Baso % REBEKAH ([facility]) mono # 0.5 10 0.0-0.8 [place] # REBEKAH ([facility]) nucleated red blood cell % 0.0 % 0-0 Nucleated Red Blood Cell % REBEKAH ([facility]) lymph # 2.8 10 1.5-5.0 Lymph # REBEKAH ([facility]) neutrophils # 4.1 10 1.5-8.5 Neutrophils # REBEKAH ( [facility]) baso # 0.1 10 0.0-0.2 Baso # REBEKAH ([facility]) eos # 0.2 10 0.0-0.5 Eos # REBEKAH ([facility]) ID Date Data Source [id number] 01/14/2020 08:30:00 AM EST [facility] ([facility]) Name Value Range Interpretation Code Description Data Lilia rce(s) Supporting Document(s) cholesterol level 162 mg/dL <200 Cholesterol Level REBEKAH ([facility]) triglycerides level 88 mg/dL <150 Triglycerides Le jason REBEKAH ([facility]) Cholesterol in LDL [Mass/volume] in Serum or Plasma 65 mg/dL <1 00 LDL Cholesterol REBEKAH ([facility]) HDL cholesterol 79 mg/dL >40 HDL Cholesterol ATHE NA ([facility]) non-HDL-C 83 mg/dL Non-hdl-c REBEKAH ([facility]) cholesterol risk ratio <5 Cholesterol R isk Ratio REBEKAH ([facility]) ID Date Data Source [id number] 01/14/2020 08:30:00 AM EST REBEKAH ([facility]) Name Value Range Interpretation Code Description Data Lilia rce(s) Supporting Document(s) blood urea nitrogen 12 mg/dL 7-18 Blood Urea Nitro gen REBEKAH ([facility]) glucose, fasting 101 mg/dL 70-100 Above high normal Glucose, Fas ting REBEKAH ([facility]) glomerular filtration rate > 60.0 >49 Glomerula r Filtration Rate REBEKAH ([facility]) potassium serum 4.9 mEq/L 3.5-5.1 Potassium Serum ATHE NA ([facility]) sodium level 142 mEq/L 136-145 Sodium Level REBEKAH ([facility]) creatinine for GFR 1.01 mg/dL 0.70-1.30 Creatinine for GF R REBEKAH ([facility]) anion gap 7 mEq/L 8-16 Below low normal Anion Gap REBEKAH ( [facility]) carbon dioxide level 27 mEq/L 21-32 Carbon Dioxide Level REBEKAH ([facility]) calcium level 9.2 mg/dL 8.8-10.2 Calcium Level REBEKAH ( [facility]) chloride level 108 mEq/L 98-107 Above high normal Chloride Level REBEKAH ([facility]) alkaline phosphatase 87 U/L 45-117 Alkaline Phosph atase REBEKAH ([facility]) AST/SGOT 17 U/L 7-37 AST/SGOT REBEKAH ([facility]) ALT/SGPT 25 U/L 12-78 ALT/SGPT REBEKAH ([facility]) total protein 6.7 gm/dL 6.4-8.2 Total Protein REBEKAH ( [facility]) bilirubin,total 0.9 mg/dL 0.2-1.0 Bilirubin,total ATHE NA ([facility]) albumin 3.5 gm/dL 3.2-5.2 Albumin REBEKAH ([facility]) albumin/globulin ratio Albumin/globu tang Ratio REBEKAH ([facility]) ID Date Data Source [id number] 01/14/2020 08:30:00 AM EST REBEKAH ([facility]) Name Value Range Interpretation Code Description Data Lilia rce(s) Supporting Document(s) white blood count 7.7 10 4.0-10.0 White Blood Count REBEKAH ([facility]) hemoglobin 15.2 g/dL 13.5-17.5 Hemoglobin REBEKAH ([facility]) hematocrit 46.8 % 42.0-52.0 Hematocrit REBEKAH ([facility]) red blood count 5.04 10 4.30-6.10 Red Blood Count ATHE NA ([facility]) mean corpuscular hemoglobin 30.2 pg 27.0-33.0 Mean Cor puscular Hemoglobin REBEKAH ([facility]) mean corpuscular HGB conc 32.5 g/dL 32.0-36.5 Mean Corpu scular HGB Conc REBEKAH ([facility]) mean corpuscular volume 92.9 fL 80.0-96.0 Mean Corpusc ular Volume REBEKAH ([facility]) red cell distribution width 14.1 % 11.5-14.5 Red Cell Distribution Width REBEKAH ([facility]) platelet count, automated 279 10 150-450 Platelet C ount, Automated REBEKAH ([facility]) neutrophils % 53.8 % 36.0-66.0 Neutrophils % REBEKAH ( [facility]) lymph % 36.3 % 24.0-44.0 Lymph % REBEKAH ([facility]) baso % 0.7 % 0.0-1.0 Baso % REBEKAH ([facility]) eos % 2.0 % 0.0-3.0 Eos % REBEKAH ([facility]) mono % 6.9 % 0.0-5.0 Above high normal [place] % REBEKAH ([facility]) immature granulocyte % 0.3 % 0-3.0 Immature Gran ulocyte % REBEKAH ([facility]) mono # 0.5 10 0.0-0.8 [place] # REBEKAH ([facility]) nucleated red blood cell % 0.0 % 0-0 Nucleated Red Blood Cell % REBEKAH ([facility]) lymph # 2.8 10 1.5-5.0 Lymph # REBEKAH ([facility]) neutrophils # 4.1 10 1.5-8.5 Neutrophils # REBEKAH ( [facility]) baso # 0.1 10 0.0-0.2 Baso # REBEKAH ([facility]) eos # 0.2 10 0.0-0.5 Eos # REBEKAH ([facility]) ID Date Data Source [id number] 01/14/2020 08:30:00 AM EST REBEKAH ([facility]) Name Value Range Interpretation Code Description Data Lilia rce(s) Supporting Document(s) cholesterol level 162 mg/dL <200 Cholesterol Level REBEKAH ([facility]) triglycerides level 88 mg/dL <150 Triglycerides Le jason REBEKAH ([facility]) non-HDL-C 83 mg/dL Non-hdl-c REBEKAH ([facility]) HDL cholesterol 79 mg/dL >40 HDL Cholesterol ATHE NA ([facility]) Cholesterol in LDL [Mass/volume] in Serum or Plasma 65 mg/dL <1 00 LDL Cholesterol REBEKAH ([facility]) cholesterol risk ratio <5 Cholesterol R isk Ratio REBEKAH ([facility]) ID Date Data Source [id number] 01/14/2020 08:30:00 AM EST REBEKAH ([facility]) Name Value Range Interpretation Code Description Data Lilia rce(s) Supporting Document(s) glucose, fasting 101 mg/dL 70-100 Above high normal Glucose, Fas ting REBEKAH ([facility]) blood urea nitrogen 12 mg/dL 7-18 Blood Urea Nitro gen REBEKAH ([facility]) glomerular filtration rate > 60.0 >49 Glomerula r Filtration Rate REBEKAH ([facility]) creatinine for GFR 1.01 mg/dL 0.70-1.30 Creatinine for GF R REBEKAH ([facility]) sodium level 142 mEq/L 136-145 Sodium Level REBEKAH (No [facility] includes the [facility]) carbon dioxide level 27 mEq/L 21-32 Carbon Dioxide Level REBEKAH ([facility]) chloride level 108 mEq/L 98-107 Above high normal Chloride Level REBEKAH ([facility]) anion gap 7 mEq/L 8-16 Below low normal Anion Gap REBEKAH ( [facility]) potassium serum 4.9 mEq/L 3.5-5.1 Potassium Serum ATHE ([facility]) ALT/SGPT 25 U/L 12-78 ALT/SGPT REBEKAH ([facility]) calcium level 9.2 mg/dL 8.8-10.2 Calcium Level REBEKAH ( [facility]) AST/SGOT 17 U/L 7-37 AST/SGOT REBEKAH ([facility]) alkaline phosphatase 87 U/L 45-117 Alkaline Phosph atase REBEKAH ([facility]) bilirubin,total 0.9 mg/dL 0.2-1.0 Bilirubin,total ATHE ([facility]) albumin 3.5 gm/dL 3.2-5.2 Albumin REBEKAH ([facility]) total protein 6.7 gm/dL 6.4-8.2 Total Protein REBEKAH ( [facility]) albumin/globulin ratio Albumin/globu tang Ratio REBEKAH ([facility]) ID Date Data Source [id number] 01/14/2020 08:30:00 AM EST REBEKAH ([facility]) Name Value Range Interpretation Code Description Data Lilia rce(s) Supporting Document(s) white blood count 7.7 10 4.0-10.0 White Blood Count REBEKAH ([facility]) hemoglobin 15.2 g/dL 13.5-17.5 Hemoglobin REBEKAH ([facility]) red blood count 5.04 10 4.30-6.10 Red Blood Count ATHE NA ([facility]) hematocrit 46.8 % 42.0-52.0 Hematocrit REBEKAH ([facility]) mean corpuscular volume 92.9 fL 80.0-96.0 Mean Corpusc ular Volume REBEKAH ([facility]) mean corpuscular hemoglobin 30.2 pg 27.0-33.0 Mean Cor puscular Hemoglobin REBEKAH ([facility]) neutrophils % 53.8 % 36.0-66.0 Neutrophils % REBEKAH ( [facility]) platelet count, automated 279 10 150-450 Platelet C ount, Automated REBEKAH ([facility]) red cell distribution width 14.1 % 11.5-14.5 Red Cell Distribution Width REBEKAH ([facility]) mean corpuscular HGB conc 32.5 g/dL 32.0-36.5 Mean Corpu scular HGB Conc REBEKAH ([facility]) mono % 6.9 % 0.0-5.0 Above high normal [place] % REBEKAH ([facility]) eos % 2.0 % 0.0-3.0 Eos % RE[facility] ([facility]) lymph % 36.3 % 24.0-44.0 Lymph % REBEKAH ([facility]) baso % 0.7 % 0.0-1.0 Baso % REBEKAH ([facility]) immature granulocyte % 0.3 % 0-3.0 Immature Gran ulocyte % REBEKAH ([facility]) nucleated red blood cell % 0.0 % 0-0 Nucleated Red Blood Cell % REBEKAH ([facility]) lymph # 2.8 10 1.5-5.0 Lymph # REBEKAH ([facility]) neutrophils # 4.1 10 1.5-8.5 Neutrophils # REBEKAH ( [facility]) mono # 0.5 10 0.0-0.8 [place] # REBEKAH ([facility]) eos # 0.2 10 0.0-0.5 Eos # RE[facility]AH ([facility]) baso # 0.1 10 0.0-0.2 Baso # REBEKAH ([facility]) ID Date Data Source [id number] 01/14/2020 08:30:00 AM EST REBEKAH ([facility]) Name Value Range Interpretation Code Description Data Lilia rce(s) Supporting Document(s) triglycerides level 88 mg/dL <150 Triglycerides Le jason REBEKAH ([facility]) Cholesterol in LDL [Mass/volume] in Serum or Plasma 65 mg/dL <1 00 LDL Cholesterol REBEKAH ([facility]) cholesterol level 162 mg/dL <200 Cholesterol Level REBEKAH ([facility]) cholesterol risk ratio <5 Cholesterol R isk Ratio REBEKAH ([facility]) non-HDL-C 83 mg/dL Non-hdl-c RE[facility]AH ([facility]) HDL cholesterol 79 mg/dL >40 HDL Cholesterol ATHE NA ([facility]) ID Date Data Source [id number] 01/14/2020 08:30:00 AM EST REBEKHA ([facility]) Name Value Range Interpretation Code Description Data Lilia rce(s) Supporting Document(s) glucose, fasting 101 mg/dL 70-100 Above high normal Glucose, Fas ting REBEKAH ([facility]) glomerular filtration rate > 60.0 >49 Glomerula r Filtration Rate REBEKAH ([facility]) blood urea nitrogen 12 mg/dL 7-18 Blood Urea Nitro gen REBEKAH ([facility]) creatinine for GFR 1.01 mg/dL 0.70-1.30 Creatinine for GF R REBEKAH ([facility]) sodium level 142 mEq/L 136-145 Sodium Level REBEKAH ([facility]) carbon dioxide level 27 mEq/L 21-32 Carbon Dioxide Level REBEKAH ([facility]) anion gap 7 mEq/L 8-16 Below low normal Anion Gap REBEKAH ( [facility]) potassium serum 4.9 mEq/L 3.5-5.1 Potassium Serum ATHE ([facility]) chloride level 108 mEq/L 98-107 Above high normal Chloride Level REBEKAH ([facility]) calcium level 9.2 mg/dL 8.8-10.2 Calcium Level REBEKAH ( [facility]) ALT/SGPT 25 U/L 12-78 ALT/SGPT REBEKAH ([facility]) alkaline phosphatase 87 U/L 45-117 Alkaline Phosph atase REBEKAH ([facility]) AST/SGOT 17 U/L 7-37 AST/SGOT REBEKAH ([facility]) total protein 6.7 gm/dL 6.4-8.2 Total Protein REBEKAH ( [facility]) albumin 3.5 gm/dL 3.2-5.2 Albumin REBEKAH ([facility]) albumin/globulin ratio Albumin/globu tang Ratio REBEKAH ([facility]) bilirubin,total 0.9 mg/dL 0.2-1.0 Bilirubin,total ATHE NA ([facility]) ID Date Data Source [id number] 01/14/2020 08:30:00 AM EST REBEKAH ([facility]) Name Value Range Interpretation Code Description Data Lilia rce(s) Supporting Document(s) white blood count 7.7 10 4.0-10.0 White Blood Count REBEKAH ([facility]) red blood count 5.04 10 4.30-6.10 Red Blood Count ATHE NA ([facility]) hemoglobin 15.2 g/dL 13.5-17.5 Hemoglobin REBEKAH ([facility]) hematocrit 46.8 % 42.0-52.0 Hematocrit REBEKAH ([facility]) mean corpuscular volume 92.9 fL 80.0-96.0 Mean Corpusc ular Volume REBEKAH ([facility]) mean corpuscular hemoglobin 30.2 pg 27.0-33.0 Mean Cor puscular Hemoglobin REBEKAH ([facility]) mean corpuscular HGB conc 32.5 g/dL 32.0-36.5 Mean Corpu scular HGB Conc REBEKAH ([facility]) platelet count, automated 279 10 150-450 Platelet C ount, Automated REBEKAH ([facility]) red cell distribution width 14.1 % 11.5-14.5 Red Cell Distribution Width REBEKAH ([facility]) neutrophils % 53.8 % 36.0-66.0 Neutrophils % REBEKAH ( [facility]) eos % 2.0 % 0.0-3.0 Eos % REBEKAH ([facility]) mono % 6.9 % 0.0-5.0 Above high normal [place] % REBEKAH ([facility]) lymph % 36.3 % 24.0-44.0 Lymph % REBEKAH ([facility]) immature granulocyte % 0.3 % 0-3.0 Immature Gran ulocyte % REBEKAH ([facility]) nucleated red blood cell % 0.0 % 0-0 Nucleated Red Blood Cell % REBEKAH ([facility]) baso % 0.7 % 0.0-1.0 Baso % REBEKAH ([facility]) eos # 0.2 10 0.0-0.5 Eos # REBEKAH ([facility]) neutrophils # 4.1 10 1.5-8.5 Neutrophils # REBEKAH ( [facility]) mono # 0.5 10 0.0-0.8 [place] # REBEKAH ([facility]) lymph # 2.8 10 1.5-5.0 Lymph # REBEKAH ([facility]) baso # 0.1 10 0.0-0.2 Baso # REBEKAH ([facility]) ID Date Data Source [id number] 01/14/2020 08:30:00 AM EST REBEKAH ([facility]) Name Value Range Interpretation Code Description Data Lilia rce(s) Supporting Document(s) HDL cholesterol 79 mg/dL >40 HDL Cholesterol ATHE NA ([facility]) triglycerides level 88 mg/dL <150 Triglycerides Le jason REBEKAH ([facility]) cholesterol level 162 mg/dL <200 Cholesterol Level REBEKAH ([facility]) Cholesterol in LDL [Mass/volume] in Serum or Plasma 65 mg/dL <1 00 LDL Cholesterol REBEKAH ([facility]) cholesterol risk ratio <5 Cholesterol R isk Ratio REBEKAH ([facility]) non-HDL-C 83 mg/dL Non-hdl-c REBEKAH ([facility]) ID Date Data Source [id number] 01/14/2020 08:30:00 AM EST REBEKAH ([facility]) Name Value Range Interpretation Code Description Data Lilia rce(s) Supporting Document(s) glucose, fasting 101 mg/dL 70-100 Above high normal Glucose, Fas ting REBEKAH ([facility]) glomerular filtration rate > 60.0 >49 Glomerula r Filtration Rate REBEKAH ([facility]) blood urea nitrogen 12 mg/dL 7-18 Blood Urea Nitro gen REBEKAH ([facility]) sodium level 142 mEq/L 136-145 Sodium Level REBEKAH (No [facility]) creatinine for GFR 1.01 mg/dL 0.70-1.30 Creatinine for GF R REBEKAH ([facility]) calcium level 9.2 mg/dL 8.8-10.2 Calcium Level REBEKAH ( [facility]) potassium serum 4.9 mEq/L 3.5-5.1 Potassium Serum ATHE ([facility]) anion gap 7 mEq/L 8-16 Below low normal Anion Gap REBEKAH ( [facility]) carbon dioxide level 27 mEq/L 21-32 Carbon Dioxide Level REBEKAH ([facility]) chloride level 108 mEq/L 98-107 Above high normal Chloride Level REBEKAH ([facility]) bilirubin,total 0.9 mg/dL 0.2-1.0 Bilirubin,total ATHE NA ([facility]) alkaline phosphatase 87 U/L 45-117 Alkaline Phosph atase REBEKAH ([facility]) ALT/SGPT 25 U/L 12-78 ALT/SGPT REBEKAH ([facility]) total protein 6.7 gm/dL 6.4-8.2 Total Protein REBEKAH ( [facility]) AST/SGOT 17 U/L 7-37 AST/SGOT REBEKAH ([facility]) albumin 3.5 gm/dL 3.2-5.2 Albumin REBEKAH ([facility]) albumin/globulin ratio Albumin/globu tang Ratio REBEKAH ([facility]) ID Date Data Source [id number] 01/14/2020 08:30:00 AM EST REBEKAH ([facility]) Name Value Range Interpretation Code Description Data Lilia rce(s) Supporting Document(s) white blood count 7.7 10 4.0-10.0 White Blood Count REBEKAH ([facility]) hematocrit 46.8 % 42.0-52.0 Hematocrit REBEKAH ([facility]) hemoglobin 15.2 g/dL 13.5-17.5 Hemoglobin REBEKAH ([facility]) red blood count 5.04 10 4.30-6.10 Red Blood Count ATHE NA ([facility]) mean corpuscular volume 92.9 fL 80.0-96.0 Mean Corpusc ular Volume REBEKAH ([facility]) mean corpuscular HGB conc 32.5 g/dL 32.0-36.5 Mean Corpu scular HGB Conc REBEKAH ([facility]) mean corpuscular hemoglobin 30.2 pg 27.0-33.0 Mean Cor puscular Hemoglobin REBEKAH ([facility]) red cell distribution width 14.1 % 11.5-14.5 Red Cell Distribution Width REBEKAH ([facility]) mono % 6.9 % 0.0-5.0 Above high normal [place] % REBEKAH ([facility]) neutrophils % 53.8 % 36.0-66.0 Neutrophils % BANGOR ( [facility]) platelet count, automated 279 10 150-450 Platelet C ount, Automated REBEKAH ([facility]) lymph % 36.3 % 24.0-44.0 Lymph % REBEKAH ([facility]) baso % 0.7 % 0.0-1.0 Baso % REBEKAH ([facility]) nucleated red blood cell % 0.0 % 0-0 Nucleated Red Blood Cell % REBEKHA ([facility]) eos % 2.0 % 0.0-3.0 Eos % REBEKAH ([facility]) immature granulocyte % 0.3 % 0-3.0 Immature Gran ulocyte % REBEKAH ([facility]) neutrophils # 4.1 10 1.5-8.5 Neutrophils # REBEKAH ( [facility]) lymph # 2.8 10 1.5-5.0 Lymph # REBEKAH ([facility]) eos # 0.2 10 0.0-0.5 Eos # REBEKAH ([facility]) mono # 0.5 10 0.0-0.8 [place] # REBEKAH ([facility]) baso # 0.1 10 0.0-0.2 Baso # REBEKAH ([facility]) ID Date Data Source [id number] 01/14/2020 08:30:00 AM EST REBEKAH ([facility]) Name Value Range Interpretation Code Description Data Lilia rce(s) Supporting Document(s) triglycerides level 88 mg/dL <150 Triglycerides Le jason REBEKAH ([facility]) cholesterol risk ratio <5 Cholesterol R isk Ratio REBEKAH ([facility]) Cholesterol in LDL [Mass/volume] in Serum or Plasma 65 mg/dL <1 00 LDL Cholesterol REBEKAH ([facility]) non-HDL-C 83 mg/dL Non-hdl-c REBEKAH ([facility]) cholesterol level 162 mg/dL <200 Cholesterol Level REBEKAH ([facility]) HDL cholesterol 79 mg/dL >40 HDL Cholesterol ATHE NA ([facility]) ID Date Data Source [id number] 01/14/2020 08:30:00 AM EST REBEKAH ([facility]) Name Value Range Interpretation Code Description Data Lilia rce(s) Supporting Document(s) glucose, fasting 101 mg/dL 70-100 Above high normal Glucose, Fas ting REBEKAH ([facility]) creatinine for GFR 1.01 mg/dL 0.70-1.30 Creatinine for GF R REBEKAH ([facility]) blood urea nitrogen 12 mg/dL 7-18 Blood Urea Nitro gen REBEKAH ([facility]) carbon dioxide level 27 mEq/L 21-32 Carbon Dioxide Level REBEKAH ([facility]) glomerular filtration rate > 60.0 >49 Glomerula r Filtration Rate REBEKAH ([facility]) sodium level 142 mEq/L 136-145 Sodium Level REBEKAH (No [facility]) chloride level 108 mEq/L 98-107 Above high normal Chloride Level REBEKAH ([facility]) potassium serum 4.9 mEq/L 3.5-5.1 Potassium Serum ATHE NA ([facility]) calcium level 9.2 mg/dL 8.8-10.2 Calcium Level REBEKAH ( [facility]) anion gap 7 mEq/L 8-16 Below low normal Anion Gap REBEKAH ( [facility]) ALT/SGPT 25 U/L 12-78 ALT/SGPT REBEKAH ([facility]) AST/SGOT 17 U/L 7-37 AST/SGOT REBEKAH ([facility]) alkaline phosphatase 87 U/L 45-117 Alkaline Phosph atase REBEKAH ([facility]) bilirubin,total 0.9 mg/dL 0.2-1.0 Bilirubin,total ATHE NA ([facility]) albumin/globulin ratio Albumin/globu tang Ratio REBEKAH ([facility]) albumin 3.5 gm/dL 3.2-5.2 Albumin REBEKAH ([facility]) total protein 6.7 gm/dL 6.4-8.2 Total Protein REBEKAH ( [facility]) ID Date Data Source [id number] 01/14/2020 08:30:00 AM EST REBEKAH ([facility]) Name Value Range Interpretation Code Description Data Lilia rce(s) Supporting Document(s) white blood count 7.7 10 4.0-10.0 White Blood Count REBEKAH ([facility]) red blood count 5.04 10 4.30-6.10 Red Blood Count ATHE ([facility]) mean corpuscular volume 92.9 fL 80.0-96.0 Mean Corpusc ular Volume REBEKAH ([facility]) hemoglobin 15.2 g/dL 13.5-17.5 Hemoglobin REBEKAH ([facility]) hematocrit 46.8 % 42.0-52.0 Hematocrit REBEKAH ([facility]) platelet count, automated 279 10 150-450 Platelet C ount, Automated REBEKAH ([facility]) mean corpuscular hemoglobin 30.2 pg 27.0-33.0 Mean Cor puscular Hemoglobin [facility] ([facility]) red cell distribution width 14.1 % 11.5-14.5 Red Cell Distribution Width REBEKAH ([facility]) mean corpuscular HGB conc 32.5 g/dL 32.0-36.5 Mean Corpu scular HGB Conc [facility] ([facility]) eos % 2.0 % 0.0-3.0 Eos % [facility] ([facility]) lymph % 36.3 % 24.0-44.0 Lymph % [facility] ([facility]) mono % 6.9 % 0.0-5.0 Above high normal [place] % [facility] ([facility]) neutrophils % 53.8 % 36.0-66.0 Neutrophils % [facility] ( [facility]) nucleated red blood cell % 0.0 % 0-0 Nucleated Red Blood Cell % [facility] ([facility]) neutrophils # 4.1 10 1.5-8.5 Neutrophils # [facility] ( [facility]) immature granulocyte % 0.3 % 0-3.0 Immature Gran ulocyte % [facility] ([facility]) baso % 0.7 % 0.0-1.0 Baso % [facility] ([facility]) mono # 0.5 10 0.0-0.8 [place] # REBEKAH ([facility]) eos # 0.2 10 0.0-0.5 Eos # REBEKAH ([facility]) lymph # 2.8 10 1.5-5.0 Lymph # [facility] ([facility]) baso # 0.1 10 0.0-0.2 Baso # REBEKAH ([facility]) ID Date Data Source [id number] 11/11/2019 03:39:32 PM EDT [facility] Measurements & CalculationsHeight: 70.50 inches 179.07 [...] for about 2 months. Pt states didnt pharmacy picking tech medications for ED as yet because insurance [...] during this visit, including review of any [id number] medications, herbal therapies, and/or supplements.Allergy ReviewAllergy List [...] & Plan Problems:Added: Inguinal hernia (ICD- 550.90) (FCW42-T89.90) Assessment: Instructions: We have made a referral for you today. We will contact you to set this up. Please try to avoid heavy lifting or streneous activities.Assessed:Anxiety depression (ICD-300.09) (ICD10- F41.8) Assessment: improved a bit. moved out. Went back to work parts l[employer] .Male erectile dysfunction, unspecified (IOT96-R26.9) Assessment: havent started medication as yet, still waiting for appointment with urology.Insomnia, unspecified (ZAO07-U74.00) Assessment: disnt start Trazodone, didnt like side effects Was feeling realy depressed. Instructions: We will change your medication to hydroxyzine. Please take as prescribed. Please report any major side effects. Please try to avoid night time stimulants.Assessment not Saved Insomnia; unspecified (PFT18-K63.00): Patient Instructions/Care Plan: Inguinal hernia: We have [...] TRAZODONE HCL 50 MG ORAL TABLET Qty: [id number] Refills: 30[Tablet] To: HYDROXYZINE HCL 50 MG ORAL TABLET-take one tablet by mouth daily at bedtime as needed for insomnia. Qty: 30[Tablet] Refills: 2From: ORAL SILDENAFIL CITRATE 25 MG ORAL TABLET Qty: [id number] Refills: 10[Tablet] To: SILDENAFIL CITRATE 100 MG ORAL TABLET- take 1/2 or 1 tablet by mouth daily as needed. ( If errection longer than 3 hours go to the ER) Qty: 10[Tablet] Refills: 1Allergies:No Known Allergies (up dated 11/11/2019) Orders:Other Referral [[id number]] Adult - Ofc Vst, EST, Level IV [[id number]] Follow-Up Return to clinic: 6-8 weeks for follow up. Clinical Visit Summary CompletedMedications:SILDENAFIL CITRATE 100 MG ORAL TABLET (SILDENAFIL CITRATE) take 1/2 or 1 tablet by mouth daily as needed. ( If errection longer than 3 hours go to the ER) #10[Tablet] x 1 Route:ORAL Entered and Authorized by: Yas ZULUAGA Method used: Electronically to [facility] (retail) [address] [place], [place] [address] Fax: Note to Pharmacy: Route: ORAL; Indications: MALE ERECTILE DYSFUNCTION, UNSPECIFIED RxID: [id number] HCL 50 MG ORAL TABLET (HYDROXYZINE HCL) take one tablet by mouth daily at bedtime as needed for insomnia. #30[Tablet] x 2 Route:ORAL Entered and Authorized by: Yas ZULUAGA Method used: Electronically to [facility]* (retail) [address] [place] [address] Note to Pharmacy: Route: ORAL; Indications: INSOMNIA, UNSPECIFIED RxID: [id number] signed by Yas ZULUAGA on 11/15/2019 at 11:03 PM Name Value Range Interpretation Code Description Data Lilia rce(s) Supporting Document(s) Procedure Social History Code Duration Value Status Description Data Source(s ) Smoking 01/04/2020 12:00:00 AM EST Current Smoker completed Curre nt Smoker eCW1 (Formerly [facility]) Vital Signs ID Date Data Source UNK Name Value Range Interpretation Code Description Data Source(s) Diastolic blood pressure 94 mm[Hg] 94 mm[Hg] REBEKAH ([facility]) Diastolic blood pressure 104 mm[Hg] 104 mm[Hg] REBEKAH ([facility]) Body height 70.5 [in_i] 70.5 [in_i] REBEKAH ([facility]) Systolic blood pressure 152 mm[Hg] 152 mm[Hg] A [facility] ([facility]) Systolic blood pressure 149 mm[Hg] 149 mm[Hg] A [facility] ([facility]) Body weight 2836 [oz_av] 2836 [oz_av] REBEKAH ([facility]) Body mass index (BMI) [Ratio] 25.1 kg/m2 25.1 k g/m2 REBEKAH ([facility]) Body height 70.5 [in_i] 70.5 [in_i] REBEKAH ([facility]) Body height 70.5 [in_i] 70.5 [in_i] REBEKAH ([facility]) Systolic blood pressure 154 mm[Hg] 154 mm[Hg] M EDENT ([facility]) Diastolic blood pressure 91 mm[Hg] 91 mm[Hg] MEDENT ([facility]) Heart rate 92 /min 92 /min MEDENT ([facility], [facility]) Respiratory rate 19 /min 19 /min MEDENT ( [facility]) Oxygen saturation in Arterial blood by Pulse oximetry 98 % 98 % MEDENT ([facility]) Body temperature 98.4 [degF] 98.4 [degF] MEDENT ([facility]) Body weight 173.00 [lb_av] 173.00 [lb_av] MEDEN T ([facility]) Body height 70.5 [in_i] 70.5 [in_i] MEDENT ([facility]) 5'10.50" Body mass index (BMI) [Ratio] 24.5 kg/m2 24.5 k g/m2 MEDENT ([facility]) Diastolic blood pressure 87 mm[Hg] 87 mm[Hg] REBEKAH ([facility]) Body mass index (BMI) [Ratio] 24.8 kg/m2 24.8 k g/m2 REBEKAH ([facility]) Body weight 2806 [oz_av] 2806 [oz_av] REBEKAH ([facility]) Body height 70.5 [in_i] 70.5 [in_i] REBEKAH ([facility]) Systolic blood pressure 129 mm[Hg] 129 mm[Hg] A THENA ([facility]) Diastolic blood pressure 87 mm[Hg] 87 mm[Hg] REBEKAH ([facility]) Body height 70.5 [in_i] 70.5 [in_i] REBEKAH ([facility]) Body mass index (BMI) [Ratio] 24.8 kg/m2 24.8 k g/m2 REBEKAH ([facility]) Systolic blood pressure 129 mm[Hg] 129 mm[Hg] A THENA ([facility]) Body weight 2806 [oz_av] 2806 [oz_av] REBEKAH ([facility]) Diastolic blood pressure 87 mm[Hg] 87 mm[Hg] REBEKAH ([facility]) Body height 70.5 [in_i] 70.5 [in_i] REBEKAH ([facility]) Body mass index (BMI) [Ratio] 24.8 kg/m2 24.8 k g/m2 REBEKAH ([facility]) Systolic blood pressure 129 mm[Hg] 129 mm[Hg] A THENA ([facility]) Body weight 2806 [oz_av] 2806 [oz_av] REBEKAH ([facility]) Body height 70.5 [in_i] 70.5 [in_i] REBEKAH ([facility]) Body height 70.5 [in_i] 70.5 [in_i] REBEKAH ([facility]) Body height 70.5 [in_i] 70.5 [in_i] REBEKAH ([facility]) Body height 70.5 [in_i] 70.5 [in_i] REBEKAH ([facility]) Body weight 2802 [oz_av] 2802 [oz_av] REBEKAH ([facility]) Diastolic blood pressure 78 mm[Hg] 78 mm[Hg] REBEKAH ([facility]) Body height 70.5 [in_i] 70.5 [in_i] REBEKAH ([facility]) Body mass index (BMI) [Ratio] 24.8 kg/m2 24.8 k g/m2 REBEKAH ([facility]) Systolic blood pressure 122 mm[Hg] 122 mm[Hg] A THENA ([facility]) Diastolic blood pressure 78 mm[Hg] 78 mm[Hg] REBEKAH ([facility]) Body height 70.5 [in_i] 70.5 [in_i] REBEKAH ([facility]) Body mass index (BMI) [Ratio] 24.8 kg/m2 24.8 k g/m2 REBEKAH ([facility]) Systolic blood pressure 122 mm[Hg] 122 mm[Hg] A THENA ([facility]) Body weight 2802 [oz_av] 2802 [oz_av] REBEKAH ([facility]) Diastolic blood pressure 78 mm[Hg] 78 mm[Hg] REBEKAH ([facility]) Body height 70.5 [in_i] 70.5 [in_i] REBEKAH ([facility]) Body mass index (BMI) [Ratio] 24.8 kg/m2 24.8 k g/m2 REBEKAH ([facility]) Systolic blood pressure 122 mm[Hg] 122 mm[Hg] A THENA ([facility]) Body weight 2802 [oz_av] 2802 [oz_av] REBEKAH ([facility]) Diastolic blood pressure 78 mm[Hg] 78 mm[Hg] REBEKAH ([facility]) Body height 70.5 [in_i] 70.5 [in_i] REBEKAH ([facility]) Body mass index (BMI) [Ratio] 24.8 kg/m2 24.8 k g/m2 REBEKAH ([facility]) Systolic blood pressure 122 mm[Hg] 122 mm[Hg] A THENA ([facility]) Body weight 2802 [oz_av] 2802 [oz_av] REBEKAH ([facility]) Diastolic blood pressure 78 mm[Hg] 78 mm[Hg] REBEKAH ([facility]) Body height 70.5 [in_i] 70.5 [in_i] REBEKAH ([facility]) Body mass index (BMI) [Ratio] 24.8 kg/m2 24.8 k g/m2 REBEKAH ([facility]) Systolic blood pressure 122 mm[Hg] 122 mm[Hg] A THENA ([facility]) Body weight 2802 [oz_av] 2802 [oz_av] REBEKAH ([facility]) Diastolic blood pressure 87 mm[Hg] 87 mm[Hg] MEDENT ([facility]) Heart rate 98 /min 98 /min MEDENT ([facility]) Respiratory rate 18 /min 18 /min [facility] ( [facility]) Oxygen saturation in Arterial blood by Pulse oximetry 97 % 97 % MEDENT ([facility]) Body temperature 97.9 [degF] 97.9 [degF] MEDENT ([facility]) Body weight 165.00 [lb_av] 165.00 [lb_av] MEDEN T ([facility]) Body height 70.5 [in_i] 70.5 [in_i] MEDENT ([facility]) 5'10.50" Body mass index (BMI) [Ratio] 23.3 kg/m2 23.3 k g/m2 MEDENT ([facility]) Systolic blood pressure 143 mm[Hg] 143 mm[Hg] M EDENT ([facility]) Diastolic blood pressure 78 mm[Hg] 78 mm[Hg] REBEKAH ([facility]) Body height 70.5 [in_i] 70.5 [in_i] REBEKAH ([facility]) Body mass index (BMI) [Ratio] 24.6 kg/m2 24.6 k g/m2 REBEKAH ([facility]) Systolic blood pressure 115 mm[Hg] 115 mm[Hg] A THENA ([facility]) Body weight 2784 [oz_av] 2784 [oz_av] REBEKAH ([facility]) Diastolic blood pressure 78 mm[Hg] 78 mm[Hg] REBEKAH ([facility]) Body height 70.5 [in_i] 70.5 [in_i] REBEKAH ([facility]) Body mass index (BMI) [Ratio] 24.6 kg/m2 24.6 k g/m2 REBEKAH ([facility]) Systolic blood pressure 115 mm[Hg] 115 mm[Hg] A THENA ([facility]) Body weight 2784 [oz_av] 2784 [oz_av] REBEKAH ([facility]) Diastolic blood pressure 78 mm[Hg] 78 mm[Hg] REBEKAH ([facility]) Body height 70.5 [in_i] 70.5 [in_i] REBEKAH ([facility]) Body mass index (BMI) [Ratio] 24.6 kg/m2 24.6 k g/m2 REBEKAH ([facility]) Systolic blood pressure 115 mm[Hg] 115 mm[Hg] A THENA ([facility]) Body weight 2784 [oz_av] 2784 [oz_av] REBEKAH ([facility]) Diastolic blood pressure 78 mm[Hg] 78 mm[Hg] REBEKAH ([facility]) Body height 70.5 [in_i] 70.5 [in_i] REBEKAH ([facility]) Body mass index (BMI) [Ratio] 24.6 kg/m2 24.6 k g/m2 REBEKAH ([facility]) Systolic blood pressure 115 mm[Hg] 115 mm[Hg] A THENA ([facility]) Body weight 2784 [oz_av] 2784 [oz_av] REBEKAH ([facility]) Diastolic blood pressure 78 mm[Hg] 78 mm[Hg] REBEKAH ([facility]) Body height 70.5 [in_i] 70.5 [in_i] REBEKAH ([facility]) Body mass index (BMI) [Ratio] 24.6 kg/m2 24.6 k g/m2 REBEKAH ([facility]) Systolic blood pressure 115 mm[Hg] 115 mm[Hg] A THENA ([facility]) Body weight 2784 [oz_av] 2784 [oz_av] REBEKAH ([facility]) Systolic blood pressure 115 mm[Hg] 115 mm[Hg] A THENA ([facility]) Body weight 2784 [oz_av] 2784 [oz_av] REBEKAH ([facility]) Diastolic blood pressure 78 mm[Hg] 78 mm[Hg] REBEKAH ([facility]) Body height 70.5 [in_i] 70.5 [in_i] REBEKAH ([facility]) Body mass index (BMI) [Ratio] 24.6 kg/m2 24.6 k g/m2 REBEKAH ([facility]) Systolic blood pressure 128 mm[Hg] 128 mm[Hg] M EDENT ([facility], ) Oxygen saturation in Arterial blood by Pulse oximetry 97 % 97 % MEDENT ([facility]) Body height 70 [in_i] 70 [in_i] MEDENT ([facility], ) 5'10" 5 Diastolic blood pressure 72 mm[Hg] 72 mm[Hg] MEDENT ([facility]) Heart rate 84 /min 84 /min MEDENT ([facility]) Body weight 178.25 [lb_av] 178.25 [lb_av] MEDEN T ([facility]) Body mass index (BMI) [Ratio] 25.6 kg/m2 25.6 k g/m2 [facility] ([facility]) [place] body weight 166 [lb_av] 166 [lb_av] MEDEN T ([facility]) Body weight 80.854 kg 80.854 kg [facility] ([facility]) Body surface area Derived from formula 1.99 m2 1.99 m2 [facility] ([facility]) Body weight 172 [lb_av] 172 [lb_av] eCW1 ([facility]) Body height 70 [in_i] 70 [in_i] eCW1 ([facility]) Body mass index (BMI) [Ratio] 24.68 kg/m2 24.68 kg/m2 eCW1 ([facility]) Heart rate 89 /min 89 /min eCW1 ([facility]) Respiratory rate 18 /min 18 /min eCW1 ([facility]) Body temperature 96.3 [degF] 96.3 [degF] eCW1 ( [facility]) Systolic blood pressure 132 mm[Hg] 132 mm[Hg] e CW1 ([facility]) Diastolic blood pressure 78 mm[Hg] 78 mm[Hg] eCW1 ([facility]) Diastolic blood pressure 90 mm[Hg] 90 mm[Hg] REBEKAH ([facility]) Diastolic blood pressure 91 mm[Hg] 91 mm[Hg] REBEKAH ([facility]) Body height 70.5 [in_i] 70.5 [in_i] REBEKAH ([facility]) Body mass index (BMI) [Ratio] 25 kg/m2 25 kg/ m2 REBEKAH ([facility]) Systolic blood pressure 130 mm[Hg] 130 mm[Hg] A THENA ([facility]) Body weight 2825.6 [oz_av] 2825.6 [oz_av] ATHEN A ([facility]) Systolic blood pressure 144 mm[Hg] 144 mm[Hg] [facility] Diastolic blood pressure 90 mm[Hg] 90 mm[Hg] REBEKAH ([facility]) Diastolic blood pressure 91 mm[Hg] 91 mm[Hg] REBEKAH ([facility]) Body height 70.5 [in_i] 70.5 [in_i] REBEKAH ([facility]) Body mass index (BMI) [Ratio] 25 kg/m2 25 kg/ m2 REBEKAH ([facility]) Systolic blood pressure 130 mm[Hg] 130 mm[Hg] A THENA ([facility]) Systolic blood pressure 144 mm[Hg] 144 mm[Hg] A THENA ([facility]) Body weight 2825.6 [oz_av] 2825.6 [oz_av] ATHEN A ([facility]) Body weight 2825.6 [oz_av] 2825.6 [oz_av] ATHEN A ([facility]) Diastolic blood pressure 90 mm[Hg] 90 mm[Hg] REBEKAH ([facility]) Diastolic blood pressure 91 mm[Hg] 91 mm[Hg] REBEKAH ([facility]) Body height 70.5 [in_i] 70.5 [in_i] REBEKAH ([facility]) Body mass index (BMI) [Ratio] 25 kg/m2 25 kg/ m2 REBEKAH ([facility]) Systolic blood pressure 130 mm[Hg] 130 mm[Hg] A THENA ([facility]) Systolic blood pressure 144 mm[Hg] 144 mm[Hg] A THENA ([facility]) Diastolic blood pressure 90 mm[Hg] 90 mm[Hg] REBEKAH ([facility]) Diastolic blood pressure 91 mm[Hg] 91 mm[Hg] REBEKAH ([facility]) Body height 70.5 [in_i] 70.5 [in_i] REBEKAH ([facility]) Body mass index (BMI) [Ratio] 25 kg/m2 25 kg/ m2 REBEKAH ([facility]) Systolic blood pressure 130 mm[Hg] 130 mm[Hg] A THENA ([facility]) Systolic blood pressure 144 mm[Hg] 144 mm[Hg] A THENA ([facility]) Body weight 2825.6 [oz_av] 2825.6 [oz_av] ATHEN A ([facility]) Body mass index (BMI) [Ratio] 25 kg/m2 25 kg/ m2 REBEKAH ([facility]) Systolic blood pressure 130 mm[Hg] 130 mm[Hg] A THENA ([facility]) Systolic blood pressure 144 mm[Hg] 144 mm[Hg] A THENA ([facility]) Body weight 2825.6 [oz_av] 2825.6 [oz_av] ATHEN A ([facility]) Diastolic blood pressure 90 mm[Hg] 90 mm[Hg] REBEKAH ([facility]) Diastolic blood pressure 91 mm[Hg] 91 mm[Hg] REBEKAH ([facility]) Body height 70.5 [in_i] 70.5 [in_i] REBEKAH ([facility]) Systolic blood pressure 144 mm[Hg] 144 mm[Hg] A THENA ([facility]) Diastolic blood pressure 90 mm[Hg] 90 mm[Hg] REBEKAH ([facility]) Diastolic blood pressure 91 mm[Hg] 91 mm[Hg] REBEKAH ([facility]) Body height 70.5 [in_i] 70.5 [in_i] REBEKAH ([facility]) Body mass index (BMI) [Ratio] 25 kg/m2 25 kg/ m2 REBEKAH ([facility]) Systolic blood pressure 130 mm[Hg] 130 mm[Hg] A THENA ([facility]) Body weight 2825.6 [oz_av] 2825.6 [oz_av] ATHEN A ([facility]) Diastolic blood pressure 90 mm[Hg] 90 mm[Hg] REBEKAH ([facility]) Diastolic blood pressure 91 mm[Hg] 91 mm[Hg] REBEKAH ([facility]) Body height 70.5 [in_i] 70.5 [in_i] REBEKAH ([facility]) Body mass index (BMI) [Ratio] 25 kg/m2 25 kg/ m2 REBEKAH ([facility]) Systolic blood pressure 130 mm[Hg] 130 mm[Hg] [facility] Systolic blood pressure 144 mm[Hg] 144 mm[Hg] [facility]) Body weight 2825.6 [oz_av] 2825.6 [oz_av] ATHEN A ([facility]) Diastolic blood pressure 90 mm[Hg] 90 mm[Hg] REBEKAH ([facility]) Diastolic blood pressure 91 mm[Hg] 91 mm[Hg] REBEKAH ([facility]) Body height 70.5 [in_i] 70.5 [in_i] REBEKAH ([facility]) Body mass index (BMI) [Ratio] 25 kg/m2 25 kg/ m2 REBEKAH ([facility]) Systolic blood pressure 130 mm[Hg] 130 mm[Hg] A THENA ([facility]) Systolic blood pressure 144 mm[Hg] 144 mm[Hg] A THENA ([facility]) Body weight 2825.6 [oz_av] 2825.6 [oz_av] ATHEN A ([facility]) Body mass index (BMI) [Ratio] 25.0 kg/m2 25.0 k g/m2 MEDABILIO ([facility], ) [place] body weight 166 [lb_av] 166 [lb_av] MEDYOLY T ([facility], ) Body weight 78.926 kg 78.926 kg MEDABILIO ([facility], ) Body surface area Derived from formula 1.97 m2 1.97 m2 MEDABILIO ([facility], ) Systolic blood pressure 130 mm[Hg] 130 mm[Hg] [facility] Diastolic blood pressure 80 mm[Hg] 80 mm[Hg] [facility] ([facility]) Heart rate 78 /min 78 /min [facility] ([facility]) Oxygen saturation in Arterial blood by Pulse oximetry 98 % 98 % [facility] ([facility]) Body height 70 [in_i] 70 [in_i] [facility] ([facility]) 5'10" 5 Body weight 174.00 [lb_av] 174.00 [lb_av] [facility] Diastolic blood pressure 81 mm[Hg] 81 mm[Hg] [facility] ([facility]) Systolic blood pressure 124 mm[Hg] 124 mm[Hg] [facility] ([facility]) Heart rate 73 /min 73 /min [facility] ([facility]) Body height 70 [in_i] 70 [in_i] [facility] ([facility]) 5'10" 5 Body weight 172.12 [lb_av] 172.12 [lb_av] MEDEN T ([facility]) Body mass index (BMI) [Ratio] 24.7 kg/m2 24.7 k g/m2 [facility] ([facility]) [place] body weight 166 [lb_av] 166 [lb_av] MEDEN T ([facility]) Body weight 78.076 kg 78.076 kg [facility] ([facility]) Body weight 2770.08 [oz_av] 2770.08 [oz_av] ATH MICHAEL ([facility]) Diastolic blood pressure 92 mm[Hg] 92 mm[Hg] REBEKAH ([facility]) Body height 70.5 [in_i] 70.5 [in_i] REBEKAH ([facility]) Systolic blood pressure 147 mm[Hg] 147 mm[Hg] A THENA ([facility]) Body mass index (BMI) [Ratio] 24.58 kg/m2 24.58 kg/m2 REBEKAH ([facility]) Diastolic blood pressure 92 mm[Hg] 92 mm[Hg] REBEKAH ([facility]) Body height 70.5 [in_i] 70.5 [in_i] REBEKAH ([facility]) Body mass index (BMI) [Ratio] 24.58 kg/m2 24.58 kg/m2 REBEKAH ([facility]) Systolic blood pressure 147 mm[Hg] 147 mm[Hg] A THENA ([facility]) Body weight 2770.08 [oz_av] 2770.08 [oz_av] ATH MICHAEL ([facility]) Diastolic blood pressure 92 mm[Hg] 92 mm[Hg] REBEKAH ([facility]) Body height 70.5 [in_i] 70.5 [in_i] REBEKAH ([facility]) Body mass index (BMI) [Ratio] 24.58 kg/m2 24.58 kg/m2 REBEKAH ([facility]) Systolic blood pressure 147 mm[Hg] 147 mm[Hg] A THENA ([facility]) Body weight 2770.08 [oz_av] 2770.08 [oz_av] ATH MICHAEL ([facility]) Diastolic blood pressure 92 mm[Hg] 92 mm[Hg] REBEKAH ([facility]) Body height 70.5 [in_i] 70.5 [in_i] REBEKAH ([facility]) Body mass index (BMI) [Ratio] 24.58 kg/m2 24.58 kg/m2 REBEKAH ([facility]) Systolic blood pressure 147 mm[Hg] 147 mm[Hg] A THENA ([facility]) Body weight 2770.08 [oz_av] 2770.08 [oz_av] ATH MICHAEL ([facility]) Systolic blood pressure 147 mm[Hg] 147 mm[Hg] [facility] Diastolic blood pressure 92 mm[Hg] 92 mm[Hg] REBEKAH ([facility]) Body height 70.5 [in_i] 70.5 [in_i] REBEKAH ([facility]) Body mass index (BMI) [Ratio] 24.58 kg/m2 24.58 kg/m2 REBEKAH ([facility]) Body weight 2770.08 [oz_av] 2770.08 [oz_av] ATH MICHAEL ([facility]) Patient Treatment Plan of Care Planned Activity Planned Date Details Description Data Source (s) Prednisone 20 MG Oral Tablet REBEKAH ([facility]) Acetaminophen 325 MG / Oxycodone Hydrochloride 5 MG Oral Tablet REBEKAH ([facility]) Doxycycline Monohydrate 100 MG Oral Tablet REBEKAH ([facility]) Doxycycline Monohydrate 100 MG Oral Capsule REBEKAH ([facility]) chlorhexidine gluconate 1.2 MG/ML Mouthwash REBEKAH ([facility]) cetirizine hydrochloride 10 MG Oral Tablet REBEKAH ([facility]) Amoxicillin 500 MG Oral Capsule REBEKAH ([facility]) albuterol sulfate HFA 90 mcg/actuation a erosol inhaler INHALE 2 PUFFS BY MOUTH NEEDED MAXIMUM DAILY DOSE 12 PUFFS REBEKAH ([facility]) Acyclovir 0.05 MG/MG Topical Ointment REBEKAH ([facility]) Acetaminophen 325 MG / Oxycodone Hydrochloride 5 MG Oral Tablet REBEKAH ([facility]) Doxycycline Monohydrate 100 MG Oral Tablet REBEKAH ([facility]) chlorhexidine gluconate 1.2 MG/ML Mouthwash REBEKAH ([facility]) Amoxicillin 500 MG Oral Capsule REBEKAH ([facility]) Prednisone 20 MG Oral Tablet REBEKAH ([facility]) Acetaminophen 325 MG / Oxycodone Hydrochloride 5 MG Oral Tablet REBEKAH ([facility]) Doxycycline Monohydrate 100 MG Oral Tablet REBEKAH ([facility]) chlorhexidine gluconate 1.2 MG/ML Mouthwash REBEKAH ([facility]) Amoxicillin 500 MG Oral Capsule REBEKAH ([facility]) Prednisone 20 MG Oral Tablet REBEKAH ([facility]) Acetaminophen 325 MG / Oxycodone Hydrochloride 5 MG Oral Tablet REBEKAH ([facility]) Doxycycline Monohydrate 100 MG Oral Tablet REBEKAH ([facility]) chlorhexidine gluconate 1.2 MG/ML Mouthwash REBEKAH ([facility]) Amoxicillin 500 MG Oral Capsule REBEKAH ([facility]) Prednisone 20 MG Oral Tablet REBEKAH ([facility]) Acetaminophen 325 MG / Oxycodone Hydrochloride 5 MG Oral Tablet REBEKAH ([facility]) Doxycycline Monohydrate 100 MG Oral Tablet REBEKAH ([facility]) chlorhexidine gluconate 1.2 MG/ML Mouthwash REBEKAH ([facility]) Amoxicillin 500 MG Oral Capsule REBEKAH ([facility]) Acetaminophen 325 MG / Oxycodone Hydrochloride 5 MG Oral Tablet REBEKAH ([facility]) chlorhexidine gluconate 1.2 MG/ML Mouthwash REBEKAH ([facility]) Amoxicillin 500 MG Oral Capsule REBEKAH ([facility])
== END 2020-12-22 15:33 | disposition home or self-care (01) ==
LOC: M ED 13:10
DX: S60.453A Superficial foreign body of left middle finger, initial encounter (principal); W45.0XXA Nail entering through skin, initial encounter; Y92.099 Unspecified place in other non-institutional residence as the place of occurrence of the external cause; Y93.89 Activity, other specified; Y99.9 Unspecified external cause status; E78.5 Hyperlipidemia, unspecified; J45.909 Unspecified asthma, uncomplicated; J44.9 Chronic obstructive pulmonary disease, unspecified; Z86.73 Personal history of transient ischemic attack (TIA), and cerebral infarction without residual deficits; M54.9 Dorsalgia, unspecified; Z85.038 Personal history of other malignant neoplasm of large intestine; F17.200 Nicotine dependence, unspecified, uncomplicated; F12.10 Cannabis abuse, uncomplicated; Z79.82 Long term (current) use of aspirin; Z79.899 Other long term (current) drug therapy

== ENCOUNTER → 2020-12-27 | Outpatient (CLI) | payer OTHER ==
[~2020-12-27] MED LIST changes: +CEPH500C PO
--- NOTE | 2020-12-27 13:10 | REP ---
INDICATION: POST NAIL REMOVAL. COMPARISON: None. TECHNIQUE: Three views of the left 3rd finger were obtained. FINDINGS: There is mild arthritis of the D IP joint of the 3rd finger. There is no fracture or dislocation. There are no abnormal soft tissue calcifications or radiopaque foreign bodies. There is no subcutaneous emphysema. IMPRESSION: 1. Arthritis of the D IP joint of the 3rd finger. 2. No soft tissue abnormalities. <Electronically signed by Ambrosio Murray > 12/27/20 [id number]
== END ==
LOC: M SOG 10:47
PROVIDERS: ATTEND Orthopaedic Surgery
DX: M79.645 Pain in left finger(s) (principal); M19.042 Primary osteoarthritis, left hand

== ENCOUNTER → 2021-01-16 | Outpatient (CLI) | payer OTHER ==
--- NOTE | 2021-01-16 09:32 | REP ---
INDICATION: LT FINGER PAIN. COMPARISON: 12/22/2020, 12/27/2020 TECHNIQUE: AP and lateral views of the left 3rd digit FINDINGS: Lateral view cannot exclude a very small fracture through the osteophyte along the dorsal base of the distal phalanx which may be related to the prior trauma. Remainder of the examination is unremarkable and normal/stable. No further evidence for acute process. No periosteal reaction noted. No subcutaneous emphysema. IMPRESSION: Cannot exclude a very small nondisplaced fractured osteophyte along the dorsal base of the distal phalanx which may be related to prior injury/trauma. <Electronically signed by Morgan Maravilla > 01/16/21 [id number]
== END ==
LOC: M SOG 09:11
PROVIDERS: ATTEND Orthopaedic Surgery
DX: M79.645 Pain in left finger(s) (principal)

== ENCOUNTER → 2021-02-22 | Outpatient (CLI) | payer OTHER ==
--- NOTE | 2021-02-22 16:28 | REP ---
INDICATION: HX OF CVA, TIA COMPARISON: 08/09/2005 TECHNIQUE: Gold scale and color Doppler evaluation using linear high frequency transducer Findings: FINDINGS: Two-dimensional gold scale and color images demonstrate normal arterial lumen with laminar flow and no appreciable narrowing. Color Doppler interrogation demonstrates normal arterial wave patterns and velocities with no significant spectral broadening. Normal flow direction is appreciated in the bilateral vertebral arteries. ICA peak systolic velocity: Right 70.2 cm/s; Left 66.6 cm/s ICA diastolic velocity: Right 33.2 cm/s; Left 19.7 cm/s ECA peak systolic velocity: Right 79.1 cm/s; Left 76.0 cm/s CCA peak systolic velocity: Right 98.9 cm/s; Left 114.3 cm/s ICA/CCA ratio: Right 0.71 cm/s; Left 0.58 cm/s IMPRESSION: No hemodynamically significant areas of narrowing or stenosis appreciated. Based on set standards narrowing falls within the less than 50% range. <Electronically signed by Morgan Maravilla > 02/22/21 1509
== END ==
LOC: M RAD 15:21
PROVIDERS: ATTEND Nurse Practitioner Family
DX: Z86.73 Personal history of transient ischemic attack (TIA), and cerebral infarction without residual deficits (principal)

== ENCOUNTER → 2021-04-11 | Outpatient (CLI) | payer OTHER | LOC: M RAD 13:25 | PROVIDERS: ATTEND Nurse Practitioner Family | DX: Z12.2 Encounter for screening for malignant neoplasm of respiratory organs (principal); F17.200 Nicotine dependence, unspecified, uncomplicated; R91.1 Solitary pulmonary nodule ==

== ENCOUNTER → 2021-09-03 | Outpatient (CLI) | payer OTHER | LOC: M LABSMTC 09:43 | PROVIDERS: ATTEND Anesthesiology | DX: Z01.812 Encounter for preprocedural laboratory examination (principal); Z20.822 Contact with and (suspected) exposure to COVID-19 ==

== ENCOUNTER 2021-09-07 11:04 | Day surgery (SDC) | payer OTHER ==
[~2021-09-07] VITALS: Ht 177.8 cm; Wt 75.7 kg
[~2021-09-07 11:04] MED LIST changes: +NS 1,000 ML IV ONE
[2021-09-07 13:05] VITALS: BP 141/9
[2021-09-07] MEDS ORDERED: propofoL 200 MG/20 ML VIAL As Ordered ONE (13:20)
== END 2021-09-07 13:15 | disposition home or self-care (01) ==
LOC: M OPP 11:04
PROVIDERS: ATTEND Surgery
DX: Z12.11 Encounter for screening for malignant neoplasm of colon (principal); Z86.010 Personal history of colon polyps; Z90.49 Acquired absence of other specified parts of digestive tract; Z85.038 Personal history of other malignant neoplasm of large intestine; Z79.02 Long term (current) use of antithrombotics/antiplatelets; Z79.51 Long term (current) use of inhaled steroids; Z79.82 Long term (current) use of aspirin; Z79.899 Other long term (current) drug therapy; B00.9 Herpesviral infection, unspecified; F17.210 Nicotine dependence, cigarettes, uncomplicated; Z80.1 Family history of malignant neoplasm of trachea, bronchus and lung; Z87.11 Personal history of peptic ulcer disease; Z86.73 Personal history of transient ischemic attack (TIA), and cerebral infarction without residual deficits

== ENCOUNTER → 2021-09-13 | Outpatient (CLI) | payer OTHER ==
[~2021-09-13] MED LIST changes: -NS 1,000 ML IV ONE
[2021-09-13 10:22] LABS: BASO # 0.1 10^3/uL (0.0-0.2); BASO % 1.2 % (0.0-1.0); EOS # 0.5 10^3/uL (0.0-0.5); EOS % 5.4 % (0.0-3.0); HEMATOCRIT 45.6 % (42.0-52.0); HEMOGLOBIN 15.4 g/dl (13.5-17.5); LYMPH # 3.1 10^3/uL (1.5-5.0); LYMPH % 36.3 % (24.0-44.0); MEAN CORPUSCULAR HEMOGLOBIN 32.1 pg (27.0-33.0); MEAN CORPUSCULAR HGB CONC 33.8 g/dl (32.0-36.5); MONO # 0.6 10^3/uL (0.0-0.8); NEUTROPHILS # 4.2 10^3/uL (1.5-8.5); NEUTROPHILS % 49.9 % (36.0-66.0); PLATELET COUNT, AUTOMATED 285 10^3/uL (150-450); WHITE BLOOD COUNT 8.5 10^3/uL (4.0-10.0)
[2021-09-13 11:17] LABS: ALBUMIN 3.5 GM/DL (3.2-5.2); ALT/SGPT 19 U/L (12-78); BILIRUBIN,TOTAL 0.5 MG/DL (0.2-1.0); BLOOD UREA NITROGEN 12 MG/DL (7-18); CALCIUM LEVEL 9.2 MG/DL (8.8-10.2); CARBON DIOXIDE LEVEL 30 MEQ/L (21-32); CHLORIDE LEVEL 107 MEQ/L (98-107); CHOLESTEROL LEVEL 157 MG/DL (<200); CHOLESTEROL RISK RATIO 2.532 (<5); CREATININE FOR GFR 0.85 MG/DL (0.70-1.30); GLOMERULAR FILTRATION RATE > 60.0 (>49); GLUCOSE, FASTING 99 MG/DL (70-100); HDL CHOLESTEROL 62 MG/DL (>40); LDL CHOLESTEROL 80 MG/DL (<100); NON-HDL-C 95 MG/DL; POTASSIUM SERUM 4.9 MEQ/L (3.5-5.1); SODIUM LEVEL 139 MEQ/L (136-145); TOTAL PROTEIN 6.8 GM/DL (6.4-8.2); TRIGLYCERIDES LEVEL 74 MG/DL (<150)
[2021-09-13 13:51] LABS: HEMOGLOBIN A1c 5.7 %
== END ==
LOC: M WUC 08:02
PROVIDERS: ATTEND Nurse Practitioner Family
DX: Z00.00 Encounter for general adult medical examination without abnormal findings (principal); Z68.25 Body mass index [BMI] 25.0-25.9, adult

== ENCOUNTER 2021-11-06 08:41 | Emergency (ER) | payer OTHER ==
[~2021-11-06] VITALS: Ht 177.8 cm; Wt 80.7 kg
[2021-11-06 08:42] VITALS: BP 140/89
== END 2021-11-06 11:21 | disposition left against medical advice (07) ==
LOC: M ED 08:41
DX: Z53.21 Procedure and treatment not carried out due to patient leaving prior to being seen by health care provider (principal)

== ENCOUNTER → 2022-05-17 | Outpatient (CLI) | payer OTHER | LOC: M RAD 06:40 | PROVIDERS: ATTEND Nurse Practitioner Family | DX: Z12.2 Encounter for screening for malignant neoplasm of respiratory organs (principal) ==

== ENCOUNTER → 2022-09-03 | Outpatient (REF) | payer OTHER ==
[2022-09-03 11:15] LABS: BASO # 0.1 10^3/uL (0.0-0.2); BASO % 1.6 % (0.0-1.0); EOS # 0.3 10^3/uL (0.0-0.5); EOS % 4.3 % (0.0-3.0); HEMOGLOBIN 15.6 g/dl (13.5-17.5); LYMPH # 2.7 10^3/uL (1.5-5.0); LYMPH % 36.3 % (24.0-44.0); MEAN CORPUSCULAR HEMOGLOBIN 30.5 pg (27.0-33.0); MEAN CORPUSCULAR HGB CONC 33.2 g/dl (32.0-36.5); MONO # 0.5 10^3/uL (0.0-0.8); MONO % 7.1 % (2.0-8.0); NEUTROPHILS # 3.8 10^3/uL (1.5-8.5); NEUTROPHILS % 50.4 % (36.0-66.0); PLATELET COUNT, AUTOMATED 315 10^3/uL (150-450); RED BLOOD COUNT 5.11 10^6/uL (4.30-6.10); WHITE BLOOD COUNT 7.5 10^3/uL (4.0-10.0)
[2022-09-03 11:22] LABS: ALBUMIN 3.8 G/DL (3.2-5.2); ALKALINE PHOSPHATASE 90 U/L (46-116); ALT/SGPT < 9 U/L (7.0-40); AST/SGOT < 8 U/L (<34); BILIRUBIN,TOTAL 0.7 MG/DL (0.3-1.2); BLOOD UREA NITROGEN 18 MG/DL (9-23); CALCIUM LEVEL 9.1 MG/DL (8.3-10.6); CARBON DIOXIDE LEVEL 30 MMOL/L (20-31); CHLORIDE LEVEL 104 MMOL/L (98-107); CHOLESTEROL LEVEL 155 MG/DL (<200); CHOLESTEROL RISK RATIO 2.97 (<5); GLOMERULAR FILTRATION RATE > 60.0 (>49); GLUCOSE, FASTING 101 MG/DL (74-106); HDL CHOLESTEROL 52.1 MG/DL (>40); LDL CHOLESTEROL 87.1 MG/DL (<100); NON-HDL-C 102.9 MG/DL; POTASSIUM SERUM 5.2 MMOL/L (3.5-5.1); SODIUM LEVEL 137 MMOL/L (136-145); TOTAL PROTEIN 6.6 G/DL (5.7-8.2); TRIGLYCERIDES LEVEL 79 MG/DL (<150)
[2022-09-03 11:24] LABS: THYROID STIMULATING HORMONE 1.068 uIU/ML (0.55-4.78); TOTAL 25(OH) VITAMIN D 35.2 NG/ML (20.0-100.0)
[2022-09-03 11:55] LABS: HEMOGLOBIN A1c 5.4 % (4.0-6.0)
== END ==
LOC: M LAB REF 10:53
PROVIDERS: ATTEND Nurse Practitioner Family
DX: Z13.228 Encounter for screening for other metabolic disorders (principal)

== ENCOUNTER → 2023-06-12 | Outpatient (CLI) | payer OTHER | LOC: M RAD 09:33 | PROVIDERS: ATTEND Nurse Practitioner Family | DX: Z12.2 Encounter for screening for malignant neoplasm of respiratory organs (principal); F17.210 Nicotine dependence, cigarettes, uncomplicated; J84.10 Pulmonary fibrosis, unspecified; R91.1 Solitary pulmonary nodule ==

== ENCOUNTER → 2023-08-14 | Outpatient (CLI) | payer OTHER | LOC: M CARPUL 08:56 | PROVIDERS: ATTEND Nurse Practitioner Family | DX: I25.10 Atherosclerotic heart disease of native coronary artery without angina pectoris (principal) ==

== ENCOUNTER → 2023-11-08 | Outpatient (REF) | payer OTHER ==
[2023-11-08 18:05] LABS: BASO # 0.1 10^3/uL (0.0-0.2); BASO % 1.2 % (0.0-1.0); EOS # 0.4 10^3/uL (0.0-0.5); EOS % 5.6 % (0.0-3.0); HEMATOCRIT 47.8 % (42.0-52.0); HEMOGLOBIN 16.1 g/dl (13.5-17.5); LYMPH # 2.9 10^3/uL (1.5-5.0); MEAN CORPUSCULAR HEMOGLOBIN 30.9 pg (27.0-33.0); MEAN CORPUSCULAR HGB CONC 33.7 g/dl (32.0-36.5); MEAN CORPUSCULAR VOLUME 91.7 fl (80.0-96.0); MONO # 0.4 10^3/uL (0.0-0.8); MONO % 5.3 % (2.0-8.0); NEUTROPHILS % 44.8 % (36.0-66.0); PLATELET COUNT, AUTOMATED 284 10^3/uL (150-450); RED BLOOD COUNT 5.21 10^6/uL (4.30-6.10); WHITE BLOOD COUNT 6.8 10^3/uL (4.0-10.0)
[2023-11-08 18:35] LABS: ALBUMIN 4.1 G/DL (3.2-5.2); ALKALINE PHOSPHATASE 93 U/L (46-116); ALT/SGPT 19 U/L (7.0-40); AST/SGOT 13 U/L (<34); BILIRUBIN,TOTAL 1.2 MG/DL (0.3-1.2); BLOOD UREA NITROGEN 15 MG/DL (9-23); CARBON DIOXIDE LEVEL 28 MMOL/L (20-31); CHLORIDE LEVEL 108 MMOL/L (98-107); CHOLESTEROL LEVEL 155 MG/DL (<200); CHOLESTEROL RISK RATIO 2.72 (<5); CREATININE FOR GFR 0.87 MG/DL (0.70-1.30); GLOMERULAR FILTRATION RATE > 60.0 (>49); GLUCOSE, FASTING 80 MG/DL (74-106); HDL CHOLESTEROL 56.8 MG/DL (>40); LDL CHOLESTEROL 82.2 MG/DL (<100); NON-HDL-C 98.2 MG/DL; POTASSIUM SERUM 5.3 MMOL/L (3.5-5.1); SODIUM LEVEL 140 MMOL/L (136-145); TOTAL PROTEIN 7.1 G/DL (5.7-8.2); TRIGLYCERIDES LEVEL 80 MG/DL (<150)
[2023-11-08 18:42] LABS: TESTOSTERONE 413 NG/DL (241-827)
[2023-11-11 13:27] LABS: PSA FREE 0.1 ng/mL; PSA TOTAL 0.6 ng/mL (< OR = 4.0)
== END ==
LOC: M LAB REF 16:29
PROVIDERS: ATTEND Nurse Practitioner Family
DX: E29.1 Testicular hypofunction (principal); E66.3 Overweight; Z12.5 Encounter for screening for malignant neoplasm of prostate

== ENCOUNTER → 2023-11-25 | Outpatient (CLI) | payer OTHER ==
[2023-11-25 14:00] LABS: FREE THYROXINE INDEX 3.1 % (1.4-3.8); T UPTAKE 40.1 % (22.5-37.0); THYROXINE (T4) 7.7 UG/DL (4.5-10.9)
[2023-11-25 14:01] LABS: THYROID STIMULATING HORMONE 0.68 uIU/ML (0.55-4.78)
[2023-11-25 14:05] LABS: FOLATE 14.5 NG/ML (>5.4)
== END ==
LOC: M WUC 09:41
PROVIDERS: ATTEND Psychiatry & Neurology Neurology
DX: I69.311 Memory deficit following cerebral infarction (principal); R41.3 Other amnesia; E53.8 Deficiency of other specified B group vitamins; E51.9 Thiamine deficiency, unspecified; E53.1 Pyridoxine deficiency

== ENCOUNTER → 2023-12-25 | Outpatient (CLI) | payer OTHER | LOC: M WUC 13:57 | PROVIDERS: ATTEND Nurse Practitioner Family | DX: M79.641 Pain in right hand (principal) ==

== ENCOUNTER → 2024-02-17 | Outpatient (REF) | payer OTHER ==
[2024-02-17 13:40] LABS: ALBUMIN 3.5 G/DL (3.2-5.2); ALKALINE PHOSPHATASE 89 U/L (40-129); ALT/SGPT 19 U/L (7.0-40); AST/SGOT 15 U/L (<34); BILIRUBIN,TOTAL 0.6 MG/DL (0.3-1.2); BLOOD UREA NITROGEN 16 MG/DL (9-23); CALCIUM LEVEL 9.6 MG/DL (8.3-10.6); CARBON DIOXIDE LEVEL 29 MMOL/L (20-31); CHLORIDE LEVEL 104 MMOL/L (98-107); CHOLESTEROL LEVEL 203 MG/DL (<200); CHOLESTEROL RISK RATIO 3.33 (<5); CREATININE FOR GFR 0.84 MG/DL (0.70-1.30); GLOMERULAR FILTRATION RATE > 60.0 (>49); GLUCOSE, FASTING 109 MG/DL (74-106); HDL CHOLESTEROL 60.9 MG/DL (>40); LDL CHOLESTEROL 120.1 MG/DL (<100); NON-HDL-C 142.1 MG/DL; POTASSIUM SERUM 4.7 MMOL/L (3.5-5.1); SODIUM LEVEL 140 MMOL/L (136-145); TOTAL PROTEIN 6.5 G/DL (5.7-8.2); TRIGLYCERIDES LEVEL 110 MG/DL (<150)
== END ==
LOC: M LAB REF 13:09
PROVIDERS: ATTEND Nurse Practitioner Family
DX: F17.200 Nicotine dependence, unspecified, uncomplicated (principal); J44.9 Chronic obstructive pulmonary disease, unspecified; J30.89 Other allergic rhinitis

== ENCOUNTER → 2024-05-20 | Outpatient (REF) | payer OTHER ==
[2024-05-20 13:57] LABS: BASO # 0.1 10^3/uL (0.0-0.2); BASO % 1.4 % (0.0-1.0); EOS # 0.7 10^3/uL (0.0-0.5); EOS % 8.7 % (0.0-3.0); HEMATOCRIT 46.6 % (42.0-52.0); HEMOGLOBIN 15.7 g/dl (13.5-17.5); LYMPH # 3.7 10^3/uL (1.5-5.0); LYMPH % 43.1 % (24.0-44.0); MEAN CORPUSCULAR HEMOGLOBIN 31.3 pg (27.0-33.0); MEAN CORPUSCULAR HGB CONC 33.7 g/dl (32.0-36.5); MONO # 0.5 10^3/uL (0.0-0.8); NEUTROPHILS # 3.5 10^3/uL (1.5-8.5); NEUTROPHILS % 40.7 % (36.0-66.0); PLATELET COUNT, AUTOMATED 281 10^3/uL (150-450); RED BLOOD COUNT 5.01 10^6/uL (4.30-6.10); WHITE BLOOD COUNT 8.5 10^3/uL (4.0-10.0)
[2024-05-20 14:05] LABS: ALBUMIN 3.8 G/DL (3.2-5.2); ALKALINE PHOSPHATASE 85 U/L (40-129); ALT/SGPT 21 U/L (7.0-40); AST/SGOT 15 U/L (<34); BILIRUBIN,TOTAL 0.6 MG/DL (0.3-1.2); BLOOD UREA NITROGEN 16 MG/DL (9-23); CALCIUM LEVEL 9.5 MG/DL (8.3-10.6); CARBON DIOXIDE LEVEL 30 MMOL/L (20-31); CHLORIDE LEVEL 105 MMOL/L (98-107); CHOLESTEROL LEVEL 205 MG/DL (<200); CHOLESTEROL RISK RATIO 3.14 (<5); CREATININE FOR GFR 0.83 MG/DL (0.70-1.30); GLOMERULAR FILTRATION RATE > 60.0 (>49); GLUCOSE, FASTING 99 MG/DL (74-106); HDL CHOLESTEROL 65.2 MG/DL (>40); MAGNESIUM LEVEL 1.9 MG/DL (1.8-2.4); NON-HDL-C 139.8 MG/DL; POTASSIUM SERUM 5.2 MMOL/L (3.5-5.1); SODIUM LEVEL 139 MMOL/L (136-145); TOTAL PROTEIN 6.8 G/DL (5.7-8.2); TRIGLYCERIDES LEVEL 84 MG/DL (<150)
== END ==
LOC: M LAB REF 12:13
PROVIDERS: ATTEND Nurse Practitioner Family
DX: E66.3 Overweight (principal)

== ENCOUNTER → 2024-09-07 | Outpatient (REF) | payer OTHER ==
[2024-09-07 12:46] LABS: ALT/SGPT 22 U/L (7.0-40); AST/SGOT 21 U/L (<34); CALCIUM LEVEL 9.4 MG/DL (8.3-10.6); CARBON DIOXIDE LEVEL 30 MMOL/L (20-31); CHLORIDE LEVEL 103 MMOL/L (98-107); CHOLESTEROL LEVEL 187 MG/DL (<200); CHOLESTEROL RISK RATIO 3.24 (<5); CREATININE FOR GFR 0.87 MG/DL (0.70-1.30); GLOMERULAR FILTRATION RATE > 90.0 (>49); LDL CHOLESTEROL 112.0 MG/DL (<100); NON-HDL-C 129.4 MG/DL; POTASSIUM SERUM 5.1 MMOL/L (3.5-5.1); SODIUM LEVEL 139 MMOL/L (136-145); TRIGLYCERIDES LEVEL 87 MG/DL (<150)
== END ==
LOC: M LAB REF 12:19
PROVIDERS: ATTEND Nurse Practitioner Family
DX: F17.220 Nicotine dependence, chewing tobacco, uncomplicated (principal); J44.9 Chronic obstructive pulmonary disease, unspecified

== ENCOUNTER → 2024-12-02 | Outpatient (REF) | payer OTHER ==
[2024-12-02 12:47] LABS: ALT/SGPT 19 U/L (7.0-40); AST/SGOT 15 U/L (<34); CALCIUM LEVEL 9.6 MG/DL (8.3-10.6); CARBON DIOXIDE LEVEL 30 MMOL/L (20-31); CHLORIDE LEVEL 105 MMOL/L (98-107); CHOLESTEROL LEVEL 184 MG/DL (<200); CHOLESTEROL RISK RATIO 2.96 (<5); CREATININE FOR GFR 0.90 MG/DL (0.70-1.30); GLOMERULAR FILTRATION RATE > 90.0 (>49); LDL CHOLESTEROL 105.8 MG/DL (<100); NON-HDL-C 122.0 MG/DL; POTASSIUM SERUM 5.6 MMOL/L (3.5-5.1); SODIUM LEVEL 137 MMOL/L (136-145); TRIGLYCERIDES LEVEL 81 MG/DL (<150)
[2024-12-02 12:49] LABS: TESTOSTERONE 484 NG/DL (241-827)
== END ==
LOC: M LAB REF 11:38
PROVIDERS: ATTEND Student in an Organized Health Care Education/Training Program
DX: J44.9 Chronic obstructive pulmonary disease, unspecified (principal); F17.200 Nicotine dependence, unspecified, uncomplicated; J30.89 Other allergic rhinitis; F52.21 Male erectile disorder

== ENCOUNTER → 2024-12-15 | Outpatient (REF) | payer OTHER ==
[2024-12-15 14:57] LABS: PSA SCREENING 0.49 NG/ML (< 4.00)
[2024-12-15 15:02] LABS: FREE T4 1.22 NG/DL (0.89-1.76); TESTOSTERONE 316.0 NG/DL (241-827)
== END ==
LOC: M LAB REF 13:40
PROVIDERS: ATTEND Student in an Organized Health Care Education/Training Program
DX: F52.21 Male erectile disorder (principal); Z68.24 Body mass index [BMI] 24.0-24.9, adult; Z12.5 Encounter for screening for malignant neoplasm of prostate
CPT/HCPCS: 84403; 84439; 84443; G0103

== ENCOUNTER → 2024-12-30 | Outpatient (REF) | payer OTHER | LOC: M LAB REF 14:12 | PROVIDERS: ATTEND Physician Assistant | DX: J06.9 Acute upper respiratory infection, unspecified (principal) ==

== ENCOUNTER → 2025-01-15 | Outpatient (CLI) | payer OTHER ==
[2025-01-15 14:53] LABS: ALT/SGPT 134 U/L (7.0-40); AST/SGOT 90 U/L (<34); CALCIUM LEVEL 8.7 MG/DL (8.3-10.6); CARBON DIOXIDE LEVEL 29 MMOL/L (20-31); CHLORIDE LEVEL 104 MMOL/L (98-107); CREATININE FOR GFR 0.87 MG/DL (0.70-1.30); GLOMERULAR FILTRATION RATE > 90.0 (>49); POTASSIUM SERUM 4.8 MMOL/L (3.5-5.1); SODIUM LEVEL 139 MMOL/L (136-145)
[2025-01-15 15:31] LABS: ATYPICAL LYMPH 9 % (0-5); BASOPHILS 1 % (0-1); LYMPHOCYTES 21 % (16-44); MONOCYTES 3 % (0-5); NEUTROPHILS 59 % (28-66)
[2025-01-15 15:32] LABS: PLATELET CLUMPS SMALL AMT; PLATELET ESTIMATE INVALID (NORMAL)
[2025-01-19 08:29] LABS: BORRELIA SPECIES DNA NOT DETECTED (NOT DETECT)
[2025-01-19 22:47] LABS: LYME TOTAL ANTIBODY CIA <= 0.90 Index (<=0.90)
== END ==
LOC: M WUC 09:14
PROVIDERS: ATTEND Physician Assistant
DX: S30.860D Insect bite (nonvenomous) of lower back and pelvis, subsequent encounter (principal)

== ENCOUNTER → 2025-01-19 | Outpatient (REF) | payer OTHER ==
[2025-01-19 15:26] LABS: BASO # 0.1 10^3/uL (0.0-0.2); BASO % 0.9 % (0.0-1.0); EOS # 0.1 10^3/uL (0.0-0.5); EOS % 1.2 % (0.0-3.0); LYMPH # 5.2 10^3/uL (1.5-5.0); LYMPH % 67.4 % (24.0-44.0); MONO # 0.4 10^3/uL (0.0-0.8); MONO % 5.5 % (2.0-8.0); NEUTROPHILS # 1.9 10^3/uL (1.5-8.5); NEUTROPHILS % 24.5 % (36.0-66.0); PLATELET COUNT, AUTOMATED 338 10^3/uL (150-450)
[2025-01-19 15:57] LABS: C REACTIVE PROTEIN QUANTITATIV 1.50 MG/DL (<1.0)
[2025-01-19 15:58] LABS: ALT/SGPT 111 U/L (7.0-40); AST/SGOT 44 U/L (<34); CALCIUM LEVEL 9.2 MG/DL (8.3-10.6); CARBON DIOXIDE LEVEL 31 MMOL/L (20-31); CHLORIDE LEVEL 99 MMOL/L (98-107); CREATININE FOR GFR 0.79 MG/DL (0.70-1.30); GLOMERULAR FILTRATION RATE > 90.0 (>49); POTASSIUM SERUM 5.2 MMOL/L (3.5-5.1); SODIUM LEVEL 136 MMOL/L (136-145)
[2025-01-19 16:38] LABS: HEPATITIS C VIRUS ABY INDEX < 0.02 INDEX (<0.8)
== END ==
LOC: M LAB REF 14:35
PROVIDERS: ATTEND Student in an Organized Health Care Education/Training Program
DX: R50.9 Fever, unspecified (principal); R79.89 Other specified abnormal findings of blood chemistry; R42 Dizziness and giddiness

== ENCOUNTER → 2025-02-01 | Outpatient (CLI) | payer OTHER | LOC: M RAD 06:30 | PROVIDERS: ATTEND Student in an Organized Health Care Education/Training Program | DX: Z87.891 Personal history of nicotine dependence (principal) ==

== ENCOUNTER → 2025-02-09 | Outpatient (CLI) | payer OTHER ==
[2025-02-09 13:40] LABS: ALT/SGPT 18 U/L (7.0-40); AST/SGOT 20 U/L (<34); CALCIUM LEVEL 9.2 MG/DL (8.3-10.6); CARBON DIOXIDE LEVEL 29 MMOL/L (20-31); CHLORIDE LEVEL 102 MMOL/L (98-107); CREATININE FOR GFR 0.82 MG/DL (0.70-1.30); GLOMERULAR FILTRATION RATE > 90.0 (>49); POTASSIUM SERUM 4.3 MMOL/L (3.5-5.1); SODIUM LEVEL 136 MMOL/L (136-145)
== END ==
LOC: M WUC 08:06
PROVIDERS: ATTEND Student in an Organized Health Care Education/Training Program
DX: R79.89 Other specified abnormal findings of blood chemistry (principal)